=== PATIENT | female | born 2005 | race Hispanic/Latino ===

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

== ENCOUNTER 2023-01-13 17:15 | Emergency (ER) | payer OTHER ==
--- OUTSIDE RECORDS SUMMARY | 2023-01-13 17:18 | XMS REPORT | Continuity of Care Document ---
:2005 Author Organization [facility] t Address [address] [place] [address] Care Team Providers Name Role Phone ALPHONSO KOVACS Attending Clinician Unavailable Doctor Unassigned, [place] Attending Clinician Unavailable Erin Ramirez MD Attending Clinician Payers Payer Name Policy Type Policy Number Effective Date Expiration Date Formerly [facility] [id number] 2019 CHOICE MEDICAID 00:00:00 Problems This patient has no known problems. Allergies, Adverse Reactions, Alerts Allergy Allergy Status Severity Reaction(s) Onset Inactive Treating Comm ents Source Name Type Date Date Clinician NO KNOWN Drug Active [facility] Medications This patient has no known medications. Procedures This patient has no known procedures. Encounters Start End Encounter Admission Attending Care Care Encounter Source Date/Time Date/Time Type Type Clinicians Facility Department ID 2021-08-07 2021-08-07 Outpatient Eugene KOVACS [facility] [id number] [facility] 09:00:00 09:00:00 ALPHONSO [facility] 2019-08-06 2019-08-06 Orders Doctor CASTRO [id number] 00:00:00 00:00:00 Only UnassignedRADHA [id number] [place] [facility] [id number] 2019-08-02 2019-08-02 Telephone SIDNEY Ramirez [id number] 00:00:00 00:00:00 Erin Monroy [id number] [place] [id number] [facility] [phone] [facility] [address] [facility] 2019-08-01 2019-08-01 Telephone Ashley [facility] [id number] 00:00:00 00:00:00 Erinazul Monroy [id number] Miguel Angel [id number] [facility] [phone] [address] Results This patient has no known results.
[2023-01-13 18:11] LABS: Absolute Lymphocytes (CBC) 0.4 K/uL (0.7-4.9); Hematocrit 36.1 % (36.0-45.0); Lymphocytes % 4.9 % (15.3-44.8); MCV 81.3 fL (80-100); MPV 8.4 fL (7.6-11.3); RBC Red Blood Cell Count 4.44 M/uL (3.86-4.86)
[2023-01-13] MEDS ORDERED: KETOROLAC 30 MG/ML INJ ONE (18:11)
[2023-01-13] MEDS ORDERED: NA CHLORIDE 0.9% 1,000 ML ONE ×2 (18:11→19:52)
[2023-01-13] MEDS ORDERED: ACETAMINOPHEN 500 MG TAB ONE (18:11)
[2023-01-13 18:18] LABS: Protime INR 1.25
[2023-01-13 18:30] LABS: Albumin 3.2 g/dL (3.4-5.0); Bilirubin Total 0.6 mg/dL (0.2-1.0)
[2023-01-13 18:31] LABS: Potassium 2.8 mmol/L (3.5-5.1)
--- NOTE | 2023-01-13 18:36 | EKG ---
Test Date: 2023-01-13 Test Time: 18:18:42 Pick Up: HUMZA MEASUREMENT RESULTS: Intervals: Rate: 121 FL: 112 QRSD: 68 QT: 340 QTc: 482 [place]: P: 72 FL: 112 QRS: 77 T: 66 INTERPRETIVE STATEMENTS: Sinus tachycardia Right atrial enlargement Nonspecific T wave abnormality Abnormal ECG Compared to ECG 12/23/2022 16:02:48 T-wave abnormality now present Electronically Signed On 01-13-23 18:36:30 [employer] SOFTWARE ENGINEER[employer] by Ronnie Dodson
--- NOTE | 2023-01-13 18:53 | RAD REPORT ---
EXAM DESCRIPTION[facility] 6[facility]42 [facility] CLINICAL HISTORY: FEVER COMPARISON: Chest Single View dated 08/27/2022; Chest Single View dated 05/07/2022; Chest Single View dated 04/18/2022; Chest Single View dated 02/05/2021 TECHNIQUE: Portable AP view of the chest. FINDINGS: The lungs are clear. No pneumothorax or effusion. The cardiomediastinal contours are unrem arkable. IMPRESSION: No acute cardiopulmonary process.
[2023-01-13 19:04] LABS: SARS-COV-2 RT PCR NEGATIVE (NEGATIVE)
[2023-01-13] MEDS ORDERED: KCL 20 MEQ/100 mL IVPB 100 ML IV ONE (19:24)
[2023-01-13 19:35] LABS: Urine Blood 1+ (Negative); Urine Glucose 2+ (Negative); Urine Protein Trace (Negative); Urine Specific Gravity 1.015 (1.005-1.030); Urine pH 5.5 (5.0-7.0)
[2023-01-13] MEDS ORDERED: CEFTRIAXONE 1000 MG/VIAL ONE (19:52)
[2023-01-13] MEDS ORDERED: DIPHENHYDRAMINE 50 MG/ML VIAL ONE (19:52)
[2023-01-13] MEDS ORDERED: METOCLOPRAMIDE 10 MG/2mL INJ ONE (19:52)
[2023-01-13 20:03] LABS: Urine Bacteria <20 /HPF (<20); Urine Crystals Unidentified Few /HPF (None Seen); Urine Mucus Slight /HPF (None Seen); Urine RBC <5 /HPF (None Seen); Urine WBC Clump Rare /HPF (None Seen)
[2023-01-13 20:05] LABS: Barbiturates NEGATIVE (NEGATIVE); Benzodiazepines NEGATIVE (NEGATIVE); Cocaine NEGATIVE (NEGATIVE); METHAMPHETAM NEGATIVE (NEGATIVE); Methadone NEGATIVE (NEGATIVE); Opiates NEGATIVE (NEGATIVE); Phencyclidine NEGATIVE (NEGATIVE); THC Cannibis POSITIVE (NEGATIVE)
[2023-01-13 20:22] LABS: Urine Specific Gravity/Preg >1.030 (1.005-1.030)
--- NOTE | 2023-01-13 21:17 | RAD REPORT ---
EXAM DESCRIPTION: CT - Abdomen Pelvis W Contrast - 01/13/2023 8:54 pm CLINICAL HISTORY: back pain. Fever COMPARISON: Abdomen Pelvis W Contrast dated 09/29/2022; Abdomen Pelvis W Contrast dated ; Abdomen Pelvis W Contrast dated 05/07/2022; Abdomen Pelvis W Contrast dated 04/17/2022 TECHNIQUE: Thin cut axial CT imaging of the abdomen and pelvis was performed following intravenous a dministration of 90 mL Isovue 300. Multiplanar reformats were generated and reviewed. All CT scans are performed using dose optimization technique as appropriate and may include automated exposure control or mA/KV adjustment according to patient size. FINDINGS: No suspicious findings in the lung bases. The liver, spleen, and pancreas show no suspicious findings. Gallbladder and biliary tree are also wi thout suspicious finding. Patchy areas of hypoenhancement along the posterior right midpole renal cortex, with adjacent mild fa t stranding, concerning for acute pyelonephritis. Subtle similar changes along the left kidney near t he upper pole, may reflect bilateral involvement. Mild right renal pelvis and proximal ureter urothel ial hyperenhancement could reflect an ascending infection. Subtle areas of hypoenhancement with corti treva thinning at the left lower renal pole, stable in appearance, suggestive of cortical scarring. No dilated bowel loops or bowel wall thickening. No free air, free fluid or inflammatory stranding. N o hernia, mass or bulky lymphadenopathy. The urinary bladder is suboptimally distended, with mild wal l prominence there could relate to nondistention versus changes of acute cystitis. Nondependent gas w ithin the urinary bladder lumen. . No suspicious bony findings. IMPRESSION: Patchy areas of hypoenhancement along the posterior right midpole renal cortex, with adj acent mild fat stranding, concerning for acute pyelonephritis. Subtle similar changes along the left kidney near the upper pole, may reflect bilateral involvement. Upper urinary tract urothelial enhancement on the right, and questionable diffuse urinary bladder wal l prominence, raise concern for an ascending infection. Nondependent gas locules within the urinary bladder. Please correlate clinically with history of rece nt catheterization. The findings were communicated to Pam Darnell on 01/13/2023 at 21:08 hours.
[2023-01-13] MEDS ORDERED: POTASSIUM 25 MEQ EFFERV TAB ONE (21:19)
--- NOTE | 2023-01-13 22:15 | ER ---
Nurse's Notes [facility] Name: Tessa Eagle Age: 17 yrs Sex: Female : 2005 Arrival Date: 01/13/2023 Time: 17:16 Bed 16 Private MD: Diagnosis: Pyelonephritis acute Presentation: 01/13 17:35 Chief complaint: Patient states: Headache, fever, body aches since this morning. Denies ld1 N/V/D. Coronavirus screen: At this time, the client does not indicate any symptoms associated with coronavirus-19. Ebola Screen: No symptoms or risks identified at this time. Initial Sepsis Screen: Does the patient meet any 2 criteria? No. Patient's initial sepsis screen is negative. Does the patient have a suspected source of infection? No. Patient's initial sepsis screen is negative. Risk Assessment: Do you want to hurt yourself or someone else? Patient reports no desire to harm self or others. Onset of symptoms was January 13, 2023. 17:35 Method Of Arrival: Wheelchair ld1 17:35 Acuity: JUSTIN 3 ld1 Triage Assessment: 17:36 General: Appears in no apparent distress. uncomfortable, Behavior is calm, cooperative, ld1 appropriate for age. Pain: Complains of pain in face Pain does not radiate. Pain currently is 8 out of 10 on a pain scale. Quality of pain is described as throbbing. EENT: No signs and/or symptoms were reported regarding the EENT system. Neuro: Level of Consciousness is awake, alert, obeys commands, Oriented to person, place, time, situation. Cardiovascular: Capillary refill < 3 seconds Patient's skin is warm and dry. Rhythm is sinus tachycardia. Respiratory: Airway is patent Respiratory effort is even, unlabored. GI: Abdomen is flat, non-distended. : No signs and/or symptoms were reported regarding the genitourinary system. Derm: No signs and/or symptoms reported regarding the dermatologic system. Musculoskeletal: No signs and/or symptoms reported regarding the musculoskeletal system. VERSE WRITER: 17:36 LMP N/A - Irregular menses ld1 Historical: - Allergies: 17:36 No Known Allergies; ld1 - PMHx: 17:36 diabetes mellitus; ld1 - PSHx: 17:36 None; ld1 - Immunization history:: Adult Immunizations up to date, Client reports receiving the 2nd dose of the Covid vaccine. - Social history:: Smoking status: Patient denies any tobacco usage or history of. Patient/guardian denies using alcohol. Screenin:42 [facility] ED Fall Risk Assessment (Adult) Score/Fall Risk Level 0 - 2 = Low Risk ll1 Oriented to surroundings, Maintained a safe environment, Educated pt \T\ family on fall prevention, incl call for assistance when getting out of bed, Hourly rounding (assess needs \T\ fall precautionary measures) done. Abuse screen: Denies threats or abuse. Nutritional screening: No deficits noted. Tuberculosis screening: No symptoms or risk factors identified. Assessment: 18:24 Reassessment: No changes from previously documented assessment. Patient and/or family ll1 updated on plan of care and expected duration. Pain level reassessed. Patient is alert, oriented x 3, equal unlabored respirations, skin warm/dry/pink. 19:12 Reassessment: No changes from previously documented assessment. Patient and/or family ll1 updated on plan of care and expected duration. Pain level reassessed. Report given to JANESSA Gillis. 19:15 Reassessment: Patient and/or family updated on plan of care and expected duration. Pain aa9 level reassessed. Patient is alert, oriented x 3, equal unlabored respirations, skin warm/dry/pink. Pain: Complains of pain in headache Pain currently is 10 out of 10 on a pain scale. Quality of pain is described as throbbing. 19:15 Respiratory: Airway is patent Respiratory effort is even, unlabored. aa9 21:10 Reassessment: Patient appears in no apparent distress at this time. Patient is alert, aa9 oriented x 3, equal unlabored respirations, skin warm/dry/pink. Patient states feeling better. Patient states symptoms have improved. 22:09 Pain: Denies pain. Neuro: Level of Consciousness is awake, alert, obeys commands, aa9 Oriented to person, place, time, situation. Respiratory: Airway is patent Respiratory effort is even, unlabored, Denies shortness of breath. GI: Patient currently denies nausea. 22:21 Reassessment: Patient appears in no apparent distress at this time. aa9 22:29 Reassessment: Patient appears in no apparent distress at this time. Patient and/or aa9 family updated on plan of care and expected duration. Pain level reassessed. Patient is alert, oriented x 3, equal unlabored respirations, skin warm/dry/pink. Patient denies pain at this time. Patient states feeling better. Vital Signs: 17:35 BP 109 / 68; Pulse 122; Resp 18; Temp 103.2(O); Pulse Ox 96% on R/A; Weight 36.29 kg; ld1 Height 5 ft. 1 in. (154.94 cm); Pain 0/10; 18:27 BP 120 / 82; Pulse 117; Resp 22; Pulse Ox 98% on R/A; ll1 19:19 BP 102 / 62; Pulse 124; Resp 17 S; Temp 100.2(O); Pulse Ox 100% on R/A; Pain 10/10; aa9 20:17 Temp 100.2; aa9 20:22 BP 101 / 68; Pulse 111; Resp 19 S; Pulse Ox 100% on R/A; aa9 21:00 BP 100 / 55; Pulse 100; Resp 17 S; Temp 98.8(O); Pulse Ox 100% on R/A; Pain 0/10; aa9 22:11 BP 100 / 63; Pulse 104; Resp 18 S; Pulse Ox 100% on R/A; aa9 17:35 Body Mass Index 15.12 (36.29 kg, 154.94 cm) ld1 ED Course: 17:16 Patient arrived in ED. am2 17:17 Srinivasan Harrington PA is PHCP. cp 17:17 Suraj Cordova DO is Attending Physician. cp 17:36 Triage completed. ld1 17:36 Arm band placed on right wrist. ld1 17:39 Cj Altman, JANESSA is Primary Nurse. ll1 17:39 Patient placed in an exam room, on a stretcher. ll1 18:00 Inserted saline lock: 22 gauge in left antecubital area, using aseptic technique. Blood ll1 collected. 18:24 Patient has correct armband on for positive identification. Bed in low position. Call ll1 light in reach. Side rails up X2. Client placed on continuous cardiac and pulse oximetry monitoring. NIBP monitoring applied. night monitor on. 18:28 Blood Culture Adult (2) Sent. ll1 18:50 Chest Single View XRAY In Process Unspecified. EDMS 19:40 Glucose, Ancillary Testing Sent. aa9 19:40 Urine --Ancillary (enter results) Sent. aa9 20:21 Urine Culture Sent. aa9 20:56 CT Abd/Pelvis - IV Contrast Only In Process Unspecified. EDMS 21:10 Diet: Patient given water. Tolerated well. aa9 22:28 No provider procedures requiring assistance completed. IV discontinued, intact, aa9 bleeding controlled, No redness/swelling at site. Pressure dressing applied. Administered Medications: 18:24 Drug: NS 0.9% (30 ml/kg) 30 ml/kg Route: IV; Rate: bolus; Site: left antecubital; ll1 20:17 Follow up: Response: No adverse reaction; IV Status: Completed infusion aa9 18:24 Drug: Tylenol 500 mg Route: PO; ll1 20:17 Follow up: Temp 100.2; Response: No adverse reaction aa9 18:24 Drug: Ketorolac 10 mg 10 mg Route: IVP; Site: left antecubital; ll1 20:16 Follow up: Response: No adverse reaction aa9 19:44 CANCELLED (Physician Discretion): Ibuprofen Suspension 10 mg/kg PO once cp 19:50 Drug: Reglan (metoCLOPramide) 10 mg Route: IVP; Site: left antecubital; aa9 21:11 Follow up: Response: No adverse reaction; Pain is decreased aa9 19:54 Drug: Benadryl (diphenhydrAMINE) 12.5 mg Route: IVP; Site: left antecubital; aa9 21:11 Follow up: Response: No adverse reaction; Pain is decreased aa9 19:56 Drug: Rocephin (cefTRIAXone) 1 grams Route: IV; Rate: calculated rate; Site: left aa9 antecubital; 20:16 Follow up: Response: No adverse reaction; IV Status: Completed infusion; IV Intake: [id number] 19:58 Drug: Potassium Chloride 20 mEq Route: IV; Rate: calculated rate; Site: left aa9 antecubital; 22:30 Follow up: Response: No adverse reaction; IV Status: Completed infusion; IV Intake: aa9 100ml 19:58 Drug: NS 0.9% 1000 ml Route: IV; Rate: 100 ml/hr; Site: left antecubital; aa9 22:29 Follow up: Response: No adverse reaction; IV Status: Completed infusion; IV Intake: aa9 250ml 21:20 Drug: Potassium Effervescent Tablet 50 mEq Route: PO; aa9 21:32 Follow up: Response: No adverse reaction aa9 Medication: 17:43 VIS not applicable for this client. ll1 Intake: 20:16 IV: 10ml; Total: 10ml. aa9 22:29 IV: 250ml; Total: 260ml. aa9 22:30 IV: 100ml; Total: 360ml. aa9 Outcome: 22:14 Discharge ordered by MD. cp 22:28 Discharged to home ambulatory, with family. aa9 22:28 Condition: stable 22:28 Discharge instructions given to patient, Instructed on discharge instructions, follow up and referral plans. medication usage, Demonstrated understanding of instructions, follow-up care, medications, Prescriptions given X 3. 22:29 Patient left the ED. aa9 Signatures: Dispatcher [employer] EDMS Srinivasan Harrington PA PA cp Moreno, Amanda am2 Cj Altman RN RN ll1 Ramona Medina RN RN ld1 Elis Montilla RN RN aa9 Corrections: (The following items were deleted from the chart) 19:31 19:19 BP 102 / 62; Pulse 110bpm; Resp 17bpm; Spontaneous; Pulse Ox 100% RA; Temp 100.2F aa9 Oral; Pain 10/10; aa9
--- NOTE | 2023-01-13 22:15 | EDPHYS ---
Physician Documentation [facility] Name: Tessa Eagle Age: 17 yrs Sex: Female : 2005 Arrival Date: 01/13/2023 Time: 17:16 Bed 16 Private MD: ED Physician Suraj Cordova HPI: 01/13 17:40 This 17 yrs old Female presents to ER via Wheelchair with complaints of Fever, cp diabetic. 17:40 The patient reports fever, with an emergency department temperature of 103.2 degrees cp Fahrenheit. Onset: The symptoms/episode began/occurred this morning. 17:40 Associated signs and symptoms: Pertinent positives: decreased appetite, mid back pain, cp Pertinent negatives: cough. 17:40 Severity of symptoms: in the emergency department the symptoms are unchanged despite cp home interventions. 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 - Social history:: Smoking status: Patient denies any tobacco usage or history of. Patient/guardian denies using alcohol. ROS: 17:45 Eyes: Negative for injury, pain, redness, and discharge. cp 17:45 Constitutional: Positive for body aches, fever, poor PO intake. 17:45 ENT: Negative for drainage from ear(s), ear pain, sore throat, difficulty swallowing, difficulty handling secretions. 17:45 Cardiovascular: Negative for chest pain. 17:45 Respiratory: Negative for cough, shortness of breath, wheezing. 17:45 Abdomen/GI: Positive for abdominal pain, Negative for vomiting, diarrhea, constipation. 17:45 Back: Positive for flank pain. 17:45 Skin: Negative for cellulitis, rash. 17:45 Neuro: Positive for headache, Negative for altered mental status. 17:45 All other systems are negative. Exam: 17:50 Constitutional: The patient appears in no acute distress, alert, awake, cp non-diaphoretic, non-toxic, well developed, well nourished, obviously ill. 17:50 Head/Face: Normocephalic, atraumatic. cp 17:50 Eyes: Periorbital structures: appear normal, Conjunctiva: normal, no exudate, no injection, Sclera: no appreciated abnormality, Lids and lashes: appear normal, bilaterally. 17:50 ENT: External ear(s): are unremarkable, Nose: is normal, Mouth: Lips: dry, Oral mucosa: dry, Posterior pharynx: Airway: no evidence of obstruction, patent. 17:50 Neck: ROM/movement: is normal, is supple, without pain, no range of motions limitations, no meningismus. 17:50 Chest/axilla: Inspection: normal. 17:50 Cardiovascular: Rate: tachycardic, Rhythm: regular. 17:50 Respiratory: the patient does not display signs of respiratory distress, Respirations: normal, no use of accessory muscles, no retractions, labored breathing, is not present, Breath sounds: are clear throughout, no decreased breath sounds, no stridor, no wheezing. 17:50 Abdomen/GI: Inspection: abdomen appears normal, Bowel sounds: active, all quadrants, Palpation: soft, in all quadrants, mild abdominal tenderness, in the right lower quadrant and left lower quadrant. 17:50 Back: pain, that is mild, of the mid back area, ROM is normal. 17:50 Skin: cellulitis, is not appreciated, no rash present. 17:50 Neuro: Orientation: to person, place \T\ time. Mentation: is normal, Cerebellar function: Motor: moves all fours, strength is normal, Sensation: is normal. 18:25 ECG was reviewed by the Attending Physician. cp Vital Signs: 17:35 BP 109 / 68; Pulse 122; Resp 18; Temp 103.2(O); Pulse Ox 96% on R/A; Weight 36.29 kg; ld1 Height 5 ft. 1 in. (154.94 cm); Pain 0/10; 18:27 BP 120 / 82; Pulse 117; Resp 22; Pulse Ox 98% on R/A; ll1 19:19 BP 102 / 62; Pulse 124; Resp 17 S; Temp 100.2(O); Pulse Ox 100% on R/A; Pain 10/10; aa9 20:17 Temp 100.2; aa9 20:22 BP 101 / 68; Pulse 111; Resp 19 S; Pulse Ox 100% on R/A; aa9 21:00 BP 100 / 55; Pulse 100; Resp 17 S; Temp 98.8(O); Pulse Ox 100% on R/A; Pain 0/10; aa9 22:11 BP 100 / 63; Pulse 104; Resp 18 S; Pulse Ox 100% on R/A; aa9 17:35 Body Mass Index 15.12 (36.29 kg, 154.94 cm) ld1 MDM: 17:35 Patient medically screened. cp 22:10 Data reviewed: vital signs, nurses notes, lab test result(s), EKG, radiologic studies, cp CT scan, plain films. 22:10 Differential diagnosis: viral Infection, bacterial infection, bronchitis, pneumonia cp UTI, gastroenteritis, meningitis, sepsis. Consideration of Admission/Observation Escalation of care including admission/observation considered. I considered the following discharge prescriptions or medication management in the emergency department Medications were administered in the Emergency Department. See MAR. Care significantly affected by the following chronic conditions: Diabetes. Counseling: I had a detailed discussion with the patient and/or guardian regarding: the historical points, exam findings, and any diagnostic results supporting the discharge/admit diagnosis, lab results, radiology results, the need for outpatient follow up, a family practitioner, to return to the emergency department if symptoms worsen or persist or if there are any questions or concerns that arise at home. Response to treatment: the patient's symptoms have markedly improved after treatment, patient is well hydrated. and as a result, I will discharge patient. ED course: VSS. Pain markedly improved, patient tolerating po fluids. Will discharge to home for continued monitoring. 01/13 17:39 Order name: Urine Microscopic Only; Complete Time: 20:41 cp 01/13 20:41 Interpretation: Normal except: UWBC >50. cp 01/13 17:39 Order name: COVID-19/FLU A+B; Complete Time: 19:41 cp 01/13 17:47 Order name: UDS; Complete Time: 20:41 cp 01/13 17:47 Order name: Blood Culture Adult (2) cp 01/13 17:47 Order name: CBC with Diff cp 01/13 17:47 Order name: CMP cp 01/13 17:47 Order name: Lactate w/ 2H reflex if indic. cp 01/13 17:47 Order name: Protime (+inr) cp 01/13 17:47 Order name: Ptt, Activated 01/13 17:48 Order name: Glucose, Ancillary Testing; Complete Time: 18:26 [facility] 01/13 18:26 Interpretation: Abnormal: GLUC,ANCIL 287. 01/13 18:18 Order name: PTT, Activated Partial Thromb [facility] 01/13 18:18 Order name: Protime (+INR) [facility] 01/13 18:24 Order name: CBC with Automated Diff; Complete Time: 20:42 [facility] 01/13 20:42 Interpretation: Normal except: LIAM% 88.6; LYM% 4.9; LYMA 0.4. 01/13 17:47 Order name: Chest Single View XRAY; Complete Time: 19:04 01/13 19:04 Interpretation: Report review. 01/13 18:27 Order name: Lactate w/ 2H reflex if indic. [facility] 01/13 18:31 Order name: Comprehensive Metabolic Panel [facility] 01/13 18:38 Interpretation: Normal except: NA 133; K 2.8; GLUC 292; ALB 3.2; GLOB 3.8; A/G 0.8. 01/13 18:46 Order name: Glucose, Ancillary Testing [facility] 01/13 18:47 Order name: CT Abd/Pelvis - IV Contrast Only; Complete Time: 21:22 01/13 21:22 Interpretation: Report reviewed. 01/13 19:31 Order name: Urine --Ancillary (enter results); Complete Time: 20:41 ds4 01/13 19:35 Order name: Urine Dipstick-Ancillary; Complete Time: 19:41 [facility] 01/13 19:41 Interpretation: Normal except: UGLUC 2+; UKET 2+; UBLD 1+; UPROT Trace; UNIT Positive; cp UESTR Trace. 01/13 19:52 Order name: Glucose, Ancillary Testing; Complete Time: 20:41 [facility] 01/13 20:05 Order name: Urine Culture [facility] 01/13 17:39 Order name: Urine Test (obtain specimen); Complete Time: 19:58 01/13 17:39 Order name: Urine Dipstick-Ancillary (obtain specimen); Complete Time: 19:58 01/13 17:39 Order name: Accucheck Blood Glucose; Complete Time: 17:41 01/13 17:47 Order name: EKG; Complete Time: 17:48 cp 01/13 17:47 Order name: Accucheck; Complete Time: 17:48 cp 01/13 17:47 Order name: Cardiac monitoring; Complete Time: 18:24 cp 01/13 17:47 Order name: EKG - Nurse/Tech; Complete Time: 18:24 cp 01/13 17:47 Order name: IV Saline Lock - Large Bore; Complete Time: 18:24 cp 01/13 17:47 Order name: Labs collected and sent; Complete Time: 18:24 cp 01/13 17:47 Order name: O2 Per Protocol; Complete Time: 17:48 cp 01/13 17:47 Order name: O2 Sat Monitoring; Complete Time: 17:48 cp 01/13 17:47 Order name: Vital Signs; Complete Time: 17:48 cp 01/13 21:09 Order name: PO challenge; Complete Time: 21:36 cp EC:25 Rate is 121 beats/min. Rhythm is regular. [place] interval is normal. QRS interval is cp normal. QT interval is normal. Interpreted by me. Reviewed by me. Administered Medications: 18:24 Drug: NS 0.9% (30 ml/kg) 30 ml/kg Route: IV; Rate: bolus; Site: left antecubital; ll1 20:17 Follow up: Response: No adverse reaction; IV Status: Completed infusion aa9 18:24 Drug: Tylenol 500 mg Route: PO; ll1 20:17 Follow up: Temp 100.2; Response: No adverse reaction aa9 18:24 Drug: Ketorolac 10 mg 10 mg Route: IVP; Site: left antecubital; ll1 20:16 Follow up: Response: No adverse reaction aa9 19:44 CANCELLED (Physician Discretion): Ibuprofen Suspension 10 mg/kg PO once cp 19:50 Drug: Reglan (metoCLOPramide) 10 mg Route: IVP; Site: left antecubital; aa9 21:11 Follow up: Response: No adverse reaction; Pain is decreased aa9 19:54 Drug: Benadryl (diphenhydrAMINE) 12.5 mg Route: IVP; Site: left antecubital; aa9 21:11 Follow up: Response: No adverse reaction; Pain is decreased aa9 19:56 Drug: Rocephin (cefTRIAXone) 1 grams Route: IV; Rate: calculated rate; Site: left aa9 antecubital; 20:16 Follow up: Response: No adverse reaction; IV Status: Completed infusion; IV Intake: [id number] 19:58 Drug: Potassium Chloride 20 mEq Route: IV; Rate: calculated rate; Site: left aa9 antecubital; 22:30 Follow up: Response: No adverse reaction; IV Status: Completed infusion; IV Intake: aa9 100ml 19:58 Drug: NS 0.9% 1000 ml Route: IV; Rate: 100 ml/hr; Site: left antecubital; aa9 22:29 Follow up: Response: No adverse reaction; IV Status: Completed infusion; IV Intake: aa9 250ml 21:20 Drug: Potassium Effervescent Tablet 50 mEq Route: PO; aa9 21:32 Follow up: Response: No adverse reaction aa9 Disposition: 19:10 Co-signature as Attending Physician, Suraj RAGLAND was immediately available on-site ms3 in the Emergency Department for consultation in the care of the patient. Disposition Summary: 01/13/23 22:14 Discharge Ordered Location: Home cp Problem: new cp Symptoms: have improved cp Condition: Stable cp Diagnosis - Pyelonephritis acute cp Followup: cp - With: Private Physician - When: 2 - 3 days - Reason: Recheck today's complaints Discharge Instructions: - Pyelonephritis, Adult cp - Discharge Summary Sheet ll1 Forms: - Medication Reconciliation Form cp - SBAR form ll1 - Thank You Letter cp - Antibiotic Education cp - Prescription Opioid Use cp - School release form aa9 Prescriptions: - Ibuprofen 800 mg Oral Tablet - take 0.5 tablet by ORAL route every 8 hours As needed take with food; 30 cp tablet; Refills: 0, Product Selection Permitted - Zofran 4 mg Oral Tablet - take 1 tablet by ORAL route every 12 hours As needed; 20 tablet; Refills: 0, cp Product Selection Permitted - cefpodoxime 200 mg Oral Tablet - take 1 tablet by ORAL route every 12 hours for 10 days with food; 20 tablet; cp Refills: 0, Product Selection Permitted Signatures: Dispatcher [employer] EDMS Srinivasan Hrarington PA PA cp Lewis, Lynsay, RN RN ll1 Suraj Cordova DO DO ms3 Ramona Medina RN RN ld1 Elis Montilla RN RN aa9 Corrections: (The following items were deleted from the chart) 19:44 19:44 Ibuprofen Suspension 10 mg/kg PO once ordered. cp cp 20:48 17:40 URINE DRUG SCREEN+UC.LAB.BRZ ordered. EDMS EDMS 01/14 05:01/13 17:25 Constitutional: Positive for body aches, fever, poor PO intake, cp cp 01/14 05:01/13 17:25 Cardiovascular: Negative for chest pain, cp cp 01/14 05:01/13 17:25 Respiratory: Negative for cough, shortness of breath, wheezing, cp cp 01/14 05:01/13 17:25 Abdomen/GI: Positive for abdominal pain, Negative for vomiting, diarrhea, cp constipation, cp 01/14 05:01/13 17:25 Back: Positive for flank pain, cp cp 01/14 05:01/13 17:25 Eyes: Negative for injury, pain, redness, and discharge, cp cp 01/14 05:01/13 17:25 ENT: Negative for drainage from ear(s), ear pain, sore throat, difficulty cp swallowing, difficulty handling secretions, cp 01/14 05:01/13 17:25 Neuro: Positive for headache, Negative for altered mental status, cp cp 01/14 05:01/13 17:25 Skin: Negative for cellulitis, rash, cp cp 01/14 05:01/13 17:25 All other systems are negative, cp cp
[2023-01-13 23:39] VITALS: O2SAT 100
[2023-01-13 23:43] VITALS: TEMP 98.8
[2023-01-13 23:44] VITALS: BP 100/63
== END 2023-01-13 22:29 | disposition home or self-care (01) ==
LOC: ER 17:15
DX: N10 Acute pyelonephritis (principal); Z20.822 Contact with and (suspected) exposure to COVID-19; E11.9 Type 2 diabetes mellitus without complications
CPT/HCPCS: 93005; 87040 ×2; 87088; 85025; 87086; 36415; 81025; 85610; 82947 ×2; 83605; 85730; 80053; 0240U; 80307; 74177; 71045; Q9967; J2765; J1200; J3480; J7030 ×2; 81003; 81015; 96365; 96366; 96367; 96375; 99284

== ENCOUNTER 2023-02-03 06:41 | Inpatient (IN) | payer OTHER ==
--- OUTSIDE RECORDS SUMMARY | 2023-02-03 06:43 | XMS REPORT | Continuity of Care Document ---
:2005 Author Organization [facility] t Address [address] [place] [address] Care Team Providers Name Role Phone ALPHONSO KOVACS Attending Clinician Unavailable Doctor Unassigned, [place] Attending Clinician Unavailable Erin Ramirez MD Attending Clinician Payers Payer Name Policy Type Policy Number Effective Date Expiration Date [facility] [id number] 2019 CHOICE MEDICAID 00:00:00 Problems This patient has no known problems. Allergies, Adverse Reactions, Alerts Allergy Allergy Status Severity Reaction(s) Onset Inactive Treating Comm ents Source Name Type Date Date Clinician NO KNOWN Drug Active [facility] This patient has no known medications. Procedures This patient has no known procedures. Encounters Start End Encounter Admission Attending Care Care Encounter Source Date/Time Date/Time Type Type Clinicians Facility Department ID 2021-08-07 2021-08-07 Outpatient Eugene KOVACS [facility] [id number] [facility] 09:00:00 09:00:00 ALPHONSO [facility] 2019-08-06 2019-08-06 Orders Doctor CASTRO [id number] 00:00:00 00:00:00 Only UnassignedRADHA [id number] [place] [facility] [id number] 2019-08-02 2019-08-02 Telephone SIDNEY Ramirez [id number] 00:00:00 00:00:00 Erin Monroy [id number] [place] [id number] [facility] [id number] [facility] [address] [facility] 2019-08-01 2019-08-01 Telephone Ashley [facility] [id number] 00:00:00 00:00:00 Erinazul Monroy [id number] [place] Angel [id number] [facility] [phone] [address] Results This patient has no known results.
[2023-02-03] MEDS ORDERED: Ringers Lactate 1,000 ML IV ONE (06:57)
[2023-02-03 07:10] LABS: Absolute Lymphocytes (CBC) 2.5 K/uL (0.7-4.9); Hematocrit 42.3 % (36.0-45.0); Lymphocytes % 10.2 % (15.3-44.8); MCV 88.3 fL (80-100); MPV 9.5 fL (7.6-11.3); RBC Red Blood Cell Count 4.79 M/uL (3.86-4.86)
[2023-02-03 07:11] LABS: Arterial Blood Carboxyhemoglob 1.2 % (0-1.5); Blood Gas Oxyhemoglobin 80.2 % (94-97); Blood O2 Saturation 82.6 % (92-98.5)
[2023-02-03 07:28] LABS: Urine Blood Trace-intact (Negative); Urine Glucose 2+ (Negative); Urine Protein 1+ (Negative); Urine pH 5.5 (5.0-7.0)
[2023-02-03] MEDS ORDERED: NA CHLORIDE 0.9% 1,000 ML ONE (07:30)
[2023-02-03] MEDS ORDERED: ONDANSETRON 4 MG/2 ML VIAL ONE (07:30)
--- NOTE | 2023-02-03 07:33 | EDPHYS ---
Physician Documentation [facility] Name: Tessa Eagle Age: 17 yrs Sex: Female : 2005 Arrival Date: 02/03/2023 Time: 06:45 Bed 5 Private MD: ED Physician Srinivasan Chris HPI: 02/03 06:56 This 17 yrs old Female presents to ER via Unassigned with complaints of Low ms3 Back Pain, Abdominal Pain. 06:56 17-year-old female with past medical history of diabetes and kidney disease presents ms3 for generalized abdominal pain that began this morning. Patient states the pain is 10/10. Patient states she began vomiting last night.. Historical: - Allergies: 07:30 No Known Allergies; aa5 - PMHx: 07:00 diabetes mellitus; renal insufficiency; kl - Immunization history:: Adult Immunizations unknown. ROS: 06:56 Constitutional: Negative for fever, and chills. Neck: Negative for injury, pain, and ms3 swelling, Cardiovascular: Negative for chest pain, and palpitations. Respiratory: Negative for shortness of breath, cough, wheezing, and pleuritic chest pain. 06:56 Abdomen/GI: Positive for abdominal pain, nausea and vomiting. 06:56 Back: Positive for pain at rest, pain with movement. 06:56 All other systems are negative. Exam: 06:56 Constitutional: This is a well developed, well nourished patient who is awake, alert, ms3 and in no acute distress. Head/Face: Normocephalic, atraumatic. Neck: Trachea midline, no cervical lymphadenopathy. Supple, full range of motion without nuchal rigidity, or vertebral point tenderness. No Meningismus. Chest/axilla: Normal chest wall appearance and motion. Nontender with no deformity. 06:56 Skin: Warm, dry with normal turgor. Normal color with no rashes, no lesions, and no evidence of cellulitis. MS/ Extremity: Pulses equal, no cyanosis. Neurovascular intact. Full, normal range of motion. 06:56 Cardiovascular: Rate: tachycardic, Rhythm: regular, Pulses: no pulse deficits are appreciated, Heart sounds: normal, normal S1and S2. 07:38 ECG was reviewed by the Attending Physician. tadeo Vital Signs: 06:56 BP 147 / 87; Pulse 141; Resp 28; Temp 97.5(TE); Pulse Ox 100% on R/A; Pain 10/10; kl 07:25 BP 142 / 93; Pulse 120; Resp 31 S; Pulse Ox 100% on R/A; aa5 07:59 Weight 39.01 kg (M); aa5 08:30 BP 146 / 95; Pulse 113; Resp 27 S; Pulse Ox 100% on R/A; aa5 06:56 Pain Scale: Adult kl Procedures: 06:56 Peripheral line: by aseptic technique a peripheral line was placed in the left external ms3 jugular vein. MDM: 06:55 Patient medically screened. ms3 06:56 Differential diagnosis: UTI, DKA vs Pyelonephritis. ms3 07:02 Transition of care: After a detail discussion of the patient's case, care is ms3 transferred to Srinivasan Chris MD. 07:33 Data reviewed: vital signs, nurses notes, old medical records, lab test result(s), EKG, tadeo radiologic studies, plain films. Consideration of Admission/Observation Patient was admitted/placed on observation. Management of patient was discussed with the following: Hospitalist: dr nakia johnston. I considered the following discharge prescriptions or medication management in the emergency department Medications were administered in the Emergency Department. See MAR. Discussion of test interpretation with radiology: I had a discussion with radiology regarding a test interpretation. Test considered but Not performed: CT: ct head not done. Historians other than the Patient:. Care significantly affected by the following chronic conditions: Diabetes, Chronic Kidney Disease. 02/03 06:56 Order name: Acetone, Serum; Complete Time: 08:56 ms3 02/03 06:56 Order name: CBC with Diff; Complete Time: 08:56 ms3 02/03 06:56 Order name: Lipase; Complete Time: 08:56 ms3 02/03 06:56 Order name: Phosphorus; Complete Time: 08:56 ms3 02/03 06:56 Order name: ABG: VBG; Complete Time: 07:19 ms3 02/03 06:56 Order name: CMP; Complete Time: 08:56 ms3 02/03 06:59 Order name: Test, Serum; Complete Time: 08:56 jb4 02/03 07:07 Order name: Glucose, Ancillary Testing; Complete Time: 07:19 EDMS 02/03 07:14 Order name: Manual Differential; Complete Time: 08:56 EDMS 02/03 07:20 Order name: Blood Culture Adult (2) tadeo 02/03 07:28 Order name: Urine Dipstick-Ancillary; Complete Time: 07:29 EDMS 02/03 07:29 Order name: COVID-19/FLU A+B; Complete Time: 08:56 tadeo 02/03 07:55 Order name: Urine --Ancillary (enter results) eb 02/03 08:43 Order name: Glucose aa5 02/03 08:53 Order name: Acetone Level EDMS 02/03 08:53 Order name: Acetone Level EDMS 02/03 08:53 Order name: Acetone Level EDMS 02/03 08:53 Order name: Acetone Level EDMS 02/03 08:53 Order name: Acetone Level EDMS 02/03 08:53 Order name: Acetone Level EDMS 02/03 08:53 Order name: Acetone Level EDMS 02/03 08:53 Order name: Basic Metabolic Panel EDMS 02/03 08:53 Order name: Basic Metabolic Panel EDMS 02/03 08:53 Order name: Basic Metabolic Panel EDMS 02/03 08:53 Order name: Basic Metabolic Panel EDMS 02/03 08:53 Order name: Basic Metabolic Panel EDMS 02/03 08:53 Order name: Basic Metabolic Panel EDMS 02/03 08:53 Order name: Basic Metabolic Panel EDMS 02/03 08:53 Order name: CBC with Automated Diff EDMS 02/03 08:53 Order name: CBC with Automated Diff EDMS 02/03 08:53 Order name: CBC with Automated Diff EDMS 02/03 08:53 Order name: CBC with Automated Diff EDMS 02/03 08:53 Order name: Lipid Profile EDMS 02/03 08:53 Order name: Lipid Profile EDMS 02/03 08:53 Order name: Magnesium EDMS 02/03 08:53 Order name: Magnesium EDMS 02/03 08:53 Order name: Magnesium EDMS 02/03 08:53 Order name: Magnesium EDMS 02/03 08:53 Order name: Phosphorus EDMS 02/03 08:53 Order name: Phosphorus EDMS 02/03 08:53 Order name: Phosphorus EDMS 02/03 08:53 Order name: Phosphorus EDMS 02/03 09:25 Order name: Acetone Level EDMS 02/03 09:26 Order name: Basic Metabolic Panel EDMS 02/03 06:56 Order name: EKG; Complete Time: 06:57 ms3 02/03 08:53 Order name: NPO EDMS 02/03 06:56 Order name: Cardiac monitoring; Complete Time: 07:38 ms3 02/03 06:56 Order name: EKG - Nurse/Tech; Complete Time: 07:38 ms3 02/03 06:56 Order name: IV Saline Lock; Complete Time: 06:58 ms3 02/03 06:56 Order name: NPO; Complete Time: 06:58 ms3 02/03 06:56 Order name: O2 Per Protocol; Complete Time: 07:00 ms3 02/03 06:56 Order name: O2 Sat Monitoring; Complete Time: 07:00 ms3 02/03 07:22 Order name: Urine Dipstick-Ancillary (obtain specimen); Complete Time: 07:38 tadeo EC:38 Rate is 120 beats/min. Rhythm is regular. QRS [place] is Normal. [place] interval is normal. tadeo QRS interval is normal. QT interval is normal. No Q waves. T waves are Normal. No ST changes noted. Clinical impression: Sinus tachycardia. Interpreted by me. Reviewed by me. Administered Medications: 06:59 Drug: Lactated Ringers Solution IV 1000 ml Route: IV; Rate: bolus; Site: left jugular; kl 07:50 Follow up: IV Status: Completed infusion; IV Intake: 1000ml aa5 07:21 CANCELLED (Duplicate Order): Sodium Bicarbonate IVP 1 amp IVP once; (50 mL); equals 50 tadeo mEq 07:32 Drug: NS 0.9% IV 1000 ml Route: IV; Rate: 1 bolus; Site: left antecubital; kl 09:14 Follow up: IV Status: Completed infusion; IV Intake: 1000ml aa5 07:32 Drug: Ondansetron IVP 4 mg Route: IVP; Site: left antecubital; kl 07:50 Follow up: Response: No adverse reaction; Nausea is decreased aa5 07:50 Drug: NS 0.9% IV 1000 ml Route: IV; Rate: 1 bolus; Site: left jugular; aa5 08:43 Follow up: IV Status: Completed infusion; IV Intake: 1000ml aa5 07:50 Drug: Famotidine IVP 20 mg Route: IVP; Site: left jugular; aa5 07:55 Follow up: Response: No adverse reaction aa5 07:50 Drug: Insulin Regular Human IVP 5 units {Co-Signature: aa5 (Coni Morales RN).} iw Route: IVP; Site: left jugular; :55 Follow up: Response: No adverse reaction aa5 08:50 Drug: Insulin Drip - (Insulin Regular Human IVP 100 units, NS 0.9% IV 100 ml) iw {Co-Signature: aa5 (Coni Morales RN).} {Note: started at 4 units/hr per MD VO (weight based).} Route: IV; Rate: 5 units/hr; Site: left jugular; :55 Follow up: IV Status: Infusion continued upon admission aa 09:14 Drug: NS 0.9% IV 1000 ml Route: IV; Rate: 125 ml/hr; Site: left antecubital; aa 09:55 Follow up: IV Status: Infusion continued upon admission aa 09:25 Drug: Rocephin IV 1 grams Route: IV; Rate: per protocol; Site: left antecubital; aa5 09:35 Follow up: Response: No adverse reaction; IV Status: Completed infusion aa 09:34 Drug: fentaNYL (PF) IVP 25 mcg Route: IVP; Site: left antecubital; aa 09:50 Follow up: Response: No adverse reaction aa5 Disposition Summary: 02/03/23 07:31 Hospitalization Ordered Hospitalization Status: Inpatient Admission tadeo Provider: Davy Johnston cha Location: Intensive Care Unit tadeo Condition: Serious tadeo Problem: new tadeo Symptoms: have improved tadeo Bed/Room Type: Standard tadeo Room Assignment: 3-(02/03/23 09:11) eb Diagnosis - Type 1 diabetes mellitus with ketoacidosis without coma tadeo - Diabetes mellitus due to underlying condition with ketoacidosis tadeo - Elevated white blood cell count tadeo - Bandemia tadeo Forms: - Medication Reconciliation Form tadeo - SBAR form tadeo Critical care time excluding procedures: 07:33 Critical care time: Bedside Care: 25 minutes, Consultation: 10 minutes. Total time: 35 tadeo minutes Signatures: Dispatcher [employer] Kelly Ryder RN RN kl Anderson, Corey, MD MD cha Williams, Irene, RN RN Coni Morales, RN RN aa5 WernerJailene duong Marcus, DO DO ms3 Dieudonne Donaldson MD MD bs3 Coni Morales RN aa5 Corrections: (The following items were deleted from the chart) 07:21 07:20 Sodium Bicarbonate IVP 1 amp IVP once; (50 mL); equals 50 mEq ordered. [facility] 09:11 07:31 tadeo rg
--- NOTE | 2023-02-03 07:33 | ER ---
Nurse's Notes [facility] Name: Tessa Eagle Age: 17 yrs Sex: Female : 2005 Arrival Date: 02/03/2023 Time: 06:45 Bed 5 Private MD: Diagnosis: Type 1 diabetes mellitus with ketoacidosis without coma;Diabetes mellitus due to underlying condition with ketoacidosis;Elevated white blood cell count;Bandemia Presentation: 02/03 06:56 Chief complaint: Patient states: abdominal [pain vomiting since yesterday. Coronavirus kl screen:. Ebola Screen: Patient negative for fever greater than or equal to 101.5 degrees Fahrenheit, and additional compatible Ebola Virus Disease symptoms. Initial Sepsis Screen: Does the patient meet any 2 criteria? RR > 20 per min. HR > 90 bpm. Does the patient have a suspected source of infection? No. Patient's initial sepsis screen is negative. Risk Assessment: Do you want to hurt yourself or someone else? Patient reports no desire to harm self or others. 06:56 Method Of Arrival: Wheelchair kl 06:56 Acuity: JUSTIN 2 kl Triage Assessment: 06:58 General: Appears distressed, ill, Behavior is anxious, crying, Smells of ketones. Pain: kl Complains of pain in abdomen. GI: Parent/caregiver reports the patient having intolerance of food, intolerance of fluids, vomiting. Historical: - Allergies: 07:30 No Known Allergies; aa5 - PMHx: 07:00 diabetes mellitus; renal insufficiency; kl - Immunization history:: Adult Immunizations unknown. Screenin:00 [facility] ED Fall Risk Assessment (Adult) History of falling in the last 3 months, kl including since admission No falls in past 3 months (0 pts) Confusion or Disorientation Yes (5 pts) Intoxicated or Sedated No (0 pts) Impaired Gait Yes (1 pt) Mobility Assist Device Used No (0 pt) Altered Elimination No (0 pt) Score/Fall Risk Level 3 or more points = High Risk Oriented to surroundings, Maintained a safe environment, Assessed \T\ reinforced patient's understanding of fall precautions, Utilized family, sitter, or virtual journeyman molder as indicated. Abuse screen: Denies threats or abuse. Tuberculosis screening: No symptoms or risk factors identified. Assessment: 07:15 General: Appears distressed, uncomfortable, Behavior is restless. Pain: Complains of aa5 pain in left low back and right low back Pain currently is 10 out of 10 on a pain scale. Quality of pain is described as sharp, Pain began 1 day ago. Is continuous. Neuro: Level of Consciousness is awake, alert, obeys commands, Oriented to person, place, time, situation. Cardiovascular: Heart tones S1 S2 present Rhythm is regular. Respiratory: Airway is patent Respiratory effort is even, Respiratory pattern is regular, symmetrical, tachypnea Breath sounds are clear bilaterally. GI: Abdomen is flat, non-distended, Bowel sounds present X 4 quads. Abd is soft and non tender X 4 quads. Reports intolerance of fluids, intolerance of food, nausea, vomiting, since yesterday. : No signs and/or symptoms were reported regarding the genitourinary system. EENT: Oral mucosa is dry. Derm: Skin is pink, warm \T\ dry. Musculoskeletal: Range of motion: intact in all extremities. 07:25 Reassessment: Pt assisted with bedside commode. Placed back in bed. . aa5 07:32 Reassessment: inside lab called to assist with blood culutres. jb4 07:50 Reassessment: Pt now calm, resting in bed with eyes closed, extra warm blankets given aa5 for comfort. Respirations are tachypnea. . 08:44 Reassessment: Lab at bedside attempting to collect blood cultures, Rocephin aa5 administration on hold. . 08:44 Reassessment: Pt remains resting in bed with eyes closed. Pt calm. Respirations remain aa5 tachypneic. Sinus tachycardia on monitor. . 09:25 General: Appears uncomfortable, Behavior is moaning . aa5 09:25 Reassessment: Pt c/o lower back pain, requesting pain medication, MD was notified. . aa5 Neuro: Level of Consciousness is awake, alert, obeys commands, Oriented to person, place, time, situation. Respiratory: Airway is patent Respiratory effort is even, Respiratory pattern is regular, symmetrical, tachypnea. Derm: Skin is pink, warm \T\ dry. Vital Signs: 06:56 BP 147 / 87; Pulse 141; Resp 28; Temp 97.5(TE); Pulse Ox 100% on R/A; Pain 10/10; kl 07:25 BP 142 / 93; Pulse 120; Resp 31 S; Pulse Ox 100% on R/A; aa5 07:59 Weight 39.01 kg (M); aa5 08:30 BP 146 / 95; Pulse 113; Resp 27 S; Pulse Ox 100% on R/A; aa5 06:56 Pain Scale: Adult kl ED Course: 06:45 Patient arrived in ED. jj6 06:46 Suraj Cordova DO is Attending Physician. ms3 06:57 Inserted saline lock: 18 gauge in left EJ, using aseptic technique. Blood collected. as6 done by Dr. Cordova. 06:58 Triage completed. kl 07:00 Initial lab(s) drawn, by me, sent to lab. Inserted saline lock: 22 gauge in left jb4 antecubital area, using aseptic technique. Blood collected. 07:01 Patient has correct armband on for positive identification. kl 07:07 Attending Physician role handed off by Suraj Cordova DO ms3 07:07 Srinivasan Chris MD is Attending Physician. ms3 07:30 Davy Cleaning MD is Hospitalizing Provider. tadeo 07:33 EKG done, by ED staff, reviewed by Srinivasan Chris MD. aa5 07:34 COVID-19/FLU A+B Sent. iw 07:59 Coni Morales, RN is Primary Nurse. aa5 09:55 Patient admitted, IV remains in place. aa5 09:55 No provider procedures requiring assistance completed. aa5 Administered Medications: 06:59 Drug: Lactated Ringers Solution IV 1000 ml Route: IV; Rate: bolus; Site: left jugular; kl 07:50 Follow up: IV Status: Completed infusion; IV Intake: 1000ml aa5 07:21 CANCELLED (Duplicate Order): Sodium Bicarbonate IVP 1 amp IVP once; (50 mL); equals 50 tadeo mEq 07:32 Drug: NS 0.9% IV 1000 ml Route: IV; Rate: 1 bolus; Site: left antecubital; kl 09:14 Follow up: IV Status: Completed infusion; IV Intake: 1000ml aa5 07:32 Drug: Ondansetron IVP 4 mg Route: IVP; Site: left antecubital; kl 07:50 Follow up: Response: No adverse reaction; Nausea is decreased aa5 07:50 Drug: NS 0.9% IV 1000 ml Route: IV; Rate: 1 bolus; Site: left jugular; aa5 08:43 Follow up: IV Status: Completed infusion; IV Intake: 1000ml aa5 07:50 Drug: Famotidine IVP 20 mg Route: IVP; Site: left jugular; :55 Follow up: Response: No adverse reaction aa5 07:50 Drug: Insulin Regular Human IVP 5 units {Co-Signature: jorge l (Coni Morales RN).} iw Route: IVP; Site: left jugular; Follow up: Response: No adverse reaction aa5 08:50 Drug: Insulin Drip - (Insulin Regular Human IVP 100 units, NS 0.9% IV 100 ml) iw {Co-Signature: jorge l (Coni Morales RN).} {Note: started at 4 units/hr per MD VO (weight based).} Route: IV; Rate: 5 units/hr; Site: left jugular; Follow up: IV Status: Infusion continued upon admission aa5 09:14 Drug: NS 0.9% IV 1000 ml Route: IV; Rate: 125 ml/hr; Site: left antecubital; :55 Follow up: IV Status: Infusion continued upon admission aa5 09:25 Drug: Rocephin IV 1 grams Route: IV; Rate: per protocol; Site: left antecubital; aa5 09:35 Follow up: Response: No adverse reaction; IV Status: Completed infusion aa5 09:34 Drug: fentaNYL (PF) IVP 25 mcg Route: IVP; Site: left antecubital; aa5 09:50 Follow up: Response: No adverse reaction aa5 Medication: 09:12 VIS not applicable for this client. aa5 Intake: 07:50 IV: 1000ml; Total: 1000ml. aa5 08:43 IV: 1000ml; Total: 2000ml. aa5 09:14 IV: 1000ml; Total: 3000ml. aa5 Output: 07:25 Urine: 800ml (Voided); Total: 800ml. aa5 Outcome: 07:31 Decision to Hospitalize by Provider. [facility] :55 Admitted to ICU accompanied by nurse, accompanied by tech, family with patient, via aa5 stretcher, room ICU 3 , on monitor, with chart, Report called to JANESSA Jones : Condition: stable aa5 09:55 Instructed on the need for admit, Demonstrated understanding of instructions. 10:02 Patient left the ED. aa5 Signatures: Kelly Altman, RN Srinivasan Bee MD MD cha Williams, Irene, Coni Blevins RN, RN JANESSA aa5 Shawn Mcgill, RN RN jb4 Suraj Cordova, DO DO ms3 Naya Wild jj6 Dominic Gallo RN RN as6 Coni Morales RN aa5 Corrections: (The following items were deleted from the chart) 08:58 08:50 Insulin Drip - (Insulin Regular Human IVP 100 units, NS 0.9% IV 100 ml) IV at 5 iw units/hr in left jugular; started at 4 units/hr iw 10:13 10:02 Patient left the ED. aa5 aa5 09:30 Neuro: Level of Consciousness is awake, alert, obeys commands, Oriented to aa5 person, place, time, situation, aa5 :30 General: Appears uncomfortable, aa5 aa5 09:30 Respiratory: Airway is patent Respiratory effort is even, Respiratory pattern is aa5 regular, symmetrical, tachypnea aa5 :30 Derm: Skin is pink, warm \T\ dry. aa5 aa5 :30 Reassessment: Pt c/o lower back pain, requesting pain medication, MD was aa5 notified. . aa5 : 07:15 EENT: No signs and/or symptoms were reported regarding the EENT system. aa5 aa5 07:15 EENT: No signs and/or symptoms were reported regarding the EENT system. Oral aa5 mucosa is dry. aa5
[2023-02-03] MEDS ORDERED: CEFTRIAXONE 1000 MG/VIAL ONE (07:48)
[2023-02-03] MEDS ORDERED: INSULIN -REGULAR HUMAN 50 UNIT/0.5 ML ML ONE (07:49)
[2023-02-03] MEDS ORDERED: NA CHLORIDE 0.9% 2,000 ML ONE (07:49)
[2023-02-03] MEDS ORDERED: FAMOTIDINE 20 MG/2 ML VIAL IV ONE (07:49)
[2023-02-03 07:56] LABS: ALT/SGPT 17 U/L (13-56); AST/SGOT 7 U/L (15-37); Alkaline Phosphatase 184 U/L (45-117); BUN Blood Urea Nitrogen 31 mg/dL (7-18); Bilirubin Total 0.5 mg/dL (0.2-1.0); Glomerular Filtration Rate 53 ml/min (=/>90); Glucose Level 802 mg/dL (74-106); Lipase 7 U/L (13-75); Potassium 5.4 mEq/L (3.5-5.1); Sodium Level 133 mEq/L (136-145)
[2023-02-03 07:58] LABS: Bicarbonate < 8 mEq/L (21-32)
[2023-02-03] MEDS ORDERED: INSULIN -REGULAR HUMAN 100 UNIT in NA CHLORIDE 0.9% 100 ML IV SCH ×2 (08:00→09:00)
[2023-02-03 08:17] LABS: SARS-COV-2 RT PCR NEGATIVE (NEGATIVE)
[2023-02-03 08:46] LABS: Blood Morphology Comment NOT SEEN (NOT SEEN); Platelet Estimate INCR
[2023-02-03] MEDS ORDERED: ONDANSETRON 4 MG/2 ML VIAL IV PRN (08:48)
[2023-02-03] MEDS ORDERED: ENOXAPARIN 40 MG/0.4 ML SQ SCH (09:00)
[2023-02-03 09:25] LABS: BUN Blood Urea Nitrogen 28 mg/dL (7-18); Glomerular Filtration Rate 73 ml/min (=/>90); Glucose Level 557 mg/dL (74-106); Potassium 4.6 mEq/L (3.5-5.1); Sodium Level 137 mEq/L (136-145)
[2023-02-03 09:26] LABS: Bicarbonate < 8 mEq/L (21-32)
[2023-02-03] MEDS ORDERED: FENTANYL CITR 100 MCG/2 ML ONE (09:31)
[2023-02-03] MEDS: NA CHLORIDE 0.9% 1,000 ML IV SCH ×2 (10:06→14:00)
[2023-02-03 11:06] VITALS: O2SAT 97; BMI 15.5
[2023-02-03 13:13] LABS: BUN Blood Urea Nitrogen 21 mg/dL (7-18); Glomerular Filtration Rate 118 ml/min (=/>90); Glucose Level 171 mg/dL (74-106); Potassium 3.9 mEq/L (3.5-5.1); Sodium Level 140 mEq/L (136-145)
[2023-02-03 13:14] LABS: Bicarbonate < 8 mEq/L (21-32)
[2023-02-03] MEDS: D5 0.45 NS 1,000 ML IV SCH ×2 (14:25→23:48)
[2023-02-03 17:38] LABS: BUN Blood Urea Nitrogen 19 mg/dL (7-18); Glomerular Filtration Rate 106 ml/min (=/>90); Glucose Level 221 mg/dL (74-106); Potassium 3.7 mEq/L (3.5-5.1)
[2023-02-03 17:40] LABS: Bicarbonate 9 mEq/L (21-32); Sodium Level 139 mEq/L (136-145)
[2023-02-03 21:19] LABS: BUN Blood Urea Nitrogen 18 mg/dL (7-18); Bicarbonate 14 mEq/L (21-32); Glomerular Filtration Rate 98 ml/min (=/>90); Glucose Level 233 mg/dL (74-106); Potassium 3.3 mEq/L (3.5-5.1); Sodium Level 137 mEq/L (136-145)
[2023-02-03 21:28] LABS: Magnesium 1.6 mg/dL (1.6-2.4); Phosphorus 1.8 mg/dL (2.5-4.9)
[2023-02-03] MEDS ORDERED: MAGNESIUM SULFATE 1 gm IVPB 1 GM/100 ML BAG IV ONE (21:32)
[2023-02-03] MEDS ORDERED: KCL 20 MEQ/100 mL IVPB 20 MEQ/100 ML BAG IV SCH (22:00)
[2023-02-03] MEDS ORDERED: MORPHINE 2 MG/ML SYR IV PRN (23:37)
[2023-02-04] MEDS ORDERED: POTASSIUM PHOS IN 0.9 % NACL 15 MMOL/250 ML BAG IV ONE
[2023-02-04 01:29] LABS: BUN Blood Urea Nitrogen 16 mg/dL (7-18); Bicarbonate 15 mEq/L (21-32); Glomerular Filtration Rate 98 ml/min (=/>90); Glucose Level 206 mg/dL (74-106); Potassium 3.5 mEq/L (3.5-5.1); Sodium Level 135 mEq/L (136-145)
[2023-02-04 01:52] VITALS: BP 90/54; TEMP 98.4
[2023-02-04] MEDS ORDERED: INSULIN GLARGINE 100 UNIT/ML SQ ONE (01:52)
--- NOTE | 2023-02-04 02:31 | P.SSS ---
Patient History Date of Service: 02/04/23 Reason for admission: DKA History of Present Illness: Patient is a 17 year old female with past medical history of depression and type 1 diabetes with known noncompliance who presented to the emergency department with complaints of abdominal pain and vomiting x 1 day. Alleviated by nothing. Aggravated by eating. She was found to be in DKA, started on insulin drip, and admitted to the ICU. Allergies No Known Allergies Allergy (Unverified 08/28/22 04:10) Home Medications: Insulin Degludec [Tresiba Flextouch U-100] 30 units SQ DAILY 02/03/23 Insulin Lispro [Humalog] 6 units SQ TID 02/03/23 - Past Medical/Surgical History Has patient received pneumonia vaccine in the past: No Diabetic: Yes -: Type 1 diabetes -: Depression Past Surgical History: Patient denies surgical history Psychosocial/ Personal History: Patient lives at home with family. - Family History Father -: Diabetes - Social History Smoking Status: Current some day smoker (vapes) Alcohol use: No CD- Drugs: No Caffeine use: Yes Place of Residence: Home Review of Systems Gastrointestinal: Nausea, Vomiting, Abdominal Pain Physical Examination - Vital Signs Temperature: 98.4 F Blood Pressure: 90/54 Pulse: 92 Respirations: 20 Pulse Ox (%): 100 - Physical Exam General: Alert, In no apparent distress HEENT: Atraumatic, EOMI, Sclerae nonicteric Neck: Supple, 2+ carotid pulse no bruit Respiratory: Clear to auscultation bilaterally, Normal air movement Cardiovascular: Regular rate/rhythm, Normal S1 S2 Gastrointestinal: Normal bowel sounds, No tenderness Musculoskeletal: No tenderness Integumentary: No rashes Neurological: Normal speech, Normal affect - Studies Laboratory Data (last 24 hrs) 02/03/23 08:00: Sodium 137 D, Potassium 4.6 D, BUN 28 H, Creatinine 1.11 H, Glucose 557 H* 02/03/23 06:59: WBC 24.40 H, Hgb 12.7, Hct 42.3, Plt Count 536 H 02/03/23 06:59: Sodium 133 L, Potassium 5.4 H, BUN 31 H, Creatinine 1.46 H, Glucose 802 H*, Phosphorus 9.0 H*, Total Bilirubin 0.5, AST 7 L, ALT 17, Alkaline Phosphatase 184 H, Lipase 7 L - Diagnosis (Problem(s)) (1) DKA (diabetic ketoacidoses) Status: Acute Qualifiers: Diabetes mellitus type: type 1 Diabetes mellitus complication detail: without coma Qualified Code(s): E10.10 - Type 1 diabetes mellitus with ketoacidosis without coma Treatment Summary: Patient admitted to ICU on insulin drip. Blood sugar improved, anion gap closed, however moderate serum acetone persisted. Patient tolerating PO. She decided to leave AMA. Latest blood sugar 206. Paperwork signed. She understands return precautions. - Disposition Disposition: AMA-LEFT AGAINST MEDICAL ADVIC Condition: FAIR Diet: ADA Activity: Ad keke Physician Review: Patient Assessed, Agree with Above Assessment and Plan Critical Care: Yes Time Spent Managing Pts Care (In Minutes): 30
--- NOTE | 2023-02-05 17:27 | EKG ---
Test Date: 2023-02-03 Test Time: 07:33:02 Farm Operations Manager: CB MEASUREMENT RESULTS: Intervals: Rate: 120 MD: 116 QRSD: 70 QT: 326 QTc: 460 [place]: P: 81 MD: 116 QRS: 80 T: 45 INTERPRETIVE STATEMENTS: Sinus tachycardia Biatrial enlargement Abnormal ECG Compared to ECG 01/13/2023 18:18:42 T-wave abnormality no longer present Electronically Signed On 02-05-23 17:23:11 CDT by Ronnie Dodson
== END 2023-02-04 02:20 | disposition left against medical advice (07) | DRG 639 ==
LOC: ER 06:41 → ERHOLD 08:48 → 3RD-ICU 09:36
PROVIDERS: ADMIT Hospitalist; ATTEND Hospitalist
DX: E10.10 Type 1 diabetes mellitus with ketoacidosis without coma (principal); D72.829 Elevated white blood cell count, unspecified; D72.825 Bandemia; F17.290 Nicotine dependence, other tobacco product, uncomplicated; Z79.4 Long term (current) use of insulin; Z53.29 Procedure and treatment not carried out because of patient's decision for other reasons; Z91.199 Patient's noncompliance with other medical treatment and regimen due to unspecified reason; Z20.822 Contact with and (suspected) exposure to COVID-19
CPT/HCPCS: 0240U; 36415; 80048; 80053; 81003; 81025; 82010; 82805; 82947; 83690; 83735; 84100; 84703; 85025; 87040; 93005; 99285; J1650; J1815; J2270; J2405; J3010; J3475; J3480; J7030; J7120; J7799

== ENCOUNTER 2023-07-13 16:29 | Inpatient (IN) | payer OTHER ==
--- OUTSIDE RECORDS SUMMARY | 2023-07-13 16:31 | XMS REPORT | Continuity of Care Document ---
:2005 Author Organization [facility] t Address [address] [place] [address] Care Team Providers Name Role Phone ALPHONSO KOVACS Attending Clinician Unavailable Doctor Unassigned, [place] Attending Clinician Unavailable Erin Ramirez MD Attending Clinician Payers Payer Name Policy Type Policy Number Effective Date Expiration Date [facility] [id number] 2019 CHOICE MEDICAID 00:00:00 Problems This patient has no known problems. Allergies, Adverse Reactions, Alerts Allergy Allergy Status Severity Reaction(s) Onset Inactive Treating Comm ents Source Name Type Date Date Clinician NO KNOWN Drug [facility] Medications This patient has no known medications. Procedures This patient has no known procedures. Encounters Start End Encounter Admission Attending Care Care Encounter Source Date/Time Date/Time Type Type Clinicians Facility Department ID 2021-08-07 2021-08-07 Outpatient Eugene KOVACS [facility] [id number] [facility] 09:00:00 09:00:[address] [facility] 2019-08-06 2019-08-06 Orders Doctor CASTRO [id number] 00:00:00 00:00:00 Only UnassignedRADHA [id number] [place] [facility] [id number] 2019-08-02 2019-08-02 Telephone SIDNEY Ramirez [id number] 00:00:00 00:00:00 Erin Monroy [id number] [place] [id number] [facility] [id number] [facility] [address] [facility] 2019-08-01 2019-08-01 Telephone Ashley [facility] [id number] 00:00:00 00:00:00 Erinazul Monroy [id number] Miguel Angel [id number] [facility] [id number] [address] Results This patient has no known results.
[2023-07-13 17:11] LABS: Arterial Blood Carboxyhemoglob 1.7 % (0-1.5); Blood Gas Oxyhemoglobin 93.8 % (94-97); Blood O2 Saturation 97.1 % (92-98.5)
[2023-07-13] MEDS ORDERED: NA CHLORIDE 0.9% 2,000 ML ONE (17:14)
--- NOTE | 2023-07-13 17:39 | EDPHYS ---
Physician Documentation [facility] Name: Tessa Eagle Age: 17 yrs Sex: Female : 2005 Arrival Date: 07/13/2023 Time: 16:29 Bed 2 Private MD: ED Physician Srinivasan Chris HPI: 07/13 17:26 This 17 yrs old Female presents to ER via Ambulatory with complaints of DKA. tadeo 17:26 The patient or guardian reports hyperglycemia, that was potentially precipitated by no tadeo particular event. Onset: The symptoms/episode began/occurred 1 day(s) ago. Associated signs and symptoms: Pertinent positives: anorexia, nausea, vomiting. vomiting, rapid respirations, hx of dka. The patient presents with confusion, trouble concentrating. Possible causes: CVA or TIA, drug use, alcohol, low blood sugar, seizure, dka. Associated signs and symptoms: The patient has no apparent associated signs or symptoms. Patient's baseline: Neuro: alert and fully oriented. Historical: - Allergies: 16:42 No Known Allergies; jl7 - PMHx: 16:42 diabetes mellitus; renal insufficiency; jl7 - Immunization history:: Adult Immunizations unknown. - Social history:: Smoking status: unknown. - Family history:: not pertinent. ROS: 17:26 Constitutional: Negative for fever, chills, and weight loss, Eyes: Negative for injury, tadeo pain, redness, and discharge, ENT: Negative for injury, pain, and discharge, Neck: Negative for injury, pain, and swelling, Cardiovascular: Negative for chest pain, palpitations, and edema, Respiratory: Negative for shortness of breath, cough, wheezing, and pleuritic chest pain, Abdomen/GI: Negative for abdominal pain, nausea, vomiting, diarrhea, and constipation, Back: Negative for injury and pain, : Negative for injury, bleeding, discharge, and swelling, MS/Extremity: Negative for injury and deformity, Skin: Negative for injury, rash, and discoloration, Psych: Negative for depression, anxiety, suicide ideation, homicidal ideation, and hallucinations, Allergy/Immunology: Negative for hives, rash, and allergies, Endocrine: Negative for neck swelling, polydipsia, polyuria, polyphagia, and marked weight changes, Hematologic/Lymphatic: Negative for swollen nodes, abnormal bleeding, and unusual bruising. 17:26 Neuro: Positive for altered mental status, weakness. Exam: 17:26 Head/Face: Normocephalic, atraumatic. Eyes: Pupils equal round and reactive to light, tadeo extra-ocular motions intact. Lids and lashes normal. Conjunctiva and sclera are non-icteric and not injected. Cornea within normal limits. Periorbital areas with no swelling, redness, or edema. Neck: Trachea midline, no thyromegaly or masses palpated, and no cervical lymphadenopathy. Supple, full range of motion without nuchal rigidity, or vertebral point tenderness. No Meningismus. Chest/axilla: Normal chest wall appearance and motion. Nontender with no deformity. No lesions are appreciated. Abdomen/GI: Soft, non-tender, with normal bowel sounds. No distension or tympany. No guarding or rebound. No evidence of tenderness throughout. Back: No spinal tenderness. No costovertebral tenderness. Full range of motion. Female : Normal external genitalia. Skin: Warm, dry with normal turgor. Normal color with no rashes, no lesions, and no evidence of cellulitis. MS/ Extremity: Pulses equal, no cyanosis. Neurovascular intact. Full, normal range of motion. 17:26 ENT: Mouth: Lips: dry, Oral mucosa: dry, Gums: normal with healthy appearance, Tongue: is elevated, abscess, is not appreciated, Posterior pharynx: no acute changes. 17:26 Cardiovascular: Rate: tachycardic, actual rate is 123 bpm, Rhythm: regular, Pulses: Pulses are 4+ in bilateral radial, brachial, femoral, popliteal, posterior tibial and and dorsalis pedis arteries.. Heart sounds: normal, Edema: is not appreciated, JVD: 17:26 ECG was reviewed by the Attending Physician. Vital Signs: 16:40 BP 137 / 87; Pulse 123; Resp 28; Pulse Ox 100% ; Weight 24 kg; jl7 17:42 BP 134 / 89; Pulse 105; Resp 32; Pulse Ox 100% on R/A; hb 18:39 BP 125 / 82; Pulse 111; Resp 36; Pulse Ox 100% on R/A; hb MDM: 16:43 Patient medically screened. tadeo 17:32 Differential diagnosis: DKA. Differential Diagnosis altered mental status, sepsis, flu. tadeo Differential Diagnosis: electrolyte abnormality, alcohol intoxication, overdose, pneumonia, seizure, sepsis, TIA, UTI, volume depletion. Data reviewed: vital signs, nurses notes, EMS record, lab test result(s), EKG, radiologic studies, plain films. Consideration of Admission/Observation Patient was admitted/placed on observation. Escalation of care including admission/observation considered. Management of patient was discussed with the following: Hospitalist: preston iverson. I considered the following discharge prescriptions or medication management in the emergency department Medications were administered in the Emergency Department. See MAR. Independent interpretation of the following test(s) in the Emergency Department EKG: See my EKG interpretation above. Test considered but Not performed: CT: no ct head. Care significantly affected by the following chronic conditions: Diabetes, Chronic Kidney Disease. Counseling: I had a detailed discussion with the patient and/or guardian regarding the historical points, exam findings, and any diagnostic results supporting the discharge/admit diagnosis, lab results, radiology results, the need for further work-up and treatment in the hospital. 07/13 16:47 Order name: Basic Metabolic Panel [facility] 07/13 16:47 Order name: CBC with Diff; Complete Time: 19:45 [facility] 07/13 16:47 Order name: LFT's [facility] 07/13 16:47 Order name: Magnesium [facility] 07/13 16:47 Order name: NT PRO-BNP [facility] 07/13 16:47 Order name: PT-INR; Complete Time: 19:24 [facility] 07/13 16:47 Order name: Troponin HS [facility] 07/13 16:47 Order name: Lipase [facility] 07/13 16:47 Order name: Blood Culture Adult (2) [facility] 07/13 16:47 Order name: Lactate w/ 2H reflex if indic.; Complete Time: 18:09 [facility] 07/13 16:47 Order name: Urinalysis w/ reflexes; Complete Time: 18:09 [facility] 07/13 16:47 Order name: Test, Serum [facility] 07/13 16:47 Order name: ABG; Complete Time: 18:09 [facility] 07/13 16:58 Order name: Glucose, Ancillary Testing; Complete Time: 18:09 [facility] 07/13 17:14 Order name: Urine Drug Screen; Complete Time: 18:09 07/13 17:35 Order name: SARS RAPID; Complete Time: 18:17 07/13 17:35 Order name: Flu; Complete Time: 18: 07/13 18:04 Order name: Urine Culture EDMS 07/13 18:05 Order name: Basic Metabolic Panel [facility] 07/13 18:05 Order name: Basic Metabolic Panel EDMS 07/13 18:05 Order name: Basic Metabolic Panel EDMS 07/13 18:05 Order name: Basic Metabolic Panel [facility]MS 07/13 18:05 Order name: Basic Metabolic Panel EDMS 07/13 18:05 Order name: Basic Metabolic Panel EDMS 07/13 18:05 Order name: Basic Metabolic Panel [facility]MS 07/13 18:05 Order name: Calcium Level [facility]MS 07/13 18:05 Order name: Calcium Level EDMS 07/13 18:05 Order name: Calcium Level EDMS 07/13 18:05 Order name: Calcium Level EDMS 07/13 18:05 Order name: CBC with Automated Diff EDMS 07/13 18:05 Order name: CBC with Automated Diff EDMS 07/13 18:05 Order name: CBC with Automated Diff EDMS 07/13 18:05 Order name: CBC with Automated Diff EDMS 07/13 18:05 Order name: Lipid Profile EDMS 07/13 18:05 Order name: Lipid Profile EDMS 07/13 18:05 Order name: Magnesium EDMS 07/13 18:05 Order name: Magnesium EDMS 07/13 18:05 Order name: Magnesium EDMS 07/13 18:05 Order name: Magnesium EDMS 07/13 18:05 Order name: Magnesium EDMS 07/13 18:05 Order name: Magnesium EDMS 07/13 18:05 Order name: Magnesium EDMS 07/13 18:05 Order name: Osmolality, Serum EDMS 07/13 18:06 Order name: Osmolality, Serum EDMS 07/13 18:06 Order name: Osmolality, Serum EDMS 07/13 18:06 Order name: Osmolality, Serum EDMS 07/13 18:06 Order name: Phosphorus EDMS 07/13 18:06 Order name: Phosphorus EDMS 07/13 18:06 Order name: Phosphorus EDMS 07/13 18:06 Order name: Phosphorus EDMS 07/13 19:33 Order name: Glucose hb 07/13 19:41 Order name: CBC Smear Scan; Complete Time: 19:45 EDMS 07/13 19:44 Order name: Glucose, Ancillary Testing; Complete Time: 19:45 EDMS 07/13 20:00 Order name: Glucose Level EDMS 07/13 20:43 Order name: Glucose, Ancillary Testing [facility] 07/13 16:47 Order name: XRAY Chest (1 view); Complete Time: 18:17 [facility] 07/13 16:47 Order name: EKG; Complete Time: 16:48 [facility] 07/13 18:05 Order name: Diet - Ice Chips [facility] 07/13 16:47 Order name: Cardiac monitoring; Complete Time: 17:29 [facility] 07/13 16:47 Order name: EKG - Nurse/Tech; Complete Time: 17:29 [facility] 07/13 16:47 Order name: IV Saline Lock; Complete Time: 17:29 [facility] 07/13 16:47 Order name: Labs collected and sent; Complete Time: 17:29 [facility] 07/13 16:47 Order name: O2 Per Protocol; Complete Time: 17:29 [facility] 07/13 16:47 Order name: O2 Sat Monitoring; Complete Time: 17:29 [facility] 07/13 16:47 Order name: IV Saline Lock - Large Bore; Complete Time: 17:42 [facility] EC:26 Rate is 118 beats/min. Rhythm is regular. QRS [place] is Normal. [facility] interval is normal. [facility] QRS interval is normal. QT interval is normal. No Q waves. T waves are Normal. No ST changes noted. Clinical impression: Sinus tachycardia and No evidence of ischemia. Interpreted by me. Reviewed by me. Administered Medications: 17:25 Drug: NS 0.9% IV 1000 ml Route: IV; Rate: 1 bolus; Site: left jugular; ph 17:29 Drug: NS 0.9% IV 1000 ml Route: IV; Rate: 1 bolus; Site: left jugular; ph 17:40 Drug: Famotidine IVP 20 mg Route: IVP; Site: left jugular; hb 18:17 Not Given (Duplicate Order): Insulin Drip - (Insulin Regular Human IVP 100 units, NS tadeo 0.9% IV 100 ml) IV at 4 units/hr continuous; Standard concentration 1unit/ml; Dose for DKA is 0.1 units/kg/hr 18:31 Drug: NS 0.9% IV 1000 ml Route: IV; Rate: 125 ml/hr; Site: left jugular; hb 18:32 Drug: Insulin Drip - (Insulin Regular Human IVP 100 units, NS 0.9% IV 100 ml) hb {Co-Signature: ph (Malu Rios RN).} Route: IV; Rate: 3 units/hr; Site: right jugular; 18:43 Drug: Rocephin IV 1 grams Route: IV; Rate: per protocol; Site: left jugular; hb Disposition Summary: 07/13/23 17:38 Hospitalization Ordered Hospitalization Status: Inpatient Admission tadeo Provider: Davy Cleaning cha Condition: Serious tadeo Problem: new tadeo Symptoms: have improved tadeo Bed/Room Type: Standard tadeo Location: Intensive Care Unit(07/13/23 19:53) mw Room Assignment: 3-(07/13/23 19:53) mw Diagnosis - Diabetes mellitus due to underlying condition with ketoacidosis tadeo - Type 1 diabetes mellitus with ketoacidosis tadeo - Weakness tadeo - Anorexia tadeo - Elevated white blood cell count tadeo Forms: - Medication Reconciliation Form tadeo - SBAR form tadeo - Leadership Thank You Letter tadeo Signatures: Dispatcher [employer] EDMS Tawnya Sabillon RN RN Amelie Spear RN RN Srinivasan Pastrana MD MD cha Hall, Patricia, RN RN ph Maile Goel RN RN Lilli Allison RN RN jl7 Malu Rios RN ph Corrections: (The following items were deleted from the chart) 18:14 17:38 Telemetry/MedSurg (Inpatient) tadeo dw 18:14 17:38 tadeo dw 18:49 18:14 Intensive Care Unit dw mw 18:49 18:14 dw mw 19:53 18:49 [facility] ER HOLD mw mw 19:53 18:49 ERHOLD- mw mw
--- NOTE | 2023-07-13 17:39 | ER ---
Nurse's Notes [facility] Name: Tessa Eagle Age: 17 yrs Sex: Female : 2005 Arrival Date: 07/13/2023 Time: 16:29 Bed 2 Private MD: Diagnosis: Diabetes mellitus due to underlying condition with ketoacidosis;Type 1 diabetes mellitus with ketoacidosis;Weakness;Anorexia;Elevated white blood cell count Presentation: 07/13 16:40 Chief complaint: Parent and/or Guardian states: "She's in DKA", reports vomiting today. jl7 Coronavirus screen: At this time, the client does not indicate any symptoms associated with coronavirus-19. Ebola Screen: No symptoms or risks identified at this time. Initial Sepsis Screen: Does the patient meet any 2 criteria? No. Patient's initial sepsis screen is negative. Does the patient have a suspected source of infection? No. Patient's initial sepsis screen is negative. Risk Assessment: Do you want to hurt yourself or someone else? Patient reports no desire to harm self or others. Onset of symptoms is unknown. 16:40 Method Of Arrival: Ambulatory [facility] 16:40 Acuity: JUSTIN 2 jl7 Historical: - Allergies: 16:42 No Known Allergies; jl7 - PMHx: 16:42 diabetes mellitus; renal insufficiency; jl7 - Immunization history:: Adult Immunizations unknown. - Social history:: Smoking status: unknown. - Family history:: not pertinent. Screenin:40 [facility] ED Fall Risk Assessment (Adult) Score/Fall Risk Level 0 - 2 = Low Risk hb Oriented to surroundings, Maintained a safe environment. Abuse screen: Denies threats or abuse. Denies injuries from another. Nutritional screening: No deficits noted. Tuberculosis screening: No symptoms or risk factors identified. Assessment: 17:15 General: Appears distressed, Behavior is calm, cooperative. Pain: Pain currently is 5 hb out of 10 on a pain scale. Neuro: Level of Consciousness is awake, alert, obeys commands. Cardiovascular: Patient's skin is warm and dry. Respiratory: Respiratory effort is labored, Respiratory pattern is tachypnea. GI: No signs and/or symptoms were reported involving the gastrointestinal system. : No signs and/or symptoms were reported regarding the genitourinary system. EENT: No signs and/or symptoms were reported regarding the EENT system. Derm: Skin is dry, Skin is pale, Skin temperature is warm. Musculoskeletal: No signs and/or symptoms reported regarding the musculoskeletal system. 17:39 Reassessment: 22g Left EJ inserted by Dr. Chris, partial blood samples sent, unable hb to establish PIV access or draw remaining ordered blood tests, Dr. Chris aware. 18:39 Reassessment: No changes from previously documented assessment. Patient and/or family hb updated on plan of care and expected duration. Pain level reassessed. Vital Signs: 16:40 BP 137 / 87; Pulse 123; Resp 28; Pulse Ox 100% ; Weight 24 kg; jl7 17:42 BP 134 / 89; Pulse 105; Resp 32; Pulse Ox 100% on R/A; hb 18:39 BP 125 / 82; Pulse 111; Resp 36; Pulse Ox 100% on R/A; hb ED Course: 16:29 Patient arrived in ED. rg4 16:42 Triage completed. jl7 16:42 Arm band placed on right wrist. jl7 16:43 Srinivasan Chris MD is Attending Physician. tadeo 17:06 Maile Goel, RN is Primary Nurse. hb 17:14 Missed attempt(s): 22 gauge in right antecubital area. Bleeding controlled, band aid hb applied, catheter tip intact. 17:31 Missed attempt(s): 24 gauge in left wrist. Bleeding controlled, band aid applied, hb catheter tip intact. 17:36 Patient has correct armband on for positive identification. Provided Education on: . hb 17:36 Missed attempt(s): 22 gauge in right forearm. Bleeding controlled, band aid applied, hb catheter tip intact. 17:37 Davy Cleaning MD is Hospitalizing Provider. tadeo 17:44 XRAY Chest (1 view) In Process Unspecified. EDMS 17:45 Urine Drug Screen Sent. mm9 17:51 SARS RAPID Sent. mm9 17:51 Urine Drug Screen Sent. mm9 18:00 Inserted saline lock: 22 gauge in left EJ, using aseptic technique. ,using aseptic hb technique. by Dr. Chris. 20:37 No provider procedures requiring assistance completed. Patient admitted, IV remains in bp place. Administered Medications: 17:25 Drug: NS 0.9% IV 1000 ml Route: IV; Rate: 1 bolus; Site: left jugular; ph 17:29 Drug: NS 0.9% IV 1000 ml Route: IV; Rate: 1 bolus; Site: left jugular; ph 17:40 Drug: Famotidine IVP 20 mg Route: IVP; Site: left jugular; hb 18:17 Not Given (Duplicate Order): Insulin Drip - (Insulin Regular Human IVP 100 units, NS tadeo 0.9% IV 100 ml) IV at 4 units/hr continuous; Standard concentration 1unit/ml; Dose for DKA is 0.1 units/kg/hr 18:31 Drug: NS 0.9% IV 1000 ml Route: IV; Rate: 125 ml/hr; Site: left jugular; hb 18:32 Drug: Insulin Drip - (Insulin Regular Human IVP 100 units, NS 0.9% IV 100 ml) hb {Co-Signature: ph (Malu Rios RN).} Route: IV; Rate: 3 units/hr; Site: right jugular; 18:43 Drug: Rocephin IV 1 grams Route: IV; Rate: per protocol; Site: left jugular; hb Medication: 17:40 VIS not applicable for this client. hb Outcome: 17:38 Decision to Hospitalize by Provider. tadeo 20:46 Admitted to ICU accompanied by nurse, family with patient, via stretcher, room 3, with bp chart, Report called to KULDEEP RIDDLE 20:46 Condition: stable 20:46 Instructed on the need for admit. 21:50 Patient left the ED. bp Signatures: Dispatcher [employer] EDSrinivasan Stern MD MD cha Hall, Patricia, JANESSA RN ph Maile Goel RN RN Kiarra Brooke rg4 Lilli Allison RN RN jl7 Elias Becerra RN RN Francine Mishra mm9 Malu Rios RN ph Corrections: (The following items were deleted from the chart) 17:38 17:31 Inserted saline lock: 24 gauge in left wrist, using aseptic technique. hb hb 17:42 17:42 BP 134 / 89; Pulse 105bpm; Resp 40bpm; Pulse Ox 100% RA; hb hb
[2023-07-13 17:41] LABS: Absolute Lymphocytes (CBC) 1.6 K/uL (0.7-4.9); Hematocrit 38.2 % (36.0-45.0); Lymphocytes % 7.3 % (15.3-44.8); MCV 85.3 fL (80-100); MPV 7.9 fL (7.6-11.3); Platelets 608 thou/uL (152-406); RBC Red Blood Cell Count 4.48 M/uL (3.86-4.86)
[2023-07-13 17:54] LABS: Specific Gravity 1.021 (1.005-1.030); Urine Bacteria None Seen /HPF (<20); Urine Bilirubin NEGATIVE (Negative); Urine Blood Negative (Negative); Urine Clarity Clear (Clear); Urine Color Colorless (Yellow); Urine Glucose 4+ (Over) (Negative); Urine Mucus Slight /HPF (None Seen); Urine Protein TRACE (Negative); Urine RBC <5 /HPF (None Seen); Urine Urobilinogen Normal (Normal)
[2023-07-13 17:56] LABS: Barbiturates NEGATIVE (NEGATIVE); Benzodiazepines NEGATIVE (NEGATIVE); Cocaine NEGATIVE (NEGATIVE); METHAMPHETAM NEGATIVE (NEGATIVE); Methadone NEGATIVE (NEGATIVE); Opiates NEGATIVE (NEGATIVE); Phencyclidine NEGATIVE (NEGATIVE); THC Cannibis NEGATIVE (NEGATIVE)
[2023-07-13] MEDS ORDERED: INSULIN -REGULAR HUMAN 100 UNIT in NA CHLORIDE 0.9% 100 ML IV SCH (18:00)
[2023-07-13] MEDS: NA CHLORIDE 0.9% 1,000 ML IV SCH ×2 (18:00→23:00)
[2023-07-13] MEDS ORDERED: D5 0.45 NS 1,000 ML IV SCH (18:00)
[2023-07-13] MEDS ORDERED: ONDANSETRON 4 MG/2 ML VIAL IV PRN (18:00)
[2023-07-13 18:09] LABS: SARS-CoV-2 Antigen Rapid Res Negative (Negative)
--- NOTE | 2023-07-13 18:09 | RAD REPORT ---
EXAM DESCRIPTION: RADChest Single View07/13/2023 5:43 pm CLINICAL HISTORY: COUGH COMPARISON: Chest Single View dated 01/13/2023; Chest Single View dated 08/27/2022; Chest Single View dated 05/07/2022; Chest Single View dated 04/18/2022 TECHNIQUE: Portable AP view of the chest. FINDINGS: The lungs are clear. No pneumothorax or effusion. The cardiomediastinal contours are unre markable. IMPRESSION: No acute cardiopulmonary process.
--- NOTE | 2023-07-13 18:16 | P.HP ---
Patient History Date of Service: 07/13/23 Allergies No Known Allergies Allergy (Unverified 08/28/22 04:10) Home Medications: Insulin Degludec [Tresiba Flextouch U-100] 30 units SQ DAILY 02/03/23 Insulin Lispro [Humalog] 6 units SQ TID 02/03/23 - Past Medical/Surgical History Diabetic: Yes -: Type 1 diabetes -: Depression -: None Psychosocial/ Personal History: Patient lives at home with family. - Family History Father -: Diabetes - Social History Alcohol use: No CD- Drugs: No Caffeine use: Yes Physical Examination - Studies Laboratory Data (last 24 hrs) 07/13/23 17:02 WBC 21.30 H Hgb 11.6 L Hct 38.2 Plt Count 608 H Microbiology Data (last 24 hrs): 07/13/23 17:45 Nasopharnyx Influenza Type A Antigen Screen - Final 07/13/23 17:45 Nasopharnyx Influenza Type B Antigen Screen - Final Assessment and Plan - Advance Directives Does patient have a Living Will: No Does patient have a Durable POA for Healthcare: No
[2023-07-13] MEDS ORDERED: INSULIN -REGULAR HUMAN 50 UNIT/0.5 ML ML ONE (18:32)
[2023-07-13] MEDS ORDERED: NA CHLORIDE 0.9% 100 ML ONE (18:33)
[2023-07-13] MEDS ORDERED: NA CHLORIDE 0.9% 1,000 ML ONE (18:33)
[2023-07-13] MEDS ORDERED: CEFTRIAXONE 1000 MG/VIAL ONE (18:53)
[2023-07-13 18:54] LABS: Protime INR 1.07
[2023-07-13 19:39] LABS: Platelet Estimate INCR; White Blood Cell Scan OK (OK)
[2023-07-13 19:40] LABS: Anisocytosis SLIGHT; Blood Morphology Comment NOTED (NOT SEEN)
[2023-07-13 19:55] LABS: ALT/SGPT 16 U/L (13-56); AST/SGOT 5 U/L (15-37); Albumin 3.2 g/dL (3.4-5.0); Alkaline Phosphatase 125 U/L (45-117); BUN Blood Urea Nitrogen 26 mg/dL (7-18); Bilirubin Direct 0.1 mg/dL (0-0.2); Bilirubin Indirect, Calculated 0.3 mg/dL (0.2-0.8); Bilirubin Total 0.4 mg/dL (0.2-1.0); Glomerular Filtration Rate 74 ml/min (=/>90); Lipase 9 U/L (13-75); Magnesium 2.2 mg/dL (1.6-2.4); NT PRO-BNP 300 pg/mL (<125); Potassium 4.7 mEq/L (3.5-5.1); Protein, Total 7.6 g/dL (6.4-8.2); Sodium Level 137 mEq/L (136-145); Troponin High Sensitivity 5.4 pg/mL (<58.9)
[2023-07-13 19:59] LABS: Bicarbonate < 8 mEq/L (21-32); Glucose Level 628 mg/dL (74-106)
[2023-07-13 20:00] LABS: Glucose Level 471 mg/dL (74-106)
[2023-07-13 20:37] VITALS: BMI 10.3
--- NOTE | 2023-07-13 22:20 | P.HP ---
Certification for Inpatient Patient admitted to: Inpatient With expected LOS: >2 Midnights Patient will require the following post-hospital care: None Practitioner: I am a practitioner with admitting privileges, knowledge of patient current condition, hospital course, and medical plan of care. Services: Services provided to patient in accordance with Admission requirements found in Title 42 Section 412.3 of the Code of Federal Regulations Patient History Date of Service: 07/13/23 Reason for admission: Diabetic ketoacidosis History of Present Illness: Patient is a 17-year-old female came to the hospital with diabetic ketoacidosis. Patient has had multiple admissions for similar complaints. She has had a lot of depression is because she has gone through a lot of stressors throughout her life. She suffers from depression and sometimes she forgets to take her medications, or just chooses not to take them. Her mother had gone to take a nap and then when she woke up to check on her daughter she noticed that her daughter was not really able to move. She was really weak and frail and she called EMS and she was brought into and that hopefully if she is doing okay we should be able to start her on a diet. At this time will monitor her closely in the intensive care unit. Patient will need inpatient admission because of the severity of her symptoms and her acidosis. Allergies No Known Allergies Allergy (Unverified 08/28/22 04:10) Home Medications: Insulin Degludec [Tresiba Flextouch U-100] 30 units SQ DAILY 02/03/23 Insulin Lispro [Humalog] 6 units SQ TID 02/03/23 - Past Medical/Surgical History Has patient received pneumonia vaccine in the past: No Diabetic: Yes -: Type 1 diabetes -: Depression -: None Psychosocial/ Personal History: Patient lives at home with family. - Family History Father Medical History: Diabetes - Social History Smoking Status: Current some day smoker Place of Residence: Home Review of Systems 10-point ROS is otherwise unremarkable Physical Examination - Vital Signs Temperature: 98 F Blood Pressure: 116/74 Pulse: 113 Respirations: 22 Pulse Ox (%): 100 - Physical Exam General: Alert, In no apparent distress, Oriented x3, Cachectic HEENT: Atraumatic, PERRLA, Mucous membr. moist/pink, EOMI, Sclerae nonicteric Neck: Supple, 2+ carotid pulse no bruit, No LAD, Without JVD or thyroid abnormality Respiratory: Clear to auscultation bilaterally, Normal air movement Cardiovascular: Regular rate/rhythm, Normal S1 S2 Gastrointestinal: Normal bowel sounds, Soft and benign, Non-distended, No tenderness Musculoskeletal: No clubbing, No swelling, No tenderness Integumentary: No rashes Neurological: Normal gait, Normal speech, Normal strength at 5/5 x4 extr, Normal tone, Sensation intact, Cranial nerves 3-12 intact, Normal affect Lymphatics: No axilla or inguinal lymphadenopathy - Studies Laboratory Data (last 24 hrs) 07/13/23 17:02 WBC 21.30 H Hgb 11.6 L Hct 38.2 Plt Count 608 H Microbiology Data (last 24 hrs): 07/13/23 17:45 Nasopharnyx Influenza Type A Antigen Screen - Final 07/13/23 17:45 Nasopharnyx Influenza Type B Antigen Screen - Final Assessment & Plan - Problems (Diagnosis) (1) DKA (diabetic ketoacidoses) Current Visit: No Status: Acute Qualifiers: Diabetes mellitus type: type 1 Diabetes mellitus complication detail: with out coma Qualified Code(s): E10.10 - Type 1 diabetes mellitus with ketoacidosis without coma - Plan Plan: 1. IV hydration 2. Insulin drip 3. Basic metabolic profile every 4 hours along with acetone levels 4. Monitor electrolytes closely 5. Blood sugar checks every hour 6. monitor for infectious etiology 7. associate professor of counseling regarding compliance with insulin and education regarding how to monitor her blood sugars and had to use her insulin 8. continue with antidepressant 9. GI/DVT prophylaxis Discharge Plan: Home Plan to discharge in: Greater than 2 days - Advance Directives Does patient have a Living Will: No Does patient have a Durable POA for Healthcare: No - Code Status/Comfort Care Code Status Assessed: Yes Code Status: Full Code Critical Care: Yes Time Spent Managing PTS Care (In Minutes): 50
[2023-07-13 22:23] VITALS: O2SAT 100
[2023-07-13 23:55] LABS: BUN Blood Urea Nitrogen 26 mg/dL (7-18); Glomerular Filtration Rate 70 ml/min (=/>90); Potassium 4.7 mEq/L (3.5-5.1); Sodium Level 138 mEq/L (136-145)
[2023-07-13 23:56] LABS: Bicarbonate < 8 mEq/L (21-32)
[2023-07-14] MEDS: D5 0.45 NS 1,000 ML IV SCH ×2 (00:35→05:40)
[2023-07-14 01:13] LABS: Potassium 3.8 mEq/L (3.5-5.1)
[2023-07-14 04:25] LABS: BETA HYDROXYBUTYRATE 2.38 mmol/L (0.02-0.27); Phosphorus 1.6 mg/dL (2.5-4.9); Potassium 3.7 mEq/L (3.5-5.1)
[2023-07-14 04:27] VITALS: TEMP 99
[2023-07-14 04:51] LABS: Absolute Lymphocytes (CBC) 1.7 K/uL (0.7-4.9); Hematocrit 29.6 % (36.0-45.0); MCV 79.9 fL (80-100); MPV 7.2 fL (7.6-11.3); Platelets 511 thou/uL (152-406); RBC Red Blood Cell Count 3.71 M/uL (3.86-4.86)
[2023-07-14] MEDS ORDERED: D5 0.45 NS 1,000 ML IV SCH (06:00)
[2023-07-14 06:10] VITALS: BP 100/56
[2023-07-14] MEDS ORDERED: POTASSIUM PHOS IN 0.9 % NACL 15 MMOL/250 ML BAG IV ONE (06:51)
[2023-07-14] MEDS ORDERED: CEFTRIAXONE 1,000 MG in NA CHLORIDE 0.9% 50 ML IVPB SCH (09:00)
[2023-07-14] MEDS ORDERED: ENOXAPARIN 40 MG/0.4 ML SQ SCH (09:00)
--- NOTE | 2023-07-14 09:20 | P.DS ---
Admission Date: 07/13/23 Discharge Date: 07/14/23 Disposition: AMA-LEFT AGAINST MEDICAL ADVIC Discharge Condition: FAIR Reason for Admission: Diabetic ketoacidosis Hospital Course: DIAGNOSES: # Diabetic Ketoacidosis in Type I Diabetes Mellitus # SIRS Criteria (Tachycardia, Tachypnea, Leukocytosis) likely due to above - no evidence of infection # Lactic Acidosis due to Dehydration from DKA # Microcytic Anemia # Depression HOSPITAL COURSE: Ms. Tessa Eagle is a 17 year old female with a past medical history significant for type 1 diabetes mellitus who was admitted to the [facility] on 07/13/2023 for diabetic ketoacidosis. She was admitted to the Medicine service. She was treated with IV fluids and IV insulin drip per the DKA protocol, with improvement in her symptoms. When asked about her insulin compliance, she admits to being noncompliant. She states that she sometimes forgets to take her insulin. She denies any suicidal ideation, intention, or plan. This morning, she stated that she felt better and requested to be discharged home. It was advised that she remain hospitalized as she was still requiring the insulin drip and her bicarbonate levels were still low. She stated that she would like to be discharged home and that she could not be convinced otherwise. I explained the risks of premature discharge including, but not limited to, worsening diabetic ketoacidosis, coma, and . She stated that she accepts these risks and would like to be discharged despite these risks. She has decided to sign out of the hospital against medical advice. Based on her ability to understand her disease process, understand the consequences of not pursuing therapy, communicate that she would like to be discharged, and her ability to explain her rationale for being discharged, we believe that she has medical decision making capacity. On 07/14/2023, she was seen on rounds. She was discharged with instructions to schedule follow-up appointments with her PCP and with Endocrinology. RN has spoken with and notified her mother and grandmother. She was given the opportunity to ask questions and reported no further questions. Furthermore, all questions were answered to the best of my ability. Today, I personally spent 25 minutes on her case, of which greater than 50% of the time was spent in patient education, counseling, and coordination of care as described above. Vital Signs/Physical Exam: Temp Pulse Resp BP Pulse Ox 99 F 92 H 18 100/56 L 100 07/14/23 04:00 07/14/23 06:00 07/14/23 06:00 07/14/23 06:00 07/14/23 06:00 General: Alert, In no apparent distress, Oriented x3 HEENT: Atraumatic, Mucous membr. moist/pink, Sclerae nonicteric Neck: JVD not distended Respiratory: Clear to auscultation bilaterally Cardiovascular: No edema, Regular rate/rhythm, Normal S1 S2, No murmurs Gastrointestinal: Normal bowel sounds, Soft and benign, Non-distended, No tenderness, No rebound, No guarding Musculoskeletal: No clubbing Integumentary: No rashes Neurological: Normal speech, Normal affect Laboratory Data at Discharge: WBC 17.30 thou/uL (4.3-10.9) H 07/14/23 03:53 Hgb 9.9 g/dL (12.0-15.0) L D 07/14/23 03:53 Hct 29.6 % (36.0-45.0) L 07/14/23 03:53 Plt Count 511 thou/uL (152-406) H 07/14/23 03:53 PT 11.8 SECONDS (9.5-12.5) 07/13/23 18:26 INR 1.07 07/13/23 18:26 Sodium Cancelled 07/14/23 16:00 Potassium Cancelled 07/14/23 16:00 BUN Cancelled 07/14/23 16:00 Creatinine Cancelled 07/14/23 16:00 Glucose Cancelled 07/14/23 16:00 Phosphorus Cancelled 07/14/23 05:00 Magnesium Cancelled 07/14/23 20:00 Total Bilirubin 0.4 mg/dL (0.2-1.0) 07/13/23 18:26 AST 5 U/L (15-37) L 07/13/23 18:26 ALT 16 U/L (13-56) 07/13/23 18:26 Alkaline Phosphatase 125 U/L (45-117) H 07/13/23 18:26 Triglycerides Cancelled 07/14/23 05:00 Cholesterol Cancelled 07/14/23 05:00 HDL Cholesterol Cancelled 07/14/23 05:00 Cholesterol/HDL Ratio Cancelled 07/14/23 05:00 Lipase 9 U/L (13-75) L 07/13/23 18:26 Home Medications: Insulin Degludec [Tresiba Flextouch U-100] 30 units SQ DAILY 02/03/23 Insulin Lispro [Humalog] 6 units SQ TID 02/03/23 Physician Discharge Instructions: 1. Please call and schedule a follow-up appointment with your PCP as soon as possible - Your bloodwork showed anemia. Please discuss with your PCP for further evaluation 2. Please call and schedule a follow-up appointment with your [employer]ware Supp[employer] Sales Representative as soon as possible If you change your mind and would like to return to the hospital to complete your treatment, we would be happy to help. Please call [phone] or go to the Emergency Department. Diet: ADA Activity: Ad keke Followup: NONE,NONE [Primary Care Provider] - Time spent managing pt's care (in minutes): 25
--- NOTE | 2023-07-14 12:14 | EKG ---
Test Date: 2023-07-13 Test Time: 17:05:27 Director Of Procurement: EDY MEASUREMENT RESULTS: Intervals: Rate: 118 UT: 114 QRSD: 66 QT: 320 QTc: 448 [place]: P: 72 UT: 114 QRS: 72 T: 38 INTERPRETIVE STATEMENTS: Sinus tachycardia Biatrial enlargement Abnormal ECG Compared to ECG 02/03/2023 07:33:02 No significant changes Electronically Signed On 07-14-23 12:12:25 CDT by Ronnie Dodson
== END 2023-07-14 08:45 | disposition left against medical advice (07) | DRG 638 ==
LOC: ER 16:29 → ERHOLD 18:00 → 3RD-ICU 20:50
PROVIDERS: ADMIT Hospitalist; ATTEND Internal Medicine
DX: E10.10 Type 1 diabetes mellitus with ketoacidosis without coma (principal); R65.10 Systemic inflammatory response syndrome (SIRS) of non-infectious origin without acute organ dysfunction; Z68.1 Body mass index [BMI] 19.9 or less, adult; Z53.29 Procedure and treatment not carried out because of patient's decision for other reasons; E86.0 Dehydration; R63.0 Anorexia; D50.9 Iron deficiency anemia, unspecified; F32.A Depression, unspecified; Z91.148 Patient's other noncompliance with medication regimen for other reason; Z79.4 Long term (current) use of insulin; F17.200 Nicotine dependence, unspecified, uncomplicated; Z83.3 Family history of diabetes mellitus
CPT/HCPCS: 36415; 36600; 71045; 80048; 80061; 80076; 80307; 81001; 82010; 82805; 82947; 83605; 83690; 83735; 83880; 83930; 84100; 84484; 84703; 85025; 85610; 87040; 87086; 87088; 87804; 87811; 93005; 99285; J0696; J1815; J7030; J7799

== ENCOUNTER 2023-10-01 13:59 | Emergency (ER) | payer OTHER ==
--- OUTSIDE RECORDS SUMMARY | 2023-10-01 14:04 | XMS REPORT | Continuity of Care Document ---
:2005 Author Organization [facility] t Address [address] [facility] [place] [address] Care Team Providers Name Role Phone Tyrone Trinidad MD Attending Clinician Jeromy Malagon MD Attending Clinician JEROMY MALAGON Attending Clinician Unavailable ALPHONSO KOVACS Attending Clinician Unavailable Doctor Unassigned, Kennedy Attending Clinician Unavailable Erin Ramirez MD Attending Clinician TYRONE TRINIDAD Admitting Clinician Unavailable Payers Payer Name Policy Type Policy Number Effective Date Expiration Date Critical access hospital [id number] 2019 [facility] MEDICAID 00:00:00 Problems Condition Condition Condition Status Onset Resolution Last Treating Co mments Source Name Details Category Date Date Treatment Clinician Date DKA DKA Disease Recurre 2021-11 [facility] (diabetic (diabetic nce 2-12 [facility] ketoacidos ketoacidos 00:00: Me dical is) is) 00 Center Allergies, Adverse Reactions, Alerts Allergy Allergy Status Severity Reaction(s) Onset Inactive Treating Comm ents Source Name Type Date Date Clinician NO KNOWN Drug Active Univers ALLERGIE Class ity of S [facility] NO KNOWN Allergy Active [facility] Social History Social Habit Start Date Stop Date Quantity Comments Source History [facility] Transport [facility] Sexual orientation [facility] History [facility] 2022-10-28 2022-10-28 2 [facility] Transport Med 00:00:00 00:00:[address] [facility] Housing 2022-10-28 2022-10-[address] [facility] Unable to Pay 00:00:00 00:00:[address] History SDOH Housing 2022-10-28 2022-10-[address] [facility] Places Lived 00:00:00 00:00:00 Medical Cent er History [facility]OH Housing 2022-10-28 2022-10-[address] [facility] Homeless Last Year 00:00:00 00:00:00 Medica l Center Alcohol intake 2022-10-28 2022-10-28 [facility] alcohol Medical Center (finding) History of Social 2022-10-28 2022-10-[address] [facility] function 00:00:00 00:00:00 Medical Center Sex Assigned At [address] [facility] 00:[facility]00 Medical Center Medications Ordered Filled Start Stop Current Ordering Indication Dosage Frequency Signature Comments Components Source Medication Medication Date Date Medication? Clinician (SIG) Name Name insulin 2021-11- No 6U Inject 6 [facility] (HumaLOG) 13:38: 00:00 subcutaneo M edical 100 unit/mL 16 :00 usly 3 Center In (three) times daily before meals . insulin 2021-11- No 27U Inject [address] degludec 2-14 12-14 [facility] (Tresiba 13:38: 00:00 subcutaneo Me dical FlexTouch 16 :00 usly. Center U-100) 100 unit/mL (3 mL) InPn insulin 2021-11- No 6U Inject 6 [facility] lispro 2-14 [facility] (HumaLOG) 13:38: 00:00 subcutaneo M edical 100 unit/mL 16 :00 usly 3 Center InPn (three) times daily before meals . insulin 2021-11- No 27U Inject [address] degludec 2-14 12-14 [facility] (Tresiba 13:38: 00:00 subcutaneo Me dical FlexTouch 16 :00 usly. Center U-100) 100 unit/mL (3 mL) InPn insulin 2021-11- No 27U QD Inject [address] degludec-li 2-14 12-14 [facility] raglutide 13:34: 00:00 subcutaneo M edical 100 36 :00 usly Center unit-3.6 mg daily. /mL (3 mL) InPn insulin 2021-11- No 27U QD Inject [address] degludec-li 2-14 12-14 [facility] raglutide 13:34: 00:00 subcutaneo M edical 100 36 :00 usly Center unit-3.6 mg daily. /mL (3 mL) InPn insulin 2021-11 Yes 30U QD Inject 30 [facility]ec [facility] (Tresiba 00:00: subcutaneo Med ical FlexTouch 00 usly Center U-100) 100 daily. unit/mL (3 mL) InPn insulin 2021-11 Yes 10U Inject 10 [facility] lispro 2-14 [facility] (HumaLOG) 00:00: subcutaneo Me dical 100 unit/mL 00 usly 3 Center InPn (three) times daily before meals. pen needle, 2021-11 Yes 1{each} Q.25D [address] diabetic 33 2-14 [facility] gauge x 00:00: ous route Medic al " Ndle 00 4 (four) Cente r times daily. insulin 2021-11 Yes 30U QD Inject 30 [facility]ec [facility] (Tresiba 00:00: subcutaneo Med ical FlexTouch 00 usly Center U-100) 100 daily. unit/mL (3 mL) InPn insulin 2021-11 Yes 10U Inject 10 [facility] lispro 2-14 [facility] (HumaLOG) 00:00: subcutaneo Me dical 100 unit/mL 00 usly 3 Center In (three) times daily before meals. pen needle, 2021-11 Yes 1{each} Q.25D [address] diabetic 33 2-14 [facility] gauge x 00:00: ous route Medic al " Ndle 00 4 (four) Cente r times daily. Vital Signs Vital Name Observation Time Observation Value Comments Source HEIGHT 2022-10-28 15:00:00 152.4 cm WEIGHT 2022-10-28 15:00:00 38.9 kg HEIGHT 2022-10-28 15:00:00 152.4 cm WEIGHT 2022-10-28 15:00:00 38.9 kg HEIGHT 2022-10-28 15:00:00 152.4 cm WEIGHT 2022-10-28 15:00:00 38.9 kg Systolic blood 2022-10-30 11:00:00 105 mm[Hg] [facility] Diastolic blood 2022-10-30 11:00:00 57 mm[Hg] [facility] Heart rate 2022-10-30 11:00:00 82 /min [facility] Body temperature 2022-10-30 11:00:00 36.61 Missy [facility] Respiratory rate 2022-10-30 11:00:00 18 /min [facility] Oxygen saturation in 2022-10-30 11:00:00 98 /min [facility] Arterial blood by Medical Ce nter Pulse oximetry Body height 2022-10-28 15:00:00 152.4 cm [facility] Body weight 2022-10-28 15:00:00 38.9 kg [facility] BMI 2022-10-28 15:00:00 16.75 kg/m2 [facility] Body mass index (BMI) 2022-10-28 15:00:00 1.10 % [facility] [Percentile] Per age Medical Center and sex Procedures Procedure Date / Time Performed Performing Clinician Sourc e POCT-GLUCOSE METER 2022-10-30 11:21:[address] [facility] POCT-GLUCOSE METER 2022-10-30 10:33:00 [facility] POCT-GLUCOSE METER 2022-10-30 06:10:00 [facility] CBC W/PLT COUNT & AUTO 2022-10-30 04:05:00 Laureano [facility] BASIC METABOLIC PANEL 2022-10-30 04:05:00 [facility]ride[facility] MAGNESIUM 2022-10-30 04:05:00 Sridevi [facility] PHOSPHORUS 2022-10-30 04:05:00 Laureano [facility] CBC W/PLT COUNT & AUTO 2022-10-30 04:05:[address] [facility] POCT-GLUCOSE METER 2022-10-29 19:48:00 Manas [facility] POCT-GLUCOSE METER 2022-10-29 16:36:00 [facility] POCT-GLUCOSE METER 2022-10-29 12:58:00 [facility] POCT-GLUCOSE METER 2022-10-29 12:29:00 [facility] POCT-GLUCOSE METER 2022-10-29 11:23:00 [facility] POCT-GLUCOSE METER 2022-10-29 09:10:00 Juliet [facility] POCT-GLUCOSE METER 2022-10-29 08:09:00 Juliet [facility] CBC (HEMOGRAM ONLY) 2022-10-29 08:06[facility]00 [facility] BLOOD 2022-10-29 08:06:[facility] POCT-GLUCOSE METER 2022-10-29 06:37:00 Juliet [facility] POCT-GLUCOSE METER 2022-10-29 05:39:00 Juliet [facility] POCT-GLUCOSE METER 2022-10-29 04:39:00 Juliet [facility] PHOSPHORUS 2022-10-29 03:41:[address] [facility] LIPID PANEL 2022-10-29 03:41:00 Sridevi [facility] MAGNESIUM 2022-10-29 03:41:00 Trinidad, [facility] POCT-GLUCOSE METER 2022-10-29 03:29:00 Trinidad, [facility] URINALYSIS W/ 2022-10-29 03:26:00 Trinidad, [facility] MAGNESIUM 2022-10-29 03:25:00 Trinidad, [facility] PHOSPHORUS 2022-10-29 03:25:00 Trinidad, [facility] BASIC METABOLIC PANEL 2022-10-29 03:25:00 Trinidad, [facility] POCT-GLUCOSE METER 2022-10-29 01:54:00 Trinidad, [facility] POCT-GLUCOSE METER 2022-10-29 00:08:00 Trinidad, [facility] BASIC METABOLIC PANEL 2022-10-29 00:05:00 Trinidad, [facility] MAGNESIUM 2022-10-29 00:05:00 Trinidad, [facility] PHOSPHORUS 2022-10-29 00:05:00 Trinidad, [facility] POCT-GLUCOSE METER 2022-10-28 23:16:00 Trinidad, [facility] POCT-GLUCOSE METER 2022-10-28 22:33:00 Trinidad, [facility] POCT-GLUCOSE METER 2022-10-28 21:54:00 Trinidad, [facility] POCT-GLUCOSE METER 2022-10-28 20:41:00 Trinidad, [facility] POCT-GLUCOSE METER 2022-10-28 19:39:00 Trinidad, [facility] POCT-GLUCOSE METER 2022-10-28 18:32:00 Trinidad, [facility] POCT-GLUCOSE METER 2022-10-28 17:35:00 Trinidad, [facility] POCT-GLUCOSE METER 2022-10-28 16:53:00 Trinidad, [facility] XR CHEST 1 VIEW PORTABLE 2022-10-28 16:50:00 Trinidad, [facility] / BEDSIDE [facility] CBC W/PLT COUNT & AUTO 2022-10-28 16:13:00 Trinidad, [facility] (MANUAL DIFFERENTIAL) 2022-10-28 16:13:00 Trinidad, [facility] LACTIC ACID, VENOUS 2022-10-28 16:13:00 Trinidad, [facility] HEMOGLOBIN A1C 2022-10-28 16:13:00 Trinidad, [facility] TSH/FREE T4 IF INDICATED 2022-10-28 16:13:00 Trinidad, [facility] LIPASE 2022-10-28 16:13:00 Trinidad, [facility] CBC W/PLT COUNT & AUTO 2022-10-28 16:13:00 Trinidad, [facility] BASIC METABOLIC PANEL 2022-10-28 16:13:00 Trinidad, [facility] MAGNESIUM 2022-10-28 16:13:00 Trinidad, [facility] PHOSPHORUS 2022-10-28 16:13:00 Trinidad, [facility] KETONE, BLOOD 2022-10-28 16:13:00 Trinidad, [facility] BLOOD GAS, VENOUS 2022-10-28 16:13:00 Trinidad, [facility] POCT-GLUCOSE METER 2022-10-28 15:52:00 Trinidad, [facility] Plan of Care Planned Activity Planned Date Details Comments Source Future Scheduled 2023-07-18 Influenza Vaccine (#1) [facility] 00:00[facility]00 [code = Influenza Vaccine Me dical Center (#1)] Future Scheduled 2023-07-18 Influenza Vaccine (#1) [facility] 00:00:00 [code = Influenza Vaccine Me dical Center (#1)] Future Scheduled 2023-01-[address] [facility] Test 00:00:00 measurement (procedure) [facility] [code = 22421922] Future Scheduled 2023-01-[address] [facility] Test 00:00:00 measurement (procedure) [facility] [code = 82587903] Future Scheduled 2022 DTAP/TDAP/TD VACCINES ([address] [facility] Test 00:00:00 - Tdap) [code = Medical Cent er DTAP/TDAP/TD VACCINES (1 - Tdap)] Future Scheduled 2022 DTAP/TDAP/TD VACCINES ([address] [facility] Test 00:00:00 - Tdap) [code = Medical Cent er DTAP/TDAP/TD VACCINES (1 - Tdap)] Future Scheduled 2022-11-[address] [facility] Test 00:00:00 (12+) [code = DEPRESSION [facility] ica Center SCREENING (12+)] Future Scheduled 2022-11-[address] [facility] Test 00:00:00 (12+) [code = DEPRESSION [facility] ica Center SCREENING (12+)] Future Scheduled 2021 HEPATITIS C [facility] 00:00:00 [code = HEPATITIS C Medical Center SCREENING] Future Scheduled 2021 HEPATITIS C [facility]CRE[facility]ING [facility] 00:00:00 [code = HEPATITIS C Medical Center SCREENING] Future Scheduled 2018 Human immunodeficiency [facility] Test 00:00:00 virus screening Medical Cent er (procedure) [code = 615854369] Future Scheduled [address] Human immunodeficiency [facility] Test 00:00:00 virus screening Medical Cent er (procedure) [code = 500017790] Future Scheduled [address] [facility] Test 00:00:00 Counseling and Screening [facility] (12+) [code = Tobacco Cessation Counseling and Screening (12+)] Future Scheduled [address] [facility] Test 00:00:00 Counseling and Screening [facility] (12+) [code = Tobacco Cessation Counseling and Screening (12+)] Future Scheduled 2013 DIABETIC EYE EXAM [code = [facility] Test 00:00:00 DIABETIC EYE EXAM] Medical C enter Future Scheduled 2013 Diabetic foot examination [facility] Test 00:00:00 (regime/therapy) [code = Med ical Center [id number]] Future Scheduled 2013 Urine screening for [facility] Test 00:00:00 protein (procedure) [code Az dical Center = 199429402] Future Scheduled 2013 DIABETIC EYE EXAM [code = [facility] Test 00:00:00 DIABETIC EYE EXAM] Medical C enter Future Scheduled 2013 Diabetic foot examination [facility] Test 00:00:00 (regime/therapy) [code = Med ical Center [id number]] Future Scheduled 2013 Urine screening for [facility] Test 00:00:00 protein (procedure) [code Az dicma Center = 947291315] Future Scheduled 2009 Pneumococcal Vaccine: [facility] 00:00:00 0-64 Years (1 - PCV) Medical Center [code = Pneumococcal Vaccine: 0-64 Years (1 - PCV)] Future Scheduled 2009 Pneumococcal Vaccine: [facility] Test 00:00:00 0-64 Years (1 - PCV) Medical Center [code = Pneumococcal Vaccine: 0-64 Years (1 - PCV)] Future Scheduled 2004-06-28 COVID-19 VACCINE (#1) [facility] 00:00:00 [code = COVID-19 VACCINE Med ical Center (#1)] Future Scheduled 2004-06-28 COVID-19 VACCINE (#1) [facility] 00:00:00 [code = COVID-19 VACCINE Med ical Center (#1)] Encounters Start End Encounter Admission Attending Care Care Encounter Source Date/Time Date/Time Type Type Clinicians Facility Department ID 2022-10-28 2022-10-30 [facility] [id number] [facility] 15[facility] 15:15:00 Encounter [facility] 2022-10-28 2022-10-30 [facility] [id number] [facility] 15[facility] 15:15:00 Encounter [facility] 2022-10-28 2022-10-30 [facility] Med [id number] [facility] 15:42:00 15:15:00 JEROMY 2021-08-07 2021-08-07 [facility] [id number] Univers 09:00:00 09:00:[address] [facility] 2019-08-06 2019-08-06 Orders Doctor GLORIA [id number] 00:00:00 00:00:00 Only Unassigned, RADHA [id number] Kennedy [facility] [id number] 2019-08-02 2019-08-02 Telephone [facility] [id number] 00:00:00 00:00:00 Erin Monroy [id number] [place] [id number] Professio [id number] nal 134 [facility] 2019-08-01 2019-08-01 Telephone [facility] [id number] 00:00:00 00:00:00 Erin Monroy [id number] [place] [id number] Professio [id number] [address] Results Test Description Test Time Test Comments Results Result Comments Source POC-Glucose meter 2022-10-30 11:40:28 Test Item Value Reference Range Interpretation Comme nts POC-Glucose Meter (test code = 310 mg/dL 70-110 H : TESTED AT [facility] [address]) [place] [address]: [employer]/Techni jl ID = [id number] for Evon Garcia Lab Interpretation (test code = Abnormal 73917-0) [facility] [id number] 11:40:28 Test Item Value Reference Range Interpretation Comments POC-Glucose Meter (test 310 mg/dL 70-110 H : TE STED AT [facility] code = 1538) [address] [employer] [address]: [employer]/Techni lj ID = [id number] for RadhaJessiey Lab Interpretation (test Abnormal code = 27123-5) [facility]-GLUCOSE [id number] 11:40:28 Test Item Value Reference Range Interpretation Comments POC-GLUCOSE METER 310 mg/dL 70-110 H : TESTED A T [facility] [address] (BEAKER) (test code [address] [facility] = 1538) [facility] [address]: [employer]/Techni lj ID = [id number] for Evon Trent POCT-GLUCOSE [id number] 10:45:00 Test Item Value Reference Range Interpretation Comments POC-GLUCOSE METER 341 mg/dL 70-110 H : TESTED A T [facility] [address] (BEAKER) (test code [address] [facility] = [facility]38[facility] 77 478: [employer]/Techni lj ID = [id number] for Charu Wilks POCT-GLUCOSE [id number] 06:21:56 Test Item Value Reference Range Interpretation Comments POC-GLUCOSE METER 421 mg/dL 70-110 HH : Notified RN/MD: TESTED (BEAKER) (test code AT [facility] [address] = 1538) [facility] [address]: [employer]/Techni lj ID = [id number] for Constance Chi [id number] 04:45:05 Test Item Value Reference Range Interpretation Comments MAGNESIUM (BEAKER) 1.8 mg/dL 1.5-3.0 Specimen markedly (test code = 627) hemolyzed [employer] ID - [id number] ID - [id number] ID - [id number] ID - [id number] METABOLIC [id number] 04:43:42 Test Item Value Reference Range Interpretation Comments SODIUM (BEAKER) 134 meq/L 135-148 L (test code = 381) POTASSIUM 4.7 meq/L 3.6-5.5 Specimen marked ly (BEAKER) (test hemolyzed code = 379) CHLORIDE (BEAKER) 100 meq/L 98-106 (test code = 382) CO2 (BEAKER) 24 meq/L 20-29 (test code = 355) BLOOD UREA 13 mg/dL 10-26 NITROGEN (BEAKER) (test code = 354) CREATININE 0.75 mg/dL 0.50-1.20 Specimen marked ly (BEAKER) (test hemolyzed code = 358) GLUCOSE RANDOM 352 mg/dL 70-110 H (BEAKER) (test code = 652) CALCIUM (BEAKER) 8.8 mg/dL 8.5-10.5 (test code = 697) EGFR (BEAKER) 118 Interpretatio n of eGFR (test code = mL/min/1.73 values Stage De scription 1092) sq m Result G1 Hilda l or high >=90 G2 Mildly decreased 60-89 G3a Mildl y to moderately 45-5 9 G3b Moderately to s everely 30-44 G4 Severl y decreased 15-29 G5 Kidney failure <15Reported eGF R is based on the CKD-EPI 1 equation that d oes not use a race coefficientEsti mated GFR is not as accur ate as Creatinine Rita earlene in predicting glom erular filtration rate . Estimated GFR is not appl icable for dialysis patien ts [employer] ID - [id number] ID - [id number] ID - [id number] ID - [id number] ID - [id number] ID - [id number] ID - [id number] ID - [id number] ID - [id number] 04:42:22 Test Item Value Reference Range Interpretation Comments PHOSPHORUS (BEAKER) 3.0 mg/dL 2.5-4.5 Specimen markedly (test code = 604) hemolyzed [employer] ID - [id number] W/PLT COUNT & AUTO [id number] 04:26:36 Test Item Value Reference Range Interpretation Comments WHITE BLOOD CELL COUNT (BEAKER) 5.6 K/ L 4.0-10.0 (test code = 775) RED BLOOD CELL COUNT (BEAKER) 4.64 M/ L 4.00-5.00 (test code = 761) HEMOGLOBIN (BEAKER) (test code = 13.1 GM/DL 12.0-15.5 410) HEMATOCRIT (BEAKER) (test code = 38.9 % 36.0-46.0 411) MEAN CORPUSCULAR VOLUME (BEAKER) 84 fL 82-99 (test code = 753) MEAN CORPUSCULAR HEMOGLOBIN 28.2 pg 27.0-33.0 (BEAKER) (test code = 751) MEAN CORPUSCULAR HEMOGLOBIN CONC 33.7 GM/DL 32.0-36.0 (BEAKER) (test code = 752) RED CELL DISTRIBUTION WIDTH 13.4 % 12.0-15.0 (BEAKER) (test code = 412) PLATELET COUNT (BEAKER) (test 267 K/CU MM 150-430 code = 756) MEAN PLATELET VOLUME (BEAKER) 11.3 fL 6.0-11.5 (test code = 754) NUCLEATED RED BLOOD CELLS 0 /100 WBC 0-0 (BEAKER) (test code = 413) NEUTROPHILS RELATIVE PERCENT 71 % (BEAKER) (test code = 429) LYMPHOCYTES RELATIVE PERCENT 22 % (BEAKER) (test code = 430) MONOCYTES RELATIVE PERCENT 6 % (BEAKER) (test code = 431) EOSINOPHILS RELATIVE PERCENT 0 % (BEAKER) (test code = 432) BASOPHILS RELATIVE PERCENT 0 % (BEAKER) (test code = 437) NEUTROPHILS ABSOLUTE COUNT 3.99 K/ L 1.80-8.00 (BEAKER) (test code = 670) LYMPHOCYTES ABSOLUTE COUNT 1.21 K/ L 1.48-4.50 L (BEAKER) (test code = 414) MONOCYTES ABSOLUTE COUNT (BEAKER) 0.35 K/ L 0.00-1.30 (test code = 415) EOSINOPHILS ABSOLUTE COUNT 0.02 K/ L 0.00-0.50 (BEAKER) (test code = 416) BASOPHILS ABSOLUTE COUNT (BEAKER) 0.02 K/ L 0.00-0.20 (test code = 417) IMMATURE GRANULOCYTES-RELATIVE 0.70 % 0.00-0.00 H PERCENT (BEAKER) (test code = 2801) POCT-GLUCOSE [id number] 19:59:13 Test Item Value Reference Range Interpretation Comments POC-GLUCOSE METER 151 mg/dL 70-110 H : TESTED A T [facility] [address] (BEAKER) (test code [address], = 1538) [place] [address]: [employer]/Techni lj ID = [id number] for Nuris Singleton POCT-GLUCOSE [id number] 16:47:58 Test Item Value Reference Range Interpretation Comments POC-GLUCOSE METER 184 mg/dL 70-110 H : TESTED A T [facility] [address] (BEAKER) (test code [address], = 1538) [place] [address]: [employer]/Techni lj ID = [id number] for Dapr emont, Charu POCT-GLUCOSE [id number] 13:09:47 Test Item Value Reference Range Interpretation Comments POC-GLUCOSE METER 198 mg/dL 70-110 H : TESTED A T [facility] [address] (BEAKER) (test code [address], = 1538) [place] [address]: [employer]/Techni lj ID = [id number] for Dapr emont, Charu POCT-GLUCOSE [id number] 12:41:05 Test Item Value Reference Range Interpretation Comments POC-GLUCOSE METER 167 mg/dL 70-110 H : TESTED A T [facility] [address] (BEAKER) (test code [address], = 1538) [place] [address]: [employer]/Techni lj ID = [id number] for Farooq Gutierres POCT-GLUCOSE [id number] 11:35:10 Test Item Value Reference Range Interpretation Comments POC-GLUCOSE METER 163 mg/dL 70-110 H : TESTED A T [facility] [address] (BEAKER) (test code [address], = 1538) [place] [address]: [employer]/Techni lj ID = [id number] for Farooq Gutierres POCT-GLUCOSE [id number] 09:21:35 Test Item Value Reference Range Interpretation Comments POC-GLUCOSE METER 259 mg/dL 70-110 H : TESTED A T [facility] [address] (BEAKER) (test code [address], = 1538) [place] [address]: [employer]/Techni lj ID = [id number] for FALYou DIAZ, FOLAKEMI POCT-GLUCOSE [id number] 08:21:09 Test Item Value Reference Range Interpretation Comments POC-GLUCOSE METER 171 mg/dL 70-110 H : TESTED A T [facility] [address] (BEAKER) (test code [address], = 1538) [place] [address]: [employer]/Techni lj ID = [id number] for Farooq Gutierres KETONE, [id number] 08:12:29 Test Item Value Reference Range Interpretation Comments KETONES, BLOOD (BEAKER) (test code 1.5 mmol/L <0.4 H = 1103) CBC (HEMOGRAM ONLY)2022-10-29 08:11:50 Test Item Value Reference Range Interpretation Comments WHITE BLOOD CELL COUNT (BEAKER) 8.6 K/ L 4.0-10.0 (test code = 775) RED BLOOD CELL COUNT (BEAKER) 4.68 M/ L 4.00-5.00 (test code = 761) HEMOGLOBIN (BEAKER) (test code = 13.4 GM/DL 12.0-15.5 410) HEMATOCRIT (BEAKER) (test code = 38.8 % 36.0-46.0 411) MEAN CORPUSCULAR VOLUME (BEAKER) 83 fL 82-99 (test code = 753) MEAN CORPUSCULAR HEMOGLOBIN 28.6 pg 27.0-33.0 (BEAKER) (test code = 751) MEAN CORPUSCULAR HEMOGLOBIN CONC 34.5 GM/DL 32.0-36.0 (BEAKER) (test code = 752) RED CELL DISTRIBUTION WIDTH 13.3 % 12.0-15.0 (BEAKER) (test code = 412) PLATELET COUNT (BEAKER) (test 210 K/CU MM 150-430 code = 756) MEAN PLATELET VOLUME (BEAKER) 10.8 fL 6.0-11.5 (test code = 754) NUCLEATED RED BLOOD CELLS 0 /100 WBC 0-0 (BEAKER) (test code = 413) LIPID [id number] 07:38:24 Test Item Value Reference Range Interpretation Comments TRIGLYCERIDES (BEAKER) (test code = 147 mg/dL 540) CHOLESTEROL (BEAKER) (test code = 156 mg/dL 631) HDL CHOLESTEROL (BEAKER) (test code 48 mg/dL = 976) LDL CHOLESTEROL CALCULATED (BEAKER) 79 mg/dL (test code = 633) Triglyceride Reference Range: Low Risk <150 Borderline 150-199 High Risk 200- 499 Very High Risk >=500Cholesterol Reference Range: Low Risk <200 Borderline 200-239 High Risk >240HDL Cholesterol Reference Range: Low Risk >=60 High Risk <40LDL Cholesterol Reference Range: Optimal <100 Near Optimal 100-129 Borderline 130-159 High 160-189 Very High >=190 [employer] ID - TQRJ60Xiaredju ID - [id number] ID - [id number]-XIDOBVH [id number] 06:48:47 Test Item Value Reference Range Interpretation Comments POC-GLUCOSE METER 168 mg/dL 70-110 H : TESTED A T [facility] [address] (BEAKER) (test code [address], = 1538) [place] [address] 478: Armed [employer]/Techni lj ID = [id number] for Jenna Palma POCT-GLUCOSE [id number] 05:51:31 Test Item Value Reference Range Interpretation Comments POC-GLUCOSE METER 168 mg/dL 70-110 H : TESTED A T [facility] [address] (BEAKER) (test code [address], = 1538) [place] [address] 478: [employer]/Techni lj ID = [id number] for Jenna Palma POCT-GLUCOSE [id number] 04:51:09 Test Item Value Reference Range Interpretation Comments POC-GLUCOSE METER 205 mg/dL 70-110 H : TESTED A T [facility] [address] (BEAKER) ([facility] [address] [facility] [place] [address] 478: Armed Security Guard/Techni lj ID = [id number] for Jenna Palma [id number] 04:08:47 Test Item Value Reference Range Interpretation Comments MAGNESIUM (BEAKER) (test code = 2.0 mg/dL 1.5-3.0 627) [employer] ID - TCAMACHOOperator ID - TCAMACHOOperator ID - TCAMACHOOperator ID - [id number] 04:06:29 Test Item Value Reference Range Interpretation Comments PHOSPHORUS (BEAKER) (test code = 1.7 mg/dL 2.5-4.5 L 604) [employer] ID - [id number] 04:05:26 Test Item Value Reference Range Interpretation Comments MAGNESIUM (BEAKER) (test code = 2.0 mg/dL 1.5-3.0 627) [employer] ID - TCAMACHOOperator ID - TCAMACHOOperator ID - TCAMACHOOperator ID - TCAMACHOBASIC METABOLIC [id number] 04:05:13 Test Item Value Reference Range Interpretation Comments SODIUM (BEAKER) 133 meq/L 135-148 L (test code = 381) POTASSIUM 3.7 meq/L 3.6-5.5 (BEAKER) (test code = 379) CHLORIDE (BEAKER) 104 meq/L 98-106 (test code = 382) CO2 (BEAKER) 19 meq/L 20-29 L (test code = 355) BLOOD UREA 14 mg/dL 10-26 NITROGEN (BEAKER) (test code = 354) CREATININE 0.70 mg/dL 0.50-1.20 (BEAKER) (test code = 358) GLUCOSE RANDOM 170 mg/dL 70-110 H (BEAKER) (test code = 652) CALCIUM (BEAKER) 7.8 mg/dL 8.5-10.5 L (test code = 697) EGFR (BEAKER) 128 Interpretatio n of eGFR (test code = mL/min/1.73 values Stage De scription 1092) sq m Result G1 Hilda l or high >=90 G2 Mildly decreased 60-89 G3a Mildl y to moderately 45-5 9 G3b Moderately to s everely 30-44 G4 Severl y decreased 15-29 G5 Kidney failure <15Reported eGF R is based on the CKD-EPI 2020 equation that d oes not use a race coefficientEsti mated GFR is not as accur ate as Creatinine Rita earlene in predicting glom erular filtration rate . Estimated GFR is not appl icable for dialysis patien ts [employer] ID - TCAMACHOOperator ID - TCAMACHOOperator ID - TCAMACHOOperator ID - TCAMACHOOperator ID - TCAMACHOOperator ID - TCAMACHOOperator ID - TCAMACHOOperator ID - TCAMACHOOperator ID - TCAMACHOOperator ID - TCAMACHO Urinalysis w/[id number] 04:04:00 Test Item Value Reference Range Interpretation Comments Color, UA (test code Yellow = 5778-6) Clarity, UA (test Slightly Cloudy code = 5767-9) Specific [place], UA 1.001-1.035 (test code = 5811-5) pH, UA (test code = 6.0 5.0-8.0 5803-2) Protein, UA (test 30 mg/dL Negative A code = 61048-5) Glucose, UA (test 250 mg/dL Negative A code = 365) Ketones, UA (test >=80 mg/dL Negative A code = 2514-8) Bilirubin, UA (test Negative Negative code = 26317-5) Blood, UA (test code Large Negative A = 81559-1) Nitrite, UA (test Negative Negative code = 5802-4) Leukocytes, UA (test Negative Negative code = 5799-2) Urobilinogen, UA 0.2 (test code = 05247-4) Bacteria, UA (test Few code = 20006-2) Yeast (test code = Rare 70855-2) RBC, UA (test code = 10-20 See_Comment [Autom ated 799-7) message] The system which generated this result transmit lyla reference range : /HPF. The reference range was not used to interpret this result as normal/abnormal . WBC, UA (test code = <5 See_Comment [Autom ated 29867-1) message] The system which generated this result transmit lyla reference range : /HPF. The reference range was not used to interpret this result as normal/abnormal . SQUAMOUS EPITHELIAL 5-10 See_Comment [Automa lyla (test code = 37421-2) messag e] The system which generated this result transmit lyla reference range : /HPF. The reference range was not used to interpret this result as normal/abnormal . Specimen Source (test code = 2795) Lab Interpretation Abnormal (test code = 40731-0) [facility]/[id number] 04:04:00 Test Item Value Reference Range Interpretation Comments Color, UA (test code Yellow = 5778-6) Clarity, UA (test Slightly Cloudy code = 5767-9) Specific [place], UA 1.001-1.035 (test code = 5811-5) pH, UA (test code = 6.0 5.0-8.0 5803-2) Protein, UA (test 30 mg/dL Negative A code = 71774-0) Glucose, UA (test 250 mg/dL Negative A code = 365) Ketones, UA (test >=80 mg/dL Negative A code = 2514-8) Bilirubin, UA (test Negative Negative code = 96631-2) Blood, UA (test code Large Negative A = 38076-8) Nitrite, UA (test Negative Negative code = 5802-4) Leukocytes, UA (test Negative Negative code = 5799-2) Urobilinogen, UA 0.2 (test code = 06225-3) Bacteria, UA (test Few code = 96538-9) Yeast (test code = Rare 76589-2) RBC, UA (test code = 10-20 See_Comment [Autom ated 799-7) message] The system which generated this result transmit lyla reference range : /HPF. The reference range was not used to interpret this result as normal/abnormal . WBC, UA (test code = <5 See_Comment [Autom ated 28212-2) message] The system which generated this result transmit lyla reference range : /HPF. The reference range was not used to interpret this result as normal/abnormal . SQUAMOUS EPITHELIAL 5-10 See_Comment [Automa lyla (test code = 14942-8) messag e] The system which generated this result transmit lyla reference range : /HPF. The reference range was not used to interpret this result as normal/abnormal . Specimen Source (test code = 2795) Lab Interpretation Abnormal (test code = 51636-5) [facility]/ [id number] 04:04:00 Test Item Value Reference Range Interpretation Comments COLOR (BEAKER) (test code = Yellow 470) CLARITY (BEAKER) (test code = Slightly Cloudy 469) SPECIFIC GRAVITY UA (BEAKER) >= 1.001-1.035 (test code = 468) PH UA (BEAKER) (test code = 6.0 5.0-8.0 467) PROTEIN UA (BEAKER) (test 30 mg/dL Negative A code = 464) GLUCOSE UA (BEAKER) (test 250 mg/dL Negative A code = 365) KETONES UA (BEAKER) (test >=80 mg/dL Negative A code = 371) BILIRUBIN UA (BEAKER) (test Negative Negative code = 462) BLOOD UA (BEAKER) (test code Large Negative A = 461) NITRITE UA (BEAKER) (test Negative Negative code = 465) LEUKOCYTE ESTERASE UA Negative Negative (BEAKER) (test code = 466) UROBILINOGEN UA (BEAKER) 0.2 (test code = 463) BACTERIA (BEAKER) (test code Few = 517) YEAST (BEAKER) (test code = Rare 1585) RBC UA-MANUAL (BEAKER) (test 10-20 /HPF code = 1659) WBC UA-MANUAL (BEAKER) (test <5 /HPF code = 1661) SQUAMOUS EPITHELIAL MANUAL 5-10 /HPF (BEAKER) (test code = 1663) SOURCE(BEAKER) (test code = 2795) [id number] 04:02:25 Test Item Value Reference Range Interpretation Comments PHOSPHORUS (BEAKER) (test code = 1.7 mg/dL 2.5-4.5 L 604) [employer] ID - TCAMACHOPOCT-GLUCOSE [id number] 03:40:49 Test Item Value Reference Range Interpretation Comments POC-GLUCOSE METER 174 mg/dL 70-110 H : TESTED A T [facility] [address] (BEAKER) (test code [address], = 1538) [place] [address] 478: [employer]/Techni lj ID = [id number] for Jenna Palma POCT-GLUCOSE [id number] 02:06:08 Test Item Value Reference Range Interpretation Comments POC-GLUCOSE METER 179 mg/dL 70-110 H : TESTED A T [facility] [address] (BEAKER) (test code [address], = 1538) [place] [address] 478: Armed Security Guard/Techni lj ID = [id number] for Jenna Palma BASIC METABOLIC [id number] 01:00:11 Test Item Value Reference Range Interpretation Comments SODIUM (BEAKER) 134 meq/L 135-148 L (test code = 381) POTASSIUM 3.6 meq/L 3.6-5.5 (BEAKER) (test code = 379) CHLORIDE (BEAKER) 104 meq/L 98-106 (test code = 382) CO2 (BEAKER) 17 meq/L 20-29 L (test code = 355) BLOOD UREA 15 mg/dL 10-26 NITROGEN (BEAKER) (test code = 354) CREATININE 0.77 mg/dL 0.50-1.20 (BEAKER) (test code = 358) GLUCOSE RANDOM 154 mg/dL 70-110 H (BEAKER) (test code = 652) CALCIUM (BEAKER) 8.2 mg/dL 8.5-10.5 L (test code = 697) EGFR (BEAKER) 115 Interpretatio n of eGFR (test code = mL/min/1.73 values Stage De scription 1092) sq m Result G1 Hilda l or high >=90 G2 Mildly decreased 60-89 G3a Mildl y to moderately 45-5 9 G3b Moderately to s everely 30-44 G4 Severl y decreased 15-29 G5 Kidney failure <15Reported eGF R is based on the CKD-EPI 2020 equation that d oes not use a race coefficientEsti mated GFR is not as accur ate as Creatinine Rita earlene in predicting glom erular filtration rate . Estimated GFR is not appl icable for dialysis patien ts Armed [employer] Guard ID - TCAMACHOOperator ID - TCAMACHOOperator ID - TCAMACHOOperator ID - TCAMACHOOperator ID - TCAMACHOOperator ID - TCAMACHOOperator ID - TCAMACHOOperator ID - TCAMACHOOperator ID - TCAMACHOOperator ID - TCAMACHO [id number] 00:31:23 Test Item Value Reference Range Interpretation Comments MAGNESIUM (BEAKER) (test code = 2.9 mg/dL 1.5-3.0 627) Armed Security Guard ID - TCAMACHOOperator ID - TCAMACHOOperator ID - TCAMACHOOperator ID - [id number] 00:28:01 Test Item Value Reference Range Interpretation Comments PHOSPHORUS (BEAKER) (test code = 1.9 mg/dL 2.5-4.5 L 604) Armed Security Guard ID - TCAMACHOPOCT-GLUCOSE [id number] 00:19:59 Test Item Value Reference Range Interpretation Comments POC-GLUCOSE METER 157 mg/dL 70-110 H : TESTED A T [facility] [address] (BEAKER) (test code [address], = 1538) [place] [address] 478: Armed Security Guard/Techni lj ID = [id number] for Khoj a, Jenna POCT-GLUCOSE [id number] 23:27:42 Test Item Value Reference Range Interpretation Comments POC-GLUCOSE METER 112 mg/dL 70-110 H : TESTED A T [facility] [address] (BEAKER) (test code [address], = 1538) [place] [address] 478: Armed Security Guard/Techni lj ID = [id number] for Khoj a, Jenna POCT-GLUCOSE [id number] 22:45:47 Test Item Value Reference Range Interpretation Comments POC-GLUCOSE METER 100 mg/dL 70-110 : Notified RN/MD: TESTED (VIJAY) (test code AT [facility] [address] = 1538) [place] [id number]: Armed Security Guard/Techni lj ID = [id number] for Bobs , Arkeishia POCT-GLUCOSE [id number] 22:05:32 Test Item Value Reference Range Interpretation Comments POC-GLUCOSE METER 90 mg/dL 70-110 : Notified RN/MD: TESTED (VIJAY) (test code = AT [address] [address]) [place] [address]: Armed Security Guard/Techni lj ID = [id number] for Bobs , Arkeishia POCT-GLUCOSE [id number] 20:53:16 Test Item Value Reference Range Interpretation Comments POC-GLUCOSE METER 162 mg/dL 70-110 H : [facility] ([facility]) (test code [address] [facility], = 1538) [place] [address]: Armed Security Guard/Techni lj ID = [id number] for Bobs , Arkeishia POCT-GLUCOSE [id number] 19:51:04 Test Item Value Reference Range Interpretation Comments POC-GLUCOSE METER 204 mg/dL 70-110 H : Notified RN/MD: TESTED (VIJAY) ([facility] [address] = 1538) [place] [address]: Armed Security Guard/Techni lj ID = [id number] for Bobs , Arkeishia POCT-GLUCOSE [id number] 18:43:51 Test Item Value Reference Range Interpretation Comments POC-GLUCOSE METER 181 mg/dL 70-110 H : [facility] (BEAKER) (test code [address] [facility], = 1538) [place] [id number]: Armed Security Guard/Techni lj ID = [id number] for Ali, Jessica POCT-GLUCOSE [id number] 17:47:15 Test Item Value Reference Range Interpretation Comments POC-GLUCOSE METER 161 mg/dL 70-110 H : [facility] (BEAKER) (test code [address] [facility], = 1538) [place] [id number]: Armed Security Guard/Techni lj ID = [id number] for Melissa Junior RAD, CHEST, 1 VIEW, NON [id number] 17:38:00Reason for exam:->DKAShould this be performed at the bedside?->Yes [facility] 2005 Sex: FFINAL REPORT Portable chest 10/28/2022 COMPARISON: None The heart, lungs and mediastinum are within normal limits. A very slight scoliosis of the thoracolumbar spine is seen that may bepositional. No further osseous abnormalities are identified. Signed: Aamir Mccauley VerifiedDate/Time: 10/28/2022 17:38:04 Reading Location: [facility] Radiology Reading Room TSH/FREE T4 IF [id number] 17:11:29 Test Item Value Reference Range Interpretation Comments THYROID STIMULATING HORMONE 0.450 uIU/mL 0.350-5.500 ([facility]) (test code = 772) Armed [employer] Guard ID - [id number] ACID, [id number] 17:10:22 Test Item Value Reference Range Interpretation Comments LACTATE BLOOD 1.00 mmol/L See_Comment [Automated me ssage] VENOUS (2) ([facility]) The syst em which (test code = 2872) generated this result transmitted ref erence range: 0.50-<2. 00. The reference range was not used to interpr et this result as normal/abnormal . POCT-GLUCOSE [id number] 17:05:04 Test Item Value Reference Range Interpretation Comments POC-GLUCOSE METER 121 mg/dL 70-110 H : TESTED A T [facility] [address] (BEAKER) (test code [address], = 1538) [facility] 77 478: Armed Security Guard/Techni lj ID = [id number] for Jessica Wang HEMOGLOBIN [id number] 17:01:15 Test Item Value Reference Range Interpretation Comments HEMOGLOBIN A1C (BEAKER) (test code = 15.6 % 4.3-6.1 H 368) [employer] ID - [id number](MANUAL DIFFERENTIAL)2022-10-28 17:00:35 Test Item Value Reference Range Interpretation Comments NEUTROPHILS - REL (DIFF) (BEAKER) 83 % (test code = 1359) LYMPHOCYTES - REL (DIFF) (BEAKER) 12 % (test code = 1360) MONOCYTES - REL (DIFF) (BEAKER) 5 % (test code = 1361) NEUTROPHILS - ABS (DIFF) (BEAKER) 9.46 K/ L 1.80-8.00 H (test code = 1365) LYMPHOCYTES - ABS (DIFF) (BEAKER) 1.37 K/ L 1.48-4.50 L (test code = 1366) MONOCYTES - ABS (DIFF) (BEAKER) 0.57 K/ L 0.00-1.30 (test code = 1367) TOTAL COUNTED (BEAKER) (test code = 100 1351) WBC MORPHOLOGY (BEAKER) (test code Normal = 487) PLT MORPHOLOGY (BEAKER) (test code Normal = 486) RBC MORPHOLOGY (BEAKER) (test code Normal = 762) CBC W/PLT COUNT & AUTO [id number] 17:00:34 Test Item Value Reference Range Interpretation Comments WHITE BLOOD CELL COUNT (BEAKER) 11.4 K/ L 4.0-10.0 H (test code = 775) RED BLOOD CELL COUNT (BEAKER) 4.44 M/ L 4.00-5.00 (test code = 761) HEMOGLOBIN (BEAKER) (test code = 12.7 GM/DL 12.0-15.5 410) HEMATOCRIT (BEAKER) (test code = 37.9 % 36.0-46.0 411) MEAN CORPUSCULAR VOLUME (BEAKER) 85 fL 82-99 (test code = 753) MEAN CORPUSCULAR HEMOGLOBIN 28.6 pg 27.0-33.0 (BEAKER) (test code = 751) MEAN CORPUSCULAR HEMOGLOBIN CONC 33.5 GM/DL 32.0-36.0 (BEAKER) (test code = 752) RED CELL DISTRIBUTION WIDTH 13.1 % 12.0-15.0 (BEAKER) (test code = 412) PLATELET COUNT (BEAKER) (test 242 K/CU MM 150-430 code = 756) MEAN PLATELET VOLUME (BEAKER) 10.6 fL 6.0-11.5 (test code = 754) NUCLEATED RED BLOOD CELLS 0 /100 WBC 0-0 (BEAKER) (test code = 413) [id number] 16:56:00 Test Item Value Reference Range Interpretation Comments LIPASE (BEAKER) (test code = 749) 16 U/L 6-51 Armed [employer] Guard ID - [id number] ID - [id number] ID - [id number] ID - [id number] 16:55:01 Test Item Value Reference Range Interpretation Comments MAGNESIUM (BEAKER) (test code = 1.4 mg/dL 1.5-3.0 L 627) Armed Security Guard ID - [id number] METABOLIC [id number] 16:54:12 Test Item Value Reference Range Interpretation Comments SODIUM (BEAKER) 137 meq/L 135-148 (test code = 381) POTASSIUM 3.8 meq/L 3.6-5.5 (BEAKER) (test code = 379) CHLORIDE (BEAKER) 111 meq/L 98-106 H (test code = 382) CO2 (BEAKER) 12 meq/L 20-29 L (test code = 355) BLOOD UREA 15 mg/dL 10-26 NITROGEN (BEAKER) (test code = 354) CREATININE 0.78 mg/dL 0.50-1.20 (BEAKER) (test code = 358) GLUCOSE RANDOM 133 mg/dL 70-110 H (BEAKER) (test code = 652) CALCIUM (BEAKER) 8.1 mg/dL 8.5-10.5 L (test code = 697) EGFR (BEAKER) 113 Interpretatio n of eGFR (test code = mL/min/1.73 values Stage De scription 1092) sq m Result G1 Hilda l or high >=90 G2 Mildly decreased 60-89 G3a Mildl y to moderately 45-5 9 G3b Moderately to s everely 30-44 G4 Severl y decreased 15-29 G5 Kidney failure <15Reported eGF R is based on the CKD-EPI 2020 equation that d oes not use a race coefficientEsti mated GFR is not as accur ate as Creatinine Rita earlene in predicting glom erular filtration rate . Estimated GFR is not appl icable for dialysis patien ts [employer] ID - [id number] ID - [id number] ID - [id number] ID - [id number] ID - [id number] ID - [id number] ID - [id number] ID - [id number] ID - [id number] ID - [id number] 16:52:38 Test Item Value Reference Range Interpretation Comments PHOSPHORUS (BEAKER) (test code = 2.5 mg/dL 2.5-4.5 604) [employer] ID - [id number] GAS, [id number] 16:51:55 Test Item Value Reference Range Interpretation Comments PH VENOUS (BEAKER) (test code = 7.22 7.32-7.42 L 701) PCO2 VENOUS (BEAKER) (test code 32 mm Hg 41-51 L = 755) PO2 VENOUS (BEAKER) (test code = 46 mm Hg 25-40 H 702) O2 SATURATION VENOUS (BEAKER) 72.5 % 40.0-70.0 H (test code = 703) HCO3 VENOUS (BEAKER) (test code 13 mmol/L 21-29 L = 705) BASE EXCESS VENOUS (BEAKER) -13.5 mmol/L -2.0-3.0 L (test code = 704) PATIENT TEMPERATURE (BEAKER) 37.6 (test code = 1818) FIO2 (BEAKER) (test code = 1819) 21.0 KETONE, [id number] 16:38:49 Test Item Value Reference Range Interpretation Comments KETONES, BLOOD (BEAKER) (test code 4.2 mmol/L <0.4 H = 1103) POCT-GLUCOSE [id number] 16:04:23 Test Item Value Reference Range Interpretation Comments POC-GLUCOSE METER 134 mg/dL 70-110 H : TESTED A T [facility] [address]17 (BEAKER) (test code [address], = 1538) [facility] 77 [address]: Armed Security [employer]/Techni lj ID = [id number] for Loni hillmanMelissa
[2023-10-01 14:29] LABS: Arterial Blood Carboxyhemoglob 1.9 % (0-1.5); Blood Gas Oxyhemoglobin 92.9 % (94-97); Blood O2 Saturation 96.8 % (92-98.5)
[2023-10-01] MEDS ORDERED: INSULIN -REGULAR HUMAN 100 UNIT in NA CHLORIDE 0.9% 100 ML IV SCH (15:00)
[2023-10-01] MEDS ORDERED: NA CHLORIDE 0.9% 1,000 ML ONE ×2 (15:01→16:32)
[2023-10-01 15:12] LABS: Absolute Lymphocytes (CBC) 1.6 K/uL (0.7-4.9); Lymphocytes % 5.7 % (15.3-44.8); MPV 8.9 fL (7.6-11.3); Platelets 466 thou/uL (152-406); RBC Red Blood Cell Count 4.22 M/uL (3.86-4.86)
[2023-10-01 16:05] LABS: ALT/SGPT 25 U/L (13-56); AST/SGOT < 4 U/L (15-37); Albumin 3.9 g/dL (3.4-5.0); Alkaline Phosphatase 170 U/L (45-117); Bilirubin Direct 0.1 mg/dL (0-0.2); Bilirubin Indirect, Calculated 0.5 mg/dL (0.2-0.8); Bilirubin Total 0.6 mg/dL (0.2-1.0); Protein, Total 8.3 g/dL (6.4-8.2)
[2023-10-01 16:52] LABS: BUN Blood Urea Nitrogen 39 mg/dL (7-18); Glomerular Filtration Rate 58 ml/min (=/>90); Glucose Level 865 mg/dL (74-106); Potassium 5.1 mEq/L (3.5-5.1)
[2023-10-01 16:59] LABS: Bicarbonate < 8 mEq/L (21-32)
[2023-10-01 17:00] LABS: Sodium Level 139 mEq/L (136-145)
--- NOTE | 2023-10-01 17:17 | EDPHYS ---
Physician Documentation [facility] Name: Tessa Eagle Age: 17 yrs Sex: Female : 2005 Arrival Date: 10/01/2023 Time: 13:59 Bed 4 Private MD: ED Physician Nicholas Roy HPI: 10/01 14:53 This 17 yrs old Female presents to ER via Unassigned with complaints of kb dyspnea, n/v, hyperglycemia. 14:55 Patient is a 17-year-old female with a history of diabetes who presents with shortness kb of breath, hyperglycemia and nausea and vomiting that started last night. Patient states she does not take her insulin as prescribed. EMS was toned out for shortness of breath.. Historical: - Allergies: 14:40 No Known Allergies; aa5 - Home Meds: 14:40 Suboxone sublingual [Active]; divalproex oral [Active]; gabapentin oral [Active]; aa5 - PMHx: 14:40 diabetes mellitus; renal insufficiency; Drug abuse; aa5 - Immunization history:: Adult Immunizations unknown. - Social history:: Smoking status: Patient reports the use of cigarette tobacco products. ROS: 14:50 Constitutional: Negative for fever, chills, and weight loss, kb 14:50 Respiratory: Positive for shortness of breath, 14:50 Abdomen/GI: Positive for nausea and vomiting, 14:50 All other systems are negative, Exam: 14:50 Head/Face: Normocephalic, atraumatic. ENT: Moist Mucous membranes Cardiovascular: kb Regular rate Respiratory: Respirations even and unlabored. No increased work of breathing. Talking in full sentences Abdomen/GI: Soft, non-tender. No distention Skin: Warm, dry with normal turgor. Normal color. MS/ Extremity: Pulses equal, no cyanosis. Neurovascular intact. Full, normal range of motion. Neuro: Awake and alert, GCS 15, oriented to person, place, time, and situation. Moves all extremities. Normal gait. 14:50 Constitutional: The patient appears alert, awake, emaciated, 14:50 ECG was reviewed by the Attending Physician. Vital Signs: 14:35 BP 124 / 74; Pulse 132; Resp 25 S; Temp 98(A); Pulse Ox 100% on R/A; Weight 34.02 kg aa5 (M); 16:00 BP 130 / 73; Pulse 120; Resp 24 S; Pulse Ox 100% on R/A; aa5 19:10 BP 107 / 77; Pulse 92; Resp 18 S; Pulse Ox 95% on R/A; ha1 MDM: 14:01 Patient medically screened. kb 14:53 Differential diagnosis: hyperglycemia, DKA, dehydration, abnormal electrolytes. Data kb reviewed: vital signs, nurses notes. Consideration of Admission/Observation Patient was admitted/placed on observation. Escalation of care including admission/observation considered. Historians other than the Patient: EMS: [facility]. 17:53 Management of patient was discussed with the following: Dr Heredia, commercial loan manager at [facility], accepts pt for transfer. Counseling: I had a detailed discussion with the patient and/or guardian regarding the historical points, exam findings, and any diagnostic results supporting the discharge/admit diagnosis, lab results, radiology results, the need to transfer to another facility, for higher level of care. 10/01 14:02 Order name: CBC with Diff; Complete Time: 21:31 kb 10/01 14:02 Order name: Basic Metabolic Panel; Complete Time: 17:09 kb 10/01 14:02 Order name: ABG; Complete Time: 14:31 kb 10/01 14:36 Order name: Acetaminophen; Complete Time: 16:06 kb 10/01 14:36 Order name: ETOH Level; Complete Time: 15:10 kb 10/01 14:36 Order name: Hepatic Function; Complete Time: 16:06 kb 10/01 14:36 Order name: PT-INR; Complete Time: 14:59 kb 10/01 14:36 Order name: Ptt, Activated; Complete Time: 14:59 kb 10/01 14:36 Order name: Salicylate; Complete Time: 15:17 kb 10/01 16:10 Order name: Glucose; Complete Time: 16:56 aa5 10/01 17:03 Order name: Glucose; Complete Time: 17:47 rs5 10/01 18:00 Order name: Glucose; Complete Time: 18:58 rs5 10/01 19:25 Order name: Glucose, Ancillary Testing; Complete Time: 19:47 EDMS 10/01 14:02 Order name: EKG; Complete Time: 14:03 kb 10/01 14:02 Order name: IV Start; Complete Time: 14:51 kb 10/01 14:02 Order name: EKG - Nurse/Tech; Complete Time: 14:50 kb 10/01 14:36 Order name: Labs collected and sent; Complete Time: 14:51 kb EC:50 Rate is 129 beats/min. Rhythm is regular. QRS [place] is Normal. [place] interval is normal at kb 116 msec. QRS interval is normal at 68 msec. QT interval is normal at 436 msec. Administered Medications: 14:50 Drug: NS 0.9% IV 1000 ml IV at 1000 ml once Route: IV; Rate: 1000 ml; Site: right rs5 antecubital; 15:50 Follow up: IV Status: Completed infusion; IV Intake: 1000ml aa5 15:30 Drug: Insulin Drip - (Insulin Regular Human IVP 100 units, NS 0.9% IV 100 ml) IV at rs5 calculated rate continuous; Standard concentration 1unit/ml; Dose for DKA is 0.1 units/kg/hr {Co-Signature: aa5 (Coni Morales RN).} Route: IV; Rate: calculated rate; Site: right antecubital; 19:57 Follow up: Response: No adverse reaction; IV Status: Infusion continued upon transfer; as6 IV Intake: 9ml 16:25 Drug: NS 0.9% IV 1000 ml IV at 125 ml/hr continuous Route: IV; Rate: 125 ml/hr; Site: aa5 left wrist; 19:57 Follow up: Response: No adverse reaction; IV Status: Infusion continued upon transfer; as6 IV Intake: 400ml Disposition Summary: 10/01/23 17:54 Transfer Ordered Notes: Transfer Location: Other Acute Care Facility kb Reason: Higher level of care kb Condition: Critical(10/01/23 17:54) kb Problem: an acute exacerbation(10/01/23 17:54) kb Symptoms: are unchanged(10/01/23 17:54) kb Accepting Physician: Dr Heredia(10/01/23 19:58) as6 Diagnosis - Diabetes mellitus due to underlying condition with ketoacidosis(10/01/23 17:54) kb Forms: - Medication Reconciliation Form kb - SBAR form kb Addendum: 10/03/2023 20:11 I agree with the assessment and plan of care. e c2 Signatures: Dispatcher [employer] EDRosy Moralez, VICE PRESIDENT OF SOFTWARE ENGINEERING-C VICE PRESIDENT OF SOFTWARE ENGINEERING-Ckb Coni Morales, RN RN aa5 Dominic Gallo, RN RN as6 Jaquelin Bush PA-C PA-C sb4 Amaury Cosby MD MD rt Zach Grimes, RN RN rs5 Nicholas Roy MD MD ec2 Coni Morales RN aa5 Corrections: (The following items were deleted from the chart) 10/01 14:36 14:36 Suicide Screening ([place]) ordered. kb kb 17:20 17:12 Management of patient was discussed with the following: Hospitalist: Pt accepted kb for admission under DR Mcknight. kb 17:20 17:12 Counseling: I had a detailed discussion with the patient and/or guardian kb regarding the historical points, exam findings, and any diagnostic results supporting the discharge/admit diagnosis, lab results, the need for further work-up and treatment in the hospital, kb 17:20 17:17 Inpatient Admission kb kb 17:20 17:17 Roldan Mcknight kb kb 17:20 17:17 Intensive Care Unit kb kb 17:20 17:17 Critical kb kb 17:20 17:17 new kb kb 17:20 17:17 are unchanged kb kb 17:20 17:17 Standard kb kb 17:20 17:17 kb kb 17:20 17:17 Diabetes mellitus due to underlying condition with ketoacidosis kb kb 19:58 17:54 Dr Heredia kb as6
--- NOTE | 2023-10-01 17:17 | ER ---
Nurse's Notes [facility] Name: Tessa Eagle Age: 17 yrs Sex: Female : 2005 Arrival Date: 10/01/2023 Time: 13:59 Bed 4 Private MD: Diagnosis: Diabetes mellitus due to underlying condition with ketoacidosis Presentation: 10/01 14:35 Chief complaint: EMS states: family called 911 for difficulty breathing and vomiting aa5 today. EMS reports Kussmaul respirations at 30 breaths/min upon arrival and FSBG "high". EMS report pt took "street Percocet and THC today". 14:35 Coronavirus screen: vomiting. Ebola Screen: Patient denies travel to an Ebola-affected [facility] area in the 21 days before illness onset. Initial Sepsis Screen: Does the patient meet any 2 criteria? RR > 20 per min. HR > 90 bpm. Does the patient have a suspected source of infection? No. Patient's initial sepsis screen is negative. Risk Assessment: Do you want to hurt yourself or someone else? Patient reports no desire to harm self or others. Onset of symptoms was October 01, 2023. Care prior to arrival: Medication(s) given: Normal saline infusion, 1000 mL, zofran 4 mg, IV initiated. 14:35 Acuity: JUSTIN 2 aa5 14:35 Method Of Arrival: EMS: [facility] aa5 Historical: - Allergies: 14:40 No Known Allergies; aa5 - Home Meds: 14:40 Suboxone sublingual [Active]; divalproex oral [Active]; gabapentin oral [Active]; aa5 - PMHx: 14:40 diabetes mellitus; renal insufficiency; Drug abuse; aa5 - Immunization history:: Adult Immunizations unknown. - Social history:: Smoking status: Patient reports the use of cigarette tobacco products. Screenin:27 Abuse screen: Denies threats or abuse. Denies injuries from another. Nutritional ha1 screening: malnourish . Tuberculosis screening: No symptoms or risk factors identified. 19:40 [facility] ED Fall Risk Assessment (Adult) Score/Fall Risk Level 0 - 2 = Low Risk. as6 Assessment: 15:51 Reassessment: Spoke to Ivo about chemistry results, Ivo states it will be resulted in aa5 approximately 8 minutes. . 16:30 Reassessment: On the phone with Ivo with lab, checking about chemistry result, Ivo aa5 states BMP was not ordered or received earlier, verified that BMP was ordered at 1402 and was sent at 1440 by me. Ivo states he will run BMP at this time, HELPER DRIVER was notified. . 19:10 General: Appears comfortable, ill, malnourished, Behavior is calm, cooperative. Pain: ha1 Denies pain. Neuro: Level of Consciousness is awake, alert, obeys commands, Oriented to person, place, time, situation. Cardiovascular: Patient's skin is warm and dry. Respiratory: Airway is patent Respiratory effort is even, unlabored, Respiratory pattern is regular, symmetrical. GI: Abdomen is flat. GI: Reports elevated glucose. Derm: Skin is pale. Musculoskeletal: Circulation, motion, and sensation intact. Vital Signs: 14:35 BP 124 / 74; Pulse 132; Resp 25 S; Temp 98(A); Pulse Ox 100% on R/A; Weight 34.02 kg aa5 (M); 16:00 BP 130 / 73; Pulse 120; Resp 24 S; Pulse Ox 100% on R/A; aa5 19:10 BP 107 / 77; Pulse 92; Resp 18 S; Pulse Ox 95% on R/A; ha1 ED Course: 14:01 Patient arrived in ED. kb 14:01 Rosy Zavala FNP-C is [facility]. kb 14:01 Nicholas Roy MD is Attending Physician. kb 14:25 Arm band placed on Patient placed in an exam room, on a stretcher. ll1 14:40 Patient has correct armband on for positive identification. Placed in gown. Bed in low aa5 position. Call light in reach. Side rails up X2. Client placed on continuous cardiac and pulse oximetry monitoring. NIBP monitoring applied. 14:40 Maintain EMS IV. 20G to R AC . aa5 14:40 Initial lab(s) drawn, by me, sent to lab. aa5 14:50 Zach Grimes, JANESSA is Primary Nurse. rs5 14:58 Triage completed. aa5 16:16 Warm blanket given. aa5 16:16 Inserted saline lock: 22 gauge in left wrist, using aseptic technique. aa5 16:16 repeat serum glucose sent to lab. aa5 17:16 Roldan Mcknight is Hospitalizing Provider. kb 17:34 initiated transfer to [facility]. bd 19:40 No provider procedures requiring assistance completed. Patient transferred, IV remains as6 in place. Administered Medications: 14:50 Drug: NS 0.9% IV 1000 ml IV at 1000 ml once Route: IV; Rate: 1000 ml; Site: right rs5 antecubital; 15:50 Follow up: IV Status: Completed infusion; IV Intake: 1000ml aa5 15:30 Drug: Insulin Drip - (Insulin Regular Human IVP 100 units, NS 0.9% IV 100 ml) IV at rs5 calculated rate continuous; Standard concentration 1unit/ml; Dose for DKA is 0.1 units/kg/hr {Co-Signature: jorge l (Coni Morales RN).} Route: IV; Rate: calculated rate; Site: right antecubital; 19:57 Follow up: Response: No adverse reaction; IV Status: Infusion continued upon transfer; as6 IV Intake: 9ml 16:25 Drug: NS 0.9% IV 1000 ml IV at 125 ml/hr continuous Route: IV; Rate: 125 ml/hr; Site: aa5 left wrist; 19:57 Follow up: Response: No adverse reaction; IV Status: Infusion continued upon transfer; as6 IV Intake: 400ml Medication: 19:27 VIS not applicable for this client. ha1 Intake: 15:50 IV: 1000ml; Total: 1000ml. aa5 19:57 IV: 400ml; Total: 1400ml. as6 19:57 IV: 9ml; Total: 1409ml. as6 Outcome: 17:17 Decision to Hospitalize by Provider. kb 17:54 ER care complete, transfer ordered by MD. kb 19:40 Transferred by ground EMS to [facility], Transfer form completed. as6 X-rays sent w/ patient. 19:40 Condition: stable 19:40 Instructed on the need for transfer, 19:58 Patient left the ED. as6 Signatures: Rosy Zavala, CURT ANTHONY-Augusta Thompson Audri, JANESSA RN aa5 Cj Altman RN RN ll1 Dominic Gallo RN RN as6 Mary Euceda RN RN ha1 Zach Grimes RN RN rs5 Coni Morales RN aa5 Corrections: (The following items were deleted from the chart) 14:55 14:45 Maintain EMS IV. 20G to R AC . aa5 aa5 16:35 16:30 Reassessment: On the phone with Ivo with lab, checking about chemistry result. . aa5 aa5
--- NOTE | 2023-10-01 17:36 | EKG ---
Test Date: 2023-10-01 Test Time: 14:46:49 Architecture Faculty Member: ES MEASUREMENT RESULTS: Intervals: Rate: 124 SD: 112 QRSD: 66 QT: 276 QTc: 396 [place]: P: 87 SD: 112 QRS: 81 T: 54 INTERPRETIVE STATEMENTS: Sinus tachycardia Right atrial enlargement Borderline ECG Compared to ECG 07/13/2023 17:05:27 No significant changes Electronically Signed On 10-01-23 17:26:09 SUPERVISOR SCREEN PRINTING by Ronnie Dodson
[2023-10-01 20:05] VITALS: TEMP 98
[2023-10-01 20:18] VITALS: BP 107/77; O2SAT 95
[2023-10-01 21:18] LABS: Anisocytosis SLIGHT; Blood Morphology Comment NOTED (NOT SEEN); Burr Cells FEW; Platelet Estimate INCR; Poikilocytosis SLIGHT; Polychromasia SLIGHT
--- NOTE | 2023-10-02 10:43 | EKG ---
Test Date: 2023-10-01 Test Time: 14:47:23 Field Sales Specialist: JAQUAN MEASUREMENT RESULTS: Intervals: Rate: 129 CT: 116 QRSD: 68 QT: 298 QTc: 436 [place]: P: 86 CT: 116 QRS: 82 T: 32 INTERPRETIVE STATEMENTS: Sinus tachycardia Right atrial enlargement Borderline ECG Compared to ECG 10/01/2023 14:46:49 No significant changes Electronically Signed On 10-02-23 10:41:48 PRODUCT TESTER by Ronnie Dodson
== END 2023-10-01 19:58 ==
LOC: ER 13:59
DX: E11.10 Type 2 diabetes mellitus with ketoacidosis without coma (principal); N28.9 Disorder of kidney and ureter, unspecified; Z72.0 Tobacco use
CPT/HCPCS: 96365; 96361; 93005 ×2; 85025; 80048; 36415; 82947 ×4; 85610; 80076; 85730; 82805; 99285; 96366; 80143; 80179; 82077; 36600; J1815; J7030 ×2

== ENCOUNTER 2023-11-15 06:50 | Inpatient (IN) | payer OTHER, SELFPAY ==
[2023-11-15 07:29] LABS: Absolute Lymphocytes (CBC) 1.4 K/uL (0.7-4.9); Hematocrit 35.5 % (36.0-45.0); Lymphocytes % 14.9 % (15.3-44.8); MCV 90.7 fL (80-100); MPV 8.9 fL (7.6-11.3); Platelets 493 thou/uL (152-406); RBC Red Blood Cell Count 3.92 M/uL (3.86-4.86)
[2023-11-15] MEDS ORDERED: FAMOTIDINE 20 MG/2 ML VIAL IV ONE (07:42)
[2023-11-15] MEDS ORDERED: CEFTRIAXONE 1000 MG/VIAL ONE (07:42)
[2023-11-15] MEDS ORDERED: D10W 250 ML BAG IV PRN (07:42)
[2023-11-15] MEDS ORDERED: GLUCAGON 1 MG/VIAL IM PRN (07:42)
[2023-11-15] MEDS ORDERED: INSULIN -REGULAR HUMAN 100 UNIT in NA CHLORIDE 0.9% 100 ML IV SCH ×2 (07:45→09:45)
[2023-11-15 07:46] LABS: Protime INR 1.07
[2023-11-15 07:49] LABS: SARS-CoV-2 Antigen Rapid Res Negative (Negative)
[2023-11-15 07:54] LABS: ALT/SGPT 12 U/L (13-56); Albumin 3.5 g/dL (3.4-5.0); Alkaline Phosphatase 157 U/L (45-117); BUN Blood Urea Nitrogen 22 mg/dL (7-18); Bilirubin Total 0.5 mg/dL (0.2-1.0); Glomerular Filtration Rate 79 ml/min (=/>90); Lipase 7 U/L (13-75); Magnesium 2.1 mg/dL (1.6-2.4); NT PRO-BNP 155 pg/mL (<125); Potassium 5.2 mEq/L (3.5-5.1); Protein, Total 7.8 g/dL (6.4-8.2); Troponin High Sensitivity 3.9 pg/mL (<58.9)
[2023-11-15 07:55] LABS: AST/SGOT < 4 U/L (15-37); Bilirubin Direct < 0.1 mg/dL (0-0.2); Bilirubin Indirect, Calculated ND mg/dL (0.2-0.8)
[2023-11-15 07:56] LABS: Bicarbonate < 8 mEq/L (21-32); Glucose Level 754 mg/dL (74-106); Sodium Level 130 mEq/L (136-145)
[2023-11-15] MEDS ORDERED: SODIUM BICARB 50 MEQ/50ML VIAL ONE (08:21)
[2023-11-15 08:34] LABS: Blood Morphology Comment NOT SEEN (NOT SEEN); Platelet Estimate INCR
--- NOTE | 2023-11-15 09:06 | ER ---
Nurse's Notes [facility] Name: Tessa Eagle Age: 17 yrs Sex: Female : 2005 Arrival Date: 11/15/2023 Time: 06:50 Bed 2 Private MD: Diagnosis: Diabetes mellitus due to underlying condition with ketoacidosis Presentation: 11/15 06:53 Chief complaint: EMS states: We found her on the floor, cold to touch c/o nausea, vc1 vomiting, and weakness. 06:53 Coronavirus screen: nausea, vomiting. Ebola Screen: Patient negative for fever greater vc1 than or equal to 101.5 degrees Fahrenheit, and additional compatible Ebola Virus Disease symptoms Patient denies exposure to infectious person. Patient denies travel to an Ebola-affected area in the 21 days before illness onset. No symptoms or risks identified at this time. Initial Sepsis Screen: Does the patient meet any 2 criteria? RR > 20 per min. HR > 90 bpm. Yes Does the patient have a suspected source of infection? No. Patient's initial sepsis screen is negative. Risk Assessment: Do you want to hurt yourself or someone else? Patient reports no desire to harm self or others. Onset of symptoms was November 15, 2023. 06:53 Method Of Arrival: EMS: [facility] vc1 06:53 Acuity: JUSTIN 3 vc1 Triage Assessment: 07:22 General: Appears in no apparent distress. uncomfortable, slender, malnourished, vc1 Behavior is cooperative, flat, quiet. Pain: Denies pain. EENT: No deficits noted. No signs and/or symptoms were reported regarding the EENT system. Neuro: Level of Consciousness is awake, alert, obeys commands, Oriented to person, place, time. Cardiovascular: No deficits noted. Respiratory: Airway is patent Respiratory effort is even, unlabored, Respiratory pattern is Kussmaul. GI: Reports nausea, vomiting. : No deficits noted. No signs and/or symptoms were reported regarding the genitourinary system. Derm: Skin temperature is cool. Musculoskeletal: No deficits noted. No signs and/or symptoms reported regarding the musculoskeletal system. Historical: - Allergies: 07:21 No Known Allergies; vc1 - PMHx: 07:21 diabetes mellitus; drug abuse; renal insufficiency; vc1 - PSHx: 07:21 None; vc1 - Family history:: not pertinent. - Social history:: Smoking status: Patient denies any tobacco usage or history of. Screenin:53 Abuse screen: Denies threats or abuse. Nutritional screening: No deficits noted. vc1 Tuberculosis screening: No symptoms or risk factors identified. 08:30 [facility] ED Fall Risk Assessment (Adult) History of falling in the last 3 months, ld1 including since admission No falls in past 3 months (0 pts). Assessment: 07:15 General: Appears in no apparent distress. uncomfortable, Behavior is appropriate for ld1 age, quiet. Pain: Denies pain. Neuro: Kramer Agitation-Sedation Scale (RASS): -1 Drowsy Level of Consciousness is obeys commands, lethargic, Oriented to person. 07:15 Cardiovascular: Capillary refill < 3 seconds Patient's skin is warm and dry. Rhythm is ld1 sinus tachycardia. Respiratory: Airway is patent Respiratory effort is even, unlabored. GI: Abdomen is flat, non-distended. : No signs and/or symptoms were reported regarding the genitourinary system. EENT: No signs and/or symptoms were reported regarding the EENT system. Derm: No signs and/or symptoms reported regarding the dermatologic system. Musculoskeletal: No signs and/or symptoms reported regarding the musculoskeletal system. 08:30 Reassessment: Patient appears in no apparent distress at this time. Patient and/or ld1 family updated on plan of care and expected duration. Pain level reassessed. Pt AAOx4, denies pain. Requesting ice chips and blankets. Patient states symptoms have improved. 09:47 Reassessment: Patient appears in no apparent distress at this time. No changes from ld1 previously documented assessment. Patient and/or family updated on plan of care and expected duration. Pain level reassessed. Vital Signs: 06:53 BP 106 / 83; Pulse 113; Resp 24; Temp 98.1; Pulse Ox 99% ; Weight 37 kg (M); vc1 07:20 BP 129 / 77; Pulse 109; Resp 25; Pulse Ox 100% on R/A; ld1 08:00 BP 131 / 77; Pulse 116; Resp 23; Pulse Ox 100% on R/A; ld1 08:30 BP 142 / 82; Pulse 117; Resp 24; Pulse Ox 100% on R/A; ld1 09:46 BP 127 / 88; Pulse 104; Resp 24; Pulse Ox 100% on R/A; Pain 0/10; ld1 10:44 BP 126 / 79; Pulse 125; Resp 25; Pulse Ox 100% on R/A; ld1 09:46 Pain Scale: Adult ld1 ED Course: 06:53 Patient arrived in ED. tadeo 06:53 Srinivasan Chris MD is Attending Physician. tadeo 06:53 Patient has correct armband on for positive identification. Bed in low position. Call vc1 light in reach. Side rails up X2. 07:05 No provider procedures requiring assistance completed. Inserted saline lock: 18 gauge ld1 in right EJ, using aseptic technique. ,using aseptic technique. Inserted by Dr. Chris. 07:05 Patient maintains SpO2 saturation greater than 95% on room air. Thermoregulation: warm ld1 blanket given to patient. heating blanket applied. 07:10 Door closed. Noise minimized. Warm blanket given. Pillow given. Bear hugger placed on ld1 patient. 07:12 Blood Culture Adult (2) Sent. ld1 07:12 Lactate w/ 2H reflex if indic. Sent. ld1 07:15 case monitor on. Pulse ox on. NIBP on. ld1 07:21 Triage completed. vc1 07:25 purewick to patient at this time. ld1 07:27 SARS RAPID Sent. ld1 07:27 Flu Sent. ld1 07:27 Strep Sent. ld1 07:27 Lactate w/ 2H reflex if indic. Sent. ld1 07:27 Blood Culture Adult (2) Sent. ld1 07:27 Basic Metabolic Panel Sent. ld1 07:27 CBC with Diff Sent. ld1 07:27 LFT's Sent. ld1 07:27 Magnesium Sent. ld1 07:28 NT PRO-BNP Sent. ld1 07:28 PT-INR Sent. ld1 07:46 Ramona Cordova, JANESSA is Primary Nurse. ld1 07:47 SARS RAPID Sent. ld1 07:48 Attending Physician role handed off by Srinivasan Chris MD rn 07:48 Bryant Flores MD is Attending Physician. rn 08:24 XRAY Chest (1 view) In Process Unspecified. EDMS 09:06 Roldan Mcknight is Hospitalizing Provider. rn 09:47 Inserted saline lock: 22 gauge in left wrist, using aseptic technique. Blood collected. iw Administered Medications: 07:13 Drug: NS 0.9% IV 1000 ml IV at 1 bolus Per protocol; 1000 mL bolus Route: IV; Rate: 1 vc1 bolus; Site: right jugular; 07:13 Drug: NS 0.9% IV 1000 ml IV at 1 bolus Per protocol; 1000 mL bolus Route: IV; Rate: 1 vc1 bolus; Site: right antecubital; 07:46 Drug: Rocephin IV 1 grams IV at per protocol once; Given slow IV push per pharmacy ld1 instructions Route: IV; Rate: per protocol; Site: right jugular; 07:47 Drug: Famotidine IVP 20 mg IVP once; dilute with 10 mL 0.9% NaCl; give over 2 minutes ld1 Route: IVP; Site: right antecubital; 08:17 Drug: Insulin Drip - (Insulin Regular Human IVP 100 units, NS 0.9% IV 100 ml) IV at 4 ld1 units/hr continuous; Standard concentration 1unit/ml; Dose for DKA is 0.1 units/kg/hr {Co-Signature: iw (Nuris Zuniga RN).} Route: IV; Rate: 4 units/hr; Site: right jugular; 08:29 Drug: Sodium Bicarbonate IVP 1 amp IVP once; (50 mL); equals 50 mEq Route: IVP; Site: ld1 right jugular; 09:33 Drug: NS 0.9% IV 1000 ml IV at 125 ml/hr continuous Route: IV; Rate: 125 ml/hr; Site: ld1 right jugular; Medication: 07:22 VIS not applicable for this client. vc1 Intake: 09:48 PO: 50ml; IV: 2000ml; Total: 2050ml. ld1 Output: 09:48 Urine: 1500ml (Voided); Total: 1500ml. ld1 Outcome: 09:06 Decision to Hospitalize by Provider. rn 13:13 Patient left the ED. ld1 Signatures: Dispatcher [employer] Srinivasan Castro MD MD cha Williams, Irene, JANESSA RN iw Bryant Flores MD MD rn Sims, Lauren, RN RN ld1 Magnolia Cintron RN RN 1 Nuris Zuniga RN
--- NOTE | 2023-11-15 09:07 | EDPHYS ---
Physician Documentation [facility] Name: Tessa Eagle Age: 17 yrs Sex: Female : 2005 Arrival Date: 11/15/2023 Time: 06:50 Bed 2 Private MD: ED Physician Bryant Flores HPI: 11/15 07:10 This 17 yrs old Female presents to ER via Unassigned with complaints of dka, tadeo ams. 07:10 The patient or guardian reports altered mental status, hyperglycemia, polyuria, that tadeo was potentially precipitated by no particular event. Onset: The symptoms/episode began/occurred 2 day(s) ago. Associated signs and symptoms: Pertinent positives: anorexia, decreased urine output. dka , nausea and vomiting. The patient presents with confusion, decreased mental status, decreased responsiveness, trouble concentrating. Possible causes: seizure, sepsis. Associated signs and symptoms: Pertinent positives: abdominal pain, confusion, dizziness, nausea, vomiting, weakness. Current symptoms: In the emergency department the patient's symptoms have worsened, markedly, is more confused. Patient's baseline: Neuro: alert and fully oriented. Historical: - Allergies: 07:21 No Known Allergies; vc1 - PMHx: 07:21 diabetes mellitus; drug abuse; renal insufficiency; vc1 - PSHx: 07:21 None; vc1 - Family history:: not pertinent. - Social history:: Smoking status: Patient denies any tobacco usage or history of. ROS: 07:10 Neck: Negative for injury, pain, and swelling, tadeo 07:10 Cardiovascular: Positive for palpitations, 07:10 Respiratory: Positive for shortness of breath, at rest. 07:10 Abdomen/GI: Positive for nausea and vomiting, abdominal cramps, 07:10 Neuro: Positive for altered mental status, near syncope, weakness, 07:10 Endocrine: Positive for polydipsia, weight loss, Exam: 07:10 Constitutional: The patient appears lethargic, in obvious distress, moderately tadeo distressed, 07:10 ENT: Mouth: Oral mucosa: dry, Posterior pharynx: Airway: normal, no evidence of obstruction, Tonsils: are normal in appearance, Uvula: normal, 07:10 Cardiovascular: Rate: tachycardic, Rhythm: regular, Pulses: Pulses are 4+ in . Heart sounds: normal, normal S1and S2, no S3 or S4, no murmur, no rub, no gallop, Edema: is not appreciated, JVD: is not appreciated, 07:10 Neuro: Orientation: to person, place, Not oriented to time, situation, Cranial nerves: grossly normal, is grossly normal based on the patient's age, no acute changes, Cerebellar function: is grossly normal, is grossly normal based on the patient's age, no acute changes, Motor: moves all fours, Sensation: no obvious gross deficits, appropriate no acute changes, Gait: not tested. Babinski testing is normal, seizure activity, is not displayed by the patient, Vital Signs: 06:53 BP 106 / 83; Pulse 113; Resp 24; Temp 98.1; Pulse Ox 99% ; Weight 37 kg (M); vc1 07:20 BP 129 / 77; Pulse 109; Resp 25; Pulse Ox 100% on R/A; ld1 08:00 BP 131 / 77; Pulse 116; Resp 23; Pulse Ox 100% on R/A; ld1 08:30 BP 142 / 82; Pulse 117; Resp 24; Pulse Ox 100% on R/A; ld1 09:46 BP 127 / 88; Pulse 104; Resp 24; Pulse Ox 100% on R/A; Pain 0/10; ld1 10:44 BP 126 / 79; Pulse 125; Resp 25; Pulse Ox 100% on R/A; ld1 09:46 Pain Scale: Adult ld1 Procedures: 07:16 Peripheral line: by aseptic technique a peripheral line was placed in the right tadeo external jugular vein. MDM: 06:53 Patient medically screened. tadeo 07:06 Patient medically screened. tadeo 07:14 Differential diagnosis: DKA. Differential Diagnosis altered mental status, sepsis, flu. tadeo Differential Diagnosis: electrolyte abnormality, alcohol intoxication, hypoglycemia, overdose, pneumonia, seizure, sepsis, TIA, UTI, volume depletion. Data reviewed: vital signs, nurses notes, lab test result(s), EKG, radiologic studies, plain films. Consideration of Admission/Observation Patient was admitted/placed on observation. Escalation of care including admission/observation considered. I considered the following discharge prescriptions or medication management in the emergency department Medications were administered in the Emergency Department. See MAR. Independent interpretation of the following test(s) in the Emergency Department EKG: See my EKG interpretation above. Test considered but Not performed: CT: no ct head. Historians other than the Patient: EMS: ems well informed. Counseling: I had a detailed discussion with the patient and/or guardian regarding the historical points, exam findings, and any diagnostic results supporting the discharge/admit diagnosis, lab results, radiology results, the need for further work-up and treatment in the hospital. 11/15 07:08 Order name: Basic Metabolic Panel; Complete Time: 08:15 tadeo 11/15 07:08 Order name: CBC with Diff; Complete Time: 09:05 tadeo 11/15 07:08 Order name: LFT's; Complete Time: 08:15 tadeo 11/15 07:08 Order name: Magnesium; Complete Time: 08:15 tadeo 11/15 07:08 Order name: NT PRO-BNP; Complete Time: 08:15 [facility] 11/15 07:08 Order name: PT-INR; Complete Time: 07:50 [facility] 11/15 07:08 Order name: Troponin HS; Complete Time: 08:15 [facility] 11/15 07:08 Order name: Blood Culture Adult (2) [facility] 11/15 07:08 Order name: Lactate w/ 2H reflex if indic.; Complete Time: 08:15 [facility] 11/15 07:09 Order name: ABG; Complete Time: 09:52 tadeo 11/15 07:09 Order name: Urinalysis w/ reflexes [facility] 11/15 07:09 Order name: Strep; Complete Time: 07:50 [facility] 11/15 07:09 Order name: Flu; Complete Time: 08:15 [facility] 11/15 07:09 Order name: SARS RAPID; Complete Time: 07:50 [facility] 11/15 07:09 Order name: Lipase; Complete Time: 08:15 [facility] 11/15 07:32 Order name: Manual Differential; Complete Time: 09:05 EDMD 11/15 07:53 Order name: Throat Culture EDMD 11/15 09:18 Order name: Glucose ld1 11/15 09:30 Order name: Glucose, Ancillary Testing; Complete Time: 09:32 EDMS 11/15 09:34 Order name: UDS ld1 11/15 09:50 Order name: Basic Metabolic Panel EDMS 11/15 09:50 Order name: Basic Metabolic Panel EDMS 11/15 09:50 Order name: Basic Metabolic Panel EDMS 11/15 09:50 Order name: Basic Metabolic Panel EDMS 11/15 09:50 Order name: Basic Metabolic Panel EDMS 11/15 09:50 Order name: CBC with Automated Diff EDMS 11/15 09:50 Order name: CBC with Automated Diff EDMS 11/15 09:50 Order name: CBC with Automated Diff EDMS 11/15 09:50 Order name: CBC with Automated Diff EDMS 11/15 09:50 Order name: CBC with Automated Diff EDMS 11/15 09:50 Order name: CBC with Automated Diff EDMS 11/15 09:50 Order name: Lipid Profile EDMS 11/15 09:50 Order name: Lipid Profile EDMS 11/15 09:50 Order name: Magnesium EDMS 11/15 09:50 Order name: Magnesium EDMS 11/15 09:50 Order name: Magnesium EDMS 11/15 09:50 Order name: Magnesium EDMS 11/15 09:50 Order name: Magnesium EDMS 11/15 09:50 Order name: Magnesium EDMS 11/15 09:50 Order name: Phosphorus EDMS 11/15 09:50 Order name: Phosphorus EDMS 11/15 09:50 Order name: Phosphorus EDMS 11/15 09:50 Order name: Phosphorus EDMS 11/15 09:50 Order name: Phosphorus EDMS 11/15 09:50 Order name: Phosphorus EDMS 11/15 09:50 Order name: Magnesium EDMS 11/15 09:50 Order name: Phosphorus EDMS 11/15 10:27 Order name: Glucose, Ancillary Testing EDMS 11/15 10:28 Order name: Lactate Sepsis 2 HR Follow-up EDMS 11/15 11:25 Order name: Glucose, Ancillary Testing EDMS 11/15 12:21 Order name: Glucose, Ancillary Testing EDMS 11/15 13:01 Order name: Glucose, Ancillary Testing EDMS 11/15 07:08 Order name: XRAY Chest (1 view); Complete Time: 09:32 11/15 07:08 Order name: EKG; Complete Time: 07:09 11/15 07:08 Order name: Cardiac monitoring; Complete Time: 07:47 11/15 07:08 Order name: EKG - Nurse/Tech; Complete Time: 07:27 11/15 07:08 Order name: IV Saline Lock; Complete Time: 07:12 11/15 07:08 Order name: Labs collected and sent; Complete Time: 07:12 11/15 07:08 Order name: O2 Per Protocol; Complete Time: 07:12 [facility] 11/15 07:08 Order name: O2 Sat Monitoring; Complete Time: 07:12 [facility] Administered Medications: 07:13 Drug: NS 0.9% IV 1000 ml IV at 1 bolus Per protocol; 1000 mL bolus Route: IV; Rate: 1 vc1 bolus; Site: right jugular; 07:13 Drug: NS 0.9% IV 1000 ml IV at 1 bolus Per protocol; 1000 mL bolus Route: IV; Rate: 1 vc1 bolus; Site: right antecubital; 07:46 Drug: Rocephin IV 1 grams IV at per protocol once; Given slow IV push per pharmacy ld1 instructions Route: IV; Rate: per protocol; Site: right jugular; 07:47 Drug: Famotidine IVP 20 mg IVP once; dilute with 10 mL 0.9% NaCl; give over 2 minutes ld1 Route: IVP; Site: right antecubital; 08:17 Drug: Insulin Drip - (Insulin Regular Human IVP 100 units, NS 0.9% IV 100 ml) IV at 4 ld1 units/hr continuous; Standard concentration 1unit/ml; Dose for DKA is 0.1 units/kg/hr {Co-Signature: iw (Nuris Zuniga RN).} Route: IV; Rate: 4 units/hr; Site: right jugular; 08:29 Drug: Sodium Bicarbonate IVP 1 amp IVP once; (50 mL); equals 50 mEq Route: IVP; Site: ld1 right jugular; 09:33 Drug: NS 0.9% IV 1000 ml IV at 125 ml/hr continuous Route: IV; Rate: 125 ml/hr; Site: ld1 right jugular; Disposition: 07:16 Critical Care:. [facility] 09:06 Critical Care:. rn Disposition Summary: 11/15/23 09:06 Hospitalization Ordered Notes: Hospitalization Status: Inpatient Admission rn Provider: Roldan Mcknight rn Location: Intensive Care Unit rn Condition: Stable rn Problem: new rn Symptoms: have improved rn Bed/Room Type: Standard rn Room Assignment: rn Diagnosis - Diabetes mellitus due to underlying condition with ketoacidosis rn Forms: - Medication Reconciliation Form rn - SBAR form rn - Leadership Thank You Letter lead burner supervisor time excluding procedures: 07:16 Critical care time: Bedside Care: 30 minutes, Consultation: 10 minutes. Total time: 40 tadeo minutes Signatures: Dispatcher [employer] Srinivasan Castro MD MD cha Nieto, Roman, MD MD rn Sims, Lauren RN RN ld1 Magnolia Cintron RN RN vc1 Nuris Zuniga RN iw
--- NOTE | 2023-11-15 09:28 | RAD REPORT ---
EXAM DESCRIPTION: Lizz Single View11/15/2023 8:22 am CLINICAL HISTORY: Cough COMPARISON: June 2023 FINDINGS: The lungs appear clear of acute infiltrate. The heart is normal size IMPRESSION: No acute abnormalities displayed
[2023-11-15 09:31] LABS: Arterial Blood Carboxyhemoglob 1.7 % (0-1.5); Blood Gas Oxyhemoglobin 93.7 % (94-97); Blood O2 Saturation 97.6 % (92-98.5)
[2023-11-15 10:07] LABS: Specific Gravity 1.021 (1.005-1.030); Urine Bacteria None Seen /HPF (<20); Urine Bilirubin NEGATIVE (Negative); Urine Blood Negative (Negative); Urine Clarity Clear (Clear); Urine Color Colorless (Yellow); Urine Glucose 4+ (Over) (Negative); Urine Mucus Slight /HPF (None Seen); Urine Protein NEGATIVE (Negative); Urine RBC None Seen /HPF (None Seen); Urine Urobilinogen Normal (Normal)
[2023-11-15 10:15] LABS: Barbiturates NEGATIVE (NEGATIVE); Benzodiazepines NEGATIVE (NEGATIVE); Cocaine NEGATIVE (NEGATIVE); METHAMPHETAM NEGATIVE (NEGATIVE); Methadone NEGATIVE (NEGATIVE); Opiates NEGATIVE (NEGATIVE); Phencyclidine NEGATIVE (NEGATIVE); THC Cannibis NEGATIVE (NEGATIVE)
[2023-11-15 10:55] VITALS: BMI 15.4
[2023-11-15] MEDS ORDERED: HEPARIN 5000 UNIT/ML 1 ML VIAL SQ SCH (11:00)
[2023-11-15] MEDS ORDERED: HEPARIN 5000 UNIT/ML 1 ML VIAL ONE (11:22)
[2023-11-15] MEDS ORDERED: ONDANSETRON 4 MG/2 ML VIAL IV PRN (11:30)
[2023-11-15 11:37] VITALS: BP 141/92; TEMP 98.2
[2023-11-15 11:42] LABS: BUN Blood Urea Nitrogen 19 mg/dL (7-18); Glomerular Filtration Rate 106 ml/min (=/>90); Glucose Level 338 mg/dL (74-106); Magnesium 1.7 mg/dL (1.6-2.4); Potassium 4.6 mEq/L (3.5-5.1); Sodium Level 142 mEq/L (136-145)
[2023-11-15 11:43] LABS: Bicarbonate < 8 mEq/L (21-32)
--- NOTE | 2023-11-15 12:52 | P.HP ---
Certification for Inpatient Patient admitted to: Observation With expected LOS: <2 Midnights Patient will require the following post-hospital care: None Practitioner: I am a practitioner with admitting privileges, knowledge of patient current condition, hospital course, and medical plan of care. Services: Services provided to patient in accordance with Admission requirements found in Title 42 Section 412.3 of the Code of Federal Regulations Patient History Date of Service: 11/15/23 Reason for admission: DKA History of Present Illness: Tessa Eagle is a 17-year-old female with past medical history of diabetes mellitus type 1IDDM, drug abuse, renal insufficiency, who presents to the ED with complaints of altered mental status, hyperglycemia, polyuria which began approximately 2 days ago. Associated symptoms are not anorexia, decreased urine output, nausea and vomiting. While in the ED laboratory results are sodium 130, potassium 5.2,, bicarb less than 8, anion gap 35.2, BUN/creatinine 22/1.05, GFR 79, serum glucose 754, lactic acid 2.6. ABG reveals (pH 7.1, pCO2 7.0, pO2 152, HCO3 2.1), chest x-ray reports "the lungs appear clear of acute infiltrate, the heart is normal size." While in the ED normal saline fluids and insulin drip were started and sodium bicarb was administered. Initial vitals BP 106 / 83; Pulse 113; Resp 24; Temp 98.1; Pulse Ox 99%. On evaluation, she is not talking, lethargic, tachypneic likely due to acidosis, and with a warming blanket. Tessa Eagle will be admitted to hospitalist service for further treatment of diabetic ketoacidosis. Allergies No Known Allergies Allergy (Verified 07/13/23 22:35) Home Medications: Insulin Degludec [Tresiba Flextouch U-100] 30 units SQ DAILY 02/03/23 Insulin Lispro [Humalog] 6 units SQ TID 02/03/23 - Past Medical/Surgical History Has patient received pneumonia vaccine in the past: Yes Diabetic: Yes -: Type 1 diabetes -: Depression -: None Psychosocial/ Personal History: Patient lives at home with family. - Family History Father -: Diabetes - Social History Smoking Status: Never smoker Alcohol use: No CD- Drugs: No Caffeine use: Yes Review of Systems 10-point ROS is otherwise unremarkable Physical Examination - Vital Signs Temperature: 98.2 F Blood Pressure: 141/92 Pulse: 123 Respirations: 25 Pulse Ox (%): 100 - Physical Exam General: Cachectic, Moderate distress, Other (lethargic) HEENT: Atraumatic, Normocephalic, PERRLA Neck: Supple, 2+ carotid pulse no bruit, JVD not distended Respiratory: Clear to auscultation bilaterally, Normal air movement Cardiovascular: No edema, Normal pulses, Regular rate/rhythm, Normal S1 S2 Capillary refill: <2 Seconds Gastrointestinal: Normal bowel sounds, Soft and benign Musculoskeletal: No clubbing, No swelling, No contractures Integumentary: No rashes, No breakdown, No significant lesion Neurological: Normal gait, Normal speech, Normal strength at 5/5 x4 extr, Normal tone - Studies Laboratory Data (last 24 hrs) 11/15/23 11/15/23 11/15/23 09:43 06:50 06:50 WBC 9.10 Hgb 11.0 L Hct 35.5 L Plt Count 493 H PT 11.8 INR 1.07 Sodium Potassium BUN Creatinine Glucose 499 H* Magnesium Total Bilirubin AST ALT Alkaline Phosphatase Lipase 11/15/23 06:50 WBC Hgb Hct Plt Count PT INR Sodium 130 L Potassium 5.2 H BUN 22 H Creatinine 1.05 H Glucose 754 H* Magnesium 2.1 Total Bilirubin 0.5 AST < 4 L ALT 12 L Alkaline Phosphatase 157 H Lipase 7 L Microbiology Data (last 24 hrs): 11/15/23 07:00 Nasopharnyx Influenza Type A Antigen Screen - Final 11/15/23 07:00 Nasopharnyx Influenza Type B Antigen Screen - Final 11/15/23 07:00 Throat Group A Streptococcus Rapid Screen - Final Assessment and Plan - Plan Assessment and plan Diabetic ketoacidosis Pseudo hyponatremia Hyperkalemia sodium 130, potassium 5.2, bicarb less < 8, anion gap 35.2, BUN/creatinine 22/1.05, GFR 79, serum glucose 754, lactic acid 2.6 Lactic acid 2.4, gap 35.2, lipase 2 IV fluids and insulin started in the ED Sodium bicarb administered in the ED Insulin drip and IV fluids started BMP every 4 hours ABG ABG reveals (pH 7.1, pCO2 7.0, pO2 152, HCO3 2.1) VBG ordered Renal insufficiency BUN/creatinine 22/1.05, GFR 71 Potassium 5.2 IV fluids Anorexia with cachexia 37 kg, BMI 15 Nutritional education provided Consult nutrition Drug abuse Cessation education provided DVT PPx heparin Full code LOS 24 hours Discharge Plan: Home Plan to discharge in: 72 Hours - Advance Directives Does patient have a Living Will: No Does patient have a Durable POA for Healthcare: No Time Spent Managing Pts Care (In Minutes): 55
[2023-11-15] MEDS ORDERED: POTASS/SODIUM PHOSPHATE 1 PKT POWD.PACK PO SCH (13:00)
[2023-11-15] MEDS ORDERED: SODIUM PHOSPHATE 10 MM in NA CHLORIDE 0.9% 250 ML IV SCH (13:00)
[2023-11-15] MEDS ORDERED: NA CHLORIDE 0.9% 1,000 ML IV SCH (13:00)
[2023-11-15 13:50] VITALS: O2SAT 100
--- NOTE | 2023-11-15 15:11 | P.DS ---
Admission Date: 11/15/23 Discharge Date: 11/15/23 Disposition: AMA-LEFT AGAINST MEDICAL ADVIC Reason for Admission: DKA Brief History of Present Illness: Diagnosis Diabetic ketoacidosis Pseudo hyponatremia Hyperkalemia Renal insufficiency Anorexia with cachexia Drug abuse HPI 11/15/23 Tessa Eagle is a 17-year-old female with past medical history of diabetes mellitus type 1IDDM, drug abuse, renal insufficiency, who presents to the ED with complaints of altered mental status, hyperglycemia, polyuria which began approximately 2 days ago. Associated symptoms are not anorexia, decreased urine output, nausea and vomiting. While in the ED laboratory results are sodium 130, potassium 5.2,, bicarb less than 8, anion gap 35.2, BUN/creatinine 22/1.05, GFR 79, serum glucose 754, lactic acid 2.6. ABG reveals (pH 7.1, pCO2 7.0, pO2 152, HCO3 2.1), chest x-ray reports "the lungs appear clear of acute infiltrate, the heart is normal size." While in the ED normal saline fluids and insulin drip were started and sodium bicarb was administered. Initial vitals BP 106 / 83; Pulse 113; Resp 24; Temp 98.1; Pulse Ox 99%. On evaluation, she is not talking, lethargic, tachypneic likely due to acidosis, and with a warming blanket. Tessa Eagle will be admitted to hospitalist service for further treatment of diabetic ketoacidosis. AMA: Tessa Eagle refused continue care, serum glucose improved and mental status improved but bicarb on BMP < 8 for two lab draws. She has visited the ED numerous times, likely over 40. She leaves A at those visits as well. Education was provided that cardiac arrest is eminent if her acidosis is not resolved. INSTRUMENT SHOP SUPERVISOR Phil and Dr. Mcknight spoke with Tessa multiple times providing education. Tessa refused to have a conversation, changed her clothes, and stated her uncle will be arriving soon to pick her up. General: Cachectic, Moderate distress, Other (lethargic) HEENT: Atraumatic, Normocephalic, PERRLA Neck: Supple, 2+ carotid pulse no bruit, JVD not distended Respiratory: Clear to auscultation bilaterally, Normal air movement Cardiovascular: No edema, Normal pulses, Regular rate/rhythm, Normal S1 S2 Capillary refill: <2 Seconds Gastrointestinal: Normal bowel sounds, Soft and benign Musculoskeletal: No clubbing, No swelling, No contractures Integumentary: No rashes, No breakdown, No significant lesion Neurological: Normal gait, Normal speech, Normal strength at 5/5 x4 extr, Normal tone Hospital Course: Assessment and plan Diabetic ketoacidosis Pseudo hyponatremia Hyperkalemia sodium 130, potassium 5.2, bicarb less < 8, anion gap 35.2, BUN/creatinine 22/1.05, GFR 79, serum glucose 754, lactic acid 2.6 Lactic acid 2.4, gap 35.2, lipase 2 IV fluids and insulin started in the ED Sodium bicarb administered in the ED Insulin drip and IV fluids started BMP every 4 hours ABG ABG reveals (pH 7.1, pCO2 7.0, pO2 152, HCO3 2.1) VBG ordered Renal insufficiency BUN/creatinine 22/1.05, GFR 71 Potassium 5.2 IV fluids Anorexia with cachexia 37 kg, BMI 15 Nutritional education provided Consult nutrition Drug abuse Cessation education provided Vital Signs/Physical Exam: Temp Pulse Resp BP Pulse Ox 98.2 F 123 H 25 H 141/92 H 100 11/15/23 13:27 11/15/23 13:27 11/15/23 13:27 11/15/23 13:27 11/15/23 13:27 Laboratory Data at Discharge: WBC 9.10 thou/uL (4.3-10.9) 11/15/23 06:50 Hgb 11.0 g/dL (12.0-15.0) L 11/15/23 06:50 Hct 35.5 % (36.0-45.0) L 11/15/23 06:50 Plt Count 493 thou/uL (152-406) H 11/15/23 06:50 PT 11.8 SECONDS (9.5-12.5) 11/15/23 06:50 INR 1.07 11/15/23 06:50 Sodium Cancelled 11/15/23 22:00 Potassium Cancelled 11/15/23 22:00 BUN Cancelled 11/15/23 22:00 Creatinine Cancelled 11/15/23 22:00 Glucose Cancelled 11/15/23 22:00 Phosphorus 2.0 mg/dL (2.5-4.9) L 11/15/23 11:21 Magnesium 1.7 mg/dL (1.6-2.4) 11/15/23 11:21 Total Bilirubin 0.5 mg/dL (0.2-1.0) 11/15/23 06:50 AST < 4 U/L (15-37) L 11/15/23 06:50 ALT 12 U/L (13-56) L 11/15/23 06:50 Alkaline Phosphatase 157 U/L (45-117) H 11/15/23 06:50 Lipase 7 U/L (13-75) L 11/15/23 06:50 Home Medications: Insulin Degludec [Tresiba Flextouch U-100] 30 units SQ DAILY 02/03/23 Insulin Lispro [Humalog] 6 units SQ TID 02/03/23 Followup: Unknown,U [Primary Care Provider] - Time spent managing pt's care (in minutes): 55
--- NOTE | 2023-11-21 14:00 | EKG ---
Test Date: 2023-11-15 Test Time: 07:24:11 Hospital Technician: Gabrielle OLIVAS MEASUREMENT RESULTS: Intervals: Rate: 105 NC: 118 QRSD: 70 QT: 346 QTc: 457 [place]: P: 80 NC: 118 QRS: 79 T: -13 INTERPRETIVE STATEMENTS: Sinus tachycardia Biatrial enlargement Abnormal ECG Compared to ECG 10/01/2023 14:47:23 No significant changes Electronically Signed On 11-21-23 13:46:55 SATELLITE DISH TECHNICIAN by Ronnie Dodson
== END 2023-11-15 13:14 | disposition left against medical advice (07) | DRG 638 ==
LOC: ER 06:50 → ERHOLD 09:56
PROVIDERS: ADMIT Internal Medicine; ATTEND Internal Medicine
DX: E10.10 Type 1 diabetes mellitus with ketoacidosis without coma (principal); R64 Cachexia; Z68.1 Body mass index [BMI] 19.9 or less, adult; Z53.29 Procedure and treatment not carried out because of patient's decision for other reasons; E87.5 Hyperkalemia; R63.0 Anorexia; N28.9 Disorder of kidney and ureter, unspecified; R06.82 Tachypnea, not elsewhere classified; F19.10 Other psychoactive substance abuse, uncomplicated; Z71.51 Drug abuse counseling and surveillance of drug abuser; Z71.3 Dietary counseling and surveillance; Z79.4 Long term (current) use of insulin; Z11.52 Encounter for screening for COVID-19
CPT/HCPCS: 36415; 36600; 71045; 80048; 80076; 80307; 81001; 82805; 82947; 83605; 83690; 83735; 83880; 84100; 84484; 85025; 85610; 87040; 87070; 87081; 87205; 87804; 87811; 93005; 99285; J0696; J1644; J1815

== ENCOUNTER → 2023-11-15 | Emergency (ER) | payer OTHER, SELFPAY ==
--- NOTE | 2023-11-15 17:22 | EDPHYS ---
Physician Documentation [facility] Name: Tessa Eagle Age: 17 yrs Sex: Female : 2005 Arrival Date: 11/15/2023 Time: 16:53 Bed IW10 Private MD: ED Physician Bryant Flroes HPI: 11/15 17:49 This 17 yrs old Female presents to ER via EMS with complaints of overdose. kb 17:49 Patient is a 17-year-old female with a history of diabetes who presents after being kb found unresponsive by her sister. EMS arrived on scene and gave patient Narcan, patient now A\T\O x 4. Patient denies any suicidal ideations. States she takes fentanyl recreationally to get high and took too much. Patient was found to have a blood sugar of 410 by EMS. Patient was in ICU at this facility this morning for DKA and left AMA. Patient states she does not want any treatment would like to go home now.. ROS: 17:41 Constitutional: Negative for fever, chills, and weight loss, kb 17:41 All other systems are negative, Exam: 17:41 Constitutional: This is a well developed, well nourished patient who is awake, alert, kb and in no acute distress. Head/Face: Normocephalic, atraumatic. ENT: Moist Mucous membranes Abdomen/GI: Soft, non-tender. No distention Skin: Warm, dry with normal turgor. Normal color. MS/ Extremity: Pulses equal, no cyanosis. Neurovascular intact. Full, normal range of motion. Neuro: Awake and alert, GCS 15, oriented to person, place, time, and situation. Moves all extremities. Normal gait. Psych: Awake, alert, with orientation to person, place and time. Behavior, mood, and affect are within normal limits. 17:41 Cardiovascular: Rate: tachycardic, Rhythm: regular, 17:41 Respiratory: the patient does not display signs of respiratory distress, Respirations: tachypnea, Breath sounds: are clear throughout, 17:41 Psych: Behavior/mood is cooperative, Patient has no thoughts/intents to harm self or others. Vital Signs: 17:17 BP 128 / 75; Pulse 116; Resp 28; Pulse Ox 100% on 4 lpm NC; iw MDM: 16:59 Patient medically screened. kb 17:43 Differential diagnosis: Fentanyl overdose, hyperglycemia, DKA. Data reviewed: vital kb signs, nurses notes. Consideration of Admission/Observation Escalation of care including admission/observation considered. Admission considered for DKA based on presentation and that patient was in DKA this morning when she left AMA from the ICU but patient refuses any treatment and does not want to be admitted.. Management of patient was discussed with the following: Discussed case with Dr. Flores. Historians other than the Patient: EMS: [facility]. Refusal of service: The patient/guardian displays adequate decision making capability and despite a detailed discussion of alternatives, benefits, risks, and consequences refuses: Admission to the hospital for further work-up and treatment, all lab tests, Medications. ED course: Patient has decided to leave our facility AGAINST MEDICAL ADVICE. I have assessed the patient's ability to make an informed decision and it is my opinion at this time that the patient has the medical decision-making capacity to comprehend information regarding current medical condition and appreciates the impact of the disease or condition and the consequences of various options for treatment, including foregoing treatment. The patient possesses the ability to evaluate all treatment options, compare the risk and benefits of each option, communicate choice and is able to make rational choices. I have explained to the patient further testing, treatment, and evaluation I would like to perform during the current emergency department visit as well as any possible alternatives that could be accomplished in a timely manner. I have outlined the possible risk of foregoing any or all of these interventions and the patient understands and acknowledges that the decision to leave may result in undesirable consequences such as , permanent disability, and/or loss of current lifestyle. Even though leaving AMA a is not ideal, I have instructed the patient to follow any discharge instructions given. Additionally, I have clearly stated that the patient is welcome to return at any time to continue care at our facility.. 17:46 ED course: I informed the patient of risk of leaving AMA including . Patient was kb informed that there is a possibility that the Narcan that was given by EMS could wear off before the fentanyl is out of her system so she could go into an unresponsive state that could result in . Patient was informed of the possibility of due to DKA. Patient states she does not want any treatment and would like to go home. Patient understands all of the risks and still desires to leave without any treatment. Patient continues to deny any suicidal ideations.. 11/15 17:00 Order name: EKG; Complete Time: 17:00 11/15 17:00 Order name: Cardiac monitoring 11/15 17:00 Order name: EKG - Nurse/Tech 11/15 17:00 Order name: IV Saline Lock 11/15 17:00 Order name: Labs collected and sent 11/15 17:00 Order name: O2 Per Protocol 11/15 17:00 Order name: O2 Sat Monitoring kb Administered Medications: 17: Not Given (Patient Refused): ns 0.9% 1000 ml IV at 1000 ml once iw Disposition: 18:38 Co-signature as Attending Physician, Bryant Flores MD I reviewed the patient's care rn provided by the Advanced Practice Provider and agree with the diagnosis and treatment plan. Disposition Summary: 11/15/23 17:21 Left Against Medical Advice Notes: Location: Home kb Problem: new kb Symptoms: are unchanged kb Condition: Stable kb Diagnosis - Diabetes mellitus due to underlying condition with ketoacidosis kb - Accidental Fentynal overdose kb Followup: kb - With: Emergency Department - When: As needed - Reason: Worsening of condition Followup: kb - With: Private Physician - When: 2 - 3 days - Reason: Recheck today's complaints, Continuance of care, Re-evaluation by your physician Signatures: Dispatcher [employer] Rosy Jim, GLASS ROBOT OPERATOR-C GLASS ROBOT OPERATOR-Ckb Bryant Flores MD MD rn Williams, Irene RN iw Corrections: (The following items were deleted from the chart) 17:42 17:41 Constitutional: Negative for fever, chills, and weight loss, kb 17:42 17:41 All other systems are negative, kb kb
--- NOTE | 2023-11-15 17:22 | ER ---
Nurse's Notes [facility] Name: Tessa Eagle Age: 17 yrs Sex: Female : 2005 Arrival Date: 11/15/2023 Time: 16:53 Bed IW10 Private MD: Diagnosis: Diabetes mellitus due to underlying condition with ketoacidosis;Accidental Fentynal overdose Presentation: 11/15 17:10 Chief complaint: EMS states: pt was found on the floor by her sibling, was iw unresponsive, PD arrived on scene and administered 4 mg Narcan IM, EMS reports pt was 84% on RA on arrival , pt arrives to ER A\T\OX3, pt left AMA from ER diagnosed with DKA earlier today. 17:10 Method Of Arrival: EMS: [facility] iw 17:10 Coronavirus screen: At this time, the client does not indicate any symptoms associated iw with coronavirus-19. Ebola Screen: Patient negative for fever greater than or equal to 101.5 degrees Fahrenheit, and additional compatible Ebola Virus Disease symptoms Patient denies exposure to infectious person. Patient denies travel to an Ebola-affected area in the 21 days before illness onset. No symptoms or risks identified at this time. Initial Sepsis Screen: Does the patient meet any 2 criteria? No. Patient's initial sepsis screen is negative. Does the patient have a suspected source of infection? No. Patient's initial sepsis screen is negative. Risk Assessment: Do you want to hurt yourself or someone else?. Onset of symptoms was November 15, 2023. 17:10 Acuity: JUSTIN 2 iw Assessment: 17:15 Reassessment: ERP at bedside with patient. Patient screaming in room that she wants to ld1 leave. ERP educating patient at bedside. Pt signing AMA form at this time. Vital Signs: 17:17 BP 128 / 75; Pulse 116; Resp 28; Pulse Ox 100% on 4 lpm NC; iw ED Course: 16:54 Patient arrived in ED. eb 16:59 Rosy Zavala FNP-C is PHCP. kb 16:59 Bryant Flores MD is Attending Physician. kb 17:10 Arm band placed on. iw 17:27 Nuris Zuniga, RN is Primary Nurse. iw 17:29 Triage completed. iw Administered Medications: 17:30 Not Given (Patient Refused): ns 0.9% 1000 ml IV at 1000 ml once iw Outcome: 17:30 AMA AMA form signed iw : Condition: unchanged 17:31 Patient left the ED. iw Signatures: Rosy Zavala, TRIMMER MEAT-C RAJ-Nuris Umana, RN RN iw Jailene Werner Lauren, RN RN ld1
[2023-11-15 17:56] VITALS: BP 128/75; O2SAT 100
== END ==
LOC: ER 16:53
DX: E11.10 Type 2 diabetes mellitus with ketoacidosis without coma (principal); T40.411A Poisoning by fentanyl or fentanyl analogs, accidental (unintentional), initial encounter
CPT/HCPCS: 93005; 99282

== ENCOUNTER 2023-11-16 01:58 | Inpatient (IN) | payer SELFPAY ==
[2023-11-16] MEDS ORDERED: LORazepam 2 MG/ML VIAL ONE (02:12)
[2023-11-16] MEDS ORDERED: NA CHLORIDE 0.9% 3,000 ML ONE (02:14)
[2023-11-16] MEDS ORDERED: HALOPERIDOL LACT 5 MG/ML INJ ONE (02:40)
[2023-11-16] MEDS ORDERED: DIPHENHYDRAMINE 50 MG/ML VIAL ONE (03:02)
[2023-11-16 03:18] LABS: Absolute Lymphocytes (CBC) 4.6 K/uL (0.7-4.9); Hematocrit 30.6 % (36.0-45.0); Lymphocytes % 14.5 % (15.3-44.8); MCV 93.4 fL (80-100); Platelets 646 thou/uL (152-406); RBC Red Blood Cell Count 3.28 M/uL (3.86-4.86)
[2023-11-16] MEDS ORDERED: KCL 20 MEQ/100 mL IVPB 100 ML IV ONE (03:33)
[2023-11-16] MEDS ORDERED: Magnesium Sulfate 2gm IVPB 2 G/50 ML BAG IV ONE (03:33)
[2023-11-16] MEDS ORDERED: KETAMINE HCL IN 0.9 % NACL 50 MG/5 ML SYRINGE IV ONE (03:48)
[2023-11-16 03:54] LABS: Arterial Blood Carboxyhemoglob 0.5 % (0-1.5); Blood Gas Oxyhemoglobin 92.1 % (94-97); Blood O2 Saturation 94.7 % (92-98.5)
[2023-11-16 04:51] LABS: ALT/SGPT 43 U/L (13-56); AST/SGOT 203 U/L (15-37); Albumin 2.7 g/dL (3.4-5.0); Alkaline Phosphatase 149 U/L (45-117); BUN Blood Urea Nitrogen 21 mg/dL (7-18); Bilirubin Total 0.4 mg/dL (0.2-1.0); Glomerular Filtration Rate 81 ml/min (=/>90); Potassium 4.4 mEq/L (3.5-5.1); Sodium Level 139 mEq/L (136-145)
[2023-11-16 04:52] LABS: Bicarbonate < 8 mEq/L (21-32)
--- NOTE | 2023-11-16 04:57 | ER ---
Nurse's Notes [facility] Name: Tessa Eagle Age: 17 yrs Sex: Female : 2005 Arrival Date: 11/16/2023 Time: 01:58 Bed 17 Private MD: Diagnosis: Diabetes mellitus due to underlying condition with ketoacidosis without coma;Metabolic acidemia, unspecified;Hyperglycemia, unspecified;Anemia, unspecified Presentation: 11/16 01:51 Chief complaint: EMS states: Pt with increase blood sugar with Kussmaul respirations. nw1 Pt noted not responding to any questions or phrases. Pt noted moaning. 22g IV placed via EMS in right AC. 81% on RA NRB placed on arrival. Coronavirus screen: negative symptoms unknown vaccination. Ebola Screen: Patient negative for fever greater than or equal to 101.5 degrees Fahrenheit, and additional compatible Ebola Virus Disease symptoms Patient denies exposure to infectious person. Patient denies travel to an Ebola-affected area in the 21 days before illness onset. No symptoms or risks identified at this time. 01:51 Method Of Arrival: EMS: [facility] nw1 01:51 Initial Sepsis Screen: Does the patient meet any 2 criteria? RR > 20 per min. Altered nw1 Mental Status. Does the patient have a suspected source of infection? No. Patient's initial sepsis screen is negative. Risk Assessment: Do you want to hurt yourself or someone else? Patient reports no desire to harm self or others. Onset of symptoms is unknown. 01:51 Acuity: JUSTIN 2 nw1 Triage Assessment: 01:51 General: Appears distressed, uncomfortable, slender, unkempt, malnourished, Behavior is nw1 anxious, combative, inappropriate for age, restless, uncooperative. Pain: Unable to use pain scale. Historical: - Allergies: 01:51 No Known Allergies; nw1 - Home Meds: 01:51 divalproex oral [Active]; gabapentin oral [Active]; Suboxone sublingual [Active]; nw1 - PMHx: 01:51 diabetes mellitus; drug abuse; renal insufficiency; nw1 - Immunization history:: Adult Immunizations unknown, unknown. - Social history:: Smoking status: unknown Patient uses street drugs, IV drugs. Screenin:[facility] ED Fall Risk Assessment (Adult) History of falling in the last 3 months, nw1 including since admission Yes- fall prone (multiple falls) (3 pts) Confusion or Disorientation Yes (5 pts) Intoxicated or Sedated Yes (3 pts) Impaired Gait Yes (1 pt) Mobility Assist Device Used No (0 pt) Altered Elimination No (0 pt) Score/Fall Risk Level 3 or more points = High Risk Oriented to surroundings, Maintained a safe environment, Assessed \T\ reinforced patient's understanding of fall precautions, Provided non-skid footwear, Hourly rounding (assess needs \T\ fall precautionary measures) done, Used ambulatory aids as needed (educated on \T\ assisted with). Abuse screen: Denies threats or abuse. Denies injuries from another. Nutritional screening: No deficits noted. Tuberculosis screening: No symptoms or risk factors identified. Assessment: 03:59 Reassessment: Pt noted in bed moaning without any relief. Medications given and nw1 tolerated. Vital Signs: 01:51 BP 145 / 91; Pulse 96; Resp 24; Temp 97.6(O); Pulse Ox 81% on R/A; Weight 29.48 kg; nw1 Height 4 ft. 11 in. ; 02:00 BP 149 / 85; Pulse 95; Pulse Ox 98% on Non-rebreather mask; nw1 02:06 BP 149 / 85; Pulse 97; ec2 02:15 BP 145 / 90; Pulse 95; Pulse Ox 100% on Non-rebreather mask; nw1 02:30 BP 149 / 80; Pulse 97; Pulse Ox 100% on Non-rebreather mask; nw1 02:45 BP 124 / 75; Pulse 93; Resp 22; Pulse Ox 97% on Non-rebreather mask; nw1 03:00 BP 122 / 56; Pulse 93; Resp 21; Pulse Ox 100% on Non-rebreather mask; nw1 03:00 Weight 36.29 kg; nw1 03:15 BP 118 / 60; Pulse 92; Resp 22; Pulse Ox 100% on Non-rebreather mask; nw1 03:30 BP 114 / 56; Pulse 91; Resp 22; Pulse Ox 100% on Non-rebreather mask; nw1 03:45 BP 126 / 70; Pulse 93; Resp 24; Pulse Ox 100% on NC; nw1 04:00 BP 106 / 56; Pulse 87; Resp 21; Pulse Ox 100% on R/A; nw1 05:14 BP 109 / 55; Pulse 80; Resp 24; Pulse Ox 100% on R/A; nw1 05:15 BP 112 / 56; Pulse 82; Resp 24; Pulse Ox 100% on R/A; nw1 05:25 BP 112 / 56; Pulse 82; ec2 05:30 BP 120 / 66; Pulse 80; Resp 24; Pulse Ox 100% on R/A; nw1 01:51 Body Mass Index 13.13 (36.29 kg, 149.86 cm) - Percentile 0.0 % nw1 01:51 corrected with NRB to 100% MD aware nw1 Matt Coma Score: 02:20 Eye Response: to voice(3). Motor Response: withdraws from pain(4). Verbal Response: nw1 incomprehensible(2). Total: 9. ED Course: 01:51 Arm band placed on left wrist. nw1 01:51 Placed in gown. Bed in low position. Call light in reach. Side rails up X2. Provided nw1 Education on: POC. 01:51 No provider procedures requiring assistance completed. Inserted saline lock: 20 gauge nw1 in right forearm, using aseptic technique. Blood collected. 01:59 Patient arrived in ED. [id number] 02:00 Inserted saline lock: 20 gauge in left forearm, using aseptic technique. nw1 02:04 Nicholas Roy MD is Attending Physician. ec2 02:20 Client placed on continuous cardiac and pulse oximetry monitoring. NIBP monitoring nw1 applied. gambling monitor on. Pulse ox on. NIBP on. 02:28 CXR XRAY In Process Unspecified. EDMS 02:38 Carolina Zuniga, RN is Primary Nurse. nw1 02:59 Triage completed. nw1 03:00 Inserted saline lock: 20 gauge in left hand, using aseptic technique. nw1 03:27 Maintain EMS IV. Good blood return noted. Site clean \T\ dry. Gauge \T\ site: 22g. nw 1 03:30 CMP Sent. nw1 04:56 Roldan Mcknight is Hospitalizing Provider. ec2 05:23 Test Serum, [place] Sent. pm6 05:23 Urinalysis w/ reflexes Sent. pm6 05:23 Blood Culture Adult (2) Sent. pm6 05:23 Lactate w/ 2H reflex if indic. Sent. pm6 05:24 Tristan cath inserted, using sterile technique, 16 Fr., by me, balloon inflated, urine pm6 specimen collected. 05:57 Patient admitted, IV remains in place. nw1 Administered Medications: 02:23 Drug: NS 0.9% IV 3000 ml IV at 1 bolus Per protocol; 1000 mL bolus Route: IV; Rate: 1 nw1 bolus; Site: right forearm; 02:24 Drug: Ativan IVP 1 mg IVP once Route: IVP; Site: right forearm; nw1 02:42 Drug: Haloperidol IVP 5 mg IVP once Route: IVP; Site: right forearm; nw1 03:11 Drug: diphenhydrAMINE IVP 50 mg IVP once Route: IVP; Site: left forearm; nw1 03:58 Drug: Magnesium Sulfate IVPB 2 grams IVPB once over 30 mins Route: IVPB; Infused Over: nw1 30 mins; Site: right wrist; 03:59 Drug: Potassium Chloride IV 20 mEq IV at calculated rate once; administer over 1-2 nw1 hours Route: IV; Rate: calculated rate; Site: right antecubital; 04:11 Drug: ketamine 20 mg IV at bolus once Route: IV; Rate: bolus; Site: right wrist; nw1 05:15 Drug: Insulin Drip - (Insulin Regular Human IVP 100 units, NS 0.9% IV 100 ml) IV at nw1 calculated rate continuous; Standard concentration 1unit/ml; Dose for DKA is 0.1 units/kg/hr {Co-Signature: la4 (Kelsie Zamarripa RN).} Route: IV; Rate: calculated rate; Site: left forearm; 05:17 Drug: Rocephin IV 1 grams IV at bolus once; Given slow IV push per pharmacy nw1 instructions Route: IV; Rate: bolus; Site: right antecubital; 05:17 Drug: NS 0.9% IV 1000 ml IV at 1 bolus Per protocol; 1000 mL bolus Route: IV; Rate: 1 nw1 bolus; Site: right antecubital; Medication: 03:15 VIS not applicable for this client. nw1 Output: 06:06 Urine: 1000ml (Tristan); Total: 1000ml. la4 Outcome: 04:56 Decision to Hospitalize by Provider. ec2 05:57 Admitted to ICU accompanied by nurse, room 5, with chart, Report called to JANESSA Sanabria nw1 05:57 Condition: stable 05:57 Instructed on the need for admit, 07:04 Patient left the ED. [id number] Signatures: Dispatcher [employer] EDNaya Reevesj6 Pau Kam RN RN [id number] Nicholas Roy MD MD ec2 Kelsie Zamarripa RN RN la4 Carolina Zuniga RN RN nw1 Ursula Urbina6 Kelsie Zamarripa RN4 Corrections: (The following items were deleted from the chart) 03:27 03:26 Inserted saline lock: 20 gauge in left hand, using aseptic technique. 04:10 03:15 BP 122 / 56; Pulse 93bpm; Resp 25bpm; Pulse Ox 100% Non-rebreather mask; 04:10 03:45 GCS: 9, nw
--- NOTE | 2023-11-16 04:57 | EDPHYS ---
Physician Documentation [facility] Name: Tessa Eagle Age: 17 yrs Sex: Female : 2005 Arrival Date: 11/16/2023 Time: 01:58 Bed 17 Private MD: ED Physician Nicholas Roy HPI: 11/16 02:06 This 17 yrs old Female presents to ER via Unassigned with complaints of ec2 medication non-compliance. 02:06 Patient is a poorly controlled diabetic. Patient has not been taking her diabetic ec2 medications, does not provide significant story. EMS reports blood sugar at 500, tachycardia. They had started the patient on crystalloid.. Historical: - Allergies: 01:51 No Known Allergies; nw - Home Meds: 01:51 divalproex oral [Active]; gabapentin oral [Active]; Suboxone sublingual [Active]; nw - PMHx: 01:51 diabetes mellitus; drug abuse; renal insufficiency; nw - Immunization history:: Adult Immunizations unknown, unknown. - Social history:: Smoking status: unknown Patient uses street drugs, IV drugs. ROS: 02:06 Constitutional: as per hpi ec2 Exam: 02:06 Constitutional: GEN: NAD Head: atraumatic Eyes: EOMI Ears: External ears are ec2 normal. CV: Regular rate LUNGS: Tachypnea, kussmaul respirations ABD: non-distended SKIN: no evidence of rashes MSK: no evidence of trauma NEURO: moves all extremities equally Vital Signs: 01:51 BP 145 / 91; Pulse 96; Resp 24; Temp 97.6(O); Pulse Ox 81% on R/A; Weight 29.48 kg; nw1 Height 4 ft. 11 in. ; 02:00 BP 149 / 85; Pulse 95; Pulse Ox 98% on Non-rebreather mask; nw1 02:06 BP 149 / 85; Pulse 97; ec2 02:15 BP 145 / 90; Pulse 95; Pulse Ox 100% on Non-rebreather mask; nw1 02:30 BP 149 / 80; Pulse 97; Pulse Ox 100% on Non-rebreather mask; nw1 02:45 BP 124 / 75; Pulse 93; Resp 22; Pulse Ox 97% on Non-rebreather mask; nw1 03:00 BP 122 / 56; Pulse 93; Resp 21; Pulse Ox 100% on Non-rebreather mask; nw1 03:00 Weight 36.29 kg; nw1 03:15 BP 118 / 60; Pulse 92; Resp 22; Pulse Ox 100% on Non-rebreather mask; nw1 03:30 BP 114 / 56; Pulse 91; Resp 22; Pulse Ox 100% on Non-rebreather mask; nw1 03:45 BP 126 / 70; Pulse 93; Resp 24; Pulse Ox 100% on NC; nw1 04:00 BP 106 / 56; Pulse 87; Resp 21; Pulse Ox 100% on R/A; nw1 05:14 BP 109 / 55; Pulse 80; Resp 24; Pulse Ox 100% on R/A; nw1 05:15 BP 112 / 56; Pulse 82; Resp 24; Pulse Ox 100% on R/A; nw1 05:25 BP 112 / 56; Pulse 82; ec2 05:30 BP 120 / 66; Pulse 80; Resp 24; Pulse Ox 100% on R/A; nw1 01:51 Body Mass Index 13.13 (36.29 kg, 149.86 cm) - Percentile 0.0 % nw1 01:51 corrected with NRB to 100% MD aware nw1 Emerson Coma Score: 02:20 Eye Response: to voice(3). Motor Response: withdraws from pain(4). Verbal Response: nw1 incomprehensible(2). Total: 9. MDM: 02:04 Patient medically screened. ec2 02:09 ED course: Patient arrives today due to concern for medication noncompliance and ec2 concern for possible DKA. Examination remarkable for tachypneic individual who has kussmaul respirations. Will obtain lab work, urine studies, give the patient crystalloid, give her Ativan for general agitation. Ultimately suspect DKA given the patient's poor medication compliance, will evaluate for electrolyte disturbances as well as anemia, UTI, pneumonia.. 03:20 Data reviewed: vital signs. ED course: Venous blood gas shows significant acidosis with ec2 a pH of 6.67 and pCO2 of 11.7, suspect a compensated metabolic acidosis. 03:48 ED course: I am going to add on ketamine for anxiolysis, concern it is currently for ec2 QTc prolonging agents and will defer any more of these agents, additionally concerned about potentially respiratory suppression given the patient's Kussmaul respirations and marked acidosis.. 03:54 ED course: EKG independently reviewed and interpreted by me, shows normal sinus rhythm, ec2 rate of 92, motion artifact noted, no acute ST segment elevations, QTc prolongation at 507. Will defer giving her any additional QTc prolonging agents. Will also give her potassium and magnesium. . 04:53 ED course: There are some issues with labs and lab resulting specifically causing a ec2 significant delay in care. Ultimately called onto the lab and they reported was due to low CO2 which is consistent with the patient's clinical presentation.. 04:55 ED course: Metabolic profile shows potassium at 4.4, low CO2 which is expected as well ec2 as a marked anion gap at 30. Will start the patient on insulin drip. . 05:25 ED course: On reassessment patient with improving heart rate. Patient still remains ec2 slightly altered as well as restless in the bed, I will defer any more aggressive agitation management medications at this time as I do not want to sedate the patient.. 11/16 02:05 Order name: CBC with Diff; Complete Time: 03:41 ec2 11/16 02:05 Order name: CMP; Complete Time: 05:24 ec2 11/16 02:05 Order name: ABG: VBG, not ABG; Complete Time: 03:59 ec2 11/16 02:05 Order name: UAM; Complete Time: 05:43 ec2 11/16 02:05 Order name: Test, Urine; Complete Time: 05:43 ec2 11/16 03:47 Order name: Blood Culture Adult (2) ec2 11/16 03:47 Order name: Lactate w/ 2H reflex if indic.; Complete Time: 06:01 ec2 11/16 05:06 Order name: Glucose ec2 11/16 05:18 Order name: Test Serum, Qualitat EDMS 11/16 05:18 Order name: Urinalysis w/ reflexes EDMS 11/16 05:18 Order name: CBC with Automated Diff EDMS 11/16 05:18 Order name: Comprehensive Metabolic Panel EDMS 11/16 05:18 Order name: Magnesium EDMS 11/16 05:18 Order name: Phosphorus EDMS 11/16 05:18 Order name: Basic Metabolic Panel EDMS 11/16 05:18 Order name: Basic Metabolic Panel EDMS 11/16 05:18 Order name: Basic Metabolic Panel EDMS 11/16 05:18 Order name: Basic Metabolic Panel EDMS 11/16 05:18 Order name: Osmolality, Serum EDMS 11/16 05:18 Order name: Osmolality, Serum EDMS 11/16 05:18 Order name: Osmolality, Serum EDMS 11/16 05:18 Order name: Osmolality, Serum EDMS 11/16 06:27 Order name: Glucose, Ancillary Testing; Complete Time: 06:35 EDMS 11/16 02:05 Order name: CXR XRAY ec2 11/16 02:05 Order name: EKG; Complete Time: 02:06 ec2 11/16 02:05 Order name: EKG - Nurse/Tech; Complete Time: 03:27 ec2 11/16 02:05 Order name: IV Saline Lock; Complete Time: 02:07 ec2 11/16 02:05 Order name: Labs collected and sent; Complete Time: 02:07 ec2 11/16 03:47 Order name: Cardiac monitoring; Complete Time: 04:12 ec2 11/16 03:47 Order name: O2 Per Protocol; Complete Time: 04:12 ec2 11/16 03:47 Order name: O2 Sat Monitoring; Complete Time: 04:12 ec2 11/16 03:47 Order name: Vital Signs; Complete Time: 04:12 ec2 Administered Medications: 02:23 Drug: NS 0.9% IV 3000 ml IV at 1 bolus Per protocol; 1000 mL bolus Route: IV; Rate: 1 nw1 bolus; Site: right forearm; 02:24 Drug: Ativan IVP 1 mg IVP once Route: IVP; Site: right forearm; nw1 02:42 Drug: Haloperidol IVP 5 mg IVP once Route: IVP; Site: right forearm; nw1 03:11 Drug: diphenhydrAMINE IVP 50 mg IVP once Route: IVP; Site: left forearm; nw1 03:58 Drug: Magnesium Sulfate IVPB 2 grams IVPB once over 30 mins Route: IVPB; Infused Over: nw1 30 mins; Site: right wrist; 03:59 Drug: Potassium Chloride IV 20 mEq IV at calculated rate once; administer over 1-2 nw1 hours Route: IV; Rate: calculated rate; Site: right antecubital; 04:11 Drug: ketamine 20 mg IV at bolus once Route: IV; Rate: bolus; Site: right wrist; nw1 05:15 Drug: Insulin Drip - (Insulin Regular Human IVP 100 units, NS 0.9% IV 100 ml) IV at nw1 calculated rate continuous; Standard concentration 1unit/ml; Dose for DKA is 0.1 units/kg/hr {Co-Signature: zully (Kelsie Zamarripa RN).} Route: IV; Rate: calculated rate; Site: left forearm; 05:17 Drug: Rocephin IV 1 grams IV at bolus once; Given slow IV push per pharmacy nw1 instructions Route: IV; Rate: bolus; Site: right antecubital; 05:17 Drug: NS 0.9% IV 1000 ml IV at 1 bolus Per protocol; 1000 mL bolus Route: IV; Rate: 1 nw1 bolus; Site: right antecubital; Disposition Summary: 11/16/23 04:56 Hospitalization Ordered Notes: Hospitalization Status: Inpatient Admission ec2 Provider: Roldan Mcknight ec2 Condition: Stable ec2 Problem: an acute exacerbation ec2 Symptoms: have worsened ec2 Bed/Room Type: Standard ec2 Location: Intensive Care Unit(11/16/23 05:24) ec2 Room Assignment: -(11/16/23 05:34) [id number] Diagnosis - Diabetes mellitus due to underlying condition with ketoacidosis without coma ec2 - Metabolic acidemia, unspecified ec2 - Hyperglycemia, unspecified ec2 - Anemia, unspecified ec2 Forms: - Medication Reconciliation Form ec2 - SBAR form ec2 - Leadership Thank You Letter ec2 Critical care time excluding procedures: 05:26 Critical care time: Bedside Care: 75 minutes, Consultation: 5 minutes. Total time: 80 ec2 minutes Signatures: Dispatcher [employer] Nicholas Castro MD MD ec2 Reddick, Jess jr12 Carolina Zuniga RN RN nw1 Kelsie Zamarripa RN la4 Corrections: (The following items were deleted from the chart) 05:22 05:06 Accucheck Blood Glucose ordered. ec2 nw1 05:24 04:56 Telemetry/MedSurg (Inpatient) ec2 ec2 05:24 04:56 ec2 ec2 05:26 04:55 Critical care time: Bedside Care: 35 minutes, Consultation: 5 minutes. Total ec2 time: 40 minutes ec2 05:34 05:24 ec2 [id number]
[2023-11-16] MEDS ORDERED: CEFTRIAXONE 1000 MG/VIAL ONE (05:03)
[2023-11-16] MEDS ORDERED: NA CHLORIDE 0.9% 100 ML ONE ×3 (05:03→23:05)
[2023-11-16] MEDS ORDERED: INSULIN REGULAR (HUMAN) 100 UNIT/ML ONE (05:03)
[2023-11-16] MEDS ORDERED: NA CHLORIDE 0.9% 1,000 ML ONE (05:04)
[2023-11-16] MEDS ORDERED: ACETAMINOPHEN 650MG/RECT SUPP PR PRN (05:08)
[2023-11-16 05:13] LABS: Glucose Level 650 mg/dL (74-106)
[2023-11-16] MEDS ORDERED: INSULIN -REGULAR HUMAN 100 UNIT in NA CHLORIDE 0.9% 100 ML IV SCH (05:15)
--- NOTE | 2023-11-16 05:30 | P.HP ---
Certification for Inpatient With expected LOS: >2 Midnights Patient will require the following post-hospital care: None Practitioner: I am a practitioner with admitting privileges, knowledge of patient current condition, hospital course, and medical plan of care. Services: Services provided to patient in accordance with Admission requirements found in Title 42 Section 412.3 of the Code of Federal Regulations <MahendraMaude - Last Filed: 11/16/23 06:38> Patient History Date of Service: 11/16/23 Primary Care Provider: none Reason for admission: DKA, ingestion History of Present Illness: Ms. Eagle is a 17 yo type one diabetic that is noncompliant, has left this facility twice already in the past 24 hours, who returned per EMS s/p taking "pills and meth". She is not currently fully conscious but is maintaining her airway, moaning, is not vomiting. She has apparently received 4L NS in ED. Her blood sugar was reported from lab (after the patient was already admitted) at greater than 600mg/dL for the first reading. I will get a repeat Chem 7 now at the time of admission to assess her current electrolyte status. - Past Medical/Surgical History Diabetic: Yes -: Type 1 diabetes -: Depression -: None Psychosocial/ Personal History: Patient lives at home with family. - Family History Father -: Diabetes - Social History Alcohol use: No CD- Drugs: Yes Caffeine use: Yes Place of Residence: Home <Maude Mccray - Last Filed: 11/16/23 06:38> Date of Service: 11/16/23 <Surendra Salazar - Last Filed: 11/16/23 09:13> Allergies No Known Allergies Allergy (Verified 07/13/23 22:35) Home Medications: Insulin Degludec [Tresiba Flextouch U-100] 30 units SQ DAILY 02/03/23 Insulin Lispro [Humalog] 6 units SQ TID 02/03/23 Review of Systems 10-point ROS is otherwise unremarkable General: As per HPI Neurological: As per HPI <Maude Mccray - Last Filed: 11/16/23 06:38> Physical Examination - Physical Exam General: Cachectic, Moderate distress, Unresponsive HEENT: Atraumatic, Normocephalic Neck: 2+ carotid pulse no bruit Respiratory: Clear to auscultation bilaterally, Expiratory wheezes, Other (rare) Cardiovascular: No edema, Regular rate/rhythm (tachycardic) Capillary refill: >2 Seconds Gastrointestinal: Hypoactive Musculoskeletal: No clubbing Integumentary: Other (scattered ecchymosis) Neurological: Abnormal tone, Abnormal cranial nerve function Lymphatics: No axilla or inguinal lymphadenopathy Urinary: Tristan catheter External genitalia: Deferred Rectal: Deferred - Studies Laboratory Data (last 24 hrs) 11/16/23 11/16/23 03:08 03:08 WBC 31.50 H Hgb 9.2 L D Hct 30.6 L Plt Count 646 H D Sodium 139 Potassium 4.4 BUN 21 H Creatinine 1.02 Glucose 650 H* Total Bilirubin 0.4 AST 203 H ALT 43 Alkaline Phosphatase 149 H <Maude Mccray - Last Filed: 11/16/23 06:38> - Studies Laboratory Data (last 24 hrs) 11/16/23 11/16/23 03:08 03:08 WBC 31.50 H Hgb 9.2 L D Hct 30.6 L Plt Count 646 H D Sodium 139 Potassium 4.4 BUN 21 H Creatinine 1.02 Glucose 650 H* Total Bilirubin 0.4 AST 203 H ALT 43 Alkaline Phosphatase 149 H <Surendra Salazar - Last Filed: 11/16/23 09:13> Assessment and Plan - Plan Diabetic Ketoacidosis with pH <7 4L NS given in ED Repeat Chem 7 at time of admission and then q4h -> K 4.4 -> 4.5, bicarb less than 8 Insulin drip per protocol started at 0500 Hourly FSBS, when FSBS less than 250mg/dL, notify MD for change in IVF NaHCO3 x 2 amps IV now aspiration precautions Benji hugger prn Noncompliance High risk of has been discussed with patient and family on many previous occassions - Advance Directives Does patient have a Living Will: No Does patient have a Durable POA for Healthcare: No <Maude Mccray - Last Filed: 11/16/23 06:38> Physician Review: Patient Assessed, Agree with Above Assessment and Plan Physician Review Additional Text: Ms. Tessa Eagle is a 17 year old female with uncontrolled type I diabetes mellitus and substance use disorder (fentanyl) who was admitted for diabetic ketoacidosis. She presents in critical condition with hypothermia, leukocytosis, and acidosis. She is obtunded in the ICU this morning. She has apparently received 2 doses of naloxone thus far. She meets SIRS criteria, without any obvious source of infection. She was started on empiric vancomycin + piperacillin-tazobactam. For her DKA, she has received 2 amps of bicarbonate and is one IV fluids/IV insulin drip per DKA protocol. I had an extensive discussion with her mother, Ms. Roca, who mentions that she was recently admitted to a psychiatric mantilla ([facility]). She is concerned that this may have been a suicide attempt. She has requested a psych hold until we can have Psychiatry evaluate her. Will continue to monitor her closely in the ICU. Her prognosis remains guarded at this time. Surendra Salazar M.D. <Surendra Salazar - Last Filed: 11/16/23 09:13>
[2023-11-16 05:39] LABS: Specific Gravity 1.012 (1.005-1.030)
[2023-11-16 05:40] LABS: Specific Gravity 1.012 (1.005-1.030); Urine Bacteria <20 /HPF (<20); Urine Bilirubin NEGATIVE (Negative); Urine Blood Trace (Negative); Urine Clarity Turbid (Clear); Urine Color Colorless (Yellow); Urine Glucose 4+ (Over) (Negative); Urine Mucus Slight /HPF (None Seen); Urine Protein TRACE (Negative); Urine RBC <5 /HPF (None Seen); Urine Urobilinogen Normal (Normal)
[2023-11-16 05:58] LABS: Absolute Lymphocytes (CBC) 7.4 K/uL (0.7-4.9); Hematocrit 32.2 % (36.0-45.0); Lymphocytes % 19.7 % (15.3-44.8); MCV 95.7 fL (80-100); MPV 7.8 fL (7.6-11.3); Platelets 608 thou/uL (152-406); RBC Red Blood Cell Count 3.37 M/uL (3.86-4.86)
[2023-11-16] MEDS: D5 0.45 NS 1,000 ML IV SCH ×4 (06:00→22:05)
[2023-11-16 06:33] VITALS: BMI 15.1
[2023-11-16 06:39] LABS: ALT/SGPT 65 U/L (13-56); Albumin 2.5 g/dL (3.4-5.0); Alkaline Phosphatase 175 U/L (45-117); BUN Blood Urea Nitrogen 22 mg/dL (7-18); Bicarbonate < 8 mEq/L (21-32); Bilirubin Total 0.3 mg/dL (0.2-1.0); Glomerular Filtration Rate 87 ml/min (=/>90); Magnesium 2.5 mg/dL (1.6-2.4); Phosphorus 3.9 mg/dL (2.5-4.9); Potassium 4.5 mEq/L (3.5-5.1); Protein, Total 6.1 g/dL (6.4-8.2); Sodium Level 140 mEq/L (136-145)
[2023-11-16 06:41] LABS: Glucose Level 599 mg/dL (74-106)
[2023-11-16 06:48] LABS: AST/SGOT 351 U/L (15-37)
[2023-11-16] MEDS ORDERED: SODIUM BICARB 50 MEQ/50ML VIAL ONE (07:16)
[2023-11-16 07:31] VITALS: O2SAT 100
[2023-11-16 08:21] LABS: Platelet Estimate INCR; White Blood Cell Scan DIFF (OK)
[2023-11-16 08:22] LABS: Blood Morphology Comment NOT SEEN (NOT SEEN)
[2023-11-16] MEDS: ENOXAPARIN 40 MG/0.4 ML SQ SCH (08:38)
[2023-11-16 09:00] LABS: Magnesium 2.7 mg/dL (1.6-2.4); Phosphorus 4.1 mg/dL (2.5-4.9)
[2023-11-16] MEDS ORDERED: VANCOMYCIN 1 GM in NA CHLORIDE 0.9% 250 ML IVPB SCH (09:00)
[2023-11-16 09:44] LABS: Blood O2 Saturation 98.1 % (92-98.5)
[2023-11-16] MEDS: PIPER TAZO 3.375 GM in NA CHLORIDE 0.9% 100 ML IV SCH ×2 (09:57→18:20)
[2023-11-16] MEDS: VANCOMYCIN 0.75 GM in NA CHLORIDE 0.9% 150 ML IVPB SCH (09:57)
[2023-11-16 10:10] LABS: BUN Blood Urea Nitrogen 21 mg/dL (7-18); Glomerular Filtration Rate 94 ml/min (=/>90); Sodium Level 145 mEq/L (136-145)
[2023-11-16 10:11] LABS: Bicarbonate < 8 mEq/L (21-32); Potassium 3.9 mEq/L (3.5-5.1)
[2023-11-16 10:12] LABS: Glucose Level 459 mg/dL (74-106)
[2023-11-16] MEDS ORDERED: VANCOMYCIN 1 GM/VIAL ONE (11:22)
[2023-11-16] MEDS ORDERED: NA CHLORIDE 0.9% 250 ML ONE (11:23)
[2023-11-16 11:37] LABS: Magnesium 2.1 mg/dL (1.6-2.4)
[2023-11-16 11:44] LABS: Phosphorus 1.2 mg/dL (2.5-4.9)
[2023-11-16] MEDS ORDERED: POTASSIUM PHOS IN 0.9 % NACL 15 MMOL/250 ML BAG IV ONE ×2 (11:54→23:30)
[2023-11-16 14:02] LABS: BUN Blood Urea Nitrogen 19 mg/dL (7-18); Glomerular Filtration Rate 96 ml/min (=/>90); Glucose Level 172 mg/dL (74-106); Potassium 2.9 mEq/L (3.5-5.1); Sodium Level 149 mEq/L (136-145)
[2023-11-16 14:03] LABS: Bicarbonate < 8 mEq/L (21-32)
[2023-11-16 16:17] LABS: Blood O2 Saturation 67.2 % (92-98.5)
[2023-11-16 18:04] LABS: Magnesium 1.6 mg/dL (1.6-2.4)
[2023-11-16 18:20] LABS: BUN Blood Urea Nitrogen 18 mg/dL (7-18); Glomerular Filtration Rate 85 ml/min (=/>90); Glucose Level 209 mg/dL (74-106); Potassium 3.3 mEq/L (3.5-5.1); Sodium Level 147 mEq/L (136-145)
[2023-11-16 18:21] LABS: Bicarbonate < 8 mEq/L (21-32)
[2023-11-16 23:05] LABS: Magnesium 1.6 mg/dL (1.6-2.4); Potassium 2.8 mEq/L (3.5-5.1)
[2023-11-16] MEDS ORDERED: PIPERACIL/TAZO 3.375 GM VIAL IV ONE (23:05)
[2023-11-16 23:06] LABS: Phosphorus 1.2 mg/dL (2.5-4.9)
[2023-11-16] MEDS ORDERED: MAGNESIUM SULFATE 1 gm IVPB 1 GM/100 ML BAG IV ONE (23:30)
[2023-11-17] MEDS: PIPER TAZO 3.375 GM in NA CHLORIDE 0.9% 100 ML IV SCH ×3 (00:07→16:58)
[2023-11-17 01:42] LABS: Potassium 2.2 mEq/L (3.5-5.1)
[2023-11-17] MEDS: KCL 20 MEQ/100 mL IVPB 20 MEQ/100 ML BAG IV SCH ×2 (02:20→04:25)
[2023-11-17 05:44] LABS: Albumin 2.5 g/dL (3.4-5.0); Bilirubin Total 0.2 mg/dL (0.2-1.0); Magnesium 1.8 mg/dL (1.6-2.4); Phosphorus 1.9 mg/dL (2.5-4.9); Protein, Total 5.7 g/dL (6.4-8.2)
[2023-11-17 05:49] LABS: Absolute Lymphocytes (CBC) 1.1 K/uL (0.7-4.9); Hematocrit 26.3 % (36.0-45.0); Lymphocytes % 7.4 % (15.3-44.8); MCV 80.9 fL (80-100); MPV 7.6 fL (7.6-11.3); Platelets 375 thou/uL (152-406); RBC Red Blood Cell Count 3.25 M/uL (3.86-4.86)
[2023-11-17 05:53] LABS: Potassium 2.5 mEq/L (3.5-5.1)
[2023-11-17] MEDS: D5 0.45 NS 1,000 ML IV SCH (06:54)
[2023-11-17] MEDS ORDERED: MAGNESIUM SULFATE 1 gm IVPB 1 GM/100 ML BAG IV ONE (07:18)
[2023-11-17] MEDS ORDERED: CALCIUM GLUCONATE 1 GM IVPB 1 GM/50 ML BAG IV ONE (07:30)
[2023-11-17] MEDS: POTASSIUM CL 40 MEQ in NA CHLORIDE 0.9% 500 ML IV SCH ×2 (08:45→11:15)
[2023-11-17] MEDS: ENOXAPARIN 40 MG/0.4 ML SQ SCH (08:46)
--- NOTE | 2023-11-17 10:57 | P.PN ---
Subjective Date of Service: 11/17/23 Primary Care Provider: none Chief Complaint: DKA, ingestion Pt is resting comfortably in bed. She is requesting to leave AMA. Her blood sugar has improved but potassium is low. Pt is refusing iv KCL. Her mom is concerned about suicide attempt. Pt has poor insight. Waiting for psych eval. No other issues overnight. Review of Systems Unremarkable General: Unremarkable Eyes: Unremarkable ENT: Unremarkable Respiratory: Unremarkable Cardiovascular: Unremarkable Gastrointestinal: Unremarkable Genitourinary: Unremarkable Musculoskeletal: Unremarkable Integumentary: Unremarkable Neurological: Unremarkable Lymphatics: Unremarkable Physical Examination - Vital Signs Temperature: 98.0 F Blood Pressure: 107/70 Pulse: 78 Respirations: 27 Pulse Ox (%): 100 - Physical Exam General: Alert, In no apparent distress, Oriented x3 HEENT: Atraumatic, Normocephalic, PERRLA Neck: Supple, 2+ carotid pulse no bruit Respiratory: Clear to auscultation bilaterally, Normal air movement Cardiovascular: No edema, Normal pulses, Regular rate/rhythm, Normal S1 S2 Capillary refill: <2 Seconds Gastrointestinal: Normal bowel sounds, Soft and benign, Non-distended Musculoskeletal: No clubbing, No swelling Integumentary: No rashes, No breakdown Neurological: Normal gait, Normal speech, Normal strength at 5/5 x4 extr Lymphatics: No axilla or inguinal lymphadenopathy - Studies Laboratory Data (last 24 hrs) 11/16/23 05:06 Glucose Cancelled Assessment And Plan - Plan DKA: resolved. AG 11.5. Blood sugar has improved. Pt is off insulin drip. Will continue accuchek, SSI, lantus 12u daily and ADA diet. Hypokalemia: Will replete with iv KCL. Will check mag level. Hypocalcemia: Calcium is 6.5. Albumin is 2.6. Will continue iv calcium gluconate. Will check vitamin D and ionized calcium. Possible Suicidal attempt: Pt's mom is worried about pt's mental health. She likely overdosed on meth to hurt herself. Will place pt on 1013 order and consult psych for evaluation. Polysubstance abuse: Pt was encouraged to stop illicit drug use. Non-complaince: Pt was encouraged to be compliant with home meds. DVT ppx: SCD Code: full Dispo: pending psych eval tomorrow Discharge Plan: Home Plan to discharge in: 48 Hours - Code Status/Comfort Care Code Status Assessed: Yes Code Status: Full Code Physician Review: Patient Assessed, Agree with Above Assessment and Plan
[2023-11-17] MEDS ORDERED: INSULIN GLARGINE 100 UNIT/ML SQ SCH (11:00)
--- NOTE | 2023-11-17 11:16 | RAD REPORT ---
EXAM DESCRIPTION: Chest Single View CLINICAL HISTORY: COUGH COMPARISON: None. FINDINGS: Single frontal radiograph view of the chest. Cardiomediastinal silhouette: Normal size and contour. Lungs: No consolidation, pneumothorax, or pleural effusion. Bones: No acute osseous abnormality. Leads overlie the chest. Upper abdomen: No abnormality identified. IMPRESSION: 1. No acute pulmonary process identified. Electronically signed by: Edgar Campbell DO 11/16/2023 04:26 AM ACCOUNTING CLERKS SUPERVISOR M Due to temporary technical issues with the PACS/Fluency reporting system, reports are being signed by the in house radiologists without review as a courtesy to insure prompt reporting. The interpreting radiologist is fully responsible for the content of the report.
[2023-11-17] MEDS ORDERED: INSULIN GLARGINE 100 UNIT/ML SQ ONE (11:25)
[2023-11-17] MEDS: VANCOMYCIN 0.75 GM in NA CHLORIDE 0.9% 150 ML IVPB SCH (11:26)
[2023-11-17] MEDS ORDERED: POTASSIUM CL SA 10 MEQ TAB PO ONE (11:28)
[2023-11-17] MEDS: POTASSIUM CL SA 10 MEQ TAB PO SCH ×2 (11:34→16:58)
[2023-11-17] MEDS ORDERED: D10W 250 ML BAG IV PRN (12:25)
[2023-11-17] MEDS ORDERED: GLUCAGON 1 MG/VIAL IM PRN (12:25)
[2023-11-17] MEDS ORDERED: INSULIN LISPRO 100 UNIT/ML ONE ×2 (12:34→16:44)
[2023-11-17] MEDS: INSULIN LISPRO 100 UNIT/ML SQ SCH ×2 (12:36→16:59)
[2023-11-17] MEDS ORDERED: NA CHLORIDE 0.9% 100 ML ONE (16:42)
[2023-11-17] MEDS ORDERED: VITAMIN D 5,000 UNIT CAP PO SCH (20:00)
[2023-11-17] MEDS ORDERED: VITAMIN D 1000 UNIT TAB ONE (20:37)
[2023-11-17 20:48] VITALS: TEMP 97.7
[2023-11-17 22:09] LABS: Barbiturates NEGATIVE (NEGATIVE); Benzodiazepines NEGATIVE (NEGATIVE); Cocaine NEGATIVE (NEGATIVE); METHAMPHETAM NEGATIVE (NEGATIVE); Methadone NEGATIVE (NEGATIVE); Opiates NEGATIVE (NEGATIVE); Phencyclidine NEGATIVE (NEGATIVE); THC Cannibis POSITIVE (NEGATIVE)
[2023-11-17 23:35] VITALS: BP 124/81
[2023-11-18] MEDS ORDERED: INSULIN LISPRO 100 UNIT/ML SQ SCH (08:00)
[2023-11-18] MEDS ORDERED: INSULIN GLARGINE 100 UNIT/ML SQ SCH ×2 (09:00)
== END 2023-11-17 23:15 | disposition left against medical advice (07) | DRG 639 ==
LOC: ER 01:58 → ERHOLD 05:08 → 3RD-ICU 05:57
PROVIDERS: ADMIT Internal Medicine; ATTEND Hospitalist
DX: E10.10 Type 1 diabetes mellitus with ketoacidosis without coma (principal); E87.6 Hypokalemia; E83.51 Hypocalcemia; F32.A Depression, unspecified; F11.10 Opioid abuse, uncomplicated; Z79.4 Long term (current) use of insulin; Z91.199 Patient's noncompliance with other medical treatment and regimen due to unspecified reason; Z53.29 Procedure and treatment not carried out because of patient's decision for other reasons
CPT/HCPCS: 36415; 36600; 51702; 71045; 80048; 80053; 80307; 81001; 81025; 82306; 82330; 82805; 82947; 83605; 83735; 83930; 84100; 84703; 85025; 87040; 99285; J0612; J0696; J1200; J1630; J1650; J1815; J2543; J3475; J3480; J7030; J7040; J7050; J7799

== ENCOUNTER → 2023-12-20 | Emergency (ER) | payer OTHER, SELFPAY ==
[~2023-12-20] MED LIST: NA CHLORIDE 0.9% 1,000 ML ONE
[2023-12-20 03:38] LABS: Absolute Lymphocytes (CBC) 3.5 K/uL (0.7-4.9); Hematocrit 31.3 % (36.0-45.0); Lymphocytes % 49.4 % (15.3-44.8); MCV 84.7 fL (80-100); Platelets 379 thou/uL (152-406)
[2023-12-20 03:48] LABS: Protime INR 0.93
[2023-12-20 03:49] LABS: Arterial Blood Carboxyhemoglob 3.8 % (0-1.5); Blood Gas Oxyhemoglobin 90.9 % (94-97)
[2023-12-20 03:59] LABS: Albumin 3.6 g/dL (3.4-5.0); Bilirubin Total 0.3 mg/dL (0.2-1.0); Potassium 3.3 mEq/L (3.5-5.1); Protein, Total 7.7 g/dL (6.4-8.2)
--- NOTE | 2023-12-20 07:47 | ER ---
Nurse's Notes [facility] Name: Tessa Eagle Age: 17 yrs Sex: Female : 2005 Arrival Date: 12/20/2023 Time: 02:52 Bed 6 Private MD: Diagnosis: Diabetes mellitus due to underlying condition with hyperglycemia;Hypoglycemia, unspecified Presentation: 12/20 03:08 Chief complaint: EMS states: toned out for "breathing funny" per sister; pt found to km8 have a blood sugar of 425; pt took 10 units of humalog and blood sugar decreased; pt A\\T\\Ox4; pt has been out of Lantus for 1 day. Coronavirus screen: Client denies travel out of the [place] in the last 14 days. Ebola Screen: No symptoms or risks identified at this time. Initial Sepsis Screen: Does the patient meet any 2 criteria? No. Patient's initial sepsis screen is negative. Does the patient have a suspected source of infection? No. Patient's initial sepsis screen is negative. Risk Assessment: Do you want to hurt yourself or someone else? Patient reports no desire to harm self or others. Onset of symptoms was December 20, 2023. 03:08 Method Of Arrival: EMS: [facility] km8 03:08 Acuity: JUSTIN 2 km8 Triage Assessment: 03:11 General: Appears in no apparent distress. comfortable, Behavior is calm, cooperative, km8 appropriate for age. Pain: Denies pain. EENT: No signs and/or symptoms were reported regarding the EENT system. Neuro: Level of Consciousness is awake, alert, obeys commands, Oriented to person, place, time, situation. Cardiovascular: Denies chest pain, shortness of breath, Capillary refill < 3 seconds Patient's skin is warm and dry. Respiratory: Airway is patent Respiratory effort is even, unlabored, Respiratory pattern is regular, symmetrical. GI: No signs and/or symptoms were reported involving the gastrointestinal system. : No signs and/or symptoms were reported regarding the genitourinary system. Derm: No signs and/or symptoms reported regarding the dermatologic system. Skin is intact, is healthy with good turgor, Skin is dry, Skin is pink, warm \\T\\ dry. normal, Skin temperature is warm. Musculoskeletal: No signs and/or symptoms reported regarding the musculoskeletal system. Circulation, motion, and sensation intact. Range of motion: intact in all extremities. SENIOR BUSINESS BROKER: 03:11 LMP N/A - low BMI, Not Historical: - Allergies: 03:11 No Known Allergies; - Home Meds: 03:11 Lantus U-100 Insulin 100 unit/mL Sub-Q solution [Active]; Humalog Sub-Q [Active]; 8 - PMHx: 03:11 diabetes mellitus; drug abuse; renal insufficiency; 8 - PSHx: 03:11 None; km8 - Immunization history:: Client reports having NOT received the Covid vaccine. Flu vaccine is not up to date. - Social history:: Smoking status: Patient reports the use of cigarette tobacco products, Reported history of juuling and/or vaping. Patient uses street drugs, marijuana, Patient/guardian denies using alcohol. Screenin:12 [facility] ED Fall Risk Assessment (Adult) History of falling in the last 3 months, [facility] including since admission No falls in past 3 months (0 pts) Confusion or Disorientation No (0 pts) Intoxicated or Sedated No (0 pts) Impaired Gait No (0 pts) Mobility Assist Device Used No (0 pt) Altered Elimination No (0 pt) Score/Fall Risk Level 0 - 2 = Low Risk Oriented to surroundings, Maintained a safe environment, Educated pt \\T\\ family on fall prevention, incl call for assistance when getting out of bed, Assessed \\T\\ reinforced patient's understanding of fall precautions. Abuse screen: Denies threats or abuse. Denies injuries from another. Nutritional screening: No deficits noted. Tuberculosis screening: No symptoms or risk factors identified. Assessment: 03:12 Reassessment: see triage assessment/notes. [facility] 04:09 Reassessment: Patient appears in no apparent distress at this time. No changes from [facility] previously documented assessment. Patient and/or family updated on plan of care and expected duration. Pain level reassessed. Patient is alert, oriented x 3, equal unlabored respirations, skin warm/dry/pink. 05:04 Reassessment: blood glucose level read 40; pt given OJ, peanut butter, crackers, and km8 chocolate pudding;. 06:01 Reassessment: Patient appears in no apparent distress at this time. Patient and/or km8 family updated on plan of care and expected duration. Pain level reassessed. Patient is alert, oriented x 3, equal unlabored respirations, skin warm/dry/pink. 06:21 Reassessment: PT REFUSED BLOOD CULTURES AND SUCCEEDING DIAGNOSTICS, PT ASKED TO BE rv DISCHARGED, ER MD AWARE. 07:00 Reassessment: Pt sleeping. . aa5 08:05 Reassessment: Patient is alert, oriented x 3, equal unlabored respirations, skin aa5 warm/dry/pink. Vital Signs: 03:08 BP 94 / 61; Pulse 106; Resp 16; Temp 97(IR); Pulse Ox 100% on R/A; Weight 29.48 kg (R); km8 Height 4 ft. 11 in. ; Pain 0/10; 04:00 BP 86 / 57; Pulse 90; Resp 16; Pulse Ox 100% on R/A; km8 05:00 BP 116 / 75; Pulse 96; Resp 16; Pulse Ox 100% on R/A; km8 06:00 BP 98 / 73; Pulse 89; Resp 14; Pulse Ox 100% on R/A; km8 07:00 BP 95 / 59; Pulse 89; Resp 16 S; Temp 97.5(TE); Pulse Ox 100% on R/A; aa5 07:47 BP 99 / 66; Pulse 97; Resp 18 S; Pulse Ox 100% on R/A; aa5 03:08 Body Mass Index 13.13 (29.48 kg, 149.86 cm) - Percentile 0.0 % km8 03:08 Pain Scale: Adult km8 [place] Coma Score: 03:12 Eye Response: spontaneous(4). Motor Response: obeys commands(6). Verbal Response: km8 oriented(5). Total: 15. ED Course: 02:55 Patient arrived in ED. km8 03:01 Dayo Champion is Attending Physician. ci 03:08 Ching Thomas, JANESSA is Primary Nurse. km8 03:10 Triage completed. km8 03:11 Arm band placed on right wrist. km8 03:12 Patient has correct armband on for positive identification. Bed in low position. Call km8 light in reach. Side rails up X 1. Pulse ox on. NIBP on. Door closed. Warm blanket given. 03:12 No provider procedures requiring assistance completed. Inserted saline lock: 22 gauge km8 in left antecubital area, using aseptic technique. Patient maintains SpO2 saturation greater than 95% on room air. 05:56 Chest Single View XRAY In Process Unspecified. EDMS 08:05 IV discontinued, intact, bleeding controlled, No redness/swelling at site. Pressure aa5 dressing applied. Administered Medications: 03:40 Drug: NS 0.9% IV 1000 ml IV at 1000 ml once Route: IV; Rate: 1000 ml; Site: left km8 antecubital; 04:30 Follow up: IV Status: Completed infusion; IV Intake: 1000ml km8 06:45 CANCELLED (Physician Discretion): fentanyl (pf)25 mcg IVP once ci 06:49 Drug: Potassium Chloride PO 40 mEq PO once Route: PO; rv 06:50 Not Given (Patient Refused): ns 0.9% 1000 ml IV at 1000 ml once rv Medication: 03:12 VIS not applicable for this client. km8 Intake: 04:30 IV: 1000ml; Total: 1000ml. km8 Outcome: 07:46 Discharge ordered by . ci 08:05 Discharged to home ambulatory, with family, jorge l 08:05 Condition: stable 08:05 Discharge instructions given to patient, Instructed on discharge instructions, follow up and referral plans. Demonstrated understanding of instructions, follow-up care, 08:08 Patient left the ED. aa5 Signatures: Dispatcher [employer] EDMS Coni Morales, RN RN aa5 Weston Shrestha RN RN IheonunekwuDayo Katie RN RN km8
--- NOTE | 2023-12-20 07:47 | EDPHYS ---
Physician Documentation [facility] Name: Tessa Eagle Age: 17 yrs Sex: Female : 2005 Arrival Date: 12/20/2023 Time: 02:52 Bed 6 Private MD: ED Physician Dayo Champion HPI: 12/20 05:11 This 17 yrs old Female presents to ER via EMS with complaints of Hyperglycemia.ci 05:11 Patient is a 17-year-old female with PMH diabetes, substance abuse, renal insufficiency ci who presents to the ED with shortness of breath, hyperglycemia. Patient ran out of her Lantus for the past 3 days. Patient's glucose was in the 400s, took lispro prior to arrival, patient requesting to be discharged upon arrival.. INTERNATIONAL ORGANIZER: 03:11 LMP N/A - low BMI, Not 8 Historical: - Allergies: 03:11 No Known Allergies; km8 - Home Meds: 03:11 Lantus U-100 Insulin 100 unit/mL Sub-Q solution [Active]; Humalog Sub-Q [Active]; km8 - PMHx: 03:11 diabetes mellitus; drug abuse; renal insufficiency; km8 - PSHx: 03:11 None; km8 - Immunization history:: Client reports having NOT received the Covid vaccine. Flu vaccine is not up to date. - Social history:: Smoking status: Patient reports the use of cigarette tobacco products, Reported history of juuling and/or vaping. Patient uses street drugs, marijuana, Patient/guardian denies using alcohol. Vital Signs: 03:08 BP 94 / 61; Pulse 106; Resp 16; Temp 97(IR); Pulse Ox 100% on R/A; Weight 29.48 kg (R); km8 Height 4 ft. 11 in. ; Pain 0/10; 04:00 BP 86 / 57; Pulse 90; Resp 16; Pulse Ox 100% on R/A; km8 05:00 BP 116 / 75; Pulse 96; Resp 16; Pulse Ox 100% on R/A; km8 06:00 BP 98 / 73; Pulse 89; Resp 14; Pulse Ox 100% on R/A; km8 07:00 BP 95 / 59; Pulse 89; Resp 16 S; Temp 97.5(TE); Pulse Ox 100% on R/A; aa5 07:47 BP 99 / 66; Pulse 97; Resp 18 S; Pulse Ox 100% on R/A; aa5 03:08 Body Mass Index 13.13 (29.48 kg, 149.86 cm) - Percentile 0.0 % [facility] 03:08 Pain Scale: Adult km8 [place] Coma Score: 03:12 Eye Response: spontaneous(4). Motor Response: obeys commands(6). Verbal Response: km8 oriented(5). Total: 15. MDM: 03:01 Patient medically screened. ci 07:45 ED course: CXR unremarkable. Patient hyperglycemic, hydrated with IV fluids. While ci patient was sleeping became hypotensive. Infectious workup was ordered but patient declined, requesting to be discharged. Upon reassessment patient noted to be hypoglycemic, was given food by mouth, repeat glucose improved to 141. Patient stable for discharge with close outpatient follow-up. Counseled on importance of taking her medications as prescribed.. 12/20 03:18 Order name: CBC with Diff; Complete Time: 05:13 ci 02/03 03:18 Order name: CMP; Complete Time: 05:13 ci 02/ 05:13 Interpretation: K 3.3; CRE 1.05. ci 02/03 03:18 Order name: Protime (+inr); Complete Time: 05:13 ci 02/ 03:18 Order name: Ptt, Activated; Complete Time: 05:13 ci 02/ 03:18 Order name: ABG; Complete Time: 05:13 ci 02/ 03:21 Order name: Glucose, Ancillary Testing; Complete Time: 05:13 EDMS 12/20 05:12 Order name: Glucose, Ancillary Testing; Complete Time: 05:13 EDMS / 05:47 Order name: Glucose, Ancillary Testing; Complete Time: 05:55 EDMS 12/20 06:47 Order name: Glucose, Ancillary Testing; Complete Time: 07:44 EDMS / 05:14 Order name: Chest Single View XRAY ci 02/ 03:18 Order name: EKG; Complete Time: 03:19 ci 02/03 03:18 Order name: Accucheck; Complete Time: 03:19 ci 02/ 03:18 Order name: Cardiac monitoring; Complete Time: 03:39 ci 02/ 03:18 Order name: EKG - Nurse/Tech; Complete Time: 03:39 ci 12/20 03:18 Order name: IV Saline Lock - Large Bore; Complete Time: 03:20 ci 12/20 03:18 Order name: Labs collected and sent; Complete Time: 03:40 ci 12/20 03:18 Order name: O2 Per Protocol; Complete Time: 03:19 ci 12/20 03:18 Order name: O2 Sat Monitoring; Complete Time: 03:19 ci 12/20 03:18 Order name: Vital Signs; Complete Time: 03:19 ci Administered Medications: 03:40 Drug: NS 0.9% IV 1000 ml IV at 1000 ml once Route: IV; Rate: 1000 ml; Site: left 8 antecubital; 04:30 Follow up: IV Status: Completed infusion; IV Intake: 1000ml [facility] 06:45 CANCELLED (Physician Discretion): fentanyl (pf)25 mcg IVP once ci 06:49 Drug: Potassium Chloride PO 40 mEq PO once Route: PO; rv 06:50 Not Given (Patient Refused): ns 0.9% 1000 ml IV at 1000 ml once rv Disposition Summary: 12/20/23 07:46 Discharge Ordered Notes: Location: Home ci Problem: new ci Symptoms: are unchanged ci Condition: Stable ci Diagnosis - Diabetes mellitus due to underlying condition with hyperglycemia ci - Hypoglycemia, unspecified ci Followup: ci - With: Private Physician - When: 1 - 2 days - Reason: Recheck today's complaints, Re-evaluation by your physician Discharge Instructions: - Discharge Summary Sheet ci - Diabetes Mellitus and Sick Day Management ci - Hyperglycemia ci - Blood Glucose Monitoring, Adult ci - Hypoglycemia, [id number] ci - Preventing Diabetes Mellitus Complications ci Forms: - Medication Reconciliation Form ci - Thank You Letter ci - Antibiotic Education ci - Prescription Opioid Use ci - Patient Portal Instructions ci - Leadership Thank You Letter ci Signatures: Dispatcher [employer] EDMS Stephan Fletcher, CORPORATE LIBRARIAN-C CORPORATE LIBRARIAN-Cla1 Weston Shrestha, RN RN Dayo Champion Katie RN RN km8 Corrections: (The following items were deleted from the chart) 06:45 06:41 fentaNYL (PF) IVP 25 mcg IVP once ordered. ci ci 07:59 03:19 Urinalysis+U.LAB.BRZ ordered. EDMS EDMS 07:59 05:15 LACTATE+C.LAB.BRZ ordered. EDMS EDMS
[2023-12-20 08:32] VITALS: BP 98/73; TEMP 97; O2SAT 100
--- NOTE | 2023-12-20 20:17 | RAD REPORT ---
EXAM DESCRIPTION: Chest Single View CLINICAL HISTORY: SOB COMPARISON: None TECHNIQUE: Single AP view of the chest. FINDINGS: Lung volumes adequate. Cardiac silhouette is normal in size. No pneumothorax. No large pleural effusion. No focal consolidation. No acute bony finding. IMPRESSION: No evidence of acute cardiopulmonary disease. Electronically signed by: Ivette Suárez MD 12/20/2023 06:35 AM ORGAN BUILDER Due to temporary technical issues with the PACS/Fluency reporting system, reports are being signed by the in house radiologists without review as a courtesy to insure prompt reporting. The interpreting radiologist is fully responsible for the content of the report.
--- NOTE | 2023-12-22 15:06 | EKG ---
Test Date: 2023-12-20 Test Time: 03:36:12 Escalator Operator: ANSHUL MEASUREMENT RESULTS: Intervals: Rate: 101 MS: 130 QRSD: 68 QT: 352 QTc: 456 [place]: P: 74 MS: 130 QRS: 61 T: 1 INTERPRETIVE STATEMENTS: Sinus tachycardia Right atrial enlargement T wave abnormality, consider anterior ischemia Abnormal ECG Compared to ECG 11/16/2023 03:20:07 Atrial abnormality now present T-wave abnormality now present Possible ischemia now present Sinus rhythm no longer present Fusion complex(es) no longer present Ventricular premature complex(es) no longer present Prolonged QT interval no longer present Electronically Signed On 12-22-23 15:00:39 COTTON STOMPER by Ronnie Dodson
== END ==
LOC: ER 02:52
DX: E11.65 Type 2 diabetes mellitus with hyperglycemia (principal); Z79.4 Long term (current) use of insulin
CPT/HCPCS: 36415; 36600; 71045; 80053; 82805; 82947; 85025; 85610; 85730; 93005; J7030

== ENCOUNTER → 2023-12-24 | Emergency (ER) | payer SELFPAY ==
[~2023-12-24] MED LIST changes: +INSULIN REGULAR (HUMAN) 100 UNIT/ML ONE; +LORazepam 2 MG/ML VIAL ONE; +METOCLOPRAMIDE 10 MG/2mL INJ ONE; +MORPHINE 2 MG/ML SYR ONE; -NA CHLORIDE 0.9% 1,000 ML ONE; +NA CHLORIDE 0.9% 100 ML ONE; +NA CHLORIDE 0.9% 2,000 ML ONE; +NA CHLORIDE 0.9% 250 ML ONE; +ONDANSETRON 4 MG/2 ML VIAL ONE; +PIPERACIL/TAZO 3.375 GM VIAL IV ONE; +VANCOMYCIN 1 GM/VIAL ONE
[2023-12-24 05:47] LABS: Protime INR 1.01
[2023-12-24 06:56] LABS: Absolute Lymphocytes (CBC) 3.3 K/uL (0.7-4.9); Hematocrit 31.9 % (36.0-45.0); Lymphocytes % 14.4 % (15.3-44.8); MCV 92.1 fL (80-100); Platelets 524 thou/uL (152-406); RBC Red Blood Cell Count 3.46 M/uL (3.86-4.86)
--- NOTE | 2023-12-24 07:13 | RAD REPORT ---
EXAM DESCRIPTION: RAD - Chest Single View - 12/24/2023 6:52 am CLINICAL HISTORY: after L central line COMPARISON: Chest Single View dated 12/24/2023; Chest Single View dated 12/20/2023; Chest Single View da lyla 11/16/2023; Chest Single View dated 11/15/2023 FINDINGS: Lines: Left IJ approach central venous line with tip overlying the lower right atrium. Con medical records analyst retracting by 3 cm which should yield a superior cavoatrial location. Lungs: No evidence of edema or pneumonia. Pleural: No significant pleural effusions or pneumothorax. Cardiac: The heart size is within normal limits. Mediastinum: Within normal limits. Bones: No acute fractures. Other: None IMPRESSION: No acute cardiopulmonary disease. Left IJ approach central line is been placed. No pneum othorax. The tip of the central line terminates overlying the lower right atrium. Consider retracting by 3 cm.
[2023-12-24 07:40] LABS: Urine Bacteria None Seen /HPF (<20); Urine Mucus Slight /HPF (None Seen); Urine RBC <5 /HPF (None Seen)
[2023-12-24 07:41] LABS: Specific Gravity 1.022 (1.005-1.030); Urine Bilirubin NEGATIVE (Negative); Urine Blood Negative (Negative); Urine Clarity Clear (Clear); Urine Color Colorless (Yellow); Urine Glucose 4+ (Over) (Negative); Urine Protein TRACE (Negative); Urine Urobilinogen Normal (Normal)
[2023-12-24 07:42] LABS: Specific Gravity 1.023 (1.005-1.030)
[2023-12-24 08:11] LABS: ALT/SGPT 26 U/L (13-56); AST/SGOT 7 U/L (15-37); Albumin 3.3 g/dL (3.4-5.0); Alkaline Phosphatase 152 U/L (45-117); BUN Blood Urea Nitrogen 26 mg/dL (7-18); Bilirubin Total 0.5 mg/dL (0.2-1.0); Glomerular Filtration Rate 57 ml/min (=/>90); Magnesium 2.5 mg/dL (1.6-2.4); Potassium 4.7 mEq/L (3.5-5.1); Sodium Level 133 mEq/L (136-145); Troponin High Sensitivity 5.5 pg/mL (<58.9)
[2023-12-24 08:12] LABS: Bilirubin Direct < 0.1 mg/dL (0-0.2); Bilirubin Indirect, Calculated ND mg/dL (0.2-0.8)
[2023-12-24 08:28] LABS: NT PRO-BNP 140 pg/mL (<125); Protein, Total 6.8 g/dL (6.4-8.2)
[2023-12-24 08:30] LABS: Bicarbonate < 8 mEq/L (21-32); Glucose Level 976 mg/dL (74-106)
[2023-12-24 08:36] LABS: Arterial Blood Carboxyhemoglob 1.5 % (0-1.5); Blood Gas Oxyhemoglobin 67.7 % (94-97); Blood O2 Saturation 69.9 % (92-98.5)
[2023-12-24 08:37] LABS: White Blood Cell Scan OK (OK)
[2023-12-24 08:38] LABS: Blood Morphology Comment NOT SEEN (NOT SEEN); Platelet Estimate INCR
--- NOTE | 2023-12-24 08:39 | ER ---
Nurse's Notes [facility] Name: Tessa Eagle Age: 17 yrs Sex: Female : 2005 Arrival Date: 12/24/2023 Time: 05:19 Bed 3 Private MD: Diagnosis: Diabetic Ketoacidosis;Leukocytosis;Lactic acidosis;Anemia, unspecified Presentation: 12/24 05:21 Chief complaint: EMS states: 17 year old female reports having type one diabetes and ha1 not using insulin on the past three days. glucose high unable to read by Glucometer. 05:21 Method Of Arrival: EMS: [facility] ha1 05:21 Coronavirus screen: Vaccine status: Patient reports being unvaccinated. Ebola Screen: ha1 No symptoms or risks identified at this time. Initial Sepsis Screen: Does the patient meet any 2 criteria? HR > 90 bpm. Does the patient have a suspected source of infection? No. Patient's initial sepsis screen is negative. Risk Assessment: Do you want to hurt yourself or someone else? Patient reports no desire to harm self or others. Onset of symptoms was December 24, 2023. 05:21 Acuity: JUSTIN 3 ha1 Triage Assessment: 05:21 General: Appears uncomfortable, Behavior is cooperative. Pain: Complains of pain in ha1 generalized body ache. Neuro: Level of Consciousness is awake, alert, obeys commands, Oriented to person, place, time, situation, Appropriate for age. Cardiovascular: Capillary refill < 3 seconds. Respiratory: Airway is patent Respiratory effort is even, unlabored, Respiratory pattern is regular, [place]. GI: Abdomen is flat, anorexic. Derm: Skin is pale. Historical: - Allergies: 05:21 No Known Allergies; ha1 - Home Meds: 05:21 divalproex oral [Active]; Humalog Sub-Q [Active]; Lantus U-100 Insulin 100 unit/mL ha1 Sub-Q solution [Active]; Suboxone sublingual [Active]; - PMHx: 05:21 diabetes mellitus; drug abuse; renal insufficiency; anorexia; ha1 - Immunization history:: Adult Immunizations not immunized. - Social history:: Smoking status: Patient reports the use of cigarette tobacco products, smokes one-half pack cigarettes per day. - Family history:: not pertinent. Screenin:49 Abuse screen: Denies threats or abuse. Denies injuries from another. Nutritional ha1 screening: No deficits noted. Tuberculosis screening: No symptoms or risk factors identified. 07:00 [facility] ED Fall Risk Assessment (Adult) History of falling in the last 3 months, kc6 including since admission No falls in past 3 months (0 pts) Confusion or Disorientation Yes (5 pts) Intoxicated or Sedated No (0 pts) Impaired Gait No (0 pts) Mobility Assist Device Used No (0 pt) Altered Elimination No (0 pt) Score/Fall Risk Level 3 or more points = High Risk. Assessment: 05:21 Reassessment: see triage assessment. ha1 06:20 Reassessment: Patient and/or family updated on plan of care and expected duration. Pain ha1 level reassessed. 06:20 Respiratory: Airway is patent Respiratory effort is even, unlabored, Respiratory ha1 pattern is regular, symmetrical. 07:00 General: Appears in no apparent distress. uncomfortable, slender, well groomed, kc6 Behavior is drowsy, Smells of ketones. Pain: Unable to use pain scale. Patient is disoriented. Neuro: Level of Consciousness is obeys commands, confused, lethargic, Oriented to person, place, situation. Cardiovascular: Heart tones S1 S2 present Capillary refill < 3 seconds Rhythm is sinus rhythm. Respiratory: Airway is patent Trachea midline Respiratory effort is even, unlabored, Respiratory pattern is regular, symmetrical, Breath sounds are clear bilaterally. GI: No signs and/or symptoms were reported involving the gastrointestinal system. : No signs and/or symptoms were reported regarding the genitourinary system. EENT: No signs and/or symptoms were reported regarding the EENT system. Derm: No signs and/or symptoms reported regarding the dermatologic system. Skin is intact, Skin is pale. Musculoskeletal: No signs and/or symptoms reported regarding the musculoskeletal system. Circulation, motion, and sensation intact. Capillary refill < 3 seconds, Range of motion: intact in all extremities. 07:09 Reassessment: Chanelle Hutton ([facility]) [phone]. pf1 08:00 Reassessment: Patient appears in no apparent distress at this time. No changes from kc6 previously documented assessment. Patient and/or family updated on plan of care and expected duration. Pain level reassessed. 09:30 Reassessment: Patient appears in no apparent distress at this time. No changes from kc6 previously documented assessment. Patient and/or family updated on plan of care and expected duration. Pain level reassessed. attempted to call report to [facility]. transfer center states they will have them treva me back. 10:06 Reassessment: spoke with pts mother Chanelle Hutton. mom verbalized understanding kc6 that pt is being transferred to [facility] ICU. Vital Signs: 05:21 BP 118 / 86; Pulse 111; Resp 24 S; Temp 97.9; Pulse Ox 100% on 4 lpm NC; Weight 27.22 ha1 kg; 06:00 BP 118 / 66; Pulse 111; Resp 20 S; Pulse Ox 100% on 4 lpm NC; ha1 07:47 BP 109 / 76; Pulse 87; Resp 16 S; Pulse Ox 100% on R/A; kc6 08:42 BP 96 / 65; Pulse 85; Resp 16 S; Pulse Ox 100% on R/A; kc6 10:08 BP 102 / 62; Pulse 89; Resp 16 S; Pulse Ox 100% on R/A; kc6 10:37 BP 107 / 69; Pulse 92; Resp 16; Pulse Ox 100% ; ko1 Matt Coma Score: 06:41 Eye Response: spontaneous(4). Motor Response: obeys commands(6). Verbal Response: sp4 oriented(5). Total: 15. ED Course: 05:21 Patient arrived in ED. rv1 05:21 Missed attempt(s): 20 gauge in left antecubital area. ha1 05:21 Arm band placed on right wrist. ha1 05:21 Patient has correct armband on for positive identification. Placed in gown. Bed in low ha1 position. Call light in reach. Side rails up X2. 05:23 Shoaib Burnett MD is Attending Physician. sp4 05:25 Missed attempt(s): 22 gauge in right forearm. Bleeding controlled, band aid applied, ha1 catheter tip intact. 05:27 Basic Metabolic Panel Sent. ha1 05:27 CBC with Diff Sent. ha1 05:27 LFT's Sent. ha1 05:27 Magnesium Sent. ha1 05:27 NT PRO-BNP Sent. ha1 05:27 PT-INR Sent. ha1 05:27 Troponin HS Sent. ha1 05:30 Inserted saline lock: 20 gauge in right EJ, using aseptic technique. Blood collected. ha1 Inserted by Dr. Burnett. 05:37 XRAY Chest (1 view) In Process Unspecified. EDMS 05:49 Triage completed. ha1 06:40 Assisted provider with central line placement. Set up central line tray. Triple lumen ha1 line placed in left internal jugular. Line placed by Shoaib Burnett MD Placement verified by CXR, blood return, Dressed with Tape, Tegaderm, Blood was collected. Patient tolerated well. 06:54 Chest Single View XRAY In Process Unspecified. EDMS 07:34 Attending Physician role handed off by Shoaib Burnett MD ms3 07:34 Suraj Cordova DO is Attending Physician. ms3 07:46 Tristan cath inserted, using sterile technique, 16 Fr., by co, balloon inflated, to kc6 gravity drainage, clamped. urine specimen collected. returned clear yellow urine. Patient tolerated well. Patient maintains SpO2 saturation greater than 95% on room air. 08:06 Destiney Clement, RN is Primary Nurse. jj7 08:08 Notified ED physician of a critical lab result(s). glucose 785. ll1 08:47 initiated transfer to [facility]. bd 09:10 pt accepted in transfer to [facility] by dr Tamayo,pt going to ICU rm 202. bd admin approval given by Bull Dobbins. 10:37 Patient transferred, IV remains in place. ko1 10:37 Provided Education on: transfer. ko1 Administered Medications: 05:36 Drug: Sodium Bicarbonate IVP 1 amp IVP once; (50 mL); equals 50 mEq Route: IVP; Site: jj7 right jugular; 06:00 Follow up: Response: No adverse reaction ha1 05:37 Drug: morphine IVP or IV 2 mg IVP once over 4 mins Route: IVP; Infused Over: 4 mins; jj7 Site: right jugular; 05:37 Drug: Ondansetron IVP 4 mg IVP once; over 2 minutes Route: IVP; Site: right jugular; jj7 05:38 Drug: NS 0.9% IV 1000 ml IV at 1 bolus Per protocol; 1000 mL bolus Route: IV; Rate: 1 jj7 bolus; Site: left jugular; 05:38 Drug: Insulin Regular Human IVP 10 units IVP once {Co-Signature: blaze (Mary Euceda RN).} Route: IVP; Site: right jugular; 06:00 Drug: Ativan IVP 1 mg IVP once Route: IVP; Site: right jugular; jj7 06:15 Drug: Insulin Drip - (Insulin Regular Human IVP 100 units, NS 0.9% IV 100 ml) IV at j7 calculated rate continuous; Standard concentration 1unit/ml; Dose for DKA is 0.1 units/kg/hr {Co-Signature: blaze (Mary Euceda RN).} Route: IV; Rate: calculated rate; Site: right jugular; 08:39 Follow up: Response: No adverse reaction; Rate change 5.5 units/hr kc6 10:08 Follow up: Rate change 2.5 units/hr kc6 07:00 Drug: NS 0.9% IV 1000 ml IV at 125 ml/hr continuous Route: IV; Rate: 125 ml/hr; Site: [facility] left subclavian; 07:00 Drug: metoCLOPramide IVP 10 mg IVP once; over 1 to 2 minutes Route: IVP; Site: Other; jj7 07:01 Drug: morphine IVP or IV 2 mg IVP once over 4 mins Route: IVP; Infused Over: 4 mins; jj7 Site: Other; 07:45 Drug: vancoMYCIN IVPB 1 grams IVPB once over 2 hrs Route: IVPB; Infused Over: 2 hrs; kc6 Site: right jugular; 10:07 Follow up: Response: No adverse reaction; IV Status: Completed infusion; IV Intake: kc6 250ml 07:45 Drug: Piperacillin-Tazobactam IVPB 3.375 grams IVPB once over 60 mins; (mix in NS 100 kc6 mL) Route: IVPB; Infused Over: 60 mins; Site: left subclavian; 08:39 Follow up: Response: No adverse reaction; IV Status: Completed infusion; IV Intake: kc6 100ml Medication: 06:00 VIS not applicable for this client. ha1 Intake: 08:39 IV: 100ml; Total: 100ml. kc6 10:07 IV: 250ml; Total: 350ml. kc6 Outcome: 08:38 ER care complete, transfer ordered by ms3 10:37 Condition: stable ko1 10:37 Instructed on the need for transfer, 10:40 Transferred by ground [facility] to [facility], Transfer form ko1 completed. X-rays sent w/ patient. 10:59 Patient left the ED. ko1 Signatures: Dispatcher [employer] EDMS Augusta Armenta Lynsay, RN RN ll1 Suraj Cordova, DO ms3 Mary Euceda, RN RN ha1 Pau Kam RN RN kc6 Krystal Gonzalez RN RN ko1 Destiney Clement RN RN jjHemalatha Shearer RN RN pf1 Nely Leggett rv1 Shoaib Burnett MD MD sp4 Mary Euceda RN ha1 Corrections: (The following items were deleted from the chart) 05:55 05:21 BP 118 / 86; Pulse 111bpm; Resp 24bpm; Spontaneous; Pulse Ox 100% 4 lpm Nasal ha1 Cannula; 27.22 kg; ha1 07:29 05:20 Inserted saline lock: 20 gauge in right EJ, using aseptic technique. Blood ha1 collected. ha1 07:31 05:20 Inserted saline lock: 20 gauge in right EJ, using aseptic technique. Blood ha1 collected. Inserted by Dr. Burnett ha1
--- NOTE | 2023-12-24 08:39 | EDPHYS ---
Physician Documentation [facility] Name: Tessa Eagle Age: 17 yrs Sex: Female : 2005 Arrival Date: 12/24/2023 Time: 05:19 Bed 3 Private MD: ED Physician Suraj Cordova HPI: 12/24 05:25 This 17 yrs old Female presents to ER via Unassigned with complaints of sp4 respiratory distress . 06:41 17-year-old female brought by EMS from home for worsening respiratory distress, and sp4 history of DKA, reportedly out of insulin for the past 2 days. Patient complains of generalized pain, respiratory distress and nausea. On arrival patient is tachycardic but not hypotensive.. Historical: - Allergies: 05:21 No Known Allergies; ha1 - Home Meds: 05:21 divalproex oral [Active]; Humalog Sub-Q [Active]; Lantus U-100 Insulin 100 unit/mL ha1 Sub-Q solution [Active]; Suboxone sublingual [Active]; - PMHx: 05:21 diabetes mellitus; drug abuse; renal insufficiency; anorexia; ha1 - Immunization history:: Adult Immunizations not immunized. - Social history:: Smoking status: Patient reports the use of cigarette tobacco products, smokes one-half pack cigarettes per day. - Family history:: not pertinent. ROS: 06:41 Constitutional: Negative for fever, chills, and weight loss, positive generalized sp4 weakness, positive nausea, positive generalized pain, positive respiratory difficulty, positive short of breath 06:41 All other systems are negative, Exam: 05:51 ECG was reviewed by the Attending Physician. EKG time 0 543 sinus tachycardia at the sp4 rate of 119 06:41 Constitutional: This is a well developed, well nourished patient who is awake, alert, sp4 moderate distress, tachypnea, tachycardia, very thin cachectic individual, moderate to severe physical deconditioning. Poor skin turgor sign of significant dehydration Head/Face: Normocephalic, atraumatic. Eyes: Pupils equal round and reactive to light, extra-ocular motions intact. Lids and lashes normal. Conjunctiva and sclera are not injected. Cornea within normal limits. Periorbital areas with no swelling, redness, or edema. ENT: Nares patent. No nasal discharge, no septal abnormalities noted. Tympanic membranes are normal and external auditory canals are clear. Oropharynx with no redness, swelling, or masses, exudates, or evidence of obstruction, uvula midline. Dry mucous membranes Neck: Trachea midline, no thyromegaly or masses palpated, and no cervical lymphadenopathy. Supple, full range of motion without nuchal rigidity, or vertebral point tenderness. Chest/axilla: Normal chest wall appearance and motion. Nontender with no deformity. No lesions are appreciated. Cardiovascular: Positive tachycardia, no gallops, murmurs, or rubs. Normal PMI, no JVD. No pulse deficits. Respiratory: Lungs have equal breath sounds bilaterally, clear to auscultation and percussion. No rales, rhonchi or wheezes noted. No increased work of breathing, no retractions or nasal flaring. Abdomen/GI: Soft, non-tender, with normal bowel sounds. No distension or tympany. No guarding or rebound. No evidence of tenderness throughout. Back: No spinal tenderness. No costovertebral tenderness. Skin: Warm, dry with normal turgor. Normal color with no rashes, no lesions, and no evidence of cellulitis. MS/ Extremity: Pulses equal, no cyanosis. Neurovascular intact. Full, normal range of motion. Neuro: Awake and alert, GCS 15, oriented to person, place, time, and situation. Cranial nerves II-XII grossly intact. Motor strength 5/5 in all extremities. Sensory grossly intact. Vital Signs: 05:21 BP 118 / 86; Pulse 111; Resp 24 S; Temp 97.9; Pulse Ox 100% on 4 lpm NC; Weight 27.22 ha1 kg; 06:00 BP 118 / 66; Pulse 111; Resp 20 S; Pulse Ox 100% on 4 lpm NC; ha1 07:47 BP 109 / 76; Pulse 87; Resp 16 S; Pulse Ox 100% on R/A; kc6 08:42 BP 96 / 65; Pulse 85; Resp 16 S; Pulse Ox 100% on R/A; kc6 10:08 BP 102 / 62; Pulse 89; Resp 16 S; Pulse Ox 100% on R/A; kc6 10:37 BP 107 / 69; Pulse 92; Resp 16; Pulse Ox 100% ; ko1 Matt Coma Score: 06:41 Eye Response: spontaneous(4). Motor Response: obeys commands(6). Verbal Response: sp4 oriented(5). Total: 15. Procedures: 06:41 Central Line: the site was prepped with in sterile fashion, Chlorhexidine, a triple sp4 lumen catheter was inserted, in the left internal jugular vein, in 1 attempts. placement was verified, by CXR, by blood return, Ultrasound-guided CVL, the site was dressed with Tegaderm, using sterile technique, the patient tolerated the procedure, well, Patient has very poor peripheral vascular access, left internal jugular triple-lumen CVC placed with ultrasound guidance without complications. MDM: 05:47 Patient medically screened. sp4 05:57 ED course: EXAM: XR Chest, 1 View CLINICAL HISTORY: The patient is 17 years old and is sp4 Female; DKA TECHNIQUE: Single view of the chest. COMPARISON: December 20, 2023. FINDINGS: Lungs: Clear lungs. Pleural space: Unremarkable. No pneumothorax. Heart: Unremarkable. No cardiomegaly. Mediastinum: Unremarkable. Bones/joints: No acute fracture visualized. Upper abdomen: No free air in the visualized upper abdomen. IMPRESSION: Clear lungs. . 06:40 Differential Diagnosis altered mental status, sepsis, flu, DKA . Data reviewed: vital sp4 signs, nurses notes, EMS record, old medical records, lab test result(s), EKG, radiologic studies, plain films. 06:45 Consideration of Admission/Observation Patient was admitted/placed on observation. sp4 Escalation of care including admission/observation considered. Transition of care: After a detail discussion of the patient's case, care is transferred to Suraj Cordova DO. 07:34 Transition of care: Care assumed from Shoaib Burnett MD. ia3 08:21 ED course: CVL retracted 4 cm. Line sutured in place and sterile dressing applied in ia3 sterile field. 09:01 ED course: Discussed case with Dr Guzmán and he accepts patient to ICU at [address] 12/24 05:24 Order name: Basic Metabolic Panel; Complete Time: 08:59 sp4 12/24 05:24 Order name: CBC with Diff; Complete Time: 08:59 sp4 12/24 05:24 Order name: LFT's; Complete Time: 08:59 sp4 12/24 05:24 Order name: Magnesium; Complete Time: 08:59 sp4 12/24 05:24 Order name: NT PRO-BNP; Complete Time: 08:59 sp4 12/24 05:24 Order name: PT-INR; Complete Time: 05:51 sp4 12/24 05:24 Order name: Troponin HS; Complete Time: 08:59 sp4 12/24 05:25 Order name: Urinalysis W/Microscopic; Complete Time: 08:59 sp4 12/24 05:25 Order name: Test, Urine; Complete Time: 08:59 sp4 12/24 05:25 Order name: Lactate w/ 2H reflex if indic.; Complete Time: 06:40 sp4 12/24 05:25 Order name: Blood Culture Adult (2) sp4 12/24 05:39 Order name: Glucose, Ancillary Testing; Complete Time: 05:51 EDMS 12/24 07:15 Order name: Glucose; Complete Time: 08:59 kc6 07 07:22 Order name: Glucose, Ancillary Testing; Complete Time: 07:25 EDMS 07 07:40 Order name: ABG: Venous blood gas ms3 07 08:38 Order name: CBC Smear Scan; Complete Time: 08:59 EDMS 07 09:05 Order name: Lactate Sepsis 2 HR Follow-up; Complete Time: 10:02 EDMS 12/24 10:05 Order name: Glucose, Ancillary Testing EDMS 07 05:24 Order name: XRAY Chest (1 view) sp4 12/24 06:41 Order name: Chest Single View XRAY; Complete Time: 07:25 sp4 12/24 05:24 Order name: EKG; Complete Time: 05:25 sp4 12/24 05:24 Order name: Cardiac monitoring; Complete Time: 05:27 sp4 12/24 05:24 Order name: EKG - Nurse/Tech; Complete Time: 07:03 sp4 12/24 05:24 Order name: IV Saline Lock; Complete Time: 05:27 sp4 12/24 05:24 Order name: Labs collected and sent; Complete Time: 05:27 sp4 12/24 05:24 Order name: O2 Per Protocol; Complete Time: 05:27 sp4 12/24 05:24 Order name: O2 Sat Monitoring; Complete Time: 05:27 sp4 12/24 05:25 Order name: Azalea; Complete Time: 07:45 sp4 12/24 05:25 Order name: Central Line Kit; Complete Time: 05:27 sp4 12/24 05:51 Order name: Misc. Order: RECOLLECT GREEN AND LAVENDER TOP; Complete Time: 07:03 rv1 EC:51 Rate is 119 beats/min. Rhythm is regular, Sinus tachycardia. QRS [place] is Normal. SD sp4 interval is normal. QRS interval is normal. QT interval is normal. No Q waves. T waves are Normal. No ST changes noted. Clinical impression: No evidence of ischemia. Interpreted by me. Reviewed by me. Administered Medications: 05:36 Drug: Sodium Bicarbonate IVP 1 amp IVP once; (50 mL); equals 50 mEq Route: IVP; Site: j right jugular; 06:00 Follow up: Response: No adverse reaction ha 05:37 Drug: morphine IVP or IV 2 mg IVP once over 4 mins Route: IVP; Infused Over: 4 mins; jj7 Site: right jugular; 05:37 Drug: Ondansetron IVP 4 mg IVP once; over 2 minutes Route: IVP; Site: right jugular; jj7 05:38 Drug: NS 0.9% IV 1000 ml IV at 1 bolus Per protocol; 1000 mL bolus Route: IV; Rate: 1 jj7 bolus; Site: left jugular; 05:38 Drug: Insulin Regular Human IVP 10 units IVP once {Co-Signature: Mary Quinones RN).} Route: IVP; Site: right jugular; 06:00 Drug: Ativan IVP 1 mg IVP once Route: IVP; Site: right jugular; jj7 06:15 Drug: Insulin Drip - (Insulin Regular Human IVP 100 units, NS 0.9% IV 100 ml) IV at jj7 calculated rate continuous; Standard concentration 1unit/ml; Dose for DKA is 0.1 units/kg/hr {Co-Signature: blaze (Mary Euceda RN).} Route: IV; Rate: calculated rate; Site: right jugular; 08:39 Follow up: Response: No adverse reaction; Rate change 5.5 units/hr kc6 10:08 Follow up: Rate change 2.5 units/hr kc6 07:00 Drug: NS 0.9% IV 1000 ml IV at 125 ml/hr continuous Route: IV; Rate: 125 ml/hr; Site: [facility] left subclavian; 07:00 Drug: metoCLOPramide IVP 10 mg IVP once; over 1 to 2 minutes Route: IVP; Site: Other; jj7 07:01 Drug: morphine IVP or IV 2 mg IVP once over 4 mins Route: IVP; Infused Over: 4 mins; jj7 Site: Other; 07:45 Drug: vancoMYCIN IVPB 1 grams IVPB once over 2 hrs Route: IVPB; Infused Over: 2 hrs; kc6 Site: right jugular; 10:07 Follow up: Response: No adverse reaction; IV Status: Completed infusion; IV Intake: kc6 250ml 07:45 Drug: Piperacillin-Tazobactam IVPB 3.375 grams IVPB once over 60 mins; (mix in NS 100 kc6 mL) Route: IVPB; Infused Over: 60 mins; Site: left subclavian; 08:39 Follow up: Response: No adverse reaction; IV Status: Completed infusion; IV Intake: kc6 100ml Disposition Summary: 12/24/23 08:38 Transfer Ordered Notes: Transfer Location: Other Acute Care Facility ms3 Reason: Higher level of care ms3 Condition: Stable ms3 Problem: new ms3 Symptoms: are unchanged ms3 Accepting Physician: Dr Guzmán(12/24/23 10:59) ko1 Diagnosis - Diabetic Ketoacidosis ms3 - Leukocytosis ms3 - Lactic acidosis ms3 - Anemia, unspecified ms3 Forms: - Medication Reconciliation Form ms3 - SBAR form ms3 Critical care time excluding procedures: 08:38 Critical care time: Bedside Care: 51 minutes, Consultation: 12 minutes. Total time: 63 ms3 minutes Signatures: Dispatcher [employer] EDMS Suraj Cordova DO DO ms3 Mary Euceda RN RN ha1 Pua Kam RN RN kc6 Krystal Gonzalez RN RN ko1 Destiney Clement RN RN jjNely Darnell Sergey, MD MD sp4 Mary Euceda RN ha1 Corrections: (The following items were deleted from the chart) 08:38 06:45 Critical care time: Bedside Care: 46 minutes, Consultation: 12 minutes. Total ms3 time: 58 minutes sp4 09:02 08:38 ms3 ms3 10:59 09:02 Dr Guzmán ms3 ko1
--- NOTE | 2023-12-24 09:57 | RAD REPORT ---
EXAM DESCRIPTION: RAD - Chest Single View - 12/24/2023 5:35 am CLINICAL HISTORY: The patient is 17 years old and is Female; DKA TECHNIQUE: Single view of the chest. View of the chest. COMPARISON: December 20, 2023. FINDINGS: Lungs: Clear lungs. Pleural space: Unremarkable. No pneumothorax. Heart: Unremarkable. No cardiomegaly. Mediastinum: Unremarkable. Bones/joints: No acute fracture visualized. Upper abdomen: No free air in the visualized upper abdomen. IMPRESSION: Clear lungs. Electronically signed by: Sayda Lo MD 12/24/2023 05:45 AM HOOD FITTER Due to temporary technical issues with the PACS/Fluency reporting system, reports are being signed by the in house radiologist without review as a courtesy to ensure prompt reporting. The interpreting r adiologist is fully responsible for the content of the report.
--- NOTE | 2023-12-24 16:39 | EKG ---
Test Date: 2023-12-24 Test Time: 05:43:48 Distributor Sales Manager: CHITO MEASUREMENT RESULTS: Intervals: Rate: 119 NJ: 118 QRSD: 70 QT: 316 QTc: 444 [place]: P: 78 NJ: 118 QRS: 72 T: 19 INTERPRETIVE STATEMENTS: Sinus tachycardia Right atrial enlargement Borderline ECG Compared to ECG 12/20/2023 03:36:12 T-wave abnormality no longer present Possible ischemia no longer present Electronically Signed On 12-24-23 16:38:28 RAYON TESTER by Etienne Jacobs
== END ==
LOC: ER 05:19
DX: E11.10 Type 2 diabetes mellitus with ketoacidosis without coma (principal); D72.829 Elevated white blood cell count, unspecified; D64.9 Anemia, unspecified
CPT/HCPCS: 36415; 71045; 80048; 80076; 81001; 81025; 82805; 82947; 83605; 83735; 83880; 84484; 85025; 85610; 87040; 93005; J1815; J2270; J2405; J2543; J2765; J7030; J7050

== ENCOUNTER 2024-03-19 12:53 | Inpatient (IN) | payer OTHER, SELFPAY ==
[2024-03-19 13:45] LABS: PT Prothrombin Time 13.3 SECONDS (9.5-12.5); PTT, Activated Partial Thromb 26.5 SECONDS (24.3-36.9); Protime INR 1.22
[2024-03-19 13:56] LABS: ALT/SGPT 11 U/L (13-56); Albumin 3.2 g/dL (3.4-5.0); Albumin/Globulin Ratio 0.5 (1.1-1.8); Alkaline Phosphatase 197 U/L (45-117); Anion Gap 34.9 mEq/L (5.0-15.0); BUN Blood Urea Nitrogen 49 mg/dL (7-18); Bilirubin Total 0.6 mg/dL (0.2-1.0); Globulin 6.8 g/dL (2.3-3.5); Glomerular Filtration Rate 44 ml/min (=/>90); Potassium 5.9 mEq/L (3.5-5.1); Sodium Level 128 mEq/L (136-145)
[2024-03-19 13:57] LABS: AST/SGOT < 4 U/L (15-37)
[2024-03-19 13:58] LABS: Bicarbonate < 8 mEq/L (21-32); Glucose Level 685 mg/dL (74-106)
[2024-03-19 13:59] LABS: Specific Gravity 1.018 (1.005-1.030); Urine Bacteria None Seen /HPF (<20); Urine Bilirubin NEGATIVE (Negative); Urine Blood Negative (Negative); Urine Clarity Clear (Clear); Urine Color Colorless (Yellow); Urine Culture Reflex Order NOT NEEDED; Urine Glucose 4+ (Over) (Negative); Urine Ketones 4+ (Over) (Negative); Urine Microscopic Reflex YN ORDER UMIC; Urine Mucus Slight /HPF (None Seen); Urine Nitrite NEGATIVE (Negative); Urine Protein TRACE (Negative); Urine RBC <5 /HPF (None Seen); Urine Urobilinogen Normal (Normal); Urine WBC <5 /HPF (<5); Urine pH 5.5 (5.0-7.0)
[2024-03-19] MEDS ORDERED: INSULIN REGULAR (HUMAN) 100 UNIT/ML ONE (14:03)
--- NOTE | 2024-03-19 14:03 | EDPHYS ---
Physician Documentation [facility] Name: Tessa Eagle Age: 18 yrs Sex: Female : 2005 Arrival Date: 03/19/2024 Time: 12:53 Bed 5 Private MD: ED Physician Pam Darnell HPI: 03/19 13:31 This 18 yrs old Female presents to ER via EMS with complaints of High Blood sp3 Sugar. 13:31 18-year-old female with history of diabetes, drug abuse, renal insufficiency now sp3 presents to the ED for recurrent DKA type symptoms of hyperglycemia, generalized weakness and thirst. She denies any other symptoms including headache, fever, URI symptoms, chest pain, shortness of breath, vomiting, diarrhea or any other signs or symptoms on ROS at this time.. CLINIC PHYSICIAN: 13:49 LMP N/A - , Not mb9 Historical: - Allergies: 13:03 No Known Allergies; ap3 - Home Meds: 13:49 divalproex oral [Active]; gabapentin oral [Active]; Humalog Sub-Q [Active]; Lantus mb9 U-100 Insulin 100 unit/mL Sub-Q solution [Active]; Suboxone sublingual [Active]; - PMHx: 13:03 ANOREXIA; diabetes mellitus; drug abuse; renal insufficiency; ap3 - PSHx: 13:49 None; mb9 - Immunization history:: Adult Immunizations up to date. - Infectious Disease History:: Denies. - Social history:: Smoking status: Patient denies any tobacco usage or history of. ROS: 13:32 Eyes: Negative for injury, pain, redness, and discharge, ENT: Negative for injury, sp3 pain, and discharge, Cardiovascular: Negative for chest pain, palpitations, and edema, Respiratory: Negative for shortness of breath, cough, wheezing, and pleuritic chest pain, Abdomen/GI: Negative for abdominal pain, nausea, vomiting, diarrhea, and constipation, MS/Extremity: Negative for injury and deformity, Skin: Negative for injury, rash, and discoloration, Neuro: Negative for headache, weakness, numbness, tingling, and seizure, Psych: Negative for depression, anxiety, suicide ideation, homicidal ideation, and hallucinations, Allergy/Immunology: Negative for hives, rash, and allergies, Hematologic/Lymphatic: Negative for swollen nodes, abnormal bleeding, and unusual bruising, 13:32 All other systems are negative, Exam: 13:32 Constitutional: This is a well developed, well nourished patient who is awake, alert, sp3 and in no acute distress. Head/Face: Normocephalic, atraumatic. Eyes: Pupils equal round and reactive to light, extra-ocular motions intact. Lids and lashes normal. Conjunctiva and sclera are non-icteric and not injected. Cornea within normal limits. Periorbital areas with no swelling, redness, or edema. Neck: Trachea midline, no thyromegaly or masses palpated, and no cervical lymphadenopathy. Supple, full range of motion without nuchal rigidity, or vertebral point tenderness. No Meningismus. Chest/axilla: Normal chest wall appearance and motion. Nontender with no deformity. No lesions are appreciated. Cardiovascular: Regular rate and rhythm with a normal S1 and S2. No gallops, murmurs, or rubs. Normal PMI, no JVD. No pulse deficits. Back: No spinal tenderness. No costovertebral tenderness. Full range of motion. Skin: Warm, dry with normal turgor. Normal color with no rashes, no lesions, and no evidence of cellulitis. MS/ Extremity: Pulses equal, no cyanosis. Neurovascular intact. Full, normal range of motion. Neuro: Awake and alert, GCS 15, oriented to person, place, time, and situation. Cranial nerves II-XII grossly intact. Motor strength 5/5 in all extremities. Sensory grossly intact. Cerebellar exam normal. Normal gait. 13:32 Respiratory: Kussmaul respirations noted with order of DKA, 13:33 ENT: Dry mucous membranes. sp3 13:40 ECG was reviewed by the Attending Physician. EKG demonstrates normal sinus rhythm at 94 sp3 bpm with normal normals, normal QRS, normal axis, normal axis ST segments without evidence of acute ischemia. Vital Signs: 13:01 BP 139 / 89; Pulse 102; Resp 27; Pulse Ox 100% on R/A; Weight 27.22 kg; Height 4 ft. 11 ap3 in. ; 13:48 BP 138 / 87; Pulse 105; Resp 24; Pulse Ox 100% on R/A; mb9 14:47 BP 141 / 91; Pulse 104; Resp 28; Pulse Ox 100% on R/A; mb9 16:00 BP 116 / 64; Pulse 74; Resp 18; Pulse Ox 100% on R/A; mb9 13:01 Body Mass Index 12.12 (27.22 kg, 149.86 cm) ap3 MDM: 13:05 Patient medically screened. sp3 13:34 Data reviewed: vital signs, nurses notes, lab test result(s), radiologic studies. ED sp3 course: 18-year-old female with probable DKA versus dehydration. I am not highly suspicious for sepsis, shock or any other critical pathology. Electrolytes will also be followed. The patient stays, we will most likely admit her for DKA and/or dehydration. Patient has a history of multiple AMA discharges in the past and I have stressed to the patient the need for staying.. 14:01 ED course: Glucose of greater than 685 and CO2 less than 8. Remainder of electrolytes sp3 pending but we will follow-up. Insulin drip started. Patient will be admitted to ICU under hospitalist.. 03/19 13:04 Order name: Blood Culture Adult (2) sp3 03/19 13:04 Order name: CBC with Diff sp3 03/19 13:04 Order name: CMP sp3 03/19 13:04 Order name: Lactate w/ 2H reflex if indic. sp3 03/19 13:04 Order name: Protime (+inr) sp3 03/19 13:04 Order name: Ptt, Activated sp3 03/19 13:04 Order name: Urinalysis w/ reflexes sp3 03/19 13:24 Order name: Lactate w/ 2H reflex if indic. EDMS 03/19 13:26 Order name: Comprehensive Metabolic Panel EDMS 03/19 13:26 Order name: CBC with Automated Diff EDMS 03/19 13:26 Order name: Protime (+INR) EDMS 03/19 13:26 Order name: PTT, Activated Partial Thromb EDMS 03/19 13:45 Order name: Protime (+INR); Complete Time: 13:56 EDMS 03/19 13:45 Order name: PTT, Activated Partial Thromb; Complete Time: 13:56 EDMS 03/19 13:49 Order name: Urinalysis w/ reflexes EDMS 03/19 13:53 Order name: Blood Culture EDMS 03/19 13:55 Order name: Lactate w/ 2H reflex if indic.; Complete Time: 13:56 EDMS 03/19 13:58 Order name: Comprehensive Metabolic Panel; Complete Time: 13:58 EDMS 03/19 13:59 Order name: Urinalysis w/ reflexes; Complete Time: 14:15 EDMS / 14:14 Order name: Glucose, Ancillary Testing; Complete Time: 14:15 EDMS 03/19 14:15 Order name: Glucose, Ancillary Testing EDMS 03/19 15:07 Order name: ABG: VBG mb9 03/19 15:38 Order name: CBC with Automated Diff EDMS 03/19 15:39 Order name: Manual Differential EDMS 03/19 15:54 Order name: Glucose, Ancillary Testing EDMS 03/19 16:49 Order name: Lactate Sepsis 2 HR Follow-up EDMS 03/19 16:50 Order name: Manual Differential EDMS 03/19 16:53 Order name: Glucose, Ancillary Testing EDMS 03/19 13:04 Order name: Chest Single View XRAY sp3 03/19 13:41 Order name: Chest Single View EDMS 03/19 14:30 Order name: RAD; Complete Time: 14:32 EDMS 03/19 13:04 Order name: EKG; Complete Time: 13:05 sp3 03/19 13:04 Order name: Accucheck; Complete Time: 13:19 sp3 03/19 13:04 Order name: Cardiac monitoring; Complete Time: 13:05 sp3 03/19 13:04 Order name: EKG - Nurse/Tech; Complete Time: 13:19 sp3 03/19 13:04 Order name: IV Saline Lock - Large Bore; Complete Time: 13:19 sp3 03/19 13:04 Order name: Labs collected and sent; Complete Time: 13:19 sp3 03/19 13:04 Order name: O2 Per Protocol; Complete Time: 13:05 sp3 03/19 13:04 Order name: O2 Sat Monitoring; Complete Time: 13:05 sp3 03/19 13:04 Order name: Vital Signs; Complete Time: 13:05 sp3 Administered Medications: 13:20 Drug: NS 0.9% IV (30 ml/kg) 30 ml/kg IV at bolus once; Sepsis Protocol Route: IV; Rate: mb9 bolus; Site: right antecubital; 14:49 Follow up: Response: No adverse reaction; IV Status: Completed infusion mb9 14:04 Drug: Insulin Regular Human IVP 10 units IVP once {Co-Signature: mirza (Celena Yanez9 RN).} Route: IVP; Site: right antecubital; 14:49 Follow up: Response: No adverse reaction mb9 14:20 Drug: NS 0.9% IV 1000 ml IV at 1000 ml once Route: IV; Rate: 1000 ml; Site: right mb9 antecubital; 16:15 Follow up: Response: No adverse reaction; IV Status: Completed infusion mb9 14:30 Drug: Sodium Bicarbonate IVP 2 amp IVP once; (50 mL); equals 50 mEq Route: IVP; Site: 9 right antecubital; 14:49 Follow up: Response: No adverse reaction mb9 14:32 Drug: Rocephin - Rocephin (cefTRIAXone) IVPB 1 grams IVPB once over 30 mins; (mix in 50 mb9 mL NS) Route: IVPB; Infused Over: 30 mins; Site: left antecubital; 14:50 Follow up: Response: No adverse reaction; IV Status: Completed infusion mb9 14:35 Drug: Zithromax IVPB 500 mg IVPB once over 1 hrs; mix in 250 mL NS Route: IVPB; Infused mb9 Over: 1 hrs; Site: left antecubital; 16:15 Follow up: Response: No adverse reaction; IV Status: Completed infusion mb9 14:40 Drug: Insulin Drip - (Insulin Regular Human IVP 100 units, NS 0.9% IV 100 ml) IV at mb9 calculated rate continuous; Standard concentration 1unit/ml; Dose for DKA is 0.1 units/kg/hr {Co-Signature: mirza (Celena Yanez RN).} Route: IV; Rate: calculated rate; Site: right antecubital; 14:49 Follow up: Response: No adverse reaction; IV Status: Infusion continued upon admission mb9 Disposition Summary: 03/19/24 14:02 Hospitalization Ordered Notes: Hospitalization Status: Inpatient Admission sp3 Provider: Roldan Mcknight Location: Intensive Care Unit sp3 Condition: Critical sp3 Problem: an acute exacerbation sp3 Symptoms: have worsened sp3 Bed/Room Type: Standard sp3 Room Assignment: 1-(03/19/24 17:20) dw Diagnosis - Diabetic ketoacidosis, dehydration sp3 Forms: - Medication Reconciliation Form sp3 - SBAR form sp3 - Leadership Thank You Letter sp3 Signatures: Dispatcher [employer] EDAmelie Berman RN RN dw Stephan Fletcher, CODING MANAGER-C CODING MANAGER-Cla1 Celena Yanez RN RN ap3 Pam Darnell MD MD sp3 Constance Love RN RN mb9 Celena Yanez RN ap3 Corrections: (The following items were deleted from the chart) 14:07 14:07 Arterial Blood Gas+[id number] ordered. [facility] EDUT 17:20 14:02 sp3 dw
--- NOTE | 2024-03-19 14:03 | ER ---
Nurse's Notes [facility] Name: Tessa Eagle Age: 18 yrs Sex: Female : 2005 Arrival Date: 03/19/2024 Time: 12:53 Bed 5 Private MD: Diagnosis: Diabetic ketoacidosis, dehydration Presentation: 03/19 13:01 Chief complaint: EMS states: they were called for a patient who has hx of high blood ap3 sugar. patient has been drowsy, nauseated and "rapidly breathing" this morning. Coronavirus screen: At this time, the client does not indicate any symptoms associated with coronavirus-19. Ebola Screen: No symptoms or risks identified at this time. Risk Assessment: Do you want to hurt yourself or someone else? Patient reports no desire to harm self or others. Onset of symptoms is unknown. 13:01 Method Of Arrival: EMS: [facility] ap3 13:01 Acuity: JUSTIN 2 ap3 13:04 Care prior to arrival: Medication(s) given: Normal saline infusion, 1000 mL, IV ap3 initiated. 20 GA, in the right antecubital area. 13:19 Initial Sepsis Screen: Does the patient meet any 2 criteria? No. Patient's initial mb9 sepsis screen is negative. Does the patient have a suspected source of infection? No. Patient's initial sepsis screen is negative. Triage Assessment: 13:03 General: Appears distressed, slender, Behavior is calm, cooperative. Neuro: Level of ap3 Consciousness is awake, alert, obeys commands, Oriented to person, place, time, situation. Cardiovascular: Patient's skin is warm and dry. Respiratory: Airway is patent Respiratory effort is even, unlabored, Respiratory pattern is regular, symmetrical, tachypnea. GI: Reports nausea. REPORT PROGRAMMER: 13:49 LMP N/A - , Not mb9 Historical: - Allergies: 13:03 No Known Allergies; ap3 - Home Meds: 13:49 divalproex oral [Active]; gabapentin oral [Active]; Humalog Sub-Q [Active]; Lantus mb9 U-100 Insulin 100 unit/mL Sub-Q solution [Active]; Suboxone sublingual [Active]; - PMHx: 13:03 ANOREXIA; diabetes mellitus; drug abuse; renal insufficiency; ap3 - PSHx: 13:49 None; mb9 - Immunization history:: Adult Immunizations up to date. - Infectious Disease History:: Denies. - Social history:: Smoking status: Patient denies any tobacco usage or history of. Screenin:03 Abuse screen: Denies threats or abuse. Nutritional screening: No deficits noted. ap3 Tuberculosis screening: No symptoms or risk factors identified. 13:19 [facility] ED Fall Risk Assessment (Adult) History of falling in the last 3 months, mb9 including since admission No falls in past 3 months (0 pts) Confusion or Disorientation No (0 pts) Intoxicated or Sedated No (0 pts) Impaired Gait No (0 pts) Mobility Assist Device Used No (0 pt) Altered Elimination No (0 pt) Score/Fall Risk Level 0 - 2 = Low Risk Oriented to surroundings, Maintained a safe environment, Educated pt \\T\\ family on fall prevention, incl call for assistance when getting out of bed. Assessment: 13:17 General: Appears uncomfortable, Behavior is calm, cooperative. General: Appears mb9 malnourished. Pain: Denies pain. Neuro: Kramer Agitation-Sedation Scale (RASS): 0 - Alert and Calm Level of Consciousness is awake, alert, obeys commands, Oriented to person, place, time, situation, Appropriate for age. Cardiovascular: Heart tones S1 S2 present Patient's skin is warm and dry. Respiratory: Airway is patent Respiratory effort is labored, Respiratory pattern is hyperventilation Breath sounds are clear bilaterally. GI: Abdomen is flat, non-distended, Bowel sounds present X 4 quads. Abd is soft and non tender X 4 quads. Reports nausea, vomiting. : No signs and/or symptoms were reported regarding the genitourinary system. EENT: No signs and/or symptoms were reported regarding the EENT system. Derm: Skin is pink, warm \\T\\ dry. Musculoskeletal: Range of motion: intact in all extremities. 14:00 Reassessment: Faxed pharmacy insulin drip. mb9 14:10 Reassessment: No changes from previously documented assessment. Patient and/or family mb9 updated on plan of care and expected duration. Pain level reassessed. Patient is alert, oriented x 3, equal unlabored respirations, skin warm/dry/pink. 15:05 Reassessment: Patient appears in no apparent distress at this time. No changes from mb9 previously documented assessment. Patient and/or family updated on plan of care and expected duration. Pain level reassessed. Patient is alert, oriented x 3, equal unlabored respirations, skin warm/dry/pink. 15:05 Reassessment: Spoke to pts mother, Chanelle [phone], about plan of care. mb9 16:00 Reassessment: No changes from previously documented assessment. Patient and/or family mb9 updated on plan of care and expected duration. Pain level reassessed. Patient is alert, oriented x 3, equal unlabored respirations, skin warm/dry/pink. 16:34 Reassessment: see [facility] for further charting. mb9 Vital Signs: 13:01 BP 139 / 89; Pulse 102; Resp 27; Pulse Ox 100% on R/A; Weight 27.22 kg; Height 4 ft. 11 ap3 in. ; 13:48 BP 138 / 87; Pulse 105; Resp 24; Pulse Ox 100% on R/A; mb9 14:47 BP 141 / 91; Pulse 104; Resp 28; Pulse Ox 100% on R/A; mb9 16:00 BP 116 / 64; Pulse 74; Resp 18; Pulse Ox 100% on R/A; mb9 13:01 Body Mass Index 12.12 (27.22 kg, 149.86 cm) ap3 ED Course: 13:01 Patient arrived in ED. ap3 13:01 Pam Darnell MD is Attending Physician. sp3 13:03 Triage completed. ap3 13:04 Arm band placed on right wrist. ap3 13:04 Patient has correct armband on for positive identification. Placed in gown. Bed in low ap3 position. Call light in reach. Side rails up X2. school speech therapist on. Pulse ox on. NIBP on. Door closed. Noise minimized. Warm blanket given. Pillow given. 13:12 Celena Yanez, JANESSA is Primary Nurse. ap3 13:17 Primary Nurse role handed off by Celena Yanez, JANESSA mb9 13:17 Constance Love, JANESSA is Primary Nurse. mb9 13:18 No provider procedures requiring assistance completed. Inserted saline lock: 20 gauge woody in right antecubital area, using aseptic technique. Blood collected. 13:19 Provided Education on: press call light if needing anything. mb9 13:19 CBC with Diff Sent. mb9 13:19 CMP Sent. mb9 13:19 Protime (+inr) Sent. mb9 13:19 Ptt, Activated Sent. mb9 13:19 Urinalysis w/ reflexes Sent. mb9 13:35 Assisted with bedpan. Cleaned of incontinence. mb9 13:39 Inserted saline lock: 22 gauge in left antecubital area, using aseptic technique. ap3 13:39 First set of blood cultures drawn by me. ap3 14:00 One-on-one care X 15 minutes. mb9 14:01 Roldan Mcknight is Hospitalizing Provider. sp3 14:23 Chest Single View In Process Unspecified. EDMS 14:30 One-on-one care X 15 minutes. mb9 14:45 One-on-one care X 15 minutes. mb9 14:46 Patient admitted, IV remains in place. mb9 14:47 Thermoregulation: warm blanket given to patient. mb9 15:29 Warm blanket given. PO fluids given. jg11 16:29 Warm blanket given. PO fluids given. Assisted with bedpan. Cleaned of incontinence. jg11 17:00 Repeat lab(s) drawn. by me, sent to lab. [email or web address] Administered Medications: 13:20 Drug: NS 0.9% IV (30 ml/kg) 30 ml/kg IV at bolus once; Sepsis Protocol Route: IV; Rate: mb9 bolus; Site: right antecubital; 14:49 Follow up: Response: No adverse reaction; IV Status: Completed infusion mb9 14:04 Drug: Insulin Regular Human IVP 10 units IVP once {Co-Signature: [email or web address] (Celena Yanez RN).} Route: IVP; Site: right antecubital; 14:49 Follow up: Response: No adverse reaction mb9 14:20 Drug: NS 0.9% IV 1000 ml IV at 1000 ml once Route: IV; Rate: 1000 ml; Site: right [facility] antecubital; 16:15 Follow up: Response: No adverse reaction; IV Status: Completed infusion mb9 14:30 Drug: Sodium Bicarbonate IVP 2 amp IVP once; (50 mL); equals 50 mEq Route: IVP; Site: [facility] right antecubital; 14:49 Follow up: Response: No adverse reaction mb9 14:32 Drug: Rocephin - Rocephin (cefTRIAXone) IVPB 1 grams IVPB once over 30 mins; (mix in 50 mb9 mL NS) Route: IVPB; Infused Over: 30 mins; Site: left antecubital; 14:50 Follow up: Response: No adverse reaction; IV Status: Completed infusion mb9 14:35 Drug: Zithromax IVPB 500 mg IVPB once over 1 hrs; mix in 250 mL NS Route: IVPB; Infused mb9 Over: 1 hrs; Site: left antecubital; 16:15 Follow up: Response: No adverse reaction; IV Status: Completed infusion mb9 14:40 Drug: Insulin Drip - (Insulin Regular Human IVP 100 units, NS 0.9% IV 100 ml) IV at mb9 calculated rate continuous; Standard concentration 1unit/ml; Dose for DKA is 0.1 units/kg/hr {Co-Signature: ap3 (Celena Yanez RN).} Route: IV; Rate: calculated rate; Site: right antecubital; 14:49 Follow up: Response: No adverse reaction; IV Status: Infusion continued upon admission mb9 Medication: 13:19 VIS not applicable for this client. mb9 Outcome: 14:02 Decision to Hospitalize by Provider. sp3 17:47 Admitted to ICU accompanied by nurse, via stretcher, room 6, with chart, Report called mb9 to JANESSA Garvey 17:47 Condition: stable 17:47 Instructed on the need for admit, 18:09 Patient left the ED. mb9 Signatures: Dispatcher [employer] EDMS Celena Yanez, JANESSA RN ap3 Pam Darnell MD MD sp3 Constance Love RN RN mb9 Mykel Tobar [email or web address] Celena Yanez RN ap3 Corrections: (The following items were deleted from the chart) 13:50 13:48 Pulse 105bpm; Resp 24bpm; Pulse Ox 100% RA; mb9 mb9
[2024-03-19] MEDS ORDERED: NA CHLORIDE 0.9% 1,000 ML ONE (14:17)
[2024-03-19] MEDS ORDERED: CEFTRIAXONE 1000 MG/VIAL ONE (14:30)
[2024-03-19] MEDS ORDERED: AZITHROMYCIN 500 MG INJ IVPB ONE (14:30)
[2024-03-19] MEDS ORDERED: NA CHLORIDE 0.9% 250 ML ONE (14:30)
--- NOTE | 2024-03-19 14:30 | RAD REPORT ---
EXAM DESCRIPTION: RAD - Chest Single View - 03/19/2024 2:22 pm CLINICAL HISTORY: HIGH BLOOD SUGAR COMPARISON: Chest Single View dated 12/24/2023; Chest Single View dated 12/24/2023; Chest Single View da lyla 12/20/2023; Chest Single View dated 11/16/2023 FINDINGS: Lines: None. Lungs: Consolidative airspace disease in the right upper lobe. Pleural: No significant pleural effusions or pneumothorax. Cardiac: The heart size is within normal limits. Mediastinum: Within normal limits. Bones: No acute fractures. Other: None IMPRESSION: Consolidative airspace disease in the right upper lobe which is new from prior and yonathan rning for pneumonia. Recommend short-term follow-up chest radiograph to ensure improvement and/or res olution of the airspace process.
[2024-03-19 15:34] LABS: Absolute Lymphocytes (CBC) 0.9 K/uL (0.7-4.9); Absolute Monocytes 0.2 K/uL (0.1-1.3); Absolute Neutrophil 30.2 K/uL (1.8-8.0); Basophils % 0.1 % (0-1.3); Lymphocytes % 2.8 % (15.3-44.8); MCV 76.1 fL (80-100); MPV 9.1 fL (7.6-11.3); Monocytes % 0.6 % (3.3-12.3); Neutrophils % 96.5 % (41.7-73.7); Platelets 648 thou/uL (152-406); RBC Red Blood Cell Count 4.51 M/uL (3.86-4.86); Red Cell Distribution Width 18.7 % (12.1-15.2)
[2024-03-19 15:37] LABS: Hematocrit 38.3 % (36.0-45.0); Hemoglobin 10.9 g/dL (12.0-15.0); MCHC 28.5 g/dL (32.0-36.0)
[2024-03-19] MEDS ORDERED: WATER FOR INJ,STERILE 1,000 ML with NA BICARB 8.4% 100 MEQ IV SCH (16:07)
[2024-03-19] MEDS ORDERED: ONDANSETRON 4 MG/2 ML VIAL IV PRN (16:07)
[2024-03-19] MEDS ORDERED: D5 0.45 NS 1,000 ML IV SCH (16:07)
[2024-03-19 16:49] LABS: Band Neutrophils 1 % (0-1); Differential Total Cells Count 100; Lymphocytes 4 % (15-42); Metamyelocytes 3 % (0-0); Monocytes 0 % (0-10); Platelet Estimate INCR; Rouleau NOTED; Segmented Neutrophils 92 % (40-80)
[2024-03-19 16:50] LABS: Blood Morphology Comment NOTED (NOT SEEN)
[2024-03-19] MEDS: SOD BICARB 150 MEQ in STERILE WATER 1000 ML IVBAG IV SCH (18:10)
[2024-03-19] MEDS: INSULIN -REGULAR HUMAN 100 UNIT in NA CHLORIDE 0.9% 100 ML IV SCH (18:11)
[2024-03-19 19:01] LABS: Arterial Blood Carboxyhemoglob 1.1 % (0-1.5); Blood Gas Oxyhemoglobin 76.5 % (94-97); Blood Gas THB 9.6 g/dl (12-18); Blood O2 Saturation 79.1 % (92-98.5)
--- NOTE | 2024-03-19 19:21 | P.HP ---
Certification for Inpatient Patient admitted to: Inpatient With expected LOS: >2 Midnights Patient will require the following post-hospital care: None Practitioner: I am a practitioner with admitting privileges, knowledge of patient current condition, hospital course, and medical plan of care. Services: Services provided to patient in accordance with Admission requirements found in Title 42 Section 412.3 of the Code of Federal Regulations <Stephan Fletcher - Last Filed: 03/19/24 15:43> Patient History Date of Service: 03/19/24 Reason for admission: DKA, severe sepsis History of Present Illness: 18-year-old female with history of type 1 diabetes presents emergency department with chief complaint of shortness of breath, suspected DKA. Patient is lethargic, poor historian at this time. Reports blood sugars were running as high as 500 yesterday, started feeling very bad this morning. She has had multiple admissions for DKA in the past, also history of leaving AMA. She was evaluated in the emergency department her labs demonstrated DKA with pseudohyponatremia, hyperkalemia, REBA, leukocytosis, elevated lactate and a pH of 7.0 on her VBG. In the ER she was given IV fluid bolus, IV bicarb amp x 2, antibiotic with Rocephin/Zithromax after chest x-ray demonstrated suspected right upper lobe pneumonia. Patient will need to be admitted to the hospital for DKA, severe sepsis - Past Medical/Surgical History Diabetic: Yes -: Type 1 diabetes -: Depression -: None Psychosocial/ Personal History: Patient lives at home with sister - Family History Father -: Diabetes - Social History Alcohol use: No CD- Drugs: Yes Caffeine use: Yes Place of Residence: Home <Stephan Fletcher - Last Filed: 03/19/24 15:43> Date of Service: 03/19/24 <lul landin - Last Filed: 03/19/24 18:42> Allergies No Known Allergies Allergy (Verified 07/13/23 22:35) Home Medications: Insulin Degludec [Tresiba Flextouch U-100] 30 units SQ DAILY 02/03/23 Insulin Lispro [Humalog] 6 units SQ TID 02/03/23 Review of Systems 10-point ROS is otherwise unremarkable Respiratory: Cough, Shortness of Breath Gastrointestinal: Nausea, Vomiting <Stephan Fletcher - Last Filed: 03/19/24 15:43> Physical Examination - Physical Exam General: Alert, In no apparent distress, Oriented x3 HEENT: Atraumatic, PERRLA, EOMI Neck: Supple, 2+ carotid pulse no bruit, No LAD Respiratory: Clear to auscultation bilaterally, Other (Tachypne) Cardiovascular: Regular rate/rhythm, Normal S1 S2 Gastrointestinal: Normal bowel sounds, No tenderness Musculoskeletal: No tenderness Integumentary: No rashes Neurological: Normal gait, Normal speech, Normal strength at 5/5 x4 extr, Normal tone Lymphatics: No axilla or inguinal lymphadenopathy - Studies Laboratory Data (last 24 hrs) 03/19/24 03/19/24 03/19/24 13:07 13:07 13:07 WBC 31.30 H Hgb 10.9 L Hct 38.3 Plt Count 648 H PT 13.3 H INR 1.22 APTT 26.5 Sodium 128 L Potassium 5.9 H BUN 49 H Creatinine 1.68 H Glucose 685 H* Total Bilirubin 0.6 AST < 4 L ALT 11 L Alkaline Phosphatase 197 H <Stephan Fletcher - Last Filed: 03/19/24 15:43> - Studies Laboratory Data (last 24 hrs) 03/19/24 03/19/24 03/19/24 13:07 13:07 13:07 WBC 31.30 H Hgb 10.9 L Hct 38.3 Plt Count 648 H PT 13.3 H INR 1.22 APTT 26.5 Sodium 128 L Potassium 5.9 H BUN 49 H Creatinine 1.68 H Glucose 685 H* Total Bilirubin 0.6 AST < 4 L ALT 11 L Alkaline Phosphatase 197 H <lul landin - Last Filed: 03/19/24 18:42> Assessment and Plan - Plan Assessment: Type 1 diabetes with DKA Severe sepsis secondary to right upper lobe pneumonia Plan: Type 1 diabetes with DKA VBG with PH 7.0 Given 2 A of IV bicarb in ED, started on bicarb drip Started on insulin drip, continue IV fluids Monitor chemistry every 4 hours Monitor glucose hourly Reports she takes Tresiba 30 units daily and 6 units of Humalog 3 times daily at home Denies being out of her insulin Severe sepsis secondary to right upper lobe pneumonia Blood cultures obtained in ED Continue antibiotics Rocephin/antibiotics Lactate greater than 2, repeat ordered per protocol DVT PPX: Heparin subcu Code status:Full Discharge Plan: Home Plan to discharge in: 72 Hours - Advance Directives Does patient have a Living Will: No Does patient have a Durable POA for Healthcare: No - Code Status/Comfort Care Code Status Assessed: Yes (Full code) Critical Care: No Time Spent Managing Pts Care (In Minutes): 70 <Stephan Fletcher - Last Filed: 03/19/24 15:43> - Plan Patient seen and examined. Plan of care discussed with Stephan Fletcher. Patient is awake and interactive, oriented x 4. She reported tiredness, denies shortness of breath. She denies noncompliance with insulin. Diagnosis: DKA with severe metabolic acidosis DKA trigger probably secondary to pneumonia as evidenced on the chest x-ray. Sepsis Plan Aggressive IV hydration. DKA protocol initiated with insulin Bicarb replacement for severe metabolic acidosis. Urine toxicology screen to include alcohol. Obtain serum osmolality to assess for osmolar gap given very high anion gap. IV antibiotics. Keep n.p.o. Follow cultures. <lul landin - Last Filed: 03/19/24 18:42>
[2024-03-19] MEDS: HYDROCODONE/APAP 7.5/325 MG TAB PO PRN (20:47)
[2024-03-19] MEDS: MELATONIN 5 MG TABLET PO PRN (20:47)
[2024-03-19] MEDS: HEPARIN 5000 UNIT/ML 1 ML VIAL SQ SCH (20:52)
[2024-03-19 22:01] LABS: Anion Gap 20.7 mEq/L (5.0-15.0); Potassium 3.7 mEq/L (3.5-5.1)
[2024-03-20] MEDS ORDERED: AZITHROMYCIN IV 500 MG in NA CHLORIDE 0.9% 250 ML IVPB SCH (09:00)
[2024-03-20] MEDS ORDERED: CEFTRIAXONE 1,000 MG in NA CHLORIDE 0.9% 50 ML IVPB SCH (09:00)
[2024-03-20 14:48] VITALS: BMI 12.1
[2024-03-20 14:49] VITALS: BP 126/82; TEMP 97.4; O2SAT 99
--- NOTE | 2024-03-22 14:47 | EKG ---
Test Date: 2024-03-19 Test Time: 13:10:06 [place] Automatic: [facility] MEASUREMENT RESULTS: Intervals: Rate: 94 AK: 116 QRSD: 72 QT: 334 QTc: 417 [place]: P: 72 AK: 116 QRS: 65 T: -13 INTERPRETIVE STATEMENTS: Normal sinus rhythm Biatrial enlargement Abnormal QRS-T angle, consider primary T wave abnormality Abnormal ECG Compared to ECG 12/24/2023 05:43:48 T-wave abnormality now present Sinus tachycardia no longer present Electronically Signed On 03-22-24 14:40:09 CDT by Ronnie Dodson
== END 2024-03-19 22:10 | disposition left against medical advice (07) | DRG 871 ==
LOC: ER 12:53 → 3RD-ICU 14:22 → ERHOLD 15:53 → UNDOADMIN 15:53 → ERHOLD 17:38 → 3RD-ICU 17:38
PROVIDERS: ADMIT Internal Medicine; ATTEND Internal Medicine
DX: A41.9 Sepsis, unspecified organism (principal); E10.10 Type 1 diabetes mellitus with ketoacidosis without coma; J18.9 Pneumonia, unspecified organism; N17.9 Acute kidney failure, unspecified; R65.20 Severe sepsis without septic shock; E87.5 Hyperkalemia; E86.0 Dehydration; Z79.4 Long term (current) use of insulin; Z79.899 Other long term (current) drug therapy
CPT/HCPCS: 36415; 71045; 80048; 80053; 81001; 82077; 82805; 82947; 83605; 83930; 85025; 85610; 85730; 87040; 93005; 99285; J0696; J1644; J1815; J7030; J7050

== ENCOUNTER 2024-03-19 22:58 | Emergency (ER) | payer SELFPAY ==
--- NOTE | 2024-03-19 23:25 | ER ---
Nurse's Notes [facility] Name: Tessa Eagle Age: 18 yrs Sex: Female : 2005 Arrival Date: 03/19/2024 Time: 22:58 Bed 19 Private MD: Diagnosis: Diabetes mellitus due to underlying condition with ketoacidosis without coma Presentation: 03/19 23:00 Chief complaint: EMS states: pt found by PD in hospital gown walking down the road. PD lg3 called EMS for eval. PT BGL 232 with dried vomit on mouth. PT denies any nausea/pain/symptoms at this time. Coronavirus screen: Client denies travel out of the [place] in the last 14 days. At this time, the client does not indicate any symptoms associated with coronavirus-19. Ebola Screen: No symptoms or risks identified at this time. Initial Sepsis Screen: Does the patient meet any 2 criteria? No. Patient's initial sepsis screen is negative. Does the patient have a suspected source of infection? No. Patient's initial sepsis screen is negative. Risk Assessment: Do you want to hurt yourself or someone else? Patient reports no desire to harm self or others. Onset of symptoms is unknown. 23:00 Method Of Arrival: EMS: [facility] lg3 23:00 Acuity: JUSTIN 3 lg3 Triage Assessment: 23:00 General: Appears in no apparent distress. slender, malnourished, Behavior is fussy, lg3 restless, uncooperative. Pain: Denies pain. 23:00 EENT: No deficits noted. No signs and/or symptoms were reported regarding the EENT lg3 system. Neuro: No deficits noted. Kramer Agitation-Sedation Scale (RASS): +1 Restless Level of Consciousness is awake, alert, Oriented to person, place, time, situation. Cardiovascular: No deficits noted. Denies chest pain, shortness of breath, Capillary refill < 3 seconds Clubbing of nail beds is absent JVD is absent Patient's skin is warm and dry. Respiratory: No deficits noted. Airway is patent Respiratory effort is even, unlabored, Respiratory pattern is regular, symmetrical. GI: No deficits noted. No signs and/or symptoms were reported involving the gastrointestinal system. Abdomen is flat, non-distended, Patient currently denies abdominal pain, nausea, pain. : No deficits noted. No signs and/or symptoms were reported regarding the genitourinary system. Derm: No deficits noted. No signs and/or symptoms reported regarding the dermatologic system. Skin is intact, is healthy with good turgor, Skin is dry, Skin is normal, Skin temperature is warm. Musculoskeletal: No deficits noted. No signs and/or symptoms reported regarding the musculoskeletal system. Circulation, motion, and sensation intact. Range of motion: intact in all extremities. 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 - Infectious Disease History:: Denies. - Family history:: not pertinent. - Social history:: Smoking status: Patient denies any tobacco usage or history of. Patient/guardian denies using alcohol, street drugs. Screenin:00 [facility] ED Fall Risk Assessment (Adult) History of falling in the last 3 months, lg3 including since admission No falls in past 3 months (0 pts) Confusion or Disorientation No (0 pts) Intoxicated or Sedated No (0 pts) Impaired Gait No (0 pts) Mobility Assist Device Used No (0 pt) Altered Elimination No (0 pt) Score/Fall Risk Level 0 - 2 = Low Risk Oriented to surroundings, Maintained a safe environment, Educated pt \T\ family on fall prevention, incl call for assistance when getting out of bed, Assessed \T\ reinforced patient's understanding of fall precautions. Abuse screen: Denies threats or abuse. Denies injuries from another. Nutritional screening: No deficits noted. Tuberculosis screening: No symptoms or risk factors identified. Assessment: 23:00 General: see triage assessment. lg3 23:20 General: pt denies pain at this time but requesting morphine. provider notified. lg3 Vital Signs: 23:00 BP 115 / 79; Pulse 69; Resp 17 S; Temp 98.1(O); Pulse Ox 100% on R/A; Weight 29.94 kg lg3 (M); Height 4 ft. 11 in. (R); Pain 0/10; 05/04 00:57 BP 115 / 69; Pulse 70; Resp 17 S; Pulse Ox 100% on R/A; lg3 03/19 23:00 Body Mass Index 13.33 (29.94 kg, 149.86 cm) lg3 03/19 23:00 Pain Scale: Adult lg3 ED Course: 03/19 22:59 Patient arrived in ED. lg3 22:59 Xiomy Pritchard, RN is Primary Nurse. lg3 23:00 Arm band placed on left wrist. lg3 23:00 Patient has correct armband on for positive identification. Placed in gown. Bed in low lg3 position. Call light in reach. Side rails up X 1. Client placed on continuous cardiac and pulse oximetry monitoring. NIBP monitoring applied. Door closed. Noise minimized. Warm blanket given. 23:04 Srinivasan Chris MD is Attending Physician. [facility] 23:23 Triage completed. lg3 23:23 Jens Louis MD is Hospitalizing Provider. [facility] 03/20 00:02 Inserted saline lock: 20 gauge in right upper arm, using aseptic technique. Blood lg3 collected. 01:58 No provider procedures requiring assistance completed. Patient admitted, IV remains in lg3 place. Administered Medications: 00:09 Drug: NS 0.9% IV 1000 ml IV at 1 bolus Per protocol; 1000 mL bolus Route: IV; Rate: 1 lg3 bolus; Site: right upper arm; :57 Follow up: IV Status: Completed infusion; IV Intake: 1000ml lg3 00:09 Drug: Ondansetron IVP 4 mg IVP once; over 2 minutes Route: IVP; Site: right upper arm; lg3 01:57 Follow up: Response: No adverse reaction lg3 01:57 Not Given (Patient Refused): Insulin Drip - (insulin regular human ivp 100 units, ns lg3 0.9% 100 ml) IV at calculated rate continuous; Standard concentration 1unit/ml; Dose for DKA is 0.1 units/kg/hr Medication: :58 VIS not applicable for this client. lg3 Intake: :57 IV: 1000ml; Total: 1000ml. lg3 Outcome: 03/19 23:24 Decision to Hospitalize by Provider. [facility] 03/20 01:58 Admitted to ER Hold. Please see [facility] for further documentation. lg3 Condition: stable Instructed on the need for admit, 01:58 Patient left the ED. lg3 Signatures: Srinivasan Chris MD MD cha Able, Lacie, RN RN lg3
--- NOTE | 2024-03-19 23:25 | EDPHYS ---
Physician Documentation [facility] Name: Tessa Eagle Age: 18 yrs Sex: Female : 2005 Arrival Date: 03/19/2024 Time: 22:58 Bed 19 Private MD: ED Physician Srinivasan Chris HPI: 03/19 23:08 This 18 yrs old Female presents to ER via Unassigned with complaints of DKS , tadeo JUST SIGNED OUT AMA. 23:08 The patient presents to the emergency department with nausea, vomiting, that is tadeo intermittent. Onset: The symptoms/episode began/occurred 1 week(s) ago. Possible causes: DKA. The symptoms are aggravated by movement, food , The symptoms are alleviated by nothing. remaining still. PT IS A BRITTLE DIABETIC, JUST SIGNED OUT AMA, NOW BACK. Associated signs and symptoms: Pertinent positives: nausea, vomiting. Severity of symptoms: At their worst the symptoms were moderate just prior to arrival, in the emergency department the symptoms are unchanged. The patient has experienced similar episodes in the past, multiple times. 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 - Infectious Disease History:: Denies. - Family history:: not pertinent. - Social history:: Smoking status: Patient denies any tobacco usage or history of. Patient/guardian denies using alcohol, street drugs. ROS: 23:08 Constitutional: Negative for fever, chills, and weight loss, Eyes: Negative for injury, tadeo pain, redness, and discharge, ENT: Negative for injury, pain, and discharge, Neck: Negative for injury, pain, and swelling, Cardiovascular: Negative for chest pain, palpitations, and edema, Respiratory: Negative for shortness of breath, cough, wheezing, and pleuritic chest pain, Back: Negative for injury and pain, : Negative for injury, bleeding, discharge, and swelling, MS/Extremity: Negative for injury and deformity, Skin: Negative for injury, rash, and discoloration, Psych: Negative for depression, anxiety, suicide ideation, homicidal ideation, and hallucinations, Allergy/Immunology: Negative for hives, rash, and allergies, Endocrine: Negative for neck swelling, polydipsia, polyuria, polyphagia, and marked weight changes, Hematologic/Lymphatic: Negative for swollen nodes, abnormal bleeding, and unusual bruising, 23:08 Abdomen/GI: Positive for abdominal pain, nausea and vomiting, 23:08 Neuro: Positive for weakness, Exam: 23:08 Constitutional: This is a well developed, well nourished patient who is awake, alert, tadeo and in no acute distress. Head/Face: Normocephalic, atraumatic. Eyes: Pupils equal round and reactive to light, extra-ocular motions intact. Lids and lashes normal. Conjunctiva and sclera are non-icteric and not injected. Cornea within normal limits. Periorbital areas with no swelling, redness, or edema. ENT: Nares patent. No nasal discharge, no septal abnormalities noted. Tympanic membranes are normal and external auditory canals are clear. Oropharynx with no redness, swelling, or masses, exudates, or evidence of obstruction, uvula midline. Mucous membranes moist. Neck: Trachea midline, no thyromegaly or masses palpated, and no cervical lymphadenopathy. Supple, full range of motion without nuchal rigidity, or vertebral point tenderness. No Meningismus. Chest/axilla: Normal chest wall appearance and motion. Nontender with no deformity. No lesions are appreciated. Respiratory: Lungs have equal breath sounds bilaterally, clear to auscultation and percussion. No rales, rhonchi or wheezes noted. No increased work of breathing, no retractions or nasal flaring. Back: No spinal tenderness. No costovertebral tenderness. Full range of motion. Pelvic Exam: Normal external genitalia. Speculum exam with closed cervical os, no discharge or bleeding noted. Bimanual exam with normal adnexa, no adnexal or cervical motion tenderness. Normal uterus. Female : Normal external genitalia. MS/ Extremity: Pulses equal, no cyanosis. Neurovascular intact. Full, normal range of motion. Neuro: Awake and alert, GCS 15, oriented to person, place, time, and situation. Cranial nerves II-XII grossly intact. Motor strength 5/5 in all extremities. Sensory grossly intact. Cerebellar exam normal. Normal gait. 23:08 Cardiovascular: Rate: tachycardic, actual rate is 110 bpm, Rhythm: regular, Heart sounds: normal, Edema: is not appreciated, JVD: is not appreciated, Vital Signs: 23:00 BP 115 / 79; Pulse 69; Resp 17 S; Temp 98.1(O); Pulse Ox 100% on R/A; Weight 29.94 kg lg3 (M); Height 4 ft. 11 in. (R); Pain 0/10; 03/20 00:57 BP 115 / 69; Pulse 70; Resp 17 S; Pulse Ox 100% on R/A; lg3 03/19 23:00 Body Mass Index 13.33 (29.94 kg, 149.86 cm) lg3 03/19 23:00 Pain Scale: Adult lg3 MDM: 03/19 23:05 Patient medically screened. [facility] 23:20 Differential diagnosis: Nonspecific abd pain, pancreatitis, viral gastroenteritis, tadeo gastroenteritis, DKA. Differential Diagnosis altered mental status, sepsis, flu. Data reviewed: vital signs, nurses notes, lab test result(s). Consideration of Admission/Observation Escalation of care including admission/observation considered. I considered the following discharge prescriptions or medication management in the emergency department Medications were administered in the Emergency Department. See MAR. Test considered but Not performed: CT: NO CT ABD/PELVIS. Historians other than the Patient: PT WELL INFORMED. 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 Care significantly affected by the following chronic conditions: Diabetes. 03/19 23:05 Order name: CBC with Diff; Complete Time: 01:13 [facility] 03/19 23:05 Order name: Comprehensive Metabolic Panel; Complete Time: 01:13 [facility] Administered Medications: 03/20 00:09 Drug: NS 0.9% IV 1000 ml IV at 1 bolus Per protocol; 1000 mL bolus Route: IV; Rate: 1 lg3 bolus; Site: right upper arm; 01:57 Follow up: IV Status: Completed infusion; IV Intake: 1000ml 3 00:09 Drug: Ondansetron IVP 4 mg IVP once; over 2 minutes Route: IVP; Site: right upper arm; 3 01:57 Follow up: Response: No adverse reaction lg3 01:57 Not Given (Patient Refused): Insulin Drip - (insulin regular human ivp 100 units, ns lg3 0.9% 100 ml) IV at calculated rate continuous; Standard concentration 1unit/ml; Dose for DKA is 0.1 units/kg/hr Disposition Summary: 03/19/24 23:24 Hospitalization Ordered Notes: Hospitalization Status: Inpatient Admission tadeo Provider: Jens Louis cha Condition: Fair tadeo Problem: an ongoing problem tadeo Symptoms: are unchanged tadeo Bed/Room Type: Private tadeo Location: [facility] ER HOLD(03/20/24 01:02) rv1 Room Assignment: ERHOLD-(03/20/24 01:02) rv1 Diagnosis - Diabetes mellitus due to underlying condition with ketoacidosis without coma tadeo Forms: - Medication Reconciliation Form tadeo - SBAR form tadeo - Leadership Thank You Letter tadeo Signatures: Dispatcher [employer] EDSrinivasan Stern MD MD cha Able, Lacie, RN RN lg3 Nely Leggett rv1 Corrections: (The following items were deleted from the chart) 01:02 03/19 23:24 Intensive Care Unit tadeo rv1 03/20 01:02 05 23:24 tadeo rv1
[2024-03-19] MEDS ORDERED: ONDANSETRON 4 MG/2 ML VIAL ONE (23:59)
[2024-03-20] MEDS ORDERED: NA CHLORIDE 0.9% 1,000 ML ONE
[2024-03-20 00:18] LABS: Absolute Lymphocytes (CBC) 1.3 K/uL (0.7-4.9); Absolute Monocytes 0.5 K/uL (0.1-1.3); Absolute Neutrophil 23.6 K/uL (1.8-8.0); Basophils % 0.2 % (0-1.3); Hematocrit 28.8 % (36.0-45.0); Hemoglobin 8.9 g/dL (12.0-15.0); Lymphocytes % 5.2 % (15.3-44.8); MCH 22.4 pg (27.0-35.0); MCV 72.2 fL (80-100); MPV 7.8 fL (7.6-11.3); Neutrophils % 92.6 % (41.7-73.7); Platelets 615 thou/uL (152-406)
[2024-03-20 00:52] LABS: AST/SGOT 9 U/L (15-37); Albumin 3.2 g/dL (3.4-5.0); Albumin/Globulin Ratio 0.5 (1.1-1.8); Alkaline Phosphatase 181 U/L (45-117); Anion Gap 27.6 mEq/L (5.0-15.0); BUN Blood Urea Nitrogen 42 mg/dL (7-18); Bilirubin Total 0.5 mg/dL (0.2-1.0); Globulin 6.3 g/dL (2.3-3.5); Glomerular Filtration Rate 62 ml/min (=/>90); Glucose Level 342 mg/dL (74-106); Potassium 3.6 mEq/L (3.5-5.1); Protein, Total 9.5 g/dL (6.4-8.2); Sodium Level 131 mEq/L (136-145)
[2024-03-20 00:53] LABS: ALT/SGPT < 10 U/L (13-56)
[2024-03-20 00:54] LABS: Bicarbonate 9 mEq/L (21-32)
[2024-03-20 15:03] VITALS: BP 115/69; TEMP 98.1; O2SAT 100
== END 2024-03-20 02:05 | disposition left against medical advice (07) ==
LOC: ER 22:58
DX: E11.10 Type 2 diabetes mellitus with ketoacidosis without coma (principal)
CPT/HCPCS: 36415; 80053; 85025; 96361; 96374; 99285; J2405; J7030

== ENCOUNTER 2024-05-08 13:18 | Inpatient (IN) | payer SELFPAY ==
[2024-05-08] MEDS ORDERED: ONDANSETRON 4 MG/2 ML VIAL ONE (13:32)
[2024-05-08] MEDS ORDERED: NA CHLORIDE 0.9% 1,000 ML ONE ×2 (13:33→14:03)
[2024-05-08] MEDS ORDERED: INSULIN REGULAR (HUMAN) 100 UNIT/ML ONE (14:03)
[2024-05-08 14:39] LABS: Absolute Basophils 0.1 K/uL (0-0.5); Absolute Lymphocytes (CBC) 1.4 K/uL (0.7-4.9); Absolute Monocytes 0.2 K/uL (0.1-1.3); Absolute Neutrophil 27.3 K/uL (1.8-8.0); Basophils % 0.5 % (0-1.3); Hematocrit 36.9 % (36.0-45.0); Hemoglobin 10.7 g/dL (12.0-15.0); Lymphocytes % 4.9 % (15.3-44.8); MCH 24.2 pg (27.0-35.0); MCHC 28.9 g/dL (32.0-36.0); MCV 83.6 fL (80-100); Monocytes % 0.7 % (3.3-12.3); Neutrophils % 93.9 % (41.7-73.7); Platelets 362 thou/uL (152-406); RBC Red Blood Cell Count 4.41 M/uL (3.86-4.86)
[2024-05-08 15:02] LABS: Band Neutrophils 6 % (0-1); Differential Total Cells Count 100; Lymphocytes 9 % (15-42); Monocytes 0 % (0-10); Segmented Neutrophils 85 % (40-80)
[2024-05-08 15:03] LABS: Platelet Estimate ADEQ
[2024-05-08 15:04] LABS: Anisocytosis 1+; Blood Morphology Comment NOTED (NOT SEEN)
[2024-05-08 15:05] LABS: ALT/SGPT 16 U/L (13-56); Albumin 3.1 g/dL (3.4-5.0); Albumin/Globulin Ratio 0.8 (1.1-1.8); Alkaline Phosphatase 142 U/L (45-117); Anion Gap 29.4 mEq/L (5.0-15.0); BUN Blood Urea Nitrogen 29 mg/dL (7-18); Bilirubin Total 0.4 mg/dL (0.2-1.0); Globulin 3.9 g/dL (2.3-3.5); Glomerular Filtration Rate 60 ml/min (=/>90); Lipase 9 U/L (13-75); Magnesium 2.3 mg/dL (1.6-2.4); Phosphorus 5.9 mg/dL (2.5-4.9); Potassium 4.4 mEq/L (3.5-5.1); Sodium Level 134 mEq/L (136-145)
[2024-05-08 16:36] LABS: Blood O2 Saturation 91.7 % (92-98.5)
[2024-05-08 16:37] LABS: Arterial Blood Carboxyhemoglob 1.3 % (0-1.5); Blood Gas Oxyhemoglobin 88.7 % (94-97); Blood Gas THB 11.2 g/dl (12-18)
[2024-05-08 16:39] LABS: AST/SGOT < 10 U/L (15-37); BETA HYDROXYBUTYRATE > 4.50 mmol/L (0.02-0.27); Bilirubin Direct < 0.2 mg/dL (0-0.2); Bilirubin Indirect, Calculated 0.2 mg/dL (0.2-0.8); Glucose Level 876 mg/dL (74-106)
[2024-05-08 16:41] LABS: Bicarbonate < 8 mEq/L (21-32)
--- NOTE | 2024-05-08 16:41 | EDPHYS ---
Physician Documentation [facility] Name: Tessa Eagle Age: 18 yrs Sex: Female : 2005 Arrival Date: 05/08/2024 Time: 13:18 Bed 4 Private MD: ED Physician Amaury Cosby HPI: 05/08 14:23 This 18 yrs old Female presents to ER via Wheelchair with complaints of sb4 Vomiting. 14:24 Patient presents with complaints of vomiting. She is well-known to this facility, has sb4 longstanding history of uncontrolled type 1 diabetes due to noncompliance. She states that she has not taken her insulin for a few days now. She started feeling poorly this morning and went to [facility]. They did not allow her to have water or ice chips and so she left AMA. She started to feel worse so she came here. LOT ATTENDANT: 17:00 unknown cm10 Historical: - Allergies: 13:47 No Known Allergies; al5 - Home Meds: 13:47 Lantus U-100 Insulin 100 unit/mL Sub-Q soln [Active]; Humalog Sub-Q [Active]; al5 divalproex oral [Active]; gabapentin oral [Active]; Suboxone sublingual [Active]; trazodone 100 mg oral tablet 1 tab every day at bedtime [Active]; - PMHx: 13:47 ANOREXIA; diabetes mellitus; drug abuse; renal insufficiency; al5 - Immunization history:: Adult Immunizations unknown. - Infectious Disease History:: Denies. - Social history:: Smoking status: unknown. ROS: 14:24 Constitutional: Negative for fever, chills, and weight loss, sb4 14:24 Abdomen/GI: Positive for nausea and vomiting, 14:24 All other systems are negative, Exam: 14:24 Head/Face: Normocephalic, atraumatic. Eyes: Extra-ocular motions intact. Periorbital sb4 areas with no swelling, redness, or edema. ENT: Mucous membranes moist. Abdomen/GI: Soft, non-tender, no distension. 14:24 Constitutional: The patient appears alert, awake, frail, uncomfortable, 14:24 Cardiovascular: Rate: tachycardic, Rhythm: regular, 14:24 Respiratory: Respiratory rate: 30 14:26 Skin: Warm, dry with normal turgor. Normal color with no rashes, no lesions, and no sb4 evidence of cellulitis. Psych: Awake, alert, with orientation to person, place and time. Behavior, mood, and affect are within normal limits. Vital Signs: 13:30 BP 136 / 92; Pulse 97; Resp 22; Pulse Ox 100% on R/A; al5 13:44 BP 137 / 96; Pulse 104; Resp 30; Pulse Ox 100% on R/A; Weight 27.22 kg; Height 4 ft. 11 al5 in. ; Pain 10/10; 14:00 BP 127 / 75; Pulse 97; Resp 20; Pulse Ox 100% on R/A; cm10 14:40 BP 129 / 90; Pulse 105; Resp 20; Pulse Ox 100% on R/A; al5 14:56 Temp 97; al5 15:00 BP 134 / 93; Pulse 94; Resp 18; Pulse Ox 100% on R/A; cm10 15:30 BP 133 / 104; Pulse 92; Resp 18; Pulse Ox 100% on R/A; cm10 17:00 BP 112 / 85; Pulse 84; Resp 13; Pulse Ox 100% ; cm10 13:44 Body Mass Index 12.12 (27.22 kg, 149.86 cm) al5 13:44 Pain Scale: Adult al5 MDM: 13:27 Patient medically screened. sb4 16:39 Data reviewed: vital signs, nurses notes, lab test result(s), and as a result, I will sb4 discharge patient. Counseling: I had a detailed discussion with the patient and/or guardian regarding the historical points, exam findings, and any diagnostic results supporting the discharge/admit diagnosis, lab results, the need for further work-up and treatment in the hospital. 05/08 13:27 Order name: BETA HYDROXYBUTYRATE; Complete Time: 16:42 sb4 05/08 13:27 Order name: Basic Metabolic Panel; Complete Time: 16:42 sb4 05/08 13:27 Order name: CBC with Diff; Complete Time: 15:05 sb4 05/08 13:27 Order name: Hepatic Function; Complete Time: 16:42 sb4 05/08 13:27 Order name: Lipase; Complete Time: 16:42 sb4 05/08 13:27 Order name: Magnesium; Complete Time: 16:42 sb4 05/08 13:27 Order name: Phosphorus; Complete Time: 16:42 sb4 05/08 13:51 Order name: Glucose, Ancillary Testing; Complete Time: 13:53 EDMS 05/08 15:04 Order name: Manual Differential; Complete Time: 15:05 EDMS 05/08 15:26 Order name: ABG; Complete Time: 16:40 sb4 05/08 15:30 Order name: Glucose, Ancillary Testing; Complete Time: 15:30 EDMS 05/08 15:43 Order name: UAM sb4 05/08 15:43 Order name: Test, Urine sb4 05/08 17:09 Order name: Glucose; Complete Time: 17:47 cm10 05/08 13:27 Order name: Cardiac monitoring; Complete Time: 13:44 sb4 05/08 13:27 Order name: IV Saline Lock; Complete Time: 13:44 sb4 05/08 13:27 Order name: O2 Per Protocol; Complete Time: 13:44 sb4 05/08 13:27 Order name: O2 Sat Monitoring; Complete Time: 13:45 sb4 05/08 13:51 Order name: Labs - recollect needed; Complete Time: 14:27 sp 05/08 15:30 Order name: Misc. Order: recollect BHB; Complete Time: 16:59 sb4 Administered Medications: 13:44 Drug: Ondansetron IVP 4 mg IVP once; over 2 minutes Route: IVP; Site: right wrist; cm10 14:42 Follow up: Response: No adverse reaction al5 13:45 Drug: NS 0.9% IV 1000 ml IV at 1000 ml once Route: IV; Rate: 1000 ml; Site: right wrist;cm10 14:41 Follow up: Response: No adverse reaction; IV Status: Completed infusion; IV Intake: al5 1000ml 14:08 Drug: Insulin Regular Human IVP 10 units IVP once {Co-Signature: cm10 (tarik Araujo RN).} Route: IVP; Site: right wrist; 15:00 Follow up: Response: No adverse reaction cm10 14:09 Drug: NS 0.9% IV 1000 ml IV at 1 bolus Per protocol; 1000 mL bolus Route: IV; Rate: 1 al5 bolus; Site: right wrist; 15:00 Follow up: Response: No adverse reaction; IV Status: Completed infusion; IV Intake: cm10 1000ml 15:11 Follow up: Response: No adverse reaction; IV Intake: 1000ml al5 17:17 Drug: Insulin Drip - (Insulin Regular Human IVP 100 units, NS 0.9% IV 100 ml) IV at cm10 calculated rate continuous; Standard concentration 1unit/ml; Dose for DKA is 0.1 units/kg/hr {Co-Signature: woody (Constance Love RN).} Route: IV; Rate: calculated rate; Site: left hand; 17:25 Follow up: Response: No adverse reaction; IV Status: Infusion continued upon admission cm10 17:22 Drug: Ketorolac IVP 15 mg IVP once Route: IVP; Site: right wrist; cm10 17:27 Follow up: Response: No adverse reaction cm10 Disposition: 18:04 Co-signature as Attending Physician, Amaury Cosby MD I reviewed the patient's care rt provided by the Advanced Practice Provider and agree with the diagnosis and treatment plan. Disposition Summary: 05/08/24 16:40 Hospitalization Ordered Notes: Hospitalization Status: Inpatient Admission sb4 Provider: Parmjit Flores sb4 Location: Intensive Care Unit sb4 Condition: Fair sb4 Problem: new sb4 Symptoms: are unchanged sb4 Bed/Room Type: Standard sb4 Room Assignment: 8-(05/08/24 17:13) bc6 Diagnosis - Type 1 diabetes mellitus with ketoacidosis without coma sb4 Forms: - Medication Reconciliation Form sb4 - SBAR form sb4 - Leadership Thank You Letter sb4 Critical care time excluding procedures: 05/09 09:34 Critical care time: Bedside Care: 10 minutes, Consultation: 25 minutes. Total time: 35 sb4 minutes Signatures: Dispatcher [employer] EDMS Belkys Chester Sophia, PA-C PA-C sb4 Amaury Cosby MD MD rt Hazel Childress bc6 Sindhu Araujo RN RN cm10 Celena Chaves RN RN [email or web address] Sindhu Araujo RN, cm10 Constance Love RN mb9 Corrections: (The following items were deleted from the chart) 05/08 14:26 14:24 Constitutional: The patient appears alert, awake, frail, uncomfortable, sb4 sb4 15:43 15:43 Urinalysis W/Microscopic+U.LAB.BRZ ordered. EDMS EDMS 15:43 15:43 Test, Urine+UC.LAB.BRZ ordered. EDMS EDMS 16:45 16:45 Chest Single View+RAD.RAD.BRZ ordered. EDMS EDMS 17:13 16:40 sb4 bc6
--- NOTE | 2024-05-08 16:41 | ER ---
Nurse's Notes [facility] Name: Tessa Eagle Age: 18 yrs Sex: Female : 2005 Arrival Date: 05/08/2024 Time: 13:18 Bed 4 Private MD: Diagnosis: Type 1 diabetes mellitus with ketoacidosis without coma Presentation: 05/08 13:44 Chief complaint: Patient states: pt c/o nausea and shortness of breath starting this al5 morning, hx of DM. Coronavirus screen: Client denies travel out of the [place] in the last 14 days. At this time, the client does not indicate any symptoms associated with coronavirus-19. Ebola Screen: No symptoms or risks identified at this time. Initial Sepsis Screen: Does the patient meet any 2 criteria? RR > 20 per min. No. Patient's initial sepsis screen is negative. Does the patient have a suspected source of infection? No. Patient's initial sepsis screen is negative. Risk Assessment: Do you want to hurt yourself or someone else? Patient reports no desire to harm self or others. Note pt states this morning she took Lantus 40 units. Onset of symptoms was May 08, 2024. 13:44 Method Of Arrival: Wheelchair al5 13:44 Acuity: JUSTIN 2 al5 Triage Assessment: 13:54 General: Appears ill, Behavior is calm, cooperative. Pain: Complains of pain in abdomen al5 Pain currently is 10 out of 10 on a pain scale. Quality of pain is described as sharp, Pain began this morning Is continuous. Neuro: Level of Consciousness is awake, alert, obeys commands, Oriented to person, place, time, situation, Gait is unsteady, Speech is normal, Facial symmetry appears normal. Cardiovascular: cold and clammy. Rhythm is sinus tachycardia. Respiratory: Airway is patent Trachea midline Respiratory effort is even, unlabored, Respiratory pattern is regular, hyperventilation. GI: Abdomen is flat, non-distended, Reports lower abdominal pain, upper abdominal pain, nausea, Pain is 10 out of 10 on a pain scale. vomiting. Derm: Skin is intact, Skin temperature is cool and clammy. SORTING SUPERVISOR: 17:00 unknown cm10 Historical: - Allergies: 13:47 No Known Allergies; al5 - Home Meds: 13:47 Lantus U-100 Insulin 100 unit/mL Sub-Q soln [Active]; Humalog Sub-Q [Active]; al5 divalproex oral [Active]; gabapentin oral [Active]; Suboxone sublingual [Active]; trazodone 100 mg oral tablet 1 tab every day at bedtime [Active]; - PMHx: 13:47 ANOREXIA; diabetes mellitus; drug abuse; renal insufficiency; al5 - Immunization history:: Adult Immunizations unknown. - Infectious Disease History:: Denies. - Social history:: Smoking status: unknown. Screenin:10 [facility] ED Fall Risk Assessment (Adult) History of falling in the last 3 months, al5 including since admission No falls in past 3 months (0 pts) Confusion or Disorientation No (0 pts) Intoxicated or Sedated No (0 pts) Impaired Gait Yes (1 pt) Mobility Assist Device Used No (0 pt) Altered Elimination No (0 pt) Score/Fall Risk Level 0 - 2 = Low Risk Oriented to surroundings, Maintained a safe environment, Hourly rounding (assess needs \T\ fall precautionary measures) done. Abuse screen: Denies threats or abuse. Denies injuries from another. Nutritional screening: patient has hx of anorexia. Tuberculosis screening: No symptoms or risk factors identified. Assessment: 14:07 Reassessment: see triage assessment. al5 15:54 Reassessment: Patient and/or family updated on plan of care and expected duration. Pain cm10 level reassessed. patient pain 10/10 sharp diffuse in abdomen. patient no longer hyperventilating. blood sugar reading HI, provider was notified. 16:00 Reassessment: Patient appears in no apparent distress at this time. No changes from cm10 previously documented assessment. Patient and/or family updated on plan of care and expected duration. Pain level reassessed. Patient is alert, oriented x 3, equal unlabored respirations, skin warm/dry/pink. 17:00 Reassessment: Patient appears in no apparent distress at this time. No changes from cm10 previously documented assessment. Patient and/or family updated on plan of care and expected duration. Pain level reassessed. Patient is alert, oriented x 3, equal unlabored respirations, skin warm/dry/pink. 17:19 Reassessment: Delay in starting insulin drip due to pending results of CMP. cm10 Vital Signs: 13:30 BP 136 / 92; Pulse 97; Resp 22; Pulse Ox 100% on R/A; al5 13:44 BP 137 / 96; Pulse 104; Resp 30; Pulse Ox 100% on R/A; Weight 27.22 kg; Height 4 ft. 11 al5 in. ; Pain 10/10; 14:00 BP 127 / 75; Pulse 97; Resp 20; Pulse Ox 100% on R/A; cm10 14:40 BP 129 / 90; Pulse 105; Resp 20; Pulse Ox 100% on R/A; al5 14:56 Temp 97; al5 15:00 BP 134 / 93; Pulse 94; Resp 18; Pulse Ox 100% on R/A; cm10 15:30 BP 133 / 104; Pulse 92; Resp 18; Pulse Ox 100% on R/A; cm10 17:00 BP 112 / 85; Pulse 84; Resp 13; Pulse Ox 100% ; cm10 13:44 Body Mass Index 12.12 (27.22 kg, 149.86 cm) al5 13:44 Pain Scale: Adult al5 ED Course: 13:25 Patient arrived in ED. mg5 13:27 Jaquelin Bush PA-C is PHCP. sb4 13:27 Amaury Cosby MD is Attending Physician. sb4 13:44 Celena Chaves, JANESSA is Primary Nurse. al5 13:45 BETA HYDROXYBUTYRATE Sent. cm10 13:45 Basic Metabolic Panel Sent. cm10 13:45 CBC with Diff Sent. cm10 13:45 Hepatic Function Sent. cm10 13:45 Magnesium Sent. cm10 13:45 BETA HYDROXYBUTYRATE Sent. cm10 13:45 Basic Metabolic Panel Sent. cm10 13:45 CBC with Diff Sent. cm10 13:45 Hepatic Function Sent. cm10 13:45 Lipase Sent. cm10 13:45 Magnesium Sent. cm10 13:45 Phosphorus Sent. cm10 13:45 Initial lab(s) drawn, by me, sent to lab. Inserted saline lock: 22 gauge in right cm10 wrist, using aseptic technique. Blood collected. 13:47 Triage completed. al5 14:07 Arm band placed on left wrist. Patient placed in an exam room, on a stretcher, on al5 secured entrance monitor, on pulse oximetry. 14:09 talcer at bedside getting lab work. al5 14:09 No provider procedures requiring assistance completed. Inserted saline lock: 24 gauge al5 in left hand, using aseptic technique. 14:37 Assisted with bedpan. al5 15:00 blood sugar recheck- BGL HI, notified provider. cm10 15:00 Patient has correct armband on for positive identification. Bed in low position. Call cm10 light in reach. Side rails up X2. Provided Education on: ER process and procedures.. Client placed on continuous cardiac and pulse oximetry monitoring. NIBP monitoring applied. monitoring manager on. Warm blanket given. 15:23 Notified Nurse Practitioner and/or Physician Deburrer Strip of a critical lab result(s), al5 Glucose 876. 16:35 Phosphorus Sent. al5 16:35 Magnesium Sent. al5 16:35 Lipase Sent. al5 16:35 Hepatic Function Sent. al5 16:40 Parmjit Flores MD is Hospitalizing Provider. sb4 17:50 Patient admitted, IV remains in place. cm10 17:51 Report given to Fernandez, RN in ICU. cm10 17:53 RN/FRAME SAMPLE AND PATTERN SUPERVISOR escort patient out of department to ICU with secured entrance monitor, another RN. cm10 Administered Medications: 13:44 Drug: Ondansetron IVP 4 mg IVP once; over 2 minutes Route: IVP; Site: right wrist; cm10 14:42 Follow up: Response: No adverse reaction al5 13:45 Drug: NS 0.9% IV 1000 ml IV at 1000 ml once Route: IV; Rate: 1000 ml; Site: right wrist;cm10 14:41 Follow up: Response: No adverse reaction; IV Status: Completed infusion; IV Intake: al5 1000ml 14:08 Drug: Insulin Regular Human IVP 10 units IVP once {Co-Signature: cm10 (tarik Araujo RN).} Route: IVP; Site: right wrist; 15:00 Follow up: Response: No adverse reaction cm10 14:09 Drug: NS 0.9% IV 1000 ml IV at 1 bolus Per protocol; 1000 mL bolus Route: IV; Rate: 1 al5 bolus; Site: right wrist; 15:00 Follow up: Response: No adverse reaction; IV Status: Completed infusion; IV Intake: cm10 1000ml 15:11 Follow up: Response: No adverse reaction; IV Intake: 1000ml al5 17:17 Drug: Insulin Drip - (Insulin Regular Human IVP 100 units, NS 0.9% IV 100 ml) IV at cm10 calculated rate continuous; Standard concentration 1unit/ml; Dose for DKA is 0.1 units/kg/hr {Co-Signature: woody (Constance Love RN).} Route: IV; Rate: calculated rate; Site: left hand; 17:25 Follow up: Response: No adverse reaction; IV Status: Infusion continued upon admission cm10 17:22 Drug: Ketorolac IVP 15 mg IVP once Route: IVP; Site: right wrist; cm10 17:27 Follow up: Response: No adverse reaction cm10 Medication: 17:23 VIS not applicable for this client. cm10 Intake: 14:41 IV: 1000ml; Total: 1000ml. al5 15:00 IV: 1000ml; Total: 2000ml. cm10 15:11 IV: 1000ml; Total: 3000ml. al5 Outcome: 16:40 Decision to Hospitalize by Provider. sb4 17:51 Admitted to ICU accompanied by nurse, via stretcher, room 8, on monitor, Report called cm10 to JANESSA Elizabeth 17:51 Condition: good 17:51 Instructed on the need for admit, 17:59 Patient left the ED. hb Signatures: Maile Goel RN RN Jaquelin Anand PA-C PAHelga sb4 Sindhu Araujo, RN Yoanna Gordon Amanda, RN RN al5 Martinez, Clarissa RN cm10 Breneman, Mary Beth RN mb9
[2024-05-08] MEDS ORDERED: ONDANSETRON 4 MG/2 ML VIAL IV PRN (17:09)
[2024-05-08] MEDS ORDERED: MELATONIN 5 MG TABLET PO PRN (17:12)
[2024-05-08] MEDS ORDERED: KETOROLAC 30 MG/ML INJ ONE (17:14)
[2024-05-08] MEDS ORDERED: NACHLORIDE 0.45% 1,000 ML IV ONE (17:15)
--- NOTE | 2024-05-08 17:20 | P.HP ---
Certification for Inpatient Patient admitted to: Inpatient With expected LOS: >2 Midnights Patient will require the following post-hospital care: None Practitioner: I am a practitioner with admitting privileges, knowledge of patient current condition, hospital course, and medical plan of care. Services: Services provided to patient in accordance with Admission requirements found in Title 42 Section 412.3 of the Code of Federal Regulations Patient History Date of Service: 05/08/24 Reason for admission: DKA History of Present Illness: 18-year-old female with history of type 1 diabetes presents emergency department chief complaint of nausea, vomiting, shortness of breath. she reportedly left AMA from another hospital in the area earlier today for DKA. She was evaluated here in the emergency department her labs are significant for bicarb less than 8, creatinine 1.3 glucose 876 white blood cell count 29 hemoglobin 10.7. Patient reports she had not taken her insulin because she "forgot" the last 2 to 3 days. Denies any fever, chills, abdominal pain or tenderness, cough, urinary symptoms. She has been afebrile. In the emergency department she was given 2 L of normal saline, 10 units of IV insulin and started on insulin drip. Patient will need to be admitted to the ICU for further management of her DKA. pH on ABG 7.1, pCO2 24.2, pO2 73.4, HCO3 7.2 Allergies No Known Allergies Allergy (Verified 07/13/23 22:35) Home Medications: Insulin Degludec [Tresiba Flextouch U-100] 30 units SQ DAILY 02/03/23 Insulin Lispro [Humalog] 6 units SQ TID 02/03/23 - Past Medical/Surgical History Diabetic: Yes -: Type 1 diabetes -: Depression -: None Psychosocial/ Personal History: Patient lives at home with family. - Family History Father -: Diabetes - Social History Alcohol use: No CD- Drugs: Yes Caffeine use: Yes Place of Residence: Home Review of Systems 10-point ROS is otherwise unremarkable Respiratory: Shortness of Breath Gastrointestinal: Nausea Physical Examination - Physical Exam General: Alert, In no apparent distress, Oriented x3 HEENT: Atraumatic, PERRLA, Other (Mucous membranes dry), EOMI Neck: Supple, 2+ carotid pulse no bruit, Without JVD or thyroid abnormality Respiratory: Clear to auscultation bilaterally, Normal air movement Cardiovascular: Regular rate/rhythm, Normal S1 S2 Capillary refill: <2 Seconds Gastrointestinal: Normal bowel sounds, No tenderness Musculoskeletal: No tenderness Integumentary: No rashes Neurological: Normal gait, Normal speech, Normal strength at 5/5 x4 extr, Normal tone - Studies Laboratory Data (last 24 hrs) 05/08/24 05/08/24 14:22 14:22 WBC 29.00 H Hgb 10.7 L Hct 36.9 Plt Count 362 Sodium 134 L Potassium 4.4 BUN 29 H Creatinine 1.30 H Glucose 876 H* Phosphorus 5.9 H Magnesium 2.3 Total Bilirubin 0.4 AST < 10 L ALT 16 Alkaline Phosphatase 142 H Lipase 9 L Assessment and Plan - Plan Assessment: Type 1 diabetes with diabetic ketoacidosis without coma Plan: Type 1 diabetes with diabetic ketoacidosis without coma Continue insulin drip, aggressive IV fluids Chemistry every 4 hours, Accu-Cheks every hour until anion gap closed and glucose less than 200 Admit to ICU Significant weakness and ptosis although ROS negative for infectious signs/symptoms Obtain chest x-ray, UA to rule out infection Procalcitonin in the morning as well as A1c Patient frequently leaves the hospital AMA, counseled on importance of staying in the hospital for management of her critical condition DVT PPX: Lovenox Code status: Full Discharge Plan: Home Plan to discharge in: 48 Hours - Advance Directives Does patient have a Living Will: No Does patient have a Durable POA for Healthcare: No - Code Status/Comfort Care Code Status Assessed: Yes (Full code) Critical Care: No Time Spent Managing Pts Care (In Minutes): 70
[2024-05-08] MEDS: INSULIN REGULAR, HUMAN 100 UNIT in NA CHLORIDE 0.9% 100 ML IV SCH (17:24)
[2024-05-08] MEDS: NACHLORIDE 0.45% 1,000 ML IV SCH (17:24)
[2024-05-08] MEDS: D5 0.45 NS 1,000 ML IV SCH (18:00)
[2024-05-08 18:37] VITALS: BMI 16.7
[2024-05-08 21:55] LABS: Anion Gap 21.4 mEq/L (5.0-15.0); Potassium 4.4 mEq/L (3.5-5.1)
[2024-05-09 01:59] LABS: Anion Gap 16.2 mEq/L (5.0-15.0); Potassium 4.2 mEq/L (3.5-5.1)
[2024-05-09 06:10] LABS: Absolute Lymphocytes (CBC) 1.9 K/uL (0.7-4.9); Absolute Monocytes 0.3 K/uL (0.1-1.3); Absolute Neutrophil 15.7 K/uL (1.8-8.0); Basophils % 0.2 % (0-1.3); Eosinophils % 0.1 % (0-4.4); Hemoglobin 10.2 g/dL (12.0-15.0); Lymphocytes % 10.4 % (15.3-44.8); MCH 24.7 pg (27.0-35.0); MCHC 32.8 g/dL (32.0-36.0); MCV 75.2 fL (80-100); MPV 7.9 fL (7.6-11.3); Monocytes % 1.9 % (3.3-12.3); Neutrophils % 87.4 % (41.7-73.7); Platelets 462 thou/uL (152-406); RBC Red Blood Cell Count 4.12 M/uL (3.86-4.86); Red Cell Distribution Width 20.5 % (12.1-15.2)
[2024-05-09 06:17] LABS: Anion Gap 11.7 mEq/L (5.0-15.0); Magnesium 2.1 mg/dL (1.6-2.4); Potassium 3.7 mEq/L (3.5-5.1)
[2024-05-09 06:20] LABS: Phosphorus 1.5 mg/dL (2.5-4.9)
[2024-05-09] MEDS: ENOXAPARIN 40 MG/0.4 ML SQ SCH (08:31)
[2024-05-09] MEDS: POTASSIUM PHOS IN 0.9 % NACL 15 MMOL/250 ML BAG IV ONE (08:31)
[2024-05-09] MEDS: INSULIN GLARGINE 100 UNIT/ML SQ SCH (08:31)
[2024-05-09] MEDS: INSULIN REGULAR (HUMAN) 100 UNIT/ML SQ SCH (08:48)
[2024-05-09 09:18] VITALS: O2SAT 99
[2024-05-09 09:19] VITALS: TEMP 97.4
[2024-05-09 09:53] LABS: Anion Gap 9.8 mEq/L (5.0-15.0); Potassium 3.8 mEq/L (3.5-5.1)
[2024-05-09] MEDS ORDERED: INSULIN REGULAR (HUMAN) 100 UNIT/ML SQ SCH (10:20)
--- NOTE | 2024-05-09 10:20 | P.PN ---
Date of Service: 05/09/24 Subjective Awake and tolerating vanilla pudding family at bedside Counseled on need for continuous glucose monitor ROS 10 point ROS as noted above, otherwise negative Physical Exam General: Awake and eating HEENT: Atraumatic, PERRLA, Other (Mucous membranes dry), EOMI Neck: Supple, 2+ carotid pulse no bruit, Without JVD or thyroid abnormality Respiratory: Clear to auscultation bilaterally, Normal air movement Cardiovascular: RRR, Normal S1 S2 Capillary refill: <2 Seconds Gastrointestinal: Normal bowel sounds, No tenderness Musculoskeletal: No tenderness Integumentary: No rashes Neurological: Not making eye contact, not speaking Vitals Reviewed Problem list Type 1 diabetes with diabetic ketoacidosis without coma History of Depression Assessment and Plan Type 1 diabetes with diabetic ketoacidosis without coma Stopped insulin gtt, restart lantus home dose while eating Chemistry every 4 hours, Accu-Cheks every 4 hour Admit to ICU Significant weakness and ptosis although ROS negative for infectious signs/symptoms Obtain chest x-ray, UA to rule out infection pending Procalcitonin in the morning as well as A1c Patient frequently leaves the hospital AMA, counseled on importance of staying in the hospital for management of her critical condition History of depression continue home medications supportive care DVT PPX: Lovenox Code status: Full Discharge Plan: Home
[2024-05-09] MEDS: D5 NS IV SCH (11:00)
[2024-05-09 11:34] VITALS: BP 135/88
--- NOTE | 2024-05-10 06:06 | P.DS ---
Admission Date: 05/08/24 Discharge Date: 05/13/24 Disposition: AMA-LEFT AGAINST MEDICAL ADVIC Discharge Condition: FAIR Reason for Admission: DKA Brief History of Present Illness: Diagnosis Type 1 diabetes with diabetic ketoacidosis without coma History of Depression HPI 05/08/2024 Tessa Eagle if a 18-year-old female with history of type 1 diabetes presents emergency department chief complaint of nausea, vomiting, shortness of breath. she reportedly left AMA from another hospital in the area earlier today for DKA. She was evaluated here in the emergency department her labs are significant for bicarb less than 8, creatinine 1.3 glucose 876 white blood cell count 29 hemoglobin 10.7. Patient reports she had not taken her insulin because she "forgot" the last 2 to 3 days. Denies any fever, chills, abdominal pain or tenderness, cough, urinary symptoms. She has been afebrile. In the emergency department she was given 2 L of normal saline, 10 units of IV insulin and started on insulin drip. Patient will need to be admitted to the ICU for further management of her DKA. pH on ABG 7.1, pCO2 24.2, pO2 73.4, HCO3 7.2 Hospital Course: Tessa Eagle is a pleasant 18 year old female with a past medical history significant for depression and who was admitted to the [facility] on 05/08/24 for vomiting, nausea, shortness of breath. Marcelina was found to be in DKA upon arrival to the ED. She was admitted to ICU and placed on an insulin drip. DKA was resolved by the morning of 05/09/24 and she started tolerating p.o. diet. Restarted home Lantus dose. At that time she decided to leave AGAINST MEDICAL ADVICE. Explained she required further evaluation and monitoring to make a full physical recovery. Her risk of stroke from her glucose dropping or a risk of coma from her glucose rebounding remained high. She refused to stay, decided to leave with her boyfriend against medical advice on 05/09/24. Vital Signs/Physical Exam: Temp Pulse Resp BP Pulse Ox 97.4 F 91 H 22 H 135/88 100 05/09/24 08:00 05/09/24 11:00 05/09/24 11:00 05/09/24 11:00 05/09/24 11:00 Laboratory Data at Discharge: WBC 17.90 thou/uL (4.3-10.9) H 05/09/24 05:14 Hgb 10.2 g/dL (12.0-15.0) L 05/09/24 05:14 Hct 31.0 % (36.0-45.0) L 05/09/24 05:14 Plt Count 462 thou/uL (152-406) H D 05/09/24 05:14 Sodium Cancelled 05/09/24 21:00 Potassium Cancelled 05/09/24 21:00 BUN Cancelled 05/09/24 21:00 Creatinine Cancelled 05/09/24 21:00 Glucose Cancelled 05/09/24 21:00 Phosphorus 1.5 mg/dL (2.5-4.9) L* 05/09/24 05:14 Magnesium 2.1 mg/dL (1.6-2.4) 05/09/24 05:14 Total Bilirubin 0.4 mg/dL (0.2-1.0) 05/08/24 14:22 AST < 10 U/L (15-37) L 05/08/24 14:22 ALT 16 U/L (13-56) 05/08/24 14:22 Alkaline Phosphatase 142 U/L (45-117) H 05/08/24 14:22 Triglycerides 177 mg/dL (<150) H 05/09/24 05:14 Cholesterol 194 mg/dL (<200) 05/09/24 05:14 HDL Cholesterol 52 mg/dL (40-60) 05/09/24 05:14 Cholesterol/HDL Ratio 3.73 05/09/24 05:14 Lipase 9 U/L (13-75) L 05/08/24 14:22 Home Medications: Insulin Degludec [Tresiba Flextouch U-100] 30 units SQ DAILY 02/03/23 Insulin Lispro [Humalog] 6 units SQ TID 02/03/23 Followup: NONE,NONE [Primary Care Provider] -
== END 2024-05-09 11:40 | disposition left against medical advice (07) | DRG 638 ==
LOC: ER 13:18 → ERHOLD 17:09 → 3RD-ICU 17:55
PROVIDERS: ADMIT Hospitalist; ATTEND Hospitalist
DX: E10.10 Type 1 diabetes mellitus with ketoacidosis without coma (principal); Z68.1 Body mass index [BMI] 19.9 or less, adult; Z53.29 Procedure and treatment not carried out because of patient's decision for other reasons; F32.A Depression, unspecified; R53.1 Weakness; H02.409 Unspecified ptosis of unspecified eyelid; R63.0 Anorexia; Z91.148 Patient's other noncompliance with medication regimen for other reason; Z79.4 Long term (current) use of insulin; Z83.3 Family history of diabetes mellitus
CPT/HCPCS: 36415; 36600; 71045; 80048; 80061; 80076; 82010; 82805; 82947; 83036; 83690; 83735; 84100; 84145; 85025; 99285; J1650; J2405; J7030; J7060; J7799

== ENCOUNTER 2024-09-15 04:57 | Inpatient (IN) | payer SELFPAY ==
[2024-09-15] MEDS ORDERED: CEFTRIAXONE 1000 MG/VIAL ONE (05:21)
[2024-09-15] MEDS ORDERED: NA CHLORIDE 0.9% 1,000 ML ONE ×2 (05:22→05:23)
[2024-09-15 05:35] LABS: Arterial Blood Carboxyhemoglob 1.1 % (0-1.5); Blood Gas Oxyhemoglobin 47.1 % (94-97); Blood O2 Saturation 48.8 % (92-98.5)
[2024-09-15 05:37] LABS: Absolute Lymphocytes (CBC) 0.9 K/uL (0.7-4.9); Absolute Monocytes 0.2 K/uL (0.1-1.3); Absolute Neutrophil 17.8 K/uL (1.8-8.0); Basophils % 0.2 % (0-1.3); Hematocrit 39.5 % (36.0-45.0); Lymphocytes % 4.7 % (15.3-44.8); MCH 25.6 pg (27.0-35.0); MCHC 30.5 g/dL (32.0-36.0); MCV 83.8 fL (80-100); Monocytes % 1.2 % (3.3-12.3); Neutrophils % 93.9 % (41.7-73.7); PTT, Activated Partial Thromb 37.8 SECONDS (24.3-36.9); Platelets 420 thou/uL (152-406); Protime INR 1.07; RBC Red Blood Cell Count 4.71 M/uL (3.86-4.86); Red Cell Distribution Width 17.2 % (12.1-15.2)
--- NOTE | 2024-09-15 05:51 | ER ---
Nurse's Notes [facility] Name: Tessa Eagle Age: 18 yrs Sex: Female : 2005 Arrival Date: 09/15/2024 Time: 04:57 Bed 3 Private MD: Diagnosis: Type 1 diabetes mellitus with ketoacidosis without coma Presentation: 09/15 05:01 Chief complaint: EMS states: PT BROUGHT IN FROM HOME VIA EMS FOR ELEVATED BGS. EMS dd2 STATES THAT PT READING "HIGH" ON ACCU-CHEK AND SISTER GAVE AN UNKNOWN AMOUNT OF PT'S INSULIN JUST PRIOR TO THEIR ARRIVAL. Coronavirus screen: At this time, the client does not indicate any symptoms associated with coronavirus-19. Ebola Screen: No symptoms or risks identified at this time. Initial Sepsis Screen: Does the patient meet any 2 criteria? RR > 20 per min. HR > 90 bpm. Yes Does the patient have a suspected source of infection? No. Patient's initial sepsis screen is negative. Risk Assessment: Do you want to hurt yourself or someone else? Patient reports no desire to harm self or others. Onset of symptoms was September 15, 2024. Care prior to arrival: Medication(s) given: INSULIN UNKNOWN AMOUNT BY SISTER 05:01 Method Of Arrival: EMS: [facility] dd2 05:01 Acuity: JUSTIN 2 dd2 Triage Assessment: 05:08 General: Appears ill, Behavior is appropriate for age, quiet. Pain: Denies pain. EENT: dd2 No deficits noted. No signs and/or symptoms were reported regarding the EENT system. Neuro: Level of Consciousness is obeys commands, DROWSY APPEARING. Oriented to person, place, situation. Cardiovascular: Patient's skin is warm and dry. Respiratory: Airway is patent Respiratory effort is even, unlabored, Respiratory pattern is regular, symmetrical, tachypnea Breath sounds are clear bilaterally. GI: Abdomen is non-distended, Bowel sounds present X 4 quads. Abd is soft and non tender X 4 quads. : No signs and/or symptoms were reported regarding the genitourinary system. Derm: Skin is pale. Musculoskeletal: Circulation, motion, and sensation intact. Range of motion: intact in all extremities. 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 - Infectious Disease History:: Denies. - Social history:: Smoking status: unknown. Screenin:30 [facility] ED Fall Risk Assessment (Adult) History of falling in the last 3 months, dd2 including since admission No falls in past 3 months (0 pts) Confusion or Disorientation No (0 pts) Intoxicated or Sedated No (0 pts) Impaired Gait Yes (1 pt) Mobility Assist Device Used No (0 pt) Altered Elimination No (0 pt) Score/Fall Risk Level 0 - 2 = Low Risk Oriented to surroundings, Maintained a safe environment, Educated pt \\T\\ family on fall prevention, incl call for assistance when getting out of bed, Assessed \\T\\ reinforced patient's understanding of fall precautions, Hourly rounding (assess needs \\T\\ fall precautionary measures) done. Abuse screen: Denies threats or abuse. Nutritional screening: Pt frail, N/V, underweight. Tuberculosis screening: No symptoms or risk factors identified. Assessment: 05:30 Reassessment: SEE TRIAGE ASSESSMENT FOR FULL ASSESSMENT. dd2 05:36 General: Appears in no apparent distress. uncomfortable, Behavior is calm, cooperative, bm8 appropriate for age, Smells of ketones, Reports chills for 0-12 hours, fatigue for 0-12 hours. 05:37 Pain: Denies pain. Neuro: No deficits noted. Level of Consciousness is awake, alert, bm8 obeys commands, Oriented to person, place, situation, Appropriate for age. Cardiovascular: Denies chest pain, Heart tones S1 S2 present Capillary refill < 3 seconds in bilateral fingers toes Patient's skin is warm and dry. Pulses are all present. Rhythm is sinus tachycardia. Respiratory: Airway is patent Respiratory effort is even, labored, Respiratory pattern is [place]ul Breath sounds are clear bilaterally. the patient has moderate shortness of breath. GI: No deficits noted. No signs and/or symptoms were reported involving the gastrointestinal system. : No deficits noted. No signs and/or symptoms were reported regarding the genitourinary system. EENT: No deficits noted. No signs and/or symptoms were reported regarding the EENT system. Derm: No deficits noted. No signs and/or symptoms reported regarding the dermatologic system. Musculoskeletal: No deficits noted. No signs and/or symptoms reported regarding the musculoskeletal system. 05:46 Reassessment: pt refused xrays, provider informed. bm8 09:08 Reassessment: pt provided lemon glycerin swabs and assisted up to bedside commode. kc6 Vital Signs: 05:01 BP 134 / 85; Pulse 121; Resp 22; Temp 97.9(A); Pulse Ox 100% on R/A; Weight 34.93 kg dd2 (M); Pain 0/10; 05:30 BP 143 / 92; Pulse 105; Resp 22; Pulse Ox 100% on R/A; dd2 05:53 BP 124 / 74; Pulse 100; ec2 05:01 Pain Scale: Adult dd2 Boston Coma Score: 05:30 Eye Response: spontaneous(4). Motor Response: obeys commands(6). Verbal Response: dd2 oriented(5). Total: 15. ED Course: 05:00 Patient arrived in ED. dd2 05:00 Nicholas Roy MD is Attending Physician. ec2 05:05 First set of blood cultures drawn by ED staff. dd2 05:05 Inserted saline lock: 20 gauge in right antecubital area, using aseptic technique. bm8 ,using aseptic technique. ultrasound guided Blood collected. Flushed with 10 mL NS. 05:08 Triage completed. dd2 05:08 Arm band placed on right wrist. Patient placed in an exam room, on a stretcher, on dd2 pulse oximetry. 05:20 Second set of blood cultures drawn by ED staff. vk 05:26 Initial lab(s) drawn, by ED staff, sent to lab. vk 05:28 EKG done, by ED staff. vk 05:30 Patient has correct armband on for positive identification. Bed in low position. Call dd2 light in reach. Side rails up X2. Client placed on continuous cardiac and pulse oximetry monitoring. NIBP monitoring applied. school bus monitor on. Door closed. Noise minimized. Warm blanket given. Pillow given. Verbal reassurance given. 05:30 Blood Culture Adult (2) Sent. vk 05:30 No provider procedures requiring assistance completed. Patient maintains SpO2 dd2 saturation greater than 95% on room air. 05:36 Lupillo Waterman, RN is Primary Nurse. bm8 06:57 Roldan Mcknight is Hospitalizing Provider. ec2 09:08 Diet: Patient is NPO. Assisted to bedside commode. kc6 09:18 Provided Education on: admit. ko1 09:18 Patient admitted, IV remains in place. ko1 Administered Medications: 05:29 Drug: NS 0.9% IV 2000 ml IV at 1000 ml once; to be given as a bolus over 60 minutes dd2 Route: IV; Rate: 1000 ml; Site: left antecubital; 05:29 Drug: Rocephin IV 1 grams IV at calculated rate once; Given slow IV push per pharmacy dd2 instructions Route: IV; Rate: calculated rate; Site: left antecubital; 06:24 Follow up: Response: No adverse reaction; IV Status: Completed infusion; IV Intake: [id number] 06:22 Drug: Insulin Regular Human IVP 5 units IVP once {Co-Signature: dd2 (JULIUS MCFARLAND RN).} bm8 Route: IVP; Site: left antecubital; 06:36 Follow up: Response: No adverse reaction bm8 06:36 Drug: Sodium Bicarbonate IVP 50 mEq IVP once Route: IVP; Site: left antecubital; bm8 06:37 Follow up: Response: No adverse reaction bm8 07:45 Drug: Insulin Drip - (Insulin Regular Human IVP 100 units, NS 0.9% IV 100 ml) IV at ko1 calculated rate continuous; Standard concentration 1unit/ml; Dose for DKA is 0.1 units/kg/hr {Co-Signature: kcMatt (Pau Kam RN).} Route: IV; Rate: calculated rate; Site: left antecubital; Medication: 05:30 VIS not applicable for this client. dd2 Intake: 06:24 IV: 10ml; Total: 10ml. bm8 Outcome: 06:58 Decision to Hospitalize by Provider. ec2 09:18 Admitted to ICU accompanied by nurse, via stretcher, room 2, on monitor, with chart, ko1 Report called to JANESSA Elizabeth 09:18 Condition: stable 09:18 Instructed on the need for admit, 09:19 Patient left the ED. ko1 Signatures: Pau Kam RN RN kc6 Krystal Gonzalez RN RN ko1 Nicholas Roy MD MD ec2 Anita Paniagua Brad RN RN bm8 JULIUS MCFARLAND RN RN dd2 JULIUS MCFARLAND RN dd2 Pau Kam RN kc6 Corrections: (The following items were deleted from the chart) 05:14 05:08 Verified dd2 dd2
--- NOTE | 2024-09-15 05:51 | EDPHYS ---
Physician Documentation [facility] Name: Tessa Eagle Age: 18 yrs Sex: Female : 2005 Arrival Date: 09/15/2024 Time: 04:57 Bed 3 Private MD: ED Physician Nicholas Roy HPI: 09/15 05:02 This 18 yrs old Female presents to ER via Unassigned with complaints of High ec2 Blood Sugar. 05:02 Patient arrives today for evaluation of elevated blood sugar. EMS was called due to ec2 family concern for elevated blood sugars as well as altered mental status. Patient with history of diabetes, medication noncompliance. Patient is altered unable provide significant history.. 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 - Infectious Disease History:: Denies. - Social history:: Smoking status: unknown. ROS: 05:02 Constitutional: as per hpi ec2 Exam: 05:02 Constitutional: GEN: NAD Head: atraumatic Eyes: EOMI Ears: External ears are ec2 normal. CV: Tachycardia LUNGS: Slight tachypnea ABD: non-distended, soft, not guarding not rigid SKIN: no evidence of rashes MSK: no evidence of trauma Vital Signs: 05:01 BP 134 / 85; Pulse 121; Resp 22; Temp 97.9(A); Pulse Ox 100% on R/A; Weight 34.93 kg dd2 (M); Pain 0/10; 05:30 BP 143 / 92; Pulse 105; Resp 22; Pulse Ox 100% on R/A; dd2 05:53 BP 124 / 74; Pulse 100; ec2 05:01 Pain Scale: Adult dd2 Matt Coma Score: 05:30 Eye Response: spontaneous(4). Motor Response: obeys commands(6). Verbal Response: dd2 oriented(5). Total: 15. MDM: 05:00 Medical Screening Exam initiated ec2 05:03 Data reviewed: vital signs. ED course: Patient arrives today for elevated blood sugar ec2 in setting of medication noncompliance. Examination remarkable for tachycardic and slightly altered individuals otherwise slightly tachypneic. Will obtain a septic workup, give the patient crystalloid and further assess. Differential diagnosis includes DKA, electrolyte disturbances, dehydration, urinary tract infection.. 05:04 ED course: EKG independently reviewed and interpreted by me, shows sinus tachycardia, ec2 rate of 110, no acute ST segment elevations, intervals are nonactionable.. 05:30 ED course: Blood gas with significant acidosis at 7.1.. ec2 05:39 ED course: CBC shows leukocytosis of 19. . ec2 05:51 ED course: Patient states that she no longer wants to seek care, patient informed that ec2 she is very sick and this is a bad decision and that she will eventually decompensate and get worse if she does not seek care. She expressed understanding regarding the risks and benefits and expressed expressed an understanding that she could potentially . Patient will leave AGAINST MEDICAL ADVICE. Patient is awake and alert and conversational and appears to be decisional. I informed her that this is not the best decision for her health and she expressed understanding. 06:14 ED course: In the interim patient is waiting for a ride states that she is agreeable to ec2 interventions at this time.. 06:57 ED course: At time of leaving The patient states that she no longer wanted to leave, ec2 will admit for ICU care for DKA. Will treat the patient with insulin drip. 09/15 05:01 Order name: Blood Culture Adult (2) ec2 09/15 05:01 Order name: CBC with Diff ec2 09/15 05:01 Order name: CMP; Complete Time: 06:12 ec2 09/15 05:01 Order name: Lactate w/ 2H reflex if indic.; Complete Time: 05:53 ec2 09/15 05:01 Order name: Protime (+inr); Complete Time: 05:38 ec2 09/15 05:01 Order name: Ptt, Activated; Complete Time: 05:38 ec2 09/15 05:01 Order name: Urinalysis w/ reflexes; Complete Time: 06:22 ec2 09/15 05:01 Order name: ABG; Complete Time: 05:38 ec2 09/15 05:01 Order name: Influenza Screen (a \T\ B); Complete Time: 06:12 ec2 09/15 05:01 Order name: SARS RAPID; Complete Time: 06:12 ec2 09/15 05:17 Order name: Glucose, Ancillary Testing; Complete Time: 05:24 EDMS 09/15 05:34 Order name: BETA HYDROXYBUTYRATE; Complete Time: 06:12 EDMS 09/15 05:40 Order name: Manual Differential EDMS 09/15 07:49 Order name: Phosphorus EDMS 09/15 07:49 Order name: Basic Metabolic Panel EDMS 09/15 07:49 Order name: Basic Metabolic Panel EDMS 09/15 07:49 Order name: Basic Metabolic Panel EDMS 09/15 07:49 Order name: Basic Metabolic Panel EDMS 09/15 07:49 Order name: Basic Metabolic Panel EDMS 09/15 07:49 Order name: Magnesium EDMS 09/15 07:49 Order name: Magnesium EDMS 09/15 07:49 Order name: Magnesium EDMS 09/15 07:49 Order name: Magnesium EDMS 09/15 07:49 Order name: Magnesium EDMS 09/15 07:49 Order name: Phosphorus EDMS 09/15 07:49 Order name: Phosphorus EDMS 09/15 07:52 Order name: Test, Urine EDMS 09/15 07:54 Order name: Glucose, Ancillary Testing EDMS 09/15 09:14 Order name: Glucose, Ancillary Testing EDMS 09/15 05:01 Order name: EKG; Complete Time: 05:02 ec2 09/15 05:01 Order name: Accucheck; Complete Time: 05:29 ec2 09/15 05:01 Order name: Cardiac monitoring; Complete Time: 05: ec2 09/15 05:01 Order name: EKG - Nurse/Tech; Complete Time: 05:28 ec2 09/15 05:01 Order name: IV Saline Lock - Large Bore; Complete Time: 05:30 ec2 09/15 05:01 Order name: Labs collected and sent; Complete Time: : ec2 09/15 05:01 Order name: O2 Per Protocol; Complete Time: 05: ec2 09/15 05:01 Order name: O2 Sat Monitoring; Complete Time: 05:29 ec2 09/15 05:01 Order name: Vital Signs; Complete Time: 05:30 ec2 09/15 05:01 Order name: Misc. Order: VBG not ABG; Complete Time: 05:29 ec2 Administered Medications: 05:29 Drug: NS 0.9% IV 2000 ml IV at 1000 ml once; to be given as a bolus over 60 minutes dd2 Route: IV; Rate: 1000 ml; Site: left antecubital; 05:29 Drug: Rocephin IV 1 grams IV at calculated rate once; Given slow IV push per pharmacy dd2 instructions Route: IV; Rate: calculated rate; Site: left antecubital; 06:24 Follow up: Response: No adverse reaction; IV Status: Completed infusion; IV Intake: [id number] 06:22 Drug: Insulin Regular Human IVP 5 units IVP once {Co-Signature: dd2 (JULIUS MCFARLAND RN).} bm8 Route: IVP; Site: left antecubital; 06:36 Follow up: Response: No adverse reaction bm8 06:36 Drug: Sodium Bicarbonate IVP 50 mEq IVP once Route: IVP; Site: left antecubital; bm8 06:37 Follow up: Response: No adverse reaction bm8 07:45 Drug: Insulin Drip - (Insulin Regular Human IVP 100 units, NS 0.9% IV 100 ml) IV at ko1 calculated rate continuous; Standard concentration 1unit/ml; Dose for DKA is 0.1 units/kg/hr {Co-Signature: kc6 (Pau Kam RN).} Route: IV; Rate: calculated rate; Site: left antecubital; Disposition Summary: 09/15/24 06:58 Hospitalization Ordered Provider: Roldan Mcknight ec2 Location: Intensive Care Unit(09/15/24 06:58) ec2 Condition: Serious(09/15/24 06:58) ec2 Problem: an ongoing problem(09/15/24 06:58) ec2 Symptoms: have improved(09/15/24 06:58) ec2 Bed/Room Type: Standard ec2 Room Assignment: 2-(09/15/24 08:31) ss Diagnosis - Type 1 diabetes mellitus with ketoacidosis without coma(09/15/24 06:58) ec2 Forms: - Medication Reconciliation Form ec2 - SBAR form ec2 - Leadership Thank You Letter ec2 Critical care time excluding procedures: 05:39 Critical care time: Bedside Care: 30 minutes. Total time: 30 minutes ec2 Signatures: Dispatcher [employer] EDMS Amanda Romero, RN RN ss Krystal Gonzalez, RN RN ko1 Nicholas Roy MD MD ec2 Lupillo Waterman RN RN bm8 JULIUS MCFARLAND RN RN dd2 JULIUS MCFARLAND RN dd2 Pau Kam RN kc6 Corrections: (The following items were deleted from the chart) 05:02 05:01 BLOOD CULTURE*+BA.LAB.BRZ ordered. EDMS EDMS 05:02 05:01 CBC+H.LAB.BRZ ordered. EDMS EDMS 05:02 05:01 COMPREHENSIVE METABOLIC PANEL+C.LAB.BRZ ordered. EDMS EDMS 05:02 05:01 LACTATE+C.LAB.BRZ ordered. EDMS EDMS 05:02 05:01 PROTIME (+INR)+COAG.LAB.BRZ ordered. EDMS EDMS 05:02 05:01 PTT, ACTIVATED+COAG.LAB.BRZ ordered. EDMS EDMS 05:02 05:01 Urinalysis+U.LAB.BRZ ordered. EDMS EDMS 05:02 05:01 Influenza Screen (A \T\ B)+BA.LAB.BRZ ordered. EDMS EDMS 05:02 05:01 SARS-COV-2 Antigen Rapid+I.LAB.BRZ ordered. EDMS EDMS 05:32 05:30 BETA HYDROXYBUTYRATE+C.LAB.BRZ ordered. EDMS EDMS 05:53 05:01 Chest Single View+RAD.RAD.BRZ ordered. EDMS EDMS 05:53 05:51 ED course: Patient states that she no longer wants to seek care, patient informed ec2 that she is very sick and this is a bad decision and that she will eventually decompensate and get worse if she does not seek care. She expressed understanding regarding the risks and benefits and expressed expressed an understanding that she could potentially . Patient will leave AGAINST MEDICAL ADVICE.. ec2 06:57 05:50 Home ec2 ec2 06:57 05:50 an ongoing problem ec2 ec2 06:57 05:50 are unchanged ec2 ec2 06:57 05:50 Critical ec2 ec2 06:57 05:50 Type 1 diabetes mellitus with ketoacidosis without coma ec2 ec2 08:31 06:58 ec2 ss
[2024-09-15 06:01] LABS: ALT/SGPT 19 U/L (13-56); AST/SGOT < 10 U/L (15-37); Albumin 3.8 g/dL (3.4-5.0); Albumin/Globulin Ratio 0.6 (1.1-1.8); Alkaline Phosphatase 231 U/L (45-117); Anion Gap 29.1 mEq/L (5.0-15.0); BUN Blood Urea Nitrogen 42 mg/dL (7-18); Bilirubin Total 0.4 mg/dL (0.2-1.0); Globulin 5.9 g/dL (2.3-3.5); Glomerular Filtration Rate 37 ml/min (=/>90); Potassium 5.1 mEq/L (3.5-5.1); Protein, Total 9.7 g/dL (6.4-8.2); Sodium Level 134 mEq/L (136-145)
[2024-09-15 06:02] LABS: BETA HYDROXYBUTYRATE > 4.50 mmol/L (0.02-0.27)
[2024-09-15 06:04] LABS: Bicarbonate < 8 mEq/L (21-32); Glucose Level 642 mg/dL (74-106)
[2024-09-15 06:05] LABS: SARS-CoV-2 Antigen CONTROL BLUE LINE VIS/BG OK; SARS-CoV-2 Antigen Rapid Res Negative (Negative)
[2024-09-15] MEDS ORDERED: INSULIN REGULAR (HUMAN) 100 UNIT/ML ONE (06:16)
[2024-09-15] MEDS: SODIUM BICARB 50 MEQ/50ML VIAL ONE (06:17)
[2024-09-15 06:20] LABS: Specific Gravity 1.022 (1.005-1.030); Sqamous Epithelial <5 /HPF (None Seen); Urine Bacteria None Seen /HPF (<20); Urine Bilirubin NEGATIVE (Negative); Urine Blood Negative (Negative); Urine Clarity Clear (Clear); Urine Color Colorless (Yellow); Urine Culture Reflex Order NOT NEEDED; Urine Glucose 4+ (Over) (Negative); Urine Ketones 4+ (Over) (Negative); Urine Microscopic Reflex YN ORDER UMIC; Urine Mucus Slight /HPF (None Seen); Urine Nitrite NEGATIVE (Negative); Urine Protein 1+ (Negative); Urine RBC <5 /HPF (None Seen); Urine Urobilinogen Normal (Normal); Urine WBC <5 /HPF (<5); Urine pH 5.5 (5.0-7.0)
[2024-09-15] MEDS: INSULIN REGULAR, HUMAN 100 UNIT in NA CHLORIDE 0.9% 100 ML IV ONE (07:15)
[2024-09-15 07:46] LABS: Band Neutrophils 1 % (0-1); Blood Morphology Comment NOT SEEN (NOT SEEN); Differential Total Cells Count 100; Lymphocytes 6 % (15-42); Monocytes 0 % (0-10); Platelet Estimate ADEQ; Segmented Neutrophils 93 % (40-80)
[2024-09-15 07:56] LABS: Specific Gravity 1.022 (1.005-1.030)
[2024-09-15] MEDS: NACHLORIDE 0.45% 1,000 ML with NA BICARB 8.4% 50 MEQ IV SCH (08:00)
[2024-09-15] MEDS: INSULIN REGULAR, HUMAN 100 UNIT in NA CHLORIDE 0.9% 100 ML IV SCH (09:30)
[2024-09-15 09:49] VITALS: O2SAT 100; BMI 15.5
[2024-09-15 10:05] VITALS: BP 136/83; TEMP 97.2
--- NOTE | 2024-09-15 12:41 | P.SSS ---
Patient History Date of Service: 09/15/24 Reason for admission: DKA History of Present Illness: Tessa Eagle is a 18-year-old female with past medical history of anorexia, diabetes mellitusIDDM, drug abuse, renal insufficiency who presents to the ED with chief complaint of elevated blood glucose and altered mental status. Tessa is medication noncompliant and frequently visits the ED with elevated blood sugar. While in the ED blood glucose >500 and 642 on BMP, bicarb<8 with anion gap of 29.1, pH 7.1, pCO2 18.2, PaO2 34.8, HCO3 5.5. She was given sodium bicarb push and started insulin drip while in the ED. She was admitted to the ICU with bicarb drip and insulin drip ordered. Once Tessa was moved to the ICU she refused medical treatment and was carried out of the facility by her male significant other. DKA Metabolic acidosis Leukocytosis REBA Allergies No Known Allergies Allergy (Verified 07/13/23 22:35) Home Medications: Insulin Degludec [Tresiba Flextouch U-100] 30 units SQ DAILY 02/03/23 Insulin Lispro [Humalog] 6 units SQ TID 02/03/23 - Past Medical/Surgical History Has patient received pneumonia vaccine in the past: No Diabetic: Yes -: Type 1 diabetes -: Depression -: Anorexia -: None Psychosocial/ Personal History: Patient lives at home with family. - Family History Father -: Diabetes - Social History Smoking Status: Current every day smoker Alcohol use: No CD- Drugs: Yes Caffeine use: Yes Place of Residence: Home Physical Examination - Vital Signs Temperature: 97.2 F Blood Pressure: 136/83 Pulse: 101 Respirations: 21 Pulse Ox (%): 100 - Studies Laboratory Data (last 24 hrs) 09/15/24 09/15/24 09/15/24 05:05 05:05 05:05 WBC 19.00 H Hgb 12.0 Hct 39.5 Plt Count 420 H PT 12.0 INR 1.07 APTT 37.8 H Sodium 134 L Potassium 5.1 BUN 42 H Creatinine 1.95 H Glucose 642 H* Total Bilirubin 0.4 AST < 10 L ALT 19 Alkaline Phosphatase 231 H Microbiology Data (last 24 hrs): 09/15/24 05:17 Nasopharnyx Influenza Type A Antigen Screen - Final 09/15/24 05:17 Nasopharnyx Influenza Type B Antigen Screen - Final
--- NOTE | 2024-09-15 14:46 | EKG ---
Test Date: 2024-09-15 Test Time: 05:01:56 Healthcare Representative: ANURADHA MEASUREMENT RESULTS: Intervals: Rate: 110 MA: 128 QRSD: 74 QT: 308 QTc: 416 [place]: P: 79 MA: 128 QRS: 76 T: 33 INTERPRETIVE STATEMENTS: Sinus tachycardia Biatrial enlargement Abnormal ECG Compared to ECG 03/19/2024 13:10:06 Sinus rhythm no longer present T-wave abnormality no longer present Electronically Signed On 09-15-24 14:45:29 CDT by Ronnie Dodson
== END 2024-09-15 10:15 | disposition left against medical advice (07) | DRG 638 ==
LOC: ER 04:57 → ERHOLD 08:22 → 3RD-ICU 09:04
PROVIDERS: ADMIT Internal Medicine; ATTEND Internal Medicine
PROC: 4A033R1 Measurement of Arterial Saturation, Peripheral, Percutaneous Approach (ICD-10-PCS; principal; 2024-09-15)
DX: E10.10 Type 1 diabetes mellitus with ketoacidosis without coma (principal); N17.9 Acute kidney failure, unspecified; D72.829 Elevated white blood cell count, unspecified; F17.200 Nicotine dependence, unspecified, uncomplicated; Z79.4 Long term (current) use of insulin; Z11.52 Encounter for screening for COVID-19; Z53.29 Procedure and treatment not carried out because of patient's decision for other reasons; Z91.148 Patient's other noncompliance with medication regimen for other reason
CPT/HCPCS: 36415; 36600; 80053; 81001; 81025; 82010; 82805; 82947; 83605; 85025; 85610; 85730; 87040; 87804; 87811; 93005; J0696; J7030

== ENCOUNTER 2024-10-29 12:34 | Inpatient (IN) | payer SELFPAY ==
[2024-10-29 13:34] LABS: Arterial Blood Carboxyhemoglob 1.2 % (0-1.5); Blood Gas Oxyhemoglobin 93.7 % (94-97); Blood Gas THB 13.7 g/dl (12-18); Blood O2 Saturation 97.1 % (92-98.5)
[2024-10-29] MEDS ORDERED: ONDANSETRON 4 MG/2 ML VIAL ONE (15:05)
[2024-10-29] MEDS ORDERED: INSULIN REGULAR (HUMAN) 100 UNIT/ML ONE (15:06)
[2024-10-29] MEDS ORDERED: NA CHLORIDE 0.9% 100 ML ONE ×2 (15:07→19:42)
[2024-10-29] MEDS ORDERED: NA CHLORIDE 0.9% 1,000 ML ONE (15:07)
[2024-10-29 15:10] LABS: ALT/SGPT 32 U/L (13-56); Albumin 4.4 g/dL (3.4-5.0); Alkaline Phosphatase 196 U/L (45-117); Anion Gap 30.3 mEq/L (5.0-15.0); BUN Blood Urea Nitrogen 35 mg/dL (7-18); Bilirubin Total 0.5 mg/dL (0.2-1.0); Globulin 4.4 g/dL (2.3-3.5); Glomerular Filtration Rate 40 ml/min (=/>90); Glucose Level 862 mg/dL (74-106); Protein, Total 8.8 g/dL (6.4-8.2); Sodium Level 127 mEq/L (136-145)
[2024-10-29 15:11] LABS: AST/SGOT 11 U/L (15-37); BETA HYDROXYBUTYRATE > 4.50 mmol/L (0.02-0.27); Potassium 5.3 mEq/L (3.5-5.1)
[2024-10-29 15:14] LABS: Bicarbonate < 8 mEq/L (21-32)
[2024-10-29 15:26] LABS: Absolute Basophils 0.1 K/uL (0-0.5); Absolute Lymphocytes (CBC) 1.7 K/uL (0.7-4.9); Absolute Monocytes 0.8 K/uL (0.1-1.3); Absolute Neutrophil 31.3 K/uL (1.8-8.0); Basophils % 0.2 % (0-1.3); Hematocrit 45.6 % (36.0-45.0); Hemoglobin 13.7 g/dL (12.0-15.0); Lymphocytes % 4.9 % (15.3-44.8); MCH 25.6 pg (27.0-35.0); MCHC 30.1 g/dL (32.0-36.0); MCV 85.1 fL (80-100); MPV 10.3 fL (7.6-11.3); Monocytes % 2.3 % (3.3-12.3); Neutrophils % 92.6 % (41.7-73.7); Platelets 278 thou/uL (152-406); RBC Red Blood Cell Count 5.36 M/uL (3.86-4.86)
[2024-10-29 15:46] LABS: Band Neutrophils 4 % (0-1); Differential Total Cells Count 100; Lymphocytes 6 % (15-42); Monocytes 2 % (0-10); Segmented Neutrophils 88 % (40-80)
[2024-10-29 15:47] LABS: Blood Morphology Comment NOT SEEN (NOT SEEN); Platelet Estimate ADEQ
--- NOTE | 2024-10-29 15:53 | ER ---
Nurse's Notes [facility] Name: Tessa Eagle Age: 18 yrs Sex: Female : 2005 Arrival Date: 10/29/2024 Time: 12:34 Bed 15 Private MD: Diagnosis: Diabetes mellitus due to underlying condition with ketoacidosis without coma Presentation: 10/29 12:57 Chief complaint: Patient states: nausea, vomiting, high blood sugar. Coronavirus ko1 screen: At this time, the client does not indicate any symptoms associated with coronavirus-19. Ebola Screen: No symptoms or risks identified at this time. Initial Sepsis Screen: Does the patient meet any 2 criteria? No. Patient's initial sepsis screen is negative. Does the patient have a suspected source of infection? No. Patient's initial sepsis screen is negative. Risk Assessment: Do you want to hurt yourself or someone else? Patient reports no desire to harm self or others. Onset of symptoms is unknown. 12:57 Method Of Arrival: Wheelchair ko1 12:57 Acuity: JUSTIN 3 ko1 Triage Assessment: 13:00 General: Appears distressed, ill, Behavior is anxious. Pain: Complains of pain in ko1 abdomen. Historical: - Allergies: 13:00 No Known Allergies; ko1 - PMHx: 13:00 ANOREXIA; diabetes mellitus; drug abuse; renal insufficiency; ko1 - PSHx: 13:00 None; ko1 - Immunization history:: Adult Immunizations unknown. - Infectious Disease History:: Denies. - Social history:: Smoking status: unknown. Screenin:26 [facility] ED Fall Risk Assessment (Adult) History of falling in the last 3 months, tm6 including since admission No falls in past 3 months (0 pts) Confusion or Disorientation No (0 pts) Intoxicated or Sedated No (0 pts) Impaired Gait No (0 pts) Mobility Assist Device Used No (0 pt) Altered Elimination No (0 pt) Score/Fall Risk Level 0 - 2 = Low Risk Oriented to surroundings, Maintained a safe environment, Educated pt \\T\\ family on fall prevention, incl call for assistance when getting out of bed. Abuse screen: Denies threats or abuse. Denies injuries from another. Nutritional screening: No deficits noted. Tuberculosis screening: No symptoms or risk factors identified. Assessment: 12:50 Reassessment: patient and family member waiting outside of triage room, I asked them to ko1 move back into the waiting area for other patients being triaged privacy. The family member refused, taking a step toward me and telling me they would not move, asked "what are you gonna do about it". Security informed and present. 15:36 Reassessment: Patient and/or family updated on plan of care and expected duration. Pain tm6 level reassessed. 18:27 Reassessment: Multiple attempts to collect lactate and PTT. Patient was stuck x4 by 4 tm6 different staff members, including phlebotomy. 19:22 Reassessment: Patient and/or family updated on plan of care and expected duration. Pain tm6 level reassessed. Patient is alert, oriented x 3, equal unlabored respirations, skin warm/dry/pink. Vital Signs: 12:57 BP 141 / 115; Pulse 131; Resp 28; Temp 97; Pulse Ox 95% on R/A; ko1 14:59 Weight 35 kg; tm6 15:35 BP 139 / 92; Pulse 123; Pulse Ox 100% on R/A; MAP 105 mmHg; tm6 18:25 BP 141 / 91; Pulse 119; Pulse Ox 100% on R/A; MAP 105 mmHg; Pain 0/10; tm6 19:22 BP 137 / 95; Pulse 128; Pulse Ox 97% ; tm6 18:25 Pain Scale: Adult tm6 ED Course: 12:34 Patient arrived in ED. mr 12:54 Ros[facility] Zavala, [facility] kb 12:54 Srinivasan Chris MD is Attending Physician. kb 13:00 Triage completed. ko1 13:00 Arm band placed on right wrist. Patient placed in an exam room, on a stretcher, Patient ko1 notified of wait time. 13:00 Patient has correct armband on for positive identification. Placed in gown. Bed in low tm6 position. Call light in reach. Side rails up X 1. Provided Education on: use of emesis bag. Client placed on continuous cardiac and pulse oximetry monitoring. NIBP monitoring applied. hall monitor on. Pulse ox on. NIBP on. Door closed. Noise minimized. Lights dimmed. Warm blanket given. Pillow given. 13:11 Maribel Robledo, RN is Primary Nurse. tm6 14:00 EKG done, by ED staff, reviewed by Rosy ELIAS. tm6 14:33 Initial lab(s) drawn, by me, sent to lab. aa5 14:33 First set of blood cultures drawn by me. aa5 14:36 Inserted saline lock: 22 gauge in right antecubital area, using aseptic technique. aa5 14:53 Second set of blood cultures drawn by me. aa5 14:55 Inserted saline lock: 22 gauge in right wrist, using aseptic technique. aa5 15:52 Roldan Mcknight is Hospitalizing Provider. kb 17:03 Urine collected:. tm6 20:16 No provider procedures requiring assistance completed. Patient admitted, IV remains in tm6 place. Administered Medications: 15:12 Drug: NS 0.9% IV (30 ml/kg) 30 ml/kg IV at bolus once; Sepsis Protocol; to be given as tm6 a bolus over 90 minutes Route: IV; Rate: bolus; Site: right wrist; 19:23 Follow up: Response: No adverse reaction; IV Status: Completed infusion; IV Intake: tm6 1050ml 15:12 Drug: Ondansetron IVP 4 mg IVP once; over 2 minutes Route: IVP; Site: right wrist; tm6 15:53 Follow up: Response: No adverse reaction tm6 15:45 Drug: Insulin Drip - (Insulin Regular Human IVP 100 units, NS 0.9% IV 100 ml) IV at tm6 calculated rate continuous; Standard concentration 1unit/ml; Dose for DKA is 0.1 units/kg/hr {Co-Signature: aa5 (Coni Morales RN).} Route: IV; Rate: calculated rate; Site: right wrist; Medication: 20:17 VIS not applicable for this client. tm6 Intake: 19:23 IV: 1050ml; Total: 1050ml. tm6 Outcome: 15:53 Decision to Hospitalize by Provider. kb 20:16 Admitted to ICU accompanied by nurse, accompanied by tech, via stretcher, room 7, on tm6 monitor, with chart, Report called to Carly 20:16 Condition: stable 20:16 Instructed on the need for admit, 20:17 Patient left the ED. tm6 Signatures: Rosy Zavala, CURT SALDAÑAP-Ckb Constance Muñoz, Reg Reg mr Coni Morales, RN RN aa5 Krystal Gonzalez, RN RN ko1 Maribel Robledo, RN RN tm6 Coni Morales RN aa5
--- NOTE | 2024-10-29 15:54 | EDPHYS ---
Physician Documentation [facility] Name: Tessa Eagle Age: 18 yrs Sex: Female : 2005 Arrival Date: 10/29/2024 Time: 12:34 Bed 15 Private MD: ED Physician Srinivasan Chris HPI: 10/29 13:01 This 18 yrs old Female presents to ER via Wheelchair with complaints of kb Diabetic. 13:01 Pt is a 18 year old female who presents for "DKA." Reports vomiting and abnormal kb breathing that started this morning. States she hasn't taken her insulin in a few days, does not check her sugar normally so isn't sure what it has been. . Historical: - Allergies: 13:00 No Known Allergies; ko1 - PMHx: 13:00 ANOREXIA; diabetes mellitus; drug abuse; renal insufficiency; ko1 - PSHx: 13:00 None; ko1 - Immunization history:: Adult Immunizations unknown. - Infectious Disease History:: Denies. - Social history:: Smoking status: unknown. ROS: 13:01 Constitutional: As per HPI kb Exam: 13:01 Constitutional: This is a well developed, well nourished patient who is awake, alert, kb and in no acute distress. Head/Face: Normocephalic, atraumatic. ENT: Moist Mucous membranes Skin: Warm, dry with normal turgor. Normal color. MS/ Extremity: Pulses equal, no cyanosis. Neurovascular intact. Full, normal range of motion. Neuro: Awake and alert, GCS 15, oriented to person, place, time, and situation. 13:01 Respiratory: mild respiratory distress is noted, Respirations: kussmaul's respirations, Breath sounds: are clear throughout, 13:04 Abdomen/GI: Inspection: abdomen appears normal, Palpation: soft, in all quadrants, mild kb abdominal tenderness, in all quadrants, 13:35 Cardiovascular: Rate: tachycardic, kb 13:56 ECG was reviewed by the Attending Physician. kb Vital Signs: 12:57 BP 141 / 115; Pulse 131; Resp 28; Temp 97; Pulse Ox 95% on R/A; ko1 14:59 Weight 35 kg; tm6 15:35 BP 139 / 92; Pulse 123; Pulse Ox 100% on R/A; MAP 105 mmHg; tm6 18:25 BP 141 / 91; Pulse 119; Pulse Ox 100% on R/A; MAP 105 mmHg; Pain 0/10; tm6 19:22 BP 137 / 95; Pulse 128; Pulse Ox 97% ; tm6 18:25 Pain Scale: Adult tm6 MDM: 12:54 Medical Screening Exam initiated kb 13:35 Differential diagnosis: DKA, dehydration, arrhythmia, abnormal electrolytes. Data kb reviewed: vital signs, nurses notes. Historians other than the Patient: Friend: friend. ED course: ABG with significant acidosis, pH 7.1. 15:51 Consideration of Admission/Observation Patient was admitted/placed on observation. kb Escalation of care including admission/observation considered. Management of patient was discussed with the following: Hospitalist: Hospitalist team, pt accepted for admission under Dr Mcknight. Care significantly affected by the following chronic conditions: Diabetes. Counseling: I had a detailed discussion with the patient and/or guardian regarding the historical points, exam findings, and any diagnostic results supporting the discharge/admit diagnosis, lab results, the need for further work-up and treatment in the hospital. 10/29 13:01 Order name: CBC with Diff; Complete Time: 15:48 kb 10/29 13:01 Order name: BETA HYDROXYBUTYRATE; Complete Time: 15:14 kb 10/29 13:01 Order name: CMP; Complete Time: 15:14 kb 10/29 13:01 Order name: Test, Urine; Complete Time: 17:16 kb 10/29 13:01 Order name: Urinalysis w/ reflexes; Complete Time: 17:16 kb 10/29 13:01 Order name: ABG; Complete Time: 13:50 kb 10/29 13:33 Order name: Blood Culture Adult (2) kb 10/29 13:33 Order name: Lactate w/ 2H reflex if indic. kb 10/29 13:33 Order name: Protime (+inr) kb 10/29 13:33 Order name: Ptt, Activated kb 10/29 15:47 Order name: Manual Differential; Complete Time: 15:48 EDMS 10/29 15:56 Order name: Glucose, Ancillary Testing; Complete Time: 15:59 EDMS 10/29 16:29 Order name: Basic Metabolic Panel EDMS 10/29 16:29 Order name: Basic Metabolic Panel EDMS 10/29 16:29 Order name: Basic Metabolic Panel EDMS 10/29 16:29 Order name: Basic Metabolic Panel EDMS 10/29 16:29 Order name: CBC with Automated Diff EDMS 10/29 16:29 Order name: CBC with Automated Diff EDMS 10/29 16:29 Order name: CBC with Automated Diff EDMS 10/29 16:29 Order name: CBC with Automated Diff EDMS 10/29 16:29 Order name: Lipid Profile EDMS 10/29 16:29 Order name: Lipid Profile EDMS 10/29 16:29 Order name: Magnesium EDMS 10/29 16:29 Order name: Magnesium EDMS 10/29 16:29 Order name: Magnesium EDMS 10/29 16:29 Order name: Magnesium EDMS 10/29 16:29 Order name: Phosphorus EDMS 10/29 16:29 Order name: Phosphorus EDMS 10/29 16:29 Order name: Phosphorus EDMS 10/29 16:29 Order name: Phosphorus EDMS 10/29 16:38 Order name: Test, Serum cm12 10/29 16:52 Order name: Glucose tm6 10/29 17:00 Order name: Glucose, Ancillary Testing; Complete Time: 17:04 EDMS 10/29 17:04 Order name: HCG, Quantitative; Complete Time: 17:05 EDMS 10/29 18:07 Order name: Glucose Level; Complete Time: 18:12 EDMS 10/29 19:29 Order name: Glucose, Ancillary Testing; Complete Time: 19:31 EDMS 10/29 13:01 Order name: EKG; Complete Time: 13:01 kb 10/29 13:01 Order name: IV Start; Complete Time: 14:57 kb 10/29 13:01 Order name: EKG - Nurse/Tech; Complete Time: 14:00 kb 10/29 13:27 Order name: Blood Glucose Level; Complete Time: 15:53 kb 10/29 13:33 Order name: Cardiac monitoring; Complete Time: 14:36 kb 10/29 13:33 Order name: IV Saline Lock - Large Bore; Complete Time: 14:36 kb 10/29 13:33 Order name: Labs collected and sent; Complete Time: 14:36 kb 10/29 13:33 Order name: O2 Per Protocol; Complete Time: 13:57 kb 10/29 13:33 Order name: O2 Sat Monitoring; Complete Time: 13:57 kb 10/29 13:33 Order name: Vital Signs; Complete Time: 14:36 kb 10/29 15:51 Order name: Misc. Order: please send urine if not already sent. Thank you; Complete kb Time: 17:03 EC:56 Rate is 128 beats/min. Rhythm is regular. QRS [place] is Normal. MD interval is normal at kb 130 msec. QRS interval is normal at 62 msec. QT interval is normal at 440 msec. Administered Medications: 15:12 Drug: NS 0.9% IV (30 ml/kg) 30 ml/kg IV at bolus once; Sepsis Protocol; to be given as tm6 a bolus over 90 minutes Route: IV; Rate: bolus; Site: right wrist; 19:23 Follow up: Response: No adverse reaction; IV Status: Completed infusion; IV Intake: tm6 1050ml 15:12 Drug: Ondansetron IVP 4 mg IVP once; over 2 minutes Route: IVP; Site: right wrist; tm6 15:53 Follow up: Response: No adverse reaction tm6 15:45 Drug: Insulin Drip - (Insulin Regular Human IVP 100 units, NS 0.9% IV 100 ml) IV at tm6 calculated rate continuous; Standard concentration 1unit/ml; Dose for DKA is 0.1 units/kg/hr {Co-Signature: jorge l (Coni Morales RN).} Route: IV; Rate: calculated rate; Site: right wrist; Disposition Summary: 10/29/24 15:53 Hospitalization Ordered Notes: Hospitalization Status: Inpatient Admission kb Provider: Roldan Mcknight Location: Intensive Care Unit kb Condition: Stable kb Problem: new kb Symptoms: are unchanged Bed/Room Type: Standard Room Assignment: 7-(10/29/24 17:54) Diagnosis - Diabetes mellitus due to underlying condition with ketoacidosis without coma kb Forms: - Medication Reconciliation Form kb - SBAR form kb - Leadership Thank You Letter Critical care time excluding procedures: 15:52 Critical care time: Bedside Care: 15 minutes, Consultation: 15 minutes. Total time: 30 kb minutes Addendum: 11/05/2024 09:04 Co-signature as Attending Physician, Srinivasan Chris MD I agree with the assessment and c cody plan of care. Signatures: Dispatcher [employer] Rosy Jim FNP-C SENIOR SOLUTIONS ENGINEER-CkSrinivasan Martinez MD MD cha Botello, Elizabeth eb Oliver, Kathy, JANESSA RN ko1 Maribel Robledo RN RN tm6 Coni Morales RN aa5 Corrections: (The following items were deleted from the chart) 10/29 13:35 13:01 Constitutional: This is a well developed, well nourished patient who is awake, kb alert, and in no acute distress. Head/Face: Normocephalic, atraumatic. ENT: Moist Mucous membranes Cardiovascular: Regular rate Skin: Warm, dry with normal turgor. Normal color. MS/ Extremity: Pulses equal, no cyanosis. Neurovascular intact. Full, normal range of motion. Neuro: Awake and alert, GCS 15, oriented to person, place, time, and situation. kb 17:54 15:53 kb eb
--- NOTE | 2024-10-29 16:21 | P.HP ---
Certification for Inpatient Patient admitted to: Inpatient With expected LOS: >2 Midnights Practitioner: I am a practitioner with admitting privileges, knowledge of patient current condition, hospital course, and medical plan of care. Services: Services provided to patient in accordance with Admission requirements found in Title 42 Section 412.3 of the Code of Federal Regulations Patient History Date of Service: 10/29/24 Reason for admission: DKA History of Present Illness: Ms. Eagle is a 18-year-old female with a past medical history of noncompliance, frequent hospitalizations, type 1 diabetes, and drug abuse. She presented to the emergency department with a 3-day history of not taking her medication. On arrival she was tachypneic, tachycardic, and presents in DKA with a pH of 7.1, bicarb of 2. WBC 33.8 with an H&H of 13.7 and 45.6. Beta hydroxybutyrate greater than 4.5, pseudohyponatremia of 127 with a glucose of 862, potassium 5.3, creatinine 1.83, with a BUN of 35, serum negative. She will be admitted to the ICU for DKA Allergies No Known Allergies Allergy (Verified 07/13/23 22:35) Home medications list reviewed: Yes Home Medications: Insulin Degludec [Tresiba Flextouch U-100] 30 units SQ DAILY 02/03/23 Insulin Lispro [Humalog] 6 units SQ TID 02/03/23 - Past Medical/Surgical History Has patient received pneumonia vaccine in the past: No Diabetic: Yes -: Type 1 diabetes -: Depression -: Anorexia -: Noncompliance -: Drug abuse -: None Psychosocial/ Personal History: Patient lives at home with family. - Family History Father -: Diabetes - Social History Smoking Status: Unknown if ever smoked Alcohol use: No CD- Drugs: Yes Caffeine use: Yes Place of Residence: Home Review of Systems 10-point ROS is otherwise unremarkable General: Weakness, Malaise Eyes: Unremarkable ENT: Unremarkable Respiratory: Unremarkable Cardiovascular: Unremarkable Gastrointestinal: Unremarkable Genitourinary: Unremarkable Musculoskeletal: Unremarkable Integumentary: Unremarkable Neurological: Unremarkable Lymphatics: Unremarkable Physical Examination - Physical Exam General: Cachectic, Moderate distress HEENT: Atraumatic, Normocephalic Neck: Supple Respiratory: Clear to auscultation bilaterally, Other (Tachypneic) Cardiovascular: Other (Tachycardia) Capillary refill: <2 Seconds Gastrointestinal: Hypoactive Musculoskeletal: Other Integumentary: Other (Dry) Neurological: Abnormal speech, Abnormal tone, Abnormal affect Lymphatics: No axilla or inguinal lymphadenopathy External genitalia: Deferred Rectal: Deferred - Studies Laboratory Data (last 24 hrs) 10/29/24 10/29/24 14:33 14:33 WBC 33.80 H Hgb 13.7 Hct 45.6 H Plt Count 278 Sodium 127 L Potassium 5.3 H BUN 35 H Creatinine 1.83 H Glucose 862 H* Total Bilirubin 0.5 AST 11 L ALT 32 Alkaline Phosphatase 196 H Assessment and Plan - Plan Admit to ICU DKA Hyperkalemia Leukocytosis REBA N.p.o. IVF-will correct with glucose correction Insulin drip Chem-7 every 4 x 3 Glucose monitoring every hour Blood cultures and observe for source of any infection although more likely noncompliance triggered DKA Awaiting urine specimen, Rocephin 1 g IV daily coverage until infection ruled out (blood cultures obtained) Monitor and replete electrolytes When blood sugar less than 200 change IVF to D5.45 until gap closes Once gap closes change to long-acting and sliding scale subcu insulin may advance diet Noncompliance Social determinants of health Drug abuse Reorient patient enlist friends/family to help patient stay compliant Discuss importance of health maintenance bibliographic services specialist consult VTE/GI prophylaxis Plan to discharge in: Greater than 2 days - Advance Directives Does patient have a Living Will: No Does patient have a Durable POA for Healthcare: No - Code Status/Comfort Care Code Status Assessed: Yes (Full) Critical Care: Yes
[2024-10-29] MEDS ORDERED: D50W 25 GM/50 ML SYRINGE IV PRN (16:28)
[2024-10-29] MEDS ORDERED: GLUCAGON 1 MG/VIAL IM PRN (16:28)
[2024-10-29 17:12] LABS: Specific Gravity 1.024 (1.005-1.030)
[2024-10-29 17:15] LABS: Specific Gravity 1.024 (1.005-1.030); Sqamous Epithelial <5 /HPF (None Seen); Urine Bacteria <20 /HPF (<20); Urine Bilirubin NEGATIVE (Negative); Urine Blood Trace (Negative); Urine Clarity Clear (Clear); Urine Color Colorless (Yellow); Urine Crystals Unidentified Few /HPF (None Seen); Urine Culture Reflex Order NOT NEEDED; Urine Glucose 4+ (Over) (Negative); Urine Ketones 4+ (Over) (Negative); Urine Microscopic Reflex YN ORDER UMIC; Urine Mucus Slight /HPF (None Seen); Urine Nitrite NEGATIVE (Negative); Urine Protein 1+ (Negative); Urine RBC <5 /HPF (None Seen); Urine Urobilinogen Normal (Normal); Urine WBC <5 /HPF (<5)
[2024-10-29] MEDS ORDERED: CEFTRIAXONE 1000 MG/VIAL ONE (19:42)
[2024-10-29] MEDS ORDERED: NACHLORIDE 0.45% 1,000 ML IV ONE (19:42)
[2024-10-29] MEDS: CEFTRIAXONE 1,000 MG in NA CHLORIDE 0.9% 50 ML IVPB SCH (19:52)
[2024-10-29] MEDS: NACHLORIDE 0.45% 1,000 ML IV SCH (19:53)
[2024-10-29] MEDS: INSULIN REGULAR, HUMAN 100 UNIT in NA CHLORIDE 0.9% 100 ML IV SCH (20:05)
[2024-10-29] MEDS: D5 0.45 NS 1,000 ML IV SCH (20:10)
[2024-10-29 20:29] VITALS: BMI 14.3
[2024-10-29 20:58] VITALS: O2SAT 98
[2024-10-29] MEDS: HEPARIN 5000 UNIT/ML 1 ML VIAL SQ SCH (21:06)
[2024-10-30 05:58] LABS: PT Prothrombin Time 10.8 SECONDS (9.4-12.5); PTT, Activated Partial Thromb 27.6 SECONDS (24.3-36.9); Protime INR 0.96
[2024-10-30 06:08] LABS: Anion Gap 9.2 mEq/L (5.0-15.0); Magnesium 1.7 mg/dL (1.6-2.4); Phosphorus 1.9 mg/dL (2.5-4.9); Potassium 3.2 mEq/L (3.5-5.1)
[2024-10-30] MEDS: MAGNESIUM SULFATE 1 gm IVPB 1 GM/100 ML BAG IV ONE (06:40)
[2024-10-30 06:46] LABS: Absolute Basophils 0.1 K/uL (0-0.5); Absolute Monocytes 0.7 K/uL (0.1-1.3); Absolute Neutrophil 11.8 K/uL (1.8-8.0); Basophils % 0.8 % (0-1.3); Eosinophils % 0.2 % (0-4.4); Hematocrit 34.2 % (36.0-45.0); Hemoglobin 11.3 g/dL (12.0-15.0); Lymphocytes % 7.6 % (15.3-44.8); MCH 25.9 pg (27.0-35.0); MCHC 33.1 g/dL (32.0-36.0); MCV 78.2 fL (80-100); MPV 8.5 fL (7.6-11.3); Monocytes % 5.3 % (3.3-12.3); Neutrophils % 86.1 % (41.7-73.7); Nucleated Red Blood Cells % 0.1 % (0-0); Platelets 197 thou/uL (152-406); RBC Red Blood Cell Count 4.38 M/uL (3.86-4.86); Red Cell Distribution Width 15.9 % (12.1-15.2)
[2024-10-30] MEDS: POTASSIUM PHOS IN 0.9 % NACL 15 MMOL/250 ML BAG IV ONE (06:46)
[2024-10-30 07:54] VITALS: TEMP 98.2
[2024-10-30] MEDS: INSULIN GLARGINE 100 UNIT/ML SQ ONE ×2 (08:14→10:44)
[2024-10-30] MEDS: Mupirocin NASAL 2 APPL/1 GM TUBE NAS SCH (08:15)
[2024-10-30 09:52] VITALS: BP 142/96
[2024-10-30] MEDS: KCL 20 MEQ/100 mL IVPB 20 MEQ/100 ML BAG IV SCH (09:59)
--- NOTE | 2024-10-30 18:25 | P.DS ---
Admission Date: 10/29/24 Discharge Date: 10/30/24 Disposition: AMA-LEFT AGAINST MEDICAL ADVIC Reason for Admission: DKA - Problems (1) Severe protein-calorie malnutrition Status: Acute (2) DKA (diabetic ketoacidoses) Status: Acute Qualifiers: Diabetes mellitus type: type 1 Diabetes mellitus complication detail: without coma Qualified Code(s): E10.10 - Type 1 diabetes mellitus with ketoacidosis without coma (3) Sepsis Status: Acute Brief History of Present Illness: 18-year-old female with a past medical history of noncompliance, frequent hospitalizations, type 1 diabetes, and drug abuse presented to the emergency department with a 3-day history of not taking her medication. On arrival she was tachypneic, tachycardic,. Blood work showed pH of 7.1, bicarb of 2. WBC 33.8 with an H&H of 13.7 and 45.6. Beta hydroxybutyrate greater than 4.5, pseudohyponatremia of 127 with a glucose of 862, potassium 5.3, creatinine 1.83, with a BUN of 35, serum negative. Patient diagnosed with DKA and admitted for further management. Hospital Course: Patient admitted to ICU on DKA protocol. She was adequately hydrated with IV fluid and treated with insulin drip. Her anion gap closed the following day, patient started on a diet and subcutaneous insulin. She is on Tresiba insulin 30 units daily. Given that she had poor oral intake, patient was given half her home dose Tresiba (15 units). Patient was still hyperglycemic so she was given another dose of 15 units Tresiba. Patient will not stay in the hospital further for monitoring and management of her blood sugar. She signed out AGAINST M EDICAL ADVICE which is a common pattern for her. She will not wait for me to discuss her risks of signing out AGAINST MEDICAL ADVICE. Vital Signs/Physical Exam: Temp Pulse Resp BP Pulse Ox 98.2 F 87 17 142/96 H 100 10/30/24 07:00 10/30/24 09:00 10/30/24 09:00 10/30/24 09:00 10/30/24 09:00 Laboratory Data at Discharge: WBC 13.70 thou/uL (4.3-10.9) H 10/30/24 06:30 Hgb 11.3 g/dL (12.0-15.0) L D 10/30/24 06:30 Hct 34.2 % (36.0-45.0) L 10/30/24 06:30 Plt Count 197 thou/uL (152-406) D 10/30/24 06:30 PT 10.8 SECONDS (9.4-12.5) 10/30/24 05:23 INR 0.96 10/30/24 05:23 APTT 27.6 SECONDS (24.3-36.9) 10/30/24 05:23 Sodium 137 mEq/L (136-145) D 10/30/24 05:23 Potassium 3.2 mEq/L (3.5-5.1) L D 10/30/24 05:23 BUN 21 mg/dL (7-18) H 10/30/24 05:23 Creatinine 1.14 mg/dL (0.55-1.02) H 10/30/24 05:23 Glucose 173 mg/dL (74-106) H 10/30/24 05:23 Phosphorus 1.9 mg/dL (2.5-4.9) L 10/30/24 05:23 Magnesium 1.7 mg/dL (1.6-2.4) 10/30/24 05:23 Total Bilirubin 0.5 mg/dL (0.2-1.0) 10/29/24 14:33 AST 11 U/L (15-37) L 10/29/24 14:33 ALT 32 U/L (13-56) 10/29/24 14:33 Alkaline Phosphatase 196 U/L (45-117) H 10/29/24 14:33 Triglycerides 113 mg/dL (<150) 10/30/24 05:23 Cholesterol 155 mg/dL (<200) 10/30/24 05:23 HDL Cholesterol 67 mg/dL (40-60) H 10/30/24 05:23 Cholesterol/HDL Ratio 2.31 10/30/24 05:23 Home Medications: Insulin Degludec [Tresiba Flextouch U-100] 30 units SQ DAILY 02/03/23 Insulin Lispro [Humalog] 6 units SQ TID 02/03/23 Followup: NONE,NONE [Primary Care Provider] -
--- NOTE | 2024-11-02 12:09 | EKG ---
Test Date: 2024-10-29 Test Time: 13:54:12 Medical Technician: REAGAN MEASUREMENT RESULTS: Intervals: Rate: 128 WV: 130 QRSD: 62 QT: 302 QTc: 440 [place]: P: 84 WV: 130 QRS: 82 T: 34 INTERPRETIVE STATEMENTS: Sinus tachycardia Right atrial enlargement Borderline ECG Compared to ECG 09/15/2024 05:01:56 No significant changes Electronically Signed On 11-02-24 12:05:34 DATABASE ANALYST by Etienne Jacobs
== END 2024-10-30 11:05 | disposition left against medical advice (07) | DRG 871 ==
LOC: ER 12:34 → ERHOLD 16:22 → 3RD-ICU 18:22
PROVIDERS: ADMIT Internal Medicine; ATTEND Internal Medicine
PROC: 4A033R1 Measurement of Arterial Saturation, Peripheral, Percutaneous Approach (ICD-10-PCS; principal; 2024-10-29)
PROC: 02HV33Z Insertion of Infusion Device into Superior Vena Cava, Percutaneous Approach (ICD-10-PCS; 2024-10-29)
DX: A41.9 Sepsis, unspecified organism (principal); E10.10 Type 1 diabetes mellitus with ketoacidosis without coma; E43 Unspecified severe protein-calorie malnutrition; N17.9 Acute kidney failure, unspecified; R64 Cachexia; Z68.1 Body mass index [BMI] 19.9 or less, adult; E87.5 Hyperkalemia; T38.3X6A Underdosing of insulin and oral hypoglycemic [antidiabetic] drugs, initial encounter; Z79.4 Long term (current) use of insulin; Z53.29 Procedure and treatment not carried out because of patient's decision for other reasons; Z91.128 Patient's intentional underdosing of medication regimen for other reason; Z91.148 Patient's other noncompliance with medication regimen for other reason
CPT/HCPCS: 36415; 36600; 80048; 80053; 80061; 81001; 81025; 82010; 82805; 82947; 83605; 83735; 84100; 84702; 85025; 85610; 85730; 87040; 93005; 96365; 96366; 96375; 99285; J0696; J1644; J2405; J3475; J3480; J7030; J7799

== ENCOUNTER 2024-12-08 02:14 | Emergency (ER) | payer SELFPAY ==
[2024-12-08] MEDS ORDERED: ONDANSETRON 4 MG/2 ML VIAL ONE (03:11)
[2024-12-08] MEDS ORDERED: NA CHLORIDE 0.9% 2,000 ML ONE (03:11)
[2024-12-08] MEDS ORDERED: INSULIN REGULAR (HUMAN) 100 UNIT/ML ONE ×2 (03:13→04:30)
[2024-12-08 03:15] LABS: Absolute Basophils 0.1 K/uL (0-0.5); Absolute Monocytes 0.3 K/uL (0.1-1.3); Absolute Neutrophil 18.7 K/uL (1.8-8.0); Basophils % 0.5 % (0-1.3); Hemoglobin 12.4 g/dL (12.0-15.0); Lymphocytes % 9.3 % (15.3-44.8); MCH 25.7 pg (27.0-35.0); MCHC 31.8 g/dL (32.0-36.0); MCV 80.9 fL (80-100); Monocytes % 1.2 % (3.3-12.3); Nucleated Red Blood Cells % 0.1 % (0-0); Platelets 79 thou/uL (152-406); RBC Red Blood Cell Count 4.83 M/uL (3.86-4.86)
[2024-12-08 03:20] LABS: Protime INR 1.05
[2024-12-08 03:40] LABS: ALT/SGPT 32 U/L (13-56); Albumin 4.6 g/dL (3.4-5.0); Albumin/Globulin Ratio 1.1 (1.1-1.8); Alkaline Phosphatase 148 U/L (45-117); Anion Gap 35.1 mEq/L (5.0-15.0); BUN Blood Urea Nitrogen 34 mg/dL (7-18); Bilirubin Total 0.7 mg/dL (0.2-1.0); Globulin 4.2 g/dL (2.3-3.5); Glomerular Filtration Rate 43 ml/min (=/>90); NT PRO-BNP 183 pg/mL (<125); Protein, Total 8.8 g/dL (6.4-8.2); Sodium Level 131 mEq/L (136-145)
[2024-12-08 03:41] LABS: AST/SGOT 12 U/L (15-37); BETA HYDROXYBUTYRATE > 4.50 mmol/L (0.02-0.27); Bicarbonate < 8 mEq/L (21-32); Bilirubin Direct < 0.2 mg/dL (0-0.2); Bilirubin Indirect, Calculated 0.5 mg/dL (0.2-0.8); C-Reactive Protein < 2.90 mg/L (<3.00); Magnesium 2.3 mg/dL (1.6-2.4); Potassium 5.1 mEq/L (3.5-5.1); Troponin High Sensitivity < 3.0 pg/mL (<58.9)
[2024-12-08 03:42] LABS: Glucose Level 667 mg/dL (74-106)
[2024-12-08 03:53] LABS: Band Neutrophils 13 % (0-1); Blood Morphology Comment NOT SEEN (NOT SEEN); Differential Total Cells Count 100; Lymphocytes 7 % (15-42); Monocytes 0 % (0-10); Platelet Estimate ADEQ; Segmented Neutrophils 80 % (40-80)
[2024-12-08] MEDS ORDERED: VANCOMYCIN 1 GM/VIAL ONE (04:29)
[2024-12-08] MEDS ORDERED: NA CHLORIDE 0.9% 500 ML ONE (04:30)
[2024-12-08] MEDS ORDERED: NA CHLORIDE 0.9% 200 ML ONE (04:30)
[2024-12-08] MEDS ORDERED: CEFEPIME 1 GM/VIAL ONE (04:31)
--- NOTE | 2024-12-08 05:38 | RAD REPORT ---
EXAM: CT Chest, Abdomen and Pelvis Without Intravenous Contrast CLINICAL HISTORY: The patient is 18 years old and is Female; Chest pain. TECHNIQUE: Axial computed tomography images of the chest, abdomen and pelvis without intravenous co ntrast. Sagittal and coronal reformatted images were created and reviewed. This CT exam was performed using one or more of the following dose reduction techniques: automated exposure control, adjustment of the mA and/or kV according to patient size, and/or use of iterative reconstruction technique. COMPARISON: XR Chest 12/08/2024, 03:04:[address] Abdomen Pelvis 01/13/2023. FINDINGS: CHEST: Lungs: Unremarkable. No mass. No consolidation or ground glass opacities. Pleural space: Unremarkable. No significant effusion. No pneumothorax. Heart: Unremarkable. No cardiomegaly. No significant pericardial effusion. No significant c oronary artery calcifications. ABDOMEN: Liver: Unremarkable. Gallbladder and bile ducts: Unremarkable. No calcified stones. No ductal dilation. Pancreas: Unremarkable. No ductal dilation. Spleen: Unremarkable. No splenomegaly. Adrenals: Unremarkable. No mass. Kidneys and ureters: Unremarkable. No obstructing stones. No hydronephrosis. Stomach and bowel: No bowel dilatation or obstruction. No bowel wall thickening. PELVIS: Appendix: No findings to suggest acute appendicitis. Bladder: Bladder is full. No bladder wall thickening. No stones. Reproductive: Unremarkable as visualized. CHEST, ABDOMEN and PELVIS: Intraperitoneal space: Unremarkable. No significant fluid collection. No free air. Bones/joints: No acute fracture visualized. No dislocation. Soft tissues: Unremarkable. Vasculature: Unremarkable. No aortic aneurysm. Lymph nodes: Unremarkable. No enlarged lymph nodes. Tubes, lines and devices: Right IJ line terminates at the SVC/RA junction. IMPRESSION: 1. Right IJ line terminates at the SVC/RA junction. 2. No acute intrathoracic or intra-abdominal process identified. Electronically signed by: Sayda Lo MD 12/08/2024 05:[address] [facility] [place] Due to temporary technical issues with the [employer] reporting system, reports are being tristen d by the in-house radiologist without review as a courtesy to ensure prompt reporting the interpreting radiologist is fully responsible for the content of the report. Transcribed Date/Time: 12/08/2024 5:37 AM
[2024-12-08] MEDS ORDERED: NA CHLORIDE 0.9% 1,000 ML ONE (05:39)
[2024-12-08 06:08] LABS: Anion Gap 24.1 mEq/L (5.0-15.0); BUN Blood Urea Nitrogen 31 mg/dL (7-18); Glomerular Filtration Rate 66 ml/min (=/>90); Glucose Level 338 mg/dL (74-106); Potassium 4.1 mEq/L (3.5-5.1); Sodium Level 140 mEq/L (136-145)
[2024-12-08 06:09] LABS: Bicarbonate < 8 mEq/L (21-32)
--- NOTE | 2024-12-08 06:11 | RAD REPORT ---
EXAM: XR Chest, 1 View CLINICAL HISTORY: The patient is 18 years old and is Female; Chest pain. TECHNIQUE: Single view of the chest. COMPARISON: No relevant prior studies available. FINDINGS: Lungs: No pulmonary vascular congestion or consolidation. Pleural space: Unremarkable. No pneumothorax. Heart: Unremarkable. No cardiomegaly. Mediastinum: Unremarkable. Bones/joints: No acute fracture. Tubes, lines and devices: Right IJ line terminates at the SVC/RA junction. Upper abdomen: No free air in the visualized upper abdomen. IMPRESSION: 1. Right IJ line terminates at the SVC/RA junction. 2. No acute cardiopulmonary process identified. Electronically signed by: Sayda Lo MD 12/08/2024 05:23 AM [facility] [place] Due to temporary technical issues with the [employer] reporting system, reports are being tristen d by the in-house radiologist without review as a courtesy to ensure prompt reporting the interpreting radiologist is fully responsible for the content of the report. Transcribed Date/Time: 12/08/2024 6:11 AM
[2024-12-08 06:20] LABS: Specific Gravity 1.021 (1.005-1.030); Sqamous Epithelial <5 /HPF (None Seen); Urine Bacteria None Seen /HPF (<20); Urine Bilirubin NEGATIVE (Negative); Urine Blood Negative (Negative); Urine Clarity Clear (Clear); Urine Color Colorless (Yellow); Urine Culture Reflex Order NOT NEEDED; Urine Glucose 4+ (Over) (Negative); Urine Ketones 4+ (Over) (Negative); Urine Micro Reflex YN NO BILL MICROSCOPIC; Urine Mucus Slight /HPF (None Seen); Urine Nitrite NEGATIVE (Negative); Urine Protein TRACE (Negative); Urine RBC <5 /HPF (None Seen); Urine Urobilinogen Normal (Normal); Urine WBC None Seen /HPF (<5)
[2024-12-08 06:25] LABS: Blood Gas Oxyhemoglobin 94.6 % (94-97); Blood O2 Saturation 97.6 % (92-98.5)
[2024-12-08 06:26] LABS: Blood Gas THB 11.7 g/dl (12-18)
[2024-12-08 06:27] LABS: Barbiturates NEGATIVE (NEGATIVE); Benzodiazepines NEGATIVE (NEGATIVE); Cocaine NEGATIVE (NEGATIVE); METHAMPHETAM NEGATIVE (NEGATIVE); Methadone NEGATIVE (NEGATIVE); Opiates NEGATIVE (NEGATIVE); Phencyclidine NEGATIVE (NEGATIVE); THC Cannibis POSITIVE (NEGATIVE)
--- NOTE | 2024-12-08 07:01 | EDPHYS ---
Physician Documentation [facility] Name: Tessa Eagle Age: 18 yrs Sex: Female : 2005 Arrival Date: 12/08/2024 Time: 02:14 Bed 6 Private MD: ED Physician Suraj Cordova HPI: 12/08 02:16 This 18 yrs old Female presents to ER via Unassigned with complaints of High sp4 Blood Sugar. 04:31 18-year-old female well-known to me from prior visits presents with acute generalized sp4 weakness associated with elevated blood sugar. Patient's roommate who called EMS reports that patient has not eaten anything for the past 2 days and has only been drinking Jose-Aid and water.. 05:37 Recent admission 10/29/2024 for 10/30/2024 at which time patient left AGAINST MEDICAL sp4 ADVICE. Patient was managed for severe protein calorie malnutrition, diabetic ketoacidosis, type 1 diabetes, sepsis. Patient has history of noncompliance with her insulin, frequent hospitalizations, type 1 diabetes, drug abuse, with previously multiple visits in the emergency room for DKA. Patient takes home Tresiba 15 units and states her last insulin was sometime yesterday. Patient's medications list include insulin degludec or Tresiba FlexTouch pen 30 units subcu daily, also insulin lispro or Humalog 6 units SQ 3 times daily.. [employer]: 02:25 unknown, PT DENIES HAVING A PERIOD, DENIES CONTROL dd2 Historical: - Allergies: 02:25 No Known Allergies; dd2 - PMHx: 02:25 ANOREXIA; diabetes mellitus; drug abuse; renal insufficiency; dd2 - PSHx: 02:25 None; dd2 - Immunization history:: Adult Immunizations unknown. - Infectious Disease History:: Denies. - Social history:: Smoking status: Reported history of juuling and/or vaping. - Family history:: not pertinent. ROS: 05:37 Constitutional: Positive for generalized weakness, positive for elevated blood sugar, sp4 positive for feeling unwell overall 05:37 All other systems are negative, Exam: 05:37 Constitutional: This is a well developed, but cachectic appearing female, emaciated sp4 appearance, disheveled, tachycardic signs of severe dehydration and dry mucous membranes. Head/Face: Normocephalic, atraumatic. Eyes: Pupils equal round and reactive to light, extra-ocular motions intact. Lids and lashes normal. Conjunctiva and sclera are not injected. Cornea within normal limits. Periorbital areas with no swelling, redness, or edema. ENT: Nares patent. No nasal discharge, no septal abnormalities noted. Tympanic membranes are normal and external auditory canals are clear. Oropharynx with no redness, swelling, or masses, exudates, or evidence of obstruction, uvula midline. Dry mucous membranes Neck: Trachea midline, no thyromegaly or masses palpated, and no cervical lymphadenopathy. Supple, full range of motion without nuchal rigidity, or vertebral point tenderness. Chest/axilla: Normal chest wall appearance and motion. Nontender with no deformity. No lesions are appreciated. Cardiovascular: Moderate tachycardia which is regular. No gallops, murmurs, or rubs. Normal PMI, no JVD. No pulse deficits. Respiratory: Lungs have equal breath sounds bilaterally, clear to auscultation and percussion. No rales, rhonchi or wheezes noted. Positive for dyspnea and tachypnea Abdomen/GI: Soft, with normal bowel sounds. No distension or tympany. No guarding or rebound. No evidence of tenderness throughout. Back: No spinal tenderness. No costovertebral tenderness. Skin: Poor turgor, normal color with no rashes, no lesions, and no evidence of cellulitis. MS/ Extremity: Pulses equal, no cyanosis. Neurovascular intact. Full, normal range of motion. Neuro: Awake and alert, GCS 15, oriented to person, place, time, and situation. Cranial nerves II-XII grossly intact. Motor strength 5/5 in all extremities. Sensory grossly intact. Psych: Awake, alert, affect is flat 05:42 ECG was reviewed by the Attending Physician. EKG at 0 312 sinus tachycardia rate sp4 104. Vital Signs: 02:21 BP 150 / 90; Pulse 112; Resp 24; Temp 98.3(O); Pulse Ox 100% ; Weight 34.02 kg (R); dd2 03:21 BP 112 / 97; Pulse 117; Resp 21; Pulse Ox 100% on R/A; dd2 03:45 BP 149 / 91; Pulse 113; Resp 23; Pulse Ox 100% on 2 lpm NC; dd2 04:11 BP 145 / 96; Pulse 107; Resp 25; Pulse Ox 100% on 2 lpm NC; dd2 04:15 BP 142 / 93; Pulse 106; Resp 23; Pulse Ox 100% on 2 lpm NC; dd2 04:45 BP 142 / 98; Pulse 104; Resp 22; Pulse Ox 100% on 2 lpm NC; dd2 05:00 BP 146 / 95; Pulse 105; Resp 23; Pulse Ox 100% on 2 lpm NC; dd2 05:45 BP 154 / 95; Pulse 98; Resp 24; Pulse Ox 100% on 2 lpm NC; dd2 06:06 BP 144 / 93; Pulse 98; Resp 22; Pulse Ox 100% on 2 lpm NC; dd2 07:00 BP 144 / 91; Pulse 94; Resp 22; Pulse Ox 100% ; ph 07:30 BP 145 / 87; Pulse 94; Resp 24; Pulse Ox 100% on R/A; ph 08:00 BP 145 / 91; Pulse 100; Resp 22; Pulse Ox 100% on R/A; ph 08:30 BP 138 / 89; Pulse 86; Resp 20; Pulse Ox 100% on R/A; ph 09:00 BP 148 / 96; Pulse 84; Resp 24; Pulse Ox 100% on R/A; ph 09:45 BP 145 / 93; Pulse 90; Resp 22; Temp 97.4; Pulse Ox 100% on R/A; ph Matt Coma Score: 02:33 Eye Response: spontaneous(4). Motor Response: obeys commands(6). Verbal Response: dd2 oriented(5). Total: 15. 05:37 Eye Response: spontaneous(4). Motor Response: obeys commands(6). Verbal Response: sp4 oriented(5). Total: 15. Procedures: 03:06 Central Line: the site was prepped with Betadine, in sterile fashion, Chlorhexidine, a sp4 triple lumen catheter was inserted, in the right internal jugular vein, in 1 attempts. placement was verified, by CXR, by blood return, Ultrasound-guided central venous catheter, the site was dressed with 4X4s, Tegaderm, using sterile technique, the patient tolerated the procedure, well, Central line placed secondary to exhausted peripheral access and for emergency resuscitation with IV fluids. MDM: 03:41 Medical Screening Exam initiated sp4 05:41 Differential diagnosis: diabetes insipidus, DKA, hyperglycemia, hyperthyroidism, sp4 hypoglycemic episode, hypothyroidism. Data reviewed: vital signs, nurses notes, EMS record, old medical records, lab test result(s), EKG, radiologic studies. 05:46 Consideration of Admission/Observation Escalation of care including sp4 admission/observation considered. ED course: EXAM: XR Chest, 1 View CLINICAL HISTORY: The patient is 18 years old and is Female; Chest pain. TECHNIQUE: Single view of the chest. COMPARISON: No relevant prior studies available. FINDINGS: Lungs: No pulmonary vascular congestion or consolidation. Pleural space: Unremarkable. No pneumothorax. Heart: Unremarkable. No cardiomegaly. Mediastinum: Unremarkable. Bones/joints: No acute fracture. Tubes, lines and devices: Right IJ line terminates at the SVC/RA junction. Upper abdomen: No free air in the visualized upper abdomen. IMPRESSION: 1. Right IJ line terminates at the SVC/RA junction. 2. No acute cardiopulmonary process identified. . ED course: EXAM: CT Chest, Abdomen and Pelvis Without Intravenous Contrast CLINICAL HISTORY: The patient is 18 years old and is Female; Chest pain. TECHNIQUE: Axial computed tomography images of the chest, abdomen and pelvis without intravenous contrast. Sagittal and coronal reformatted images were created and reviewed. This CT exam was performed using one or more of the following dose reduction techniques: automated exposure control, adjustment of the mA and/or kV according to patient size, and/or use of iterative reconstruction technique. COMPARISON: XR Chest 12/08/2024, 03:04:40 AM and CTAbdomen Pelvis 01/13/2023. FINDINGS: CHEST: Lungs: Unremarkable. No mass. No consolidation or ground glass opacities. Pleural space: Unremarkable. No significant effusion. No pneumothorax. Heart: Unremarkable. No cardiomegaly. No significant pericardial effusion. No significant coronary artery calcifications. ABDOMEN: Liver: Unremarkable. Gallbladder and bile ducts: Unremarkable. No calcified stones. No ductal dilation. Pancreas: Unremarkable. No ductal dilation. Spleen: Unremarkable. No splenomegaly. Adrenals: Unremarkable. No mass. Kidneys and ureters: Unremarkable. No obstructing stones. No hydronephrosis. Stomach and bowel: No bowel dilatation or obstruction. No bowel wall thickening. PELVIS: Appendix: No findings to suggest acute appendicitis. Bladder: Bladder is full. No bladder wall thickening. No stones. Reproductive: Unremarkable as visualized. CHEST, ABDOMEN and PELVIS: Intraperitoneal space: Unremarkable. No significant fluid collection. No free air. Bones/joints: No acute fracture visualized. No dislocation. Soft tissues: Unremarkable. Vasculature: Unremarkable. No aortic aneurysm. Lymph nodes: Unremarkable. No enlarged lymph nodes. Tubes, lines and devices: Right IJ line terminates at the SVC/RA junction. IMPRESSION: 1. Right IJ line terminates at the SVC/RA junction. 2. No acute intrathoracic or intra-abdominal process identified. Electronically signed by: Sayda Lo MD 12/08/2024 05:33 AM. 07:01 Transition of care: After a detail discussion of the patient's case, care is sp4 transferred to Suraj Cordova DO. 07:04 Transition of care: Care assumed from Shoaib Burnett MD. ms3 08:30 ED course: Discussed case with Dr Heredia at [facility] and he accepts patient to ICU. All ms3 questions answered. Patient updated on plan for transfer. Patient remains in stable but critical condtion. 09:36 Refusal of service: The patient/guardian displays adequate decision making capability ms3 and despite a detailed discussion of alternatives, benefits, risks, and consequences refuses: Admission to the hospital for further work-up and treatment, Transfer to [facility]. ED course: . ED course: PATIENT HAS DECIDED TO LEAVE AGAINST MEDICAL ADVISE. Patient has decided to leave the hospital AGAINST MEDICAL ADVICE. At this time reevaluated patient and discussed at bedside the followin. Capacity: Patient has capacity to communicate, ability to understand information, and the ability to manipulate the information presented to make a logical decision. 2. Communication of risk: Discussed with patient at bedside potential risks, potential outcomes, alternative approaches in a patient centered manner. Discussed staying in the emergency department to continue her treatment versus transferring to [facility] ICU and patient states she wants to leave. We discussed specific risks of disability, , worsening of her conditions. Patient understands we would welcome a return visit at any time to complete the workup. At this time, patient is discharged AGAINST MEDICAL ADVICE from my care. . 12/08 02:18 Order name: Basic Metabolic Panel; Complete Time: : sp4 12/08 02:18 Order name: CBC with Diff; Complete Time: 12/08 02:18 Order name: LFT's; Complete Time: 04:31 12/08 02:18 Order name: Magnesium; Complete Time: 04:31 12/08 02:18 Order name: NT PRO-BNP; Complete Time: 04:31 12/08 02:18 Order name: PT-INR; Complete Time: 03:41 12/08 02:18 Order name: Troponin HS; Complete Time: 04:31 12/08 02:19 Order name: Urinalysis W/Microscopic; Complete Time: 06:46 12/08 02:19 Order name: Test, Serum; Complete Time: 03:41 12/08 02:20 Order name: BETA HYDROXYBUTYRATE; Complete Time: 04:12/08 02:20 Order name: Lactate w/ 2H reflex if indic.; Complete Time: 03:41 12/08 02:20 Order name: CRP; Complete Time: 04:31 12/08 02:46 Order name: Glucose, Ancillary Testing; Complete Time: 03:04 EDMS 12/08 02:48 Order name: Glucose, Ancillary Testing EDMS 12/08 03:19 Order name: Manual Differential; Complete Time: 04:31 EDMS 12/08 03:35 Order name: Ghost Lactate-NO COLLECT Timer; Complete Time: 05:36 EDMS 12/08 03:41 Order name: Blood Culture Adult (2) 12/08 03:43 Order name: ABG; Complete Time: 06:46 4 12/08 03:43 Order name: Urine Drug Screen; Complete Time: 06:46 4 12/08 05:29 Order name: BMP; Complete Time: 06:46 12/08 06:04 Order name: Lactate Sepsis 2 HR Follow-up; Complete Time: 06:46 EDMS 12/08 06:24 Order name: Glucose, Ancillary Testing; Complete Time: 06:46 EDMS 12/08 07:06 Order name: Glucose, Ancillary Testing; Complete Time: 07:07 EDMS 12/08 08:10 Order name: Glucose, Ancillary Testing; Complete Time: 08:27 EDMS 12/08 09:08 Order name: Glucose, Ancillary Testing; Complete Time: 11:28 EDMS 12/08 02:18 Order name: XRAY Chest (1 view) 4 12/08 03:43 Order name: CT Chest Abdomen Pelvis W/O Contrast 4 12/08 02:18 Order name: Cardiac monitoring; Complete Time: 03:06 12/08 02:18 Order name: EKG - Nurse/Tech; Complete Time: 03:50 12/08 02:18 Order name: IV Saline Lock; Complete Time: 03:06 12/08 02:18 Order name: Labs collected and sent; Complete Time: 03:06 12/08 02:18 Order name: O2 Per Protocol; Complete Time: 03:06 12/08 02:18 Order name: O2 Sat Monitoring; Complete Time: 03:06 12/08 02:18 Order name: Accucheck Blood Glucose; Complete Time: 03:06 12/08 02:31 Order name: Central Line Dressing Kit; Complete Time: 03:06 12/08 02:31 Order name: Central Line Kit; Complete Time: 03:06 12/08 02:31 Order name: Chlorhexidine prep; Complete Time: 03:06 12/08 02:31 Order name: Consent for central line completed; Complete Time: 03:43 12/08 02:31 Order name: Line Caps x3; Complete Time: 03:06 12/08 02:31 Order name: NS Flushes x3; Complete Time: 03:06 12/08 02:31 Order name: Sterile Gloves; Complete Time: 03:06 12/08 02:31 Order name: Sterile Probe Cover; Complete Time: 03:06 EC:12 Rate is 104 beats/min. Rhythm is regular, Sinus tachycardia. QRS [place] is Normal. ND sp4 interval is normal. QRS interval is normal. QT interval is normal. No Q waves. T waves are Normal. No ST changes noted. Clinical impression: No evidence of ischemia. Interpreted by me. Reviewed by me. Administered Medications: 03:22 Drug: Insulin Regular Human IVP 10 units IVP once {Co-Signature: bm8 (Lupillo Waterman dd2 RN).} Route: IVP; Site: right jugular; 03:37 Follow up: Response: No adverse reaction dd2 03:23 Drug: NS 0.9% IV 1000 ml IV at 1000 ml once; to be given as a bolus over 60 minutes dd2 Route: IV; Rate: 1000 ml; Site: right jugular; 04:23 Follow up: IV Status: Completed infusion; IV Intake: 1000ml dd2 03:23 Drug: Ondansetron IVP 4 mg IVP once; over 2 minutes Route: IVP; Site: right jugular; dd2 03:38 Follow up: Response: No adverse reaction dd2 03:23 Not Given (Physician Discretion): [id number] mg IM once dd2 03:23 Drug: NS 0.9% IV 1000 ml IV at 125 ml/hr Per protocol; to be given as a bolus over 60 dd2 minutes Route: IV; Rate: 125 ml/hr; Site: right jugular; 03:38 Follow up: Response: No adverse reaction dd2 04:50 Drug: Insulin Drip - (Insulin Regular Human IVP 100 units, NS 0.9% IV 100 ml) IV at lg3 calculated rate continuous; Standard concentration 1unit/ml; Dose for DKA is 0.1 units/kg/hr {Co-Signature: dd2 (JULIUS MCFARLAND RN).} Route: IV; Rate: calculated rate; Site: right jugular; 05:05 Follow up: Response: No adverse reaction dd2 05:05 Follow up: Response: No adverse reaction dd2 06:13 Follow up: Rate change 1.7 units/hr dd2 10:10 Follow up: Response: No adverse reaction; IV Status: Order to discontinue infusion; pt ph signed out AMA 04:51 Drug: Cefepime IVPB 1 grams IVPB at 200 ml/hr once over 30 mins; (mix in NS 100 mL) dd2 Route: IVPB; Rate: 200 ml/hr; Infused Over: 30 mins; Site: right jugular; 05:06 Follow up: Response: No adverse reaction dd2 05:21 Follow up: IV Status: Completed infusion; IV Intake: 100ml dd2 05:25 Drug: vancoMYCIN IVPB 1 grams IVPB once over 2 hrs Route: IVPB; Infused Over: 2 hrs; dd2 Site: right jugular; 05:40 Follow up: Response: No adverse reaction dd2 07:30 Follow up: Response: No adverse reaction; IV Status: Completed infusion ph 05:49 Drug: NS 0.9% IV 1000 ml IV at 1 bolus Per protocol; to be given as a bolus over 60 bm8 minutes {Note: central line- blue.} Route: IV; Rate: 1 bolus; Site: Other; 06:04 Follow up: Response: No adverse reaction dd2 07:29 Follow up: Response: No adverse reaction; IV Status: Completed infusion; IV Intake: ph 1000ml 07:29 Drug: D5-NS IV 1000 ml IV at 200 ml/hr continuous Route: IV; Rate: 200 ml/hr; Site: ph right jugular; 10:10 Follow up: Response: No adverse reaction ph Disposition Summary: 12/08/24 09:35 Left Against Medical Advice Notes: Location: Home ms3 Problem: new(12/08/24 09:35) ms3 Symptoms: are unchanged(12/08/24 09:35) ms3 Condition: Critical(12/08/24 09:35) ms3 Diagnosis - DM I with DKA ms3 - Elevated blood-pressure reading, without diagnosis of hypertension ms3 - Renal insufficiency ms3 Followup: ms3 - With: Shreyas Darnell DO - When: 1 - 2 days - Reason: Re-evaluation by your physician Discharge Instructions: - Discharge Summary Sheet ms3 - Hypertension, Adult ms3 - Diabetic Ketoacidosis ms3 Critical care time excluding procedures: 05:41 Critical care time: Bedside Care: 36 minutes, Consultation: 12 minutes. Total time: 48 sp4 minutes Signatures: Dispatcher [employer] EDMalu Rene RN Xiomy Álvarez ph RN JANESSA [email or web address] Suraj Cordova DO DO ms3 Shoaib Burnett MD MD sp4 Lupillo Waterman RN RN [id number] DAVIS, DIANA, RN RN dd2 Lupillo Waterman RN, DIANA RN dd2 Corrections: (The following items were deleted from the chart) 02:19 02:19 BASIC METABOLIC PANEL+C.LAB.BRZ ordered. EDMS EDMS 02:19 02:19 CBC+H.LAB.BRZ ordered. EDMS EDMS 02:19 02:19 HEPATIC FUNCTION+C.LAB.BRZ ordered. EDMS EDMS 02:19 02:19 MAGNESIUM+C.LAB.BRZ ordered. EDMS EDMS 02:19 02:19 PROBNP+C.LAB.BRZ ordered. EDMS EDMS 02:19 02:19 PROTIME (+INR)+COAG.LAB.BRZ ordered. EDMS EDMS 02:19 02:19 Troponin High Sensitivity+C.LAB.BRZ ordered. EDMS EDMS 02:19 02:19 Chest Single View+RAD.RAD.BRZ ordered. EDMS EDMS : 07:00 [facility]'s attending sp4 ms3 : 07:00 [facility] sp4 ms3 : 07:00 Higher level of care sp4 ms3 : 07:00 Stable sp4 ms3 : 07:00 new sp4 ms3 : 07:00 have improved sp4 ms3 : 07:00 Diabetic ketoacidosis, type 1 diabetes mellitus, medical noncompliance, sp4 ms3 : 07:00 Type 1 diabetes mellitus with ketoacidosis without coma sp4 ms3 11:32 09:36 ED course: Patient wishes to leave AMA at this time. Risks of leaving including ms3 disability or were discussed with patient and patient is able to understand and repeat risks back. Discussed staying in the emergency department to continue her treatment versus transferring to [facility]'s ICU and patient states she wants to leave. . ms3
--- NOTE | 2024-12-08 07:01 | ER ---
Nurse's Notes [facility] Name: Tessa Eagle Age: 18 yrs Sex: Female : 2005 Arrival Date: 12/08/2024 Time: 02:14 Bed 6 Private MD: Diagnosis: DM I with DKA;Elevated blood-pressure reading, without diagnosis of hypertension;Renal insufficiency Presentation: 12/08 02:21 Chief complaint: EMS states: TONED OUT FOR HIGH BLOOD SUGAR. PT REPORTS NOT EATING FOR dd2 3 DAYS ONLY DRINKING KOOLAID AND WATER. LAST INSULIN LAST NIGHT. PT REPORTS ONLY TAKES INSULIN ONCE A DAY. Coronavirus screen: At this time, the client does not indicate any symptoms associated with coronavirus-19. Ebola Screen: No symptoms or risks identified at this time. Initial Sepsis Screen: Does the patient meet any 2 criteria? No. Patient's initial sepsis screen is negative. Does the patient have a suspected source of infection? No. Patient's initial sepsis screen is negative. Risk Assessment: Do you want to hurt yourself or someone else? Patient reports no desire to harm self or others. Onset of symptoms is unknown. 02:21 Method Of Arrival: EMS: [facility] dd2 02:21 Acuity: JUSTIN 3 dd2 02:36 Care prior to arrival: Glucose check: 348. dd2 Triage Assessment: 02:25 General: Appears ill, Behavior is cooperative, appropriate for age, agitated. Pain: dd2 Denies pain. EENT: No deficits noted. No signs and/or symptoms were reported regarding the EENT system. Neuro: Level of Consciousness is awake, alert, obeys commands, Oriented to person, place, time, situation, Appropriate for age. Cardiovascular: No deficits noted. Respiratory: Airway is patent Respiratory effort is even, labored, Respiratory pattern is Kussmaul Breath sounds are clear. GI: Abdomen is flat, non-distended, Bowel sounds present X 4 quads. Abd is soft and non tender X 4 quads. : No signs and/or symptoms were reported regarding the genitourinary system. Derm: Skin is intact, Skin is dry, Skin is pale. Musculoskeletal: Circulation, motion, and sensation intact. Range of motion: intact in all extremities. REFINING ENGINEER: 02:25 unknown, PT DENIES HAVING A PERIOD, DENIES CONTROL dd2 Historical: - Allergies: 02:25 No Known Allergies; dd2 - PMHx: 02:25 ANOREXIA; diabetes mellitus; drug abuse; renal insufficiency; dd2 - PSHx: 02:25 None; dd2 - Immunization history:: Adult Immunizations unknown. - Infectious Disease History:: Denies. - Social history:: Smoking status: Reported history of juuling and/or vaping. - Family history:: not pertinent. Screenin:33 [facility] ED Fall Risk Assessment (Adult) History of falling in the last 3 months, dd2 including since admission No falls in past 3 months (0 pts) Confusion or Disorientation No (0 pts) Intoxicated or Sedated No (0 pts) Impaired Gait Yes (1 pt) Mobility Assist Device Used Yes (1 pt) Altered Elimination No (0 pt) Score/Fall Risk Level. Abuse screen: Denies threats or abuse. Nutritional screening: On diabetic diet, weight loss diet. Tuberculosis screening: No symptoms or risk factors identified. Assessment: 02:32 Reassessment: SEE TRIAGE ASSESSMENT FOR NURSE ASSESSMENT. dd2 04:15 Reassessment: No changes from previously documented assessment. Patient states symptoms dd2 have not improved. 07:30 General: Appears in no apparent distress. emaciated, Behavior is cooperative, drowsy, ph quiet. 07:30 Pain: Denies pain. Neuro: Level of Consciousness is awake, obeys commands, lethargic, ph Oriented to person, place, time, situation. Cardiovascular: Capillary refill < 3 seconds in bilateral fingers. Respiratory: Airway is patent Respiratory pattern is tachypnea. GI: Patient currently denies abdominal pain, nausea. Derm: Skin is pale, Skin temperature is warm. 08:55 Reassessment: Report called to Mel[place] at [facility], awaiting EMS for transfer. ph 08:57 Reassessment: Pt refusing to sign transfer form, states that she is not going to be ph transferred, explained to pt that there are no ICU beds available at this facility, pt states, " I'll just go home." ERP notified of refusal. 09:05 Reassessment: Patient is alert, oriented x 3, equal unlabored respirations, skin ph warm/dry/pink. Dr Cordova at bedside to speak w/ pt, pt continues to refuse transfer, states, " I don't have anyone to pick me up from there." Dr Cordova explained to pt that the accepting would possibly be able to arrange transportation back home. Dr Cordova also thoroughly explained to pt that she is critically ill and that by leaving against medical advice she is risking becoming more critically ill and possibly . Pt states, " I'm not going to ." Continues to refuse transfer, states that she will sign AMA form. Vital Signs: 02:21 BP 150 / 90; Pulse 112; Resp 24; Temp 98.3(O); Pulse Ox 100% ; Weight 34.02 kg (R); dd2 03:21 BP 112 / 97; Pulse 117; Resp 21; Pulse Ox 100% on R/A; dd2 03:45 BP 149 / 91; Pulse 113; Resp 23; Pulse Ox 100% on 2 lpm NC; dd2 04:11 BP 145 / 96; Pulse 107; Resp 25; Pulse Ox 100% on 2 lpm NC; dd2 04:15 BP 142 / 93; Pulse 106; Resp 23; Pulse Ox 100% on 2 lpm NC; dd2 04:45 BP 142 / 98; Pulse 104; Resp 22; Pulse Ox 100% on 2 lpm NC; dd2 05:00 BP 146 / 95; Pulse 105; Resp 23; Pulse Ox 100% on 2 lpm NC; dd2 05:45 BP 154 / 95; Pulse 98; Resp 24; Pulse Ox 100% on 2 lpm NC; dd2 06:06 BP 144 / 93; Pulse 98; Resp 22; Pulse Ox 100% on 2 lpm NC; dd2 07:00 BP 144 / 91; Pulse 94; Resp 22; Pulse Ox 100% ; ph 07:30 BP 145 / 87; Pulse 94; Resp 24; Pulse Ox 100% on R/A; ph 08:00 BP 145 / 91; Pulse 100; Resp 22; Pulse Ox 100% on R/A; ph 08:30 BP 138 / 89; Pulse 86; Resp 20; Pulse Ox 100% on R/A; ph 09:00 BP 148 / 96; Pulse 84; Resp 24; Pulse Ox 100% on R/A; ph 09:45 BP 145 / 93; Pulse 90; Resp 22; Temp 97.4; Pulse Ox 100% on R/A; ph Dawson Coma Score: 02:33 Eye Response: spontaneous(4). Motor Response: obeys commands(6). Verbal Response: dd2 oriented(5). Total: 15. 05:37 Eye Response: spontaneous(4). Motor Response: obeys commands(6). Verbal Response: sp4 oriented(5). Total: 15. ED Course: 02:15 Patient arrived in ED. gm2 02:16 Shoaib Burnett MD is Attending Physician. sp4 02:25 Triage completed. dd2 02:25 Arm band placed on right wrist. Patient placed in an exam room, on a stretcher, on dd2 pulse oximetry. 02:33 Patient has correct armband on for positive identification. Bed in low position. Call dd2 light in reach. Side rails up X2. Client placed on continuous cardiac and pulse oximetry monitoring. NIBP monitoring applied. Door closed. Noise minimized. Warm blanket given. Pillow given. Verbal reassurance given. 02:33 Patient maintains SpO2 saturation greater than 95% on room air. dd2 03:05 JULIUS MCFARLAND RN is Primary Nurse. dd2 03:06 Missed attempt(s): 22 gauge in right antecubital area. Bleeding controlled, band aid dd2 applied, catheter tip intact. 03:06 Assisted provider with central line placement. Set up central line tray. Triple lumen dd2 line placed in right internal jugular. Line placed by Shoaib Burnett MD Placement verified by CXR, blood return, Dressed with Tegaderm, Blood was collected. Patient tolerated well. Before procedure, did Practitioner(s) obtain informed consent? Yes. Patient \\T\\ family education about procedure, CLABSI prevention and S/S of infection? Yes. Time-out/Briefing performed prior to start of procedure? Yes. Was handwashing/sanitizing done immediately prior to procedure? Yes. Was patient positioned to in a way to prevent air embolism? Yes. Was procedure site sterilized? Yes, with chlorhexidine. Was the site allowed to dry? Yes. Was local anesthetic and/or sedation utilized? Yes. During the procedure, did the Practitioner(s) maintain a sterile field? Yes. Were unused ports clamped during insertion? Yes. Was a 2nd qualified MD obtained after 3 unsuccessful insertion attempts? No. Was blood aspirated from each lumen? Yes. After the procedure, did the Practitioner(s) clean the site and apply a sterile dressing? Yes. 03:10 XRAY Chest (1 view) In Process Unspecified. EDMS 04:20 First set of blood cultures drawn by me. vk 04:52 Glucose, Ancillary Testing Sent. dd2 04:55 CT Chest Abdomen Pelvis W/O Contrast In Process Unspecified. EDMS 05:38 BMP Sent. dd2 07:04 Attending Physician role handed off by Shoaib Burnett MD ms3 07:04 Suraj Cordova DO is Attending Physician. ms3 07:05 Initial lab(s) drawn, by me, sent to lab. vk 07:55 initiated transfer to [facility]. bd 09:14 no icu beds at [facility],, pt accepted at [facility] by dr Rico, admin bd approval given by Jailene Young, pt going to [address] [place] [address] rm [id number]. 09:34 Shreyas Darnell DO is Referral Physician. ms3 10:07 transfer cancelled after pt left AMA. bd 10:12 IV discontinued, intact, bleeding controlled, No redness/swelling at site. Pressure ph dressing applied. Administered Medications: 03:22 Drug: Insulin Regular Human IVP 10 units IVP once {Co-Signature: bm8 (Lupillo Waterman dd2 RN).} Route: IVP; Site: right jugular; 03:37 Follow up: Response: No adverse reaction dd2 03:23 Drug: NS 0.9% IV 1000 ml IV at 1000 ml once; to be given as a bolus over 60 minutes dd2 Route: IV; Rate: 1000 ml; Site: right jugular; 04:23 Follow up: IV Status: Completed infusion; IV Intake: 1000ml dd2 03:23 Drug: Ondansetron IVP 4 mg IVP once; over 2 minutes Route: IVP; Site: right jugular; dd2 03:38 Follow up: Response: No adverse reaction dd2 03:23 Not Given (Physician Discretion): [id number] mg IM once dd2 03:23 Drug: NS 0.9% IV 1000 ml IV at 125 ml/hr Per protocol; to be given as a bolus over 60 dd2 minutes Route: IV; Rate: 125 ml/hr; Site: right jugular; 03:38 Follow up: Response: No adverse reaction dd2 04:50 Drug: Insulin Drip - (Insulin Regular Human IVP 100 units, NS 0.9% IV 100 ml) IV at lg3 calculated rate continuous; Standard concentration 1unit/ml; Dose for DKA is 0.1 units/kg/hr {Co-Signature: dd2 (JULIUS MCFARLAND RN).} Route: IV; Rate: calculated rate; Site: right jugular; 05:05 Follow up: Response: No adverse reaction dd2 05:05 Follow up: Response: No adverse reaction dd2 06:13 Follow up: Rate change 1.7 units/hr dd2 10:10 Follow up: Response: No adverse reaction; IV Status: Order to discontinue infusion; pt ph signed out AMA 04:51 Drug: Cefepime IVPB 1 grams IVPB at 200 ml/hr once over 30 mins; (mix in NS 100 mL) dd2 Route: IVPB; Rate: 200 ml/hr; Infused Over: 30 mins; Site: right jugular; 05:06 Follow up: Response: No adverse reaction dd2 05:21 Follow up: IV Status: Completed infusion; IV Intake: 100ml dd2 05:25 Drug: vancoMYCIN IVPB 1 grams IVPB once over 2 hrs Route: IVPB; Infused Over: 2 hrs; dd2 Site: right jugular; 05:40 Follow up: Response: No adverse reaction dd2 07:30 Follow up: Response: No adverse reaction; IV Status: Completed infusion ph 05:49 Drug: NS 0.9% IV 1000 ml IV at 1 bolus Per protocol; to be given as a bolus over 60 bm8 minutes {Note: central line- blue.} Route: IV; Rate: 1 bolus; Site: Other; 06:04 Follow up: Response: No adverse reaction dd2 07:29 Follow up: Response: No adverse reaction; IV Status: Completed infusion; IV Intake: ph 1000ml 07:29 Drug: D5-NS IV 1000 ml IV at 200 ml/hr continuous Route: IV; Rate: 200 ml/hr; Site: ph right jugular; 10:10 Follow up: Response: No adverse reaction ph Medication: 02:33 VIS not applicable for this client. dd2 Intake: 04:23 IV: 1000ml; Total: 1000ml. dd2 05:21 IV: 100ml; Total: 1100ml. dd2 07:29 IV: 1000ml; Total: 2100ml. ph Outcome: 07:00 ER care complete, transfer ordered by MD. joy 10:05 Patient left the ED. bd 10:05 AMA AMA form signed ph 10:05 critical 10:05 Instructed on risk of becoming more critically ill and risk of Signatures: Dispatcher [employer] EDMS Augusta Armenta Malu Elder RN RN ph Able, Xiomy, RN RN lg3 Suraj Cordova, DO DO ms3 Shoaib Burnett MD MD sp4 Sera Apple gm2 Anita Paniagua Brad, RN RN [id number] BRUNA, JANESSA MADRID RN dd2 Lupillo Waterman RN8 JULIUS MCFARLAND RN dd2 Corrections: (The following items were deleted from the chart) 02:31 02:25 Respiratory: Airway is patent Respiratory effort is even, unlabored, Respiratory dd2 pattern is regular, symmetrical, Breath sounds are clear dd2 03:21 02:21 BP 150 / 90; Pulse 100bpm; Resp 17bpm; Pulse Ox 100%; Temp 98.3F Oral; 34.02 kg dd2 Reported; dd2
[2024-12-08] MEDS ORDERED: D5 0.45 NS 1,000 ML IV ONE (07:24)
[2024-12-08 10:09] VITALS: TEMP 98.3; O2SAT 100
[2024-12-08 10:22] VITALS: BP 145/91
--- NOTE | 2024-12-09 12:58 | EKG ---
Test Date: 2024-12-08 Test Time: 03:12:55 Refueling Ramp Supervisor: ANURADHA MEASUREMENT RESULTS: Intervals: Rate: 104 WA: 128 QRSD: 68 QT: 320 QTc: 420 [place]: P: 79 WA: 128 QRS: 79 T: 44 INTERPRETIVE STATEMENTS: Sinus tachycardia Biatrial enlargement Abnormal ECG Compared to ECG 10/29/2024 13:54:12 No significant changes Electronically Signed On 12-09-24 12:57:12 ALLEY WORKER by Etienne Jacobs
== END 2024-12-08 10:05 | disposition left against medical advice (07) ==
LOC: ER 02:14
DX: E10.10 Type 1 diabetes mellitus with ketoacidosis without coma (principal); R03.0 Elevated blood-pressure reading, without diagnosis of hypertension; N28.9 Disorder of kidney and ureter, unspecified
CPT/HCPCS: 36415; 36556; 71045; 71250; 74176; 80048; 80076; 80307; 81001; 82010; 82805; 82947; 83605; 83735; 83880; 84484; 84703; 85025; 85610; 86140; 87040; 93005; 96361; 96365; 96366; 96367; 96375; 99285; J0692; J2405; J7030; J7040; J7799

== ENCOUNTER 2024-12-19 09:37 | Inpatient (IN) | payer OTHER, SELFPAY ==
[2024-12-19] MEDS ORDERED: ONDANSETRON 4 MG/2 ML VIAL ONE (10:17)
[2024-12-19] MEDS ORDERED: FAMOTIDINE 20 MG/2 ML VIAL IV ONE (10:17)
[2024-12-19] MEDS ORDERED: NA CHLORIDE 0.9% 1,000 ML ONE (10:17)
[2024-12-19 11:05] LABS: Absolute Basophils 0.1 K/uL (0-0.5); Absolute Lymphocytes (CBC) 1.4 K/uL (0.7-4.9); Absolute Monocytes 0.8 K/uL (0.1-1.3); Absolute Neutrophil 11.9 K/uL (1.8-8.0); Basophils % 0.4 % (0-1.3); Hematocrit 37.2 % (36.0-45.0); Hemoglobin 12.2 g/dL (12.0-15.0); Lymphocytes % 10.1 % (15.3-44.8); MCH 25.8 pg (27.0-35.0); MCHC 32.8 g/dL (32.0-36.0); MCV 78.6 fL (80-100); MPV 8.7 fL (7.6-11.3); Monocytes % 5.9 % (3.3-12.3); Neutrophils % 83.6 % (41.7-73.7); Platelets 331 thou/uL (152-406); RBC Red Blood Cell Count 4.73 M/uL (3.86-4.86); Red Cell Distribution Width 16.9 % (12.1-15.2)
[2024-12-19] MEDS ORDERED: INSULIN REGULAR (HUMAN) 100 UNIT/ML ONE ×2 (11:20→12:27)
[2024-12-19 11:24] LABS: Bicarbonate 28 mEq/L (21-32); Potassium 3.8 mEq/L (3.5-5.1); Sodium Level 136 mEq/L (136-145)
[2024-12-19 11:26] LABS: AST/SGOT 5 U/L (15-37); BUN Blood Urea Nitrogen 27 mg/dL (7-18); Glomerular Filtration Rate 36 ml/min (=/>90)
[2024-12-19 11:27] LABS: ALT/SGPT 18 U/L (13-56); Albumin 4.1 g/dL (3.4-5.0); Albumin/Globulin Ratio 1.1 (1.1-1.8); Alkaline Phosphatase 163 U/L (45-117); BETA HYDROXYBUTYRATE 2.89 mmol/L (0.02-0.27); Bilirubin Total 0.5 mg/dL (0.2-1.0); Globulin 3.9 g/dL (2.3-3.5)
[2024-12-19 11:38] LABS: Lipase 13 U/L (13-75)
[2024-12-19 12:02] LABS: Glucose Level 828 mg/dL (74-106)
[2024-12-19] MEDS ORDERED: POTASSIUM 25 MEQ EFFERV TAB ONE (12:26)
[2024-12-19] MEDS ORDERED: NA CHLORIDE 0.9% 500 ML ONE (12:27)
--- NOTE | 2024-12-19 13:34 | ER ---
Nurse's Notes [facility] Name: Tessa Eagle Age: 18 yrs Sex: Female : 2005 Arrival Date: 12/19/2024 Time: 09:37 Bed 8 Private MD: Diagnosis: Diabetes mellitus due to underlying condition with ketoacidosis Presentation: 12/19 09:42 Chief complaint: EMS states: toned out to home for "DKA" - pt reporting nausea. ld1 Coronavirus screen: At this time, the client does not indicate any symptoms associated with coronavirus-19. Ebola Screen: No symptoms or risks identified at this time. Initial Sepsis Screen: Does the patient meet any 2 criteria? No. Patient's initial sepsis screen is negative. Does the patient have a suspected source of infection? No. Patient's initial sepsis screen is negative. Risk Assessment: Do you want to hurt yourself or someone else? Patient reports no desire to harm self or others. Onset of symptoms was December 19, 2024. 09:42 Method Of Arrival: EMS: [facility] ld1 09:42 Acuity: JUSTIN 2 ld1 Triage Assessment: 09:44 General: Appears in no apparent distress. comfortable, Behavior is calm. Pain: Denies ld1 pain. EENT: No signs and/or symptoms were reported regarding the EENT system. Neuro: Level of Consciousness is awake, alert, obeys commands, Oriented to person, place, time, situation, Appropriate for age. Cardiovascular: Capillary refill < 3 seconds Patient's skin is warm and dry. Respiratory: Airway is patent Respiratory effort is even, unlabored. GI: Abdomen is flat, non-distended. : No signs and/or symptoms were reported regarding the genitourinary system. Derm: No signs and/or symptoms reported regarding the dermatologic system. Musculoskeletal: No signs and/or symptoms reported regarding the musculoskeletal system. [employer] [place] [place]: 17:14 LMP N/A - Irregular menses, Not ld1 Historical: - Allergies: :44 No Known Allergies; ld1 - PMHx: :44 ANOREXIA; diabetes mellitus; drug abuse; renal insufficiency; ld1 - Immunization history:: Adult Immunizations up to date. - Infectious Disease History:: Denies. - Social history:: Smoking status: Patient denies any tobacco usage or history of. Screenin:39 [facility] ED Fall Risk Assessment (Adult) History of falling in the last 3 months, ld1 including since admission No falls in past 3 months (0 pts) Confusion or Disorientation No (0 pts) Intoxicated or Sedated No (0 pts) Impaired Gait No (0 pts) Mobility Assist Device Used No (0 pt) Altered Elimination No (0 pt) Score/Fall Risk Level 0 - 2 = Low Risk Oriented to surroundings, Hourly rounding (assess needs \\T\\ fall precautionary measures) done. Abuse screen: Denies threats or abuse. Denies injuries from another. Nutritional screening: No deficits noted. Tuberculosis screening: No symptoms or risk factors identified. Assessment: 12:35 General: Appears in no apparent distress. uncomfortable, Behavior is calm, cooperative, ld1 appropriate for age. Pain: Denies pain. Neuro: Level of Consciousness is awake, alert, obeys commands, Oriented to person, place, time, situation. Cardiovascular: Capillary refill < 3 seconds Patient's skin is warm and dry. Respiratory: Airway is patent Respiratory effort is even, unlabored. GI: Abdomen is flat, non-distended. : No signs and/or symptoms were reported regarding the genitourinary system. EENT: No signs and/or symptoms were reported regarding the EENT system. Derm: No signs and/or symptoms reported regarding the dermatologic system. Musculoskeletal: No signs and/or symptoms reported regarding the musculoskeletal system. 12:47 Reassessment: Patient appears in no apparent distress at this time. No changes from ld1 previously documented assessment. Patient and/or family updated on plan of care and expected duration. Pain level reassessed. 20:57 General: PT LEFT AMA, [facility] bm8 Vital Signs: 09:42 BP 133 / 97; Pulse 119; Resp 19; Temp 97.6(TE); Pulse Ox 100% on R/A; Weight 33.57 kg; ld1 Height 5 ft. 0 in. ; 11:30 BP 121 / 83; Pulse 121; Resp 18; Pulse Ox 100% on R/A; ld1 12:35 BP 118 / 83; Pulse 120; Resp 18; Pulse Ox 100% ; ld1 12:47 BP 118 / 83; Pulse 128; Resp 18; Pulse Ox 100% on R/A; ld1 15:58 BP 118 / 76; Pulse 99; Resp 18; Pulse Ox 100% on R/A; ld1 09:42 Body Mass Index 14.45 (33.57 kg, 152.4 cm) ld1 ED Course: 09:41 Patient arrived in ED. eb 09:41 Srinivasan Harrington PA is PHCP. cp 09:41 Bryant Flores MD is Attending Physician. cp 09:44 Triage completed. ld1 09:44 Arm band placed on right wrist. ld1 10:09 Missed attempt(s): 24 gauge in right wrist. Bleeding controlled, band aid applied, em1 catheter tip intact. 10:52 Elias Becerra, RN is Primary Nurse. bp 10:53 Initial lab(s) drawn, by me, sent to lab. Inserted saline lock: 20 gauge in left EJ, bp using aseptic technique. Blood collected. Flushed with 10 mL NS. 12:39 Patient has correct armband on for positive identification. Bed in low position. Call ld1 light in reach. Side rails up X2. Pulse ox on. NIBP on. Door closed. Noise minimized. Warm blanket given. 12:39 No provider procedures requiring assistance completed. ld1 13:34 Dmitry Whitten is Hospitalizing Provider. cp 17:13 Patient admitted, IV remains in place. ld1 17:14 Provided Education on: Insulin administration. Blood glucose checks and levels. ld1 17:59 Primary Nurse role handed off by Elias Becerra, RN ld1 17:59 Ramona Cordova, RN is Primary Nurse. ld1 Administered Medications: 10:52 Drug: NS 0.9% IV 1000 ml IV at 1000 ml once; to be given as a bolus over 60 minutes bp Route: IV; Rate: 1000 ml; Site: left jugular; 16:02 Follow up: Response: No adverse reaction; IV Status: Completed infusion; IV Intake: ld1 1000ml 10:53 Drug: Famotidine IVP 20 mg IVP once; dilute with 10 mL 0.9% NaCl; give over 2 minutes bp Route: IVP; Site: left jugular; 15:00 Follow up: Response: No adverse reaction bp 10:53 Drug: Ondansetron IVP 4 mg IVP once; over 2 minutes Route: IVP; Site: left jugular; bp 15:00 Follow up: Response: No adverse reaction bp 11:23 Drug: Insulin Regular Human IVP 5 units IVP once {Co-Signature: ofelia (Ramona Cordova RN).} bp Route: IVP; Site: left jugular; 12:22 Follow up: Response: No adverse reaction ld1 12:43 Drug: NS 0.9% IV 500 ml IV at bolus once; to be given as a bolus over 60 minutes Route: ld1 IV; Rate: bolus; Site: left jugular; 16:00 Follow up: Response: No adverse reaction; IV Status: Completed infusion; IV Intake: ld1 500ml 12:43 Drug: Potassium PO Effervescent Tablet 50 mEq PO once; dissolve in 4 ounces of water or ld1 juice Route: PO; 14:59 Follow up: Response: No adverse reaction bp 12:46 Drug: Insulin Regular Human IVP 10 units IVP once {Co-Signature: ofelia (Ramona Cordova RN).} Route: IVP; Site: left jugular; 14:59 Follow up: Response: No adverse reaction bp 16:00 Drug: Insulin Drip - (Insulin Regular Human IVP 100 units, NS 0.9% IV 100 ml) IV at 3 bp units/hr continuous; Standard concentration 1unit/ml; Dose for DKA is 0.1 units/kg/hr {Co-Signature: ofelia (Ramona Cordova RN).} Route: IV; Rate: 3 units/hr; Site: left jugular; 16:01 Follow up: Rate change 2 units/hr; IV Status: Infusion continued; Began insulin drip at ld1 2 units/hr per YOCASTA Warren. Medication: 12:39 VIS not applicable for this client. ld1 Intake: 16:00 IV: 500ml; Total: 500ml. ld1 16:02 IV: 1000ml; Total: 1500ml. ld1 16:02 IV: 1500ml; Total: 3000ml. ld1 Outcome: 13:34 Decision to Hospitalize by Provider. cp 17:14 Admitted to ER Hold. Please see [facility] for further documentation. ld1 17:14 Condition: unchanged 17:14 Instructed on the need for admit, 20:58 Patient left the ED. bm8 Signatures: Skip Araujo em1 Srinivasan Harrington PA PA cp Peltier, Brian RN RN Jailene Youngblood Lauren, RN RN ld1 Lupillo Waterman RN RN bm8 Ramona Cordova RN ld1 Corrections: (The following items were deleted from the chart) 12:39 12:35 BP 121 / 83; Pulse 121bpm; Resp 18bpm; Pulse Ox 100% RA; ld1 ld1
--- NOTE | 2024-12-19 13:34 | EDPHYS ---
Physician Documentation [facility] Name: Tessa Eagle Age: 18 yrs Sex: Female : 2005 Arrival Date: 12/19/2024 Time: 09:37 Bed 8 Private MD: ED Physician Bryant Flores HPI: 12/19 09:45 This 18 yrs old Female presents to ER via EMS with unknown complaint. cp 09:45 The patient presents to the emergency department with nausea, that is moderate, cp vomiting, that is continuous, described as bilious. Onset: The symptoms/episode began/occurred yesterday. Associated signs and symptoms: Pertinent positives: anorexia, Pertinent negatives: abdominal pain, constipation, diarrhea, fever, GI bleeding. 09:45 Severity of symptoms: in the emergency department the symptoms are unchanged despite cp EMS interventions. 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 - Infectious Disease History:: Denies. - Social history:: Smoking status: Patient denies any tobacco usage or history of. ROS: 09:50 Abdomen/GI: Positive for nausea and vomiting, Negative for abdominal pain, diarrhea, cp constipation, 09:50 Cardiovascular: Negative for chest pain, cp 09:50 Eyes: Negative for injury, pain, redness, and discharge, cp 09:50 Constitutional: Positive for poor PO intake, Negative for fever, 09:50 ENT: Negative for drainage from ear(s), ear pain, sore throat, difficulty swallowing, difficulty handling secretions, 09:50 Respiratory: Negative for cough, shortness of breath, wheezing, 09:50 Neuro: Negative for altered mental status, dizziness, headache, numbness, syncope, weakness, 09:50 All other systems are negative, Exam: 09:55 Constitutional: The patient appears in no acute distress, alert, awake, cp non-diaphoretic, non-toxic, well developed, frail, 09:55 Head/Face: Normocephalic, atraumatic. cp 09:55 Eyes: Periorbital structures: appear normal, Pupils: equal, round, and reactive to light and accomodation, Extraocular movements: intact throughout, Conjunctiva: normal, no exudate, no injection, Sclera: no appreciated abnormality, Lids and lashes: appear normal, bilaterally, 09:55 ENT: External ear(s): are unremarkable, Nose: is normal, Mouth: Lips: moist, Oral mucosa: pink and intact, moist, Posterior pharynx: Airway: no evidence of obstruction, patent, 09:55 Neck: ROM/movement: is normal, is supple, without pain, no range of motions limitations, no meningismus, no nuchal rigidity, :55 Chest/axilla: Inspection: :55 Cardiovascular: Rate: tachycardic, Rhythm: regular, :55 Respiratory: the patient does not display signs of respiratory distress, Respirations: normal, no use of accessory muscles, no retractions, labored breathing, is not present, Breath sounds: are clear throughout, no decreased breath sounds, no stridor, no wheezing, :55 Abdomen/GI: Inspection: abdomen appears normal, Palpation: abdomen is soft and non-tender, in all quadrants, :55 Back: CVA tenderness, is absent, :55 Neuro: Orientation: to person, place, situation, Mentation: able to follow commands, slow to respond, Motor: moves all fours, no focal deficits, 10:04 ECG was reviewed by the Attending Physician. cp Vital Signs: 09:42 BP 133 / 97; Pulse 119; Resp 19; Temp 97.6(TE); Pulse Ox 100% on R/A; Weight 33.57 kg; ld1 Height 5 ft. 0 in. ; 11:30 BP 121 / 83; Pulse 121; Resp 18; Pulse Ox 100% on R/A; ld1 12:35 BP 118 / 83; Pulse 120; Resp 18; Pulse Ox 100% ; ld1 12:47 BP 118 / 83; Pulse 128; Resp 18; Pulse Ox 100% on R/A; ld1 15:58 BP 118 / 76; Pulse 99; Resp 18; Pulse Ox 100% on R/A; ld1 09:42 Body Mass Index 14.45 (33.57 kg, 152.4 cm) ld1 MDM: 10:00 Differential diagnosis: gastritis, viral gastroenteritis, gastroenteritis, dehydration, cp electrolyte abnormality, DKA. 13:33 Data reviewed: vital signs, nurses notes, lab test result(s), EKG, I have discussed the cp patient's presentation/case with the attending Emergency Department Physician; and as a result, I will admit patient. 13:33 Management of patient was discussed with the following: Hospitalist: DR Whitten will cp admit after discussion. I considered the following discharge prescriptions or medication management in the emergency department Medications were administered in the Emergency Department. See MAR. Independent interpretation of the following test(s) in the Emergency Department EKG: See my EKG interpretation above. Counseling: I had a detailed discussion with the patient and/or guardian regarding the historical points, exam findings, and any diagnostic results supporting the discharge/admit diagnosis, lab results, the need for further work-up and treatment in the hospital. Response to treatment: the patient's symptoms have mildly improved after treatment. 13:34 Medical Screening Exam initiated 12/19 09:43 Order name: CBC with Diff; Complete Time: 11:25 cp 12/19 11:25 Interpretation: Normal except: WBC 14.30; MCV 78.6; MCH 25.8; RDW 16.9; LIAM% 83.6; LYM% cp 10.1; NEUT A 11.9. 12/19 09:43 Order name: CMP; Complete Time: 12:18 cp 12/19 11:44 Interpretation: Normal except: CL 96; BUN 27; CRE 1.98; GFR 36; AST 5; ALK 163; GLOB cp 3.9; GLUC > 500. 12/19 09:43 Order name: Lipase; Complete Time: 12:18 cp 12/19 09:43 Order name: Test, Urine cp 12/19 09:43 Order name: Urinalysis w/ reflexes cp 12/19 09:43 Order name: BETA HYDROXYBUTYRATE; Complete Time: 12:18 cp 12/19 12:18 Interpretation: Abnormal: BHB 2.89. cp 12/19 09:43 Order name: Magnesium; Complete Time: 12:18 cp 12/19 09:43 Order name: Urine Culture 12/19 09:54 Order name: UDS 12/19 10:28 Order name: Glucose, Ancillary Testing; Complete Time: 10:37 EDMS 12/19 12:46 Order name: Glucose, Ancillary Testing; Complete Time: 13:11 EDMS 12/19 13:54 Order name: Osmolality, Serum EDMS 12/19 14:06 Order name: Test Serum, Qual[place] EDMS 12/19 14:06 Order name: Basic Metabolic Panel EDMS 12/19 14:06 Order name: Basic Metabolic Panel EDMS 12/19 14:06 Order name: Basic Metabolic Panel EDMS 12/19 14:06 Order name: Basic Metabolic Panel EDMS 12/19 14:06 Order name: Hemoglobin A1c EDMS 12/19 14:06 Order name: Hemoglobin A1c EDMS 12/19 14:06 Order name: Osmolality, Serum EDMS 12/19 14:06 Order name: Osmolality, Serum EDMS 12/19 14:06 Order name: Osmolality, Serum EDMS 12/19 14:06 Order name: Phosphorus EDMS 12/19 14:06 Order name: Phosphorus EDMS 12/19 14:06 Order name: Phosphorus EDMS 12/19 14:06 Order name: Phosphorus EDMS 12/19 14:44 Order name: Glucose, Ancillary Testing; Complete Time: 17:03 EDMS 12/19 14:50 Order name: BMP ld1 12/19 15:34 Order name: Basic Metabolic Panel; Complete Time: 17:03 EDMS 12/19 16:07 Order name: Glucose, Ancillary Testing; Complete Time: 17:03 EDMS 12/19 17:18 Order name: Glucose, Ancillary Testing EDMS 12/19 18:10 Order name: Glucose, Ancillary Testing EDMS 12/19 19:06 Order name: Glucose, Ancillary Testing EDMS 12/19 20:11 Order name: Glucose, Ancillary Testing EDMS 12/19 09:43 Order name: IV Saline Lock; Complete Time: 10:53 cp 12/19 09:43 Order name: Labs collected and sent; Complete Time: 10:53 cp 12/19 09:43 Order name: Accucheck Blood Glucose; Complete Time: 10:53 cp 12/19 09:43 Order name: EKG - Nurse/Tech; Complete Time: 10:00 cp EC:04 Rate is 111 beats/min. Rhythm is regular. [place] interval is normal. QRS interval is cp normal. QT interval is normal. T waves are Inverted in leads aVR, V3. Interpreted by me. Reviewed by me. Administered Medications: 10:52 Drug: NS 0.9% IV 1000 ml IV at 1000 ml once; to be given as a bolus over 60 minutes bp Route: IV; Rate: 1000 ml; Site: left jugular; 16:02 Follow up: Response: No adverse reaction; IV Status: Completed infusion; IV Intake: ld1 1000ml 10:53 Drug: Famotidine IVP 20 mg IVP once; dilute with 10 mL 0.9% NaCl; give over 2 minutes bp Route: IVP; Site: left jugular; 15:00 Follow up: Response: No adverse reaction bp 10:53 Drug: Ondansetron IVP 4 mg IVP once; over 2 minutes Route: IVP; Site: left jugular; bp 15:00 Follow up: Response: No adverse reaction bp 11:23 Drug: Insulin Regular Human IVP 5 units IVP once {Co-Signature: pee1 (Ramona Cordova RN).} bp Route: IVP; Site: left jugular; 12:22 Follow up: Response: No adverse reaction ld1 12:43 Drug: NS 0.9% IV 500 ml IV at bolus once; to be given as a bolus over 60 minutes Route: ld1 IV; Rate: bolus; Site: left jugular; 16:00 Follow up: Response: No adverse reaction; IV Status: Completed infusion; IV Intake: ld1 500ml 12:43 Drug: Potassium PO Effervescent Tablet 50 mEq PO once; dissolve in 4 ounces of water or ld1 juice Route: PO; 14:59 Follow up: Response: No adverse reaction bp 12:46 Drug: Insulin Regular Human IVP 10 units IVP once {Co-Signature: ld1 (Ramona Cordova RN).} Route: IVP; Site: left jugular; 14:59 Follow up: Response: No adverse reaction bp 16:00 Drug: Insulin Drip - (Insulin Regular Human IVP 100 units, NS 0.9% IV 100 ml) IV at 3 bp units/hr continuous; Standard concentration 1unit/ml; Dose for DKA is 0.1 units/kg/hr {Co-Signature: pee1 (Ramona Cordova RN).} Route: IV; Rate: 3 units/hr; Site: left jugular; 16:01 Follow up: Rate change 2 units/hr; IV Status: Infusion continued; Began insulin drip at ld1 2 units/hr per YOCASTA Warren. Disposition Summary: 12/19/24 13:34 Hospitalization Ordered Notes: Hospitalization Status: Inpatient Admission cp Provider: Dmitry Whitten cp Condition: Stable cp Problem: new cp Symptoms: have improved cp Bed/Room Type: Standard cp Location: [facility] ER HOLD(12/19/24 15:54) 1 Room Assignment: ERHOLD-(12/19/24 15:54) ja1 Diagnosis - Diabetes mellitus due to underlying condition with ketoacidosis cp Forms: - Medication Reconciliation Form cp - SBAR form cp - Leadership Thank You Letter cp Critical care time excluding procedures: 12/20 20:23 Critical care time: Bedside Care: 5 minutes, Consultation: 25 minutes. Total time: 30 cp minutes Signatures: Dispatcher [employer] EDMS Stephan Fletcher, LIBRARY CIRCULATION CLERK-C LIBRARY CIRCULATION CLERK-Cla1 Srinivasan Harrington PA PA cp Aguilar, Jose RN JANESSA [email or web address] Elias Becerra RN Ramona Boyle RN RN ld1 Star Pereyra LIBRARY CIRCULATION CLERK-C LIBRARY CIRCULATION CLERK-Cdr5 Ramona Cordova RN1 Corrections: (The following items were deleted from the chart) 12/19 09:43 09:43 CBC+H.LAB.BRZ ordered. EDMS EDMS 09:43 09:43 COMPREHENSIVE METABOLIC PANEL+C.LAB.BRZ ordered. EDMS EDMS 09:43 09:43 LIPASE+C.LAB.BRZ ordered. EDMS EDMS 09:43 09:43 Test, Urine+UC.LAB.BRZ ordered. EDMS EDMS 09:43 09:43 Urinalysis+U.LAB.BRZ ordered. EDMS EDMS 09:43 09:43 BETA HYDROXYBUTYRATE+C.LAB.BRZ ordered. EDMS EDMS 09:43 09:43 MAGNESIUM+C.LAB.BRZ ordered. EDMS EDMS 09:43 09:43 Urine Culture+BA.LAB.BRZ ordered. EDMS EDMS 09:55 09:55 URINE DRUG SCREEN+UC.LAB.BRZ ordered. EDMS EDMS 15:54 13:34 Intensive Care Unit cp ja1 15:54 13:34 cp ja1
[2024-12-19] MEDS ORDERED: GLUCAGON 1 MG/VIAL IM PRN (13:46)
[2024-12-19] MEDS ORDERED: D50W 25 GM/50 ML SYRINGE IV PRN (13:46)
[2024-12-19] MEDS ORDERED: D10W 125 ML IV PRN (13:49)
[2024-12-19] MEDS ORDERED: ONDANSETRON 4 MG/2 ML VIAL IV PRN (13:53)
[2024-12-19] MEDS ORDERED: ALBUTEROL 2.5 MG/3 ML NEB SOL NEB PRN (13:53)
[2024-12-19] MEDS ORDERED: ACETAMINOPHEN 650MG/RECT SUPP PR PRN (13:53)
[2024-12-19] MEDS ORDERED: INSULIN REGULAR, HUMAN 100 UNIT in NA CHLORIDE 0.9% 100 ML IV SCH (14:04)
[2024-12-19] MEDS: NACHLORIDE 0.45% 1,000 ML with POTASSIUM CL 20 MEQ IV SCH (15:00)
[2024-12-19] MEDS: D5.45NS W/KCL 20MEQ 1,000 ML IV SCH (15:00)
[2024-12-19 15:33] LABS: Sodium Level 144 mEq/L (136-145)
[2024-12-19 15:34] LABS: BUN Blood Urea Nitrogen 19 mg/dL (7-18); Bicarbonate 21 mEq/L (21-32); Glomerular Filtration Rate 76 ml/min (=/>90); Glucose Level 312 mg/dL (74-106); Potassium 2.7 mEq/L (3.5-5.1)
--- NOTE | 2024-12-19 15:56 | P.HP ---
Certification for Inpatient Patient admitted to: Inpatient With expected LOS: >2 Midnights Practitioner: I am a practitioner with admitting privileges, knowledge of patient current condition, hospital course, and medical plan of care. Services: Services provided to patient in accordance with Admission requirements found in Title 42 Section 412.3 of the Code of Federal Regulations Patient History Date of Service: 12/19/24 Reason for admission: Hyperosmolar hyperglycemic status History of Present Illness: This is 18 years old female patient with uncontrolled diabetes on insulin, drug abuse, multiple admission for DKA and severe hyperglycemia due to noncompliance with medication and follow-up, her last DKA was October 2024 who brought to emergency room by her grand mother from her boyfriend house for generalized weakness, nausea and vomiting. Upon arrival at emergency room she was tachycardic, normotensive, afebrile, her random blood sugar at emergency room 828, bicarb 28, serum potassium 3.8, positive serum beta hydroxybutyric acid, she received 5 unit, 10 unit IV insulin, 1 L of normal saline then started on insulin infusion. Allergies No Known Allergies Allergy (Verified 07/13/23 22:35) Home Medications: Insulin Degludec [Tresiba Flextouch U-100] 30 units SQ DAILY 02/03/23 Insulin Lispro [Humalog] 6 units SQ TID 02/03/23 - Past Medical/Surgical History Diabetic: Yes -: Type 1 diabetes -: Depression -: Anorexia -: Noncompliance -: Drug abuse -: None Psychosocial/ Personal History: Patient lives at home with family. - Family History Father -: Diabetes - Social History Alcohol use: No CD- Drugs: Yes Caffeine use: Yes Review of Systems Other: Consitutional; fever(-), chills (-), rigor(-), night sweat(-), unintentional weight loss(-), malaise (+) HEENT; diplopia (-), rhinorrhea (-), epistaxis (-), otorrhea (-), otalgia (-) Respiratory; shortness of breath (-), wheezing (-), cough (-), sputum (-), pleuritic chest pain (-) Cardiovascular; chest pain (-), peripheral edema (-), paroxysmal nocturnal dyspnea (-), orthopnea (-) Gastrointestinal; nausea (+), vomiting (+), abdominal pain (+), diarrhea (-), constipation (-), melena (-), hematochezia (-) Genitourinary; urinary frequency (-), dysuria (-), urgency (-), flank pain (-), gross hematuria (-), incontinence (-) Skin; rash (-), pruritus (-) SHAPER HAND; headache (-), paresthesia (-), numbness (-), paralysis (-) Physical Examination - Physical Exam Other Physical/Emotional Findings: - Physical Exam, limited due to poor cooperation. General: Not acutely ill looking, in no apparent distress,. Respiratory: Normal breathing effort, clear to auscultation bilaterally, no crackles no wheezing or rhonchi. Cardiovascular: Regular rate and rhythm, S1, S2 normal, no murmur no gallop. Gastrointestinal: Normal bowel sounds, nondistended, nontender, No ascites, , No masses, no hepatosplenomegaly. Extremities : No clubbing, No peripheral edema,. Integumentary: No rashes, petechia, suspected lesions. Lymphatics: No axilla or cervical lymphadenopathy. Neurology; alert awake - Studies Laboratory Data (last 24 hrs) 12/19/24 12/19/24 10:50 10:50 WBC 14.30 H Hgb 12.2 Hct 37.2 Plt Count 331 Sodium 136 Potassium 3.8 BUN 27 H Creatinine 1.98 H Glucose 828 H* Magnesium 3.0 Total Bilirubin 0.5 AST 5 L ALT 18 Alkaline Phosphatase 163 H Lipase 13 Assessment and Plan - Plan This is 18 years old female patient with a past medical history notable for type 2 diabetes on insulin, drug abuse, multiple hospitalization for DKA secondary to noncompliance with follow-up and medication brought back to again for nausea and vomiting and generalized weakness from her boyfriend place by her grandmother, found to have a severe hypoglycemia with a random blood sugar 828, started on insulin drip with IV insulin 1. Hyperosmolar hyper glycemic status secondary to #2 Patient needs insulin infusion in MICU, I will start her on insulin infusion protocol for target blood sugar 1 50-250, IV hydration with normal saline with potassium chloride at 75 mL/h, check blood sugar every 1 hour by fingerstick, BMP every 4 hour, no sign of systemic infection, precipitating factor is noncompliance with medication and follow-up 2. Uncontrolled diabetes, 6 months ago hemoglobin A1c 13, I will order a new hemoglobin A1c 3. Mild REBA Start hydration with IV fluid - Advance Directives Does patient have a Living Will: No Does patient have a Durable POA for Healthcare: No
[2024-12-19 16:58] VITALS: BP 131/90
[2024-12-19] MEDS: INSULIN REGULAR, HUMAN 100 UNIT in NA CHLORIDE 0.9% 100 ML IV SCH (17:00)
[2024-12-19] MEDS: KCL 20 MEQ/100 mL IVPB 20 MEQ/100 ML BAG IV SCH (17:00)
[2024-12-19 17:02] VITALS: BMI 14.6
[2024-12-19] MEDS ORDERED: ACETAMINOPHEN 500 MG TAB ONE (19:50)
[2024-12-19] MEDS ORDERED: MELATONIN 5 MG TABLET PO ONE (19:51)
[2024-12-19] MEDS: ACETAMINOPHEN 500 MG TAB PO PRN (19:54)
[2024-12-19] MEDS: MELATONIN 3 MG TABLET PO SCH (20:04)
[2024-12-19 21:07] VITALS: TEMP 97.6; O2SAT 100
--- NOTE | 2024-12-21 12:19 | EKG ---
Test Date: 2024-12-19 Test Time: 09:56:02 Job Honer: Gabrielle OLIVAS MEASUREMENT RESULTS: Intervals: Rate: 111 ME: 122 QRSD: 74 QT: 366 QTc: 497 [place]: P: 59 ME: 122 QRS: 69 T: 0 INTERPRETIVE STATEMENTS: Sinus tachycardia Right atrial enlargement Cannot rule out Inferior infarct, age undetermined T wave abnormality, consider anterior ischemia Abnormal ECG Compared to ECG 12/08/2024 03:12:55 Myocardial infarct finding now present T-wave abnormality now present Possible ischemia now present Electronically Signed On 12-21-24 12:16:15 TRANSFILL TECHNICIAN by Etienne Jacobs
== END 2024-12-19 20:15 | disposition left against medical advice (07) | DRG 638 ==
LOC: ER 09:37 → ERHOLD 13:53
PROVIDERS: ADMIT Internal Medicine; ATTEND Internal Medicine
DX: E11.10 Type 2 diabetes mellitus with ketoacidosis without coma (principal); N17.9 Acute kidney failure, unspecified; T38.3X6A Underdosing of insulin and oral hypoglycemic [antidiabetic] drugs, initial encounter; Z79.4 Long term (current) use of insulin; Z53.29 Procedure and treatment not carried out because of patient's decision for other reasons; Z91.138 Patient's unintentional underdosing of medication regimen for other reason; Z91.148 Patient's other noncompliance with medication regimen for other reason
CPT/HCPCS: 36415; 80048; 80053; 82010; 82947; 83690; 83735; 85025; 93005; 96361; 96374; 96375; 99285; J2405; J3480; J7030; J7040

== ENCOUNTER 2025-01-09 12:23 | Inpatient (IN) | payer OTHER ==
[2025-01-09] MEDS ORDERED: NA CHLORIDE 0.9% 1,000 ML ONE ×2 (13:17→15:48)
[2025-01-09] MEDS ORDERED: CEFTRIAXONE 1000 MG/VIAL ONE (13:17)
--- NOTE | 2025-01-09 13:25 | RAD REPORT ---
Procedure: Chest Single View HISTORY: Cough COMPARISON: November 2024 FINDINGS: The lungs appear clear of acute infiltrate. No significant pleural effusion noted. The heart is normal size. IMPRESSION: No acute abnormality is displayed.
[2025-01-09 14:00] LABS: PT Prothrombin Time 10.9 SECONDS (10.0-13.0); Protime INR 0.95
[2025-01-09 14:18] LABS: ALT/SGPT 18 U/L (13-56); Albumin 3.9 g/dL (3.4-5.0); Alkaline Phosphatase 200 U/L (45-117); Anion Gap 31.3 mEq/L (5.0-15.0); BUN Blood Urea Nitrogen 35 mg/dL (7-18); Bicarbonate 11 mEq/L (21-32); Bilirubin Direct 0.2 mg/dL (0-0.2); Bilirubin Indirect, Calculated 0.5 mg/dL (0.2-0.8); Bilirubin Total 0.7 mg/dL (0.2-1.0); Glomerular Filtration Rate 49 ml/min (=/>90); Lipase 18 U/L (13-75); Magnesium 2.9 mg/dL (1.6-2.4); NT PRO-BNP 365 pg/mL (<125); Potassium 5.3 mEq/L (3.5-5.1); Protein, Total 7.9 g/dL (6.4-8.2); Sodium Level 125 mEq/L (136-145)
[2025-01-09 14:24] LABS: AST/SGOT < 10 U/L (15-37); Troponin High Sensitivity < 3.0 pg/mL (<58.9)
[2025-01-09 14:25] LABS: BETA HYDROXYBUTYRATE > 4.50 mmol/L (0.02-0.27)
--- NOTE | 2025-01-09 14:26 | EDPHYS ---
Physician Documentation [facility] Name: Tessa Eagle Age: 19 yrs Sex: Female : 2005 Arrival Date: 01/09/2025 Time: 12:23 Bed 8 Private MD: ED Physician Srinivasan Chris HPI: 01/09 13:30 This 19 yrs old Female presents to ER via Ambulatory with complaints of tadeo Weakness, Diabetic. 13:30 The patient presents to the emergency department with weakness of the entire body, tadeo generalized weakness. 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 - Infectious Disease History:: Denies. - Social history:: Smoking status: Reported history of juuling and/or vaping. ROS: 13:31 Constitutional: Negative for fever, chills, and weight loss, Eyes: Negative for injury, tadeo pain, redness, and discharge, ENT: Negative for injury, pain, and discharge, Neck: Negative for injury, pain, and swelling, Cardiovascular: Negative for chest pain, palpitations, and edema, Respiratory: Negative for shortness of breath, cough, wheezing, and pleuritic chest pain, Back: Negative for injury and pain, : Negative for injury, bleeding, discharge, and swelling, MS/Extremity: Negative for injury and deformity, Skin: Negative for injury, rash, and discoloration, Psych: Negative for depression, anxiety, suicide ideation, homicidal ideation, and hallucinations, Allergy/Immunology: Negative for hives, rash, and allergies, Endocrine: Negative for neck swelling, polydipsia, polyuria, polyphagia, and marked weight changes, Hematologic/Lymphatic: Negative for swollen nodes, abnormal bleeding, and unusual bruising, 13:31 Abdomen/GI: Positive for nausea and vomiting, 13:31 Neuro: Positive for weakness, Exam: 13:31 Head/Face: Normocephalic, atraumatic. Eyes: Pupils equal round and reactive to light, tadeo extra-ocular motions intact. Lids and lashes normal. Conjunctiva and sclera are non-icteric and not injected. Cornea within normal limits. Periorbital areas with no swelling, redness, or edema. ENT: Nares patent. No nasal discharge, no septal abnormalities noted. Tympanic membranes are normal and external auditory canals are clear. Oropharynx with no redness, swelling, or masses, exudates, or evidence of obstruction, uvula midline. Mucous membranes moist. Neck: Trachea midline, no thyromegaly or masses palpated, and no cervical lymphadenopathy. Supple, full range of motion without nuchal rigidity, or vertebral point tenderness. No Meningismus. Chest/axilla: Normal chest wall appearance and motion. Nontender with no deformity. No lesions are appreciated. Respiratory: Lungs have equal breath sounds bilaterally, clear to auscultation and percussion. No rales, rhonchi or wheezes noted. No increased work of breathing, no retractions or nasal flaring. Abdomen/GI: Soft, non-tender, with normal bowel sounds. No distension or tympany. No guarding or rebound. No evidence of tenderness throughout. Back: No spinal tenderness. No costovertebral tenderness. Full range of motion. Skin: Warm, dry with normal turgor. Normal color with no rashes, no lesions, and no evidence of cellulitis. MS/ Extremity: Pulses equal, no cyanosis. Neurovascular intact. Full, normal range of motion., bilateral aka Neuro: Awake and alert, GCS 15, oriented to person, place, time, and situation. Cranial nerves II-XII grossly intact. Motor strength 5/5 in all extremities. Sensory grossly intact. Cerebellar exam normal. Normal gait. Psych: Awake, alert, with orientation to person, place and time. Behavior, mood, and affect are within normal limits. 13:31 Cardiovascular: Rate: tachycardic, actual rate is 116 bpm, Rhythm: regular, Pulses: Pulses are 4+ in bilateral radial, brachial, femoral, popliteal, posterior tibial and and dorsalis pedis arteries.. Heart sounds: normal, Edema: is not appreciated, JVD: is not appreciated, 13:44 ECG was reviewed by the Attending Physician. [facility] Vital Signs: 12:38 BP 132 / 87; Pulse 116; Resp 18; Temp 97.7; Pulse Ox 100% on R/A; Weight 31.75 kg; iw Height 4 ft. 11 in. ; Pain 10/10; 13:42 BP 127 / 84; Pulse 100; Resp 21; Pulse Ox 100% ; jl7 14:00 BP 115 / 70; Pulse 105; Resp 13; Pulse Ox 100% ; jl7 15:00 BP 122 / 73; Pulse 105; Resp 15; Pulse Ox 100% ; jl7 12:38 Body Mass Index 14.14 (31.75 kg, 149.86 cm) iw 12:38 Pain Scale: Adult iw Procedures: 13:34 Peripheral line: by aseptic technique a peripheral line was placed in the right [facility] external jugular vein. MDM: 12:27 Medical Screening Exam initiated tadeo 13:34 Differential diagnosis: Nonspecific abd pain, gastritis, cholecystitis, pancreatitis, tadeo appendicitis, diverticulitis, viral gastroenteritis, gastroenteritis, DKA, hyperglycemia, hyperthyroidism, hypoglycemic episode. Differential Diagnosis altered mental status, sepsis, flu. Data reviewed: vital signs, nurses notes, lab test result(s), EKG, radiologic studies, plain films. Consideration of Admission/Observation Escalation of care including admission/observation considered. I considered the following discharge prescriptions or medication management in the emergency department Medications were administered in the Emergency Department. See MAR. Independent interpretation of the following test(s) in the Emergency Department EKG: See my EKG interpretation above. Test considered but Not performed: Ultrasound no abd us. Care significantly affected by the following chronic conditions: Diabetes, dka, substance abuse. 01/09 12:29 Order name: Basic Metabolic Panel; Complete Time: 14:45 [facility] 01/09 12:29 Order name: CBC with Diff 01/09 12:29 Order name: LFT's; Complete Time: 14:45 tadeo 01/09 12:29 Order name: Magnesium; Complete Time: 14:45 [facility] 01/09 12:29 Order name: NT PRO-BNP; Complete Time: 14:45 [facility] 01/09 12:29 Order name: PT-INR; Complete Time: 14:19 01/09 12:29 Order name: Troponin HS; Complete Time: 14:45 [facility] 01/09 12:29 Order name: Lipase; Complete Time: 14:45 01/09 12:29 Order name: BETA HYDROXYBUTYRATE; Complete Time: 14:45 [facility] 01/09 12:29 Order name: Urinalysis w/ reflexes 01/09 12:29 Order name: Test, Serum 01/09 12:29 Order name: UDS 23 12:29 Order name: ABG [facility] 01/09 12:29 Order name: Blood Culture Adult (2) [facility] 01/09 12:59 Order name: Glucose, Ancillary Testing; Complete Time: 13:59 EDWA 01/09 14:32 Order name: Basic Metabolic Panel EDMS 01/09 14:32 Order name: Basic Metabolic Panel EDMS 01/09 14:32 Order name: Basic Metabolic Panel EDMS 01/09 14:32 Order name: Basic Metabolic Panel EDMS 01/09 14:32 Order name: Calcium Level EDMS 01/09 14:32 Order name: Calcium Level EDMS 01/09 14:32 Order name: Calcium Level EDMS 01/09 14:32 Order name: Calcium Level EDMS 01/09 14:32 Order name: CBC with Automated Diff EDMS 01/09 14:32 Order name: CBC with Automated Diff EDMS 01/09 14:32 Order name: CBC with Automated Diff EDMS 01/09 14:32 Order name: CBC with Automated Diff EDMS 01/09 14:32 Order name: Magnesium EDMS 01/09 14:32 Order name: Magnesium EDMS 01/09 14:32 Order name: Magnesium EDMS 01/09 14:32 Order name: Magnesium EDMS 01/09 16:46 Order name: CBC Smear Scan EDMS 01/09 17:25 Order name: Basic Metabolic Panel EDWA 01/09 12:29 Order name: XRAY Chest (1 view); Complete Time: 13:59 [facility] 01/09 12:29 Order name: EKG; Complete Time: 12:30 [facility] 01/09 12:29 Order name: Cardiac monitoring; Complete Time: 13:30 [facility] 01/09 12:29 Order name: EKG - Nurse/Tech; Complete Time: 13:44 [facility] 01/09 12:29 Order name: IV Saline Lock; Complete Time: 13:30 [facility] 01/09 12:29 Order name: Labs collected and sent; Complete Time: 13:30 [facility] 01/09 12:29 Order name: O2 Per Protocol; Complete Time: 13:17 [facility] 01/09 12:29 Order name: O2 Sat Monitoring; Complete Time: 13:17 [facility] EC:44 Rate is 102 beats/min. Rhythm is regular. QRS [place] is Normal. SC interval is normal. [facility] QRS interval is normal. QT interval is normal. No Q waves. T waves are Normal. No ST changes noted. Clinical impression: Abnormal EKG without significant change, Sinus tachycardia, and No evidence of ischemia. Interpreted by me. Reviewed by me. Administered Medications: 12:20 Drug: NS 0.9% IV (30 ml/kg) 30 ml/kg IV at bolus once; Sepsis Protocol; to be given as jl7 a bolus over 90 minutes Route: IV; Rate: bolus; Site: right jugular; 13:30 Follow up: Response: No adverse reaction; IV Status: Completed infusion; IV Intake: jl7 952.5ml 13:29 Drug: Rocephin IV 1 grams IV at per protocol once; Given slow IV push per pharmacy ld1 instructions Route: IV; Rate: per protocol; Site: right jugular; 13:40 Follow up: Response: No adverse reaction; IV Status: Completed infusion jl7 15:28 Drug: Insulin Drip - (Insulin Regular Human IVP 100 units, NS 0.9% IV 100 ml) IV at jl7 calculated rate continuous; Standard concentration 1unit/ml; Dose for DKA is 0.1 units/kg/hr {Co-Signature: ld1 (Ramona Cordova RN).} {Note: insulin drip started at 3 units/hour.} Route: IV; Rate: calculated rate; Site: right jugular; 15:58 Follow up: IV Status: Infusion continued upon admission jl7 Point of Care Testing: Blood Glucose: 12:43 Blood Glucose: High (>450 mg/dL); iw Ranges: Critical Glucose Levels:Adult <50 mg/dl or >400 mg/dl <40 mg/dl or >180 mg/dl Disposition Summary: 01/09/25 14:25 Hospitalization Ordered Notes: Hospitalization Status: Inpatient Admission tadeo Provider: Davy Cleaning cha Location: Intensive Care Unit tadeo Condition: Fair tadeo Problem: new tadeo Symptoms: have improved tadeo Bed/Room Type: Standard tadeo Room Assignment: 6-(01/09/25 16:41) eb Diagnosis - Diabetes mellitus due to underlying condition with ketoacidosis tadeo - Vomiting tadeo Forms: - Medication Reconciliation Form tadeo - SBAR form tadeo - Leadership Thank You Letter tadeo Critical care time excluding procedures: 14:19 Critical care time: Bedside Care: 30 minutes, Consultation: 10 minutes, Family tadeo Intervention: 10 minutes. Total time: 50 minutes Signatures: Dispatcher [employer] EDMS Srinivasan Chris MD MD cha Williams, Irene, RN RN iw Lilli Allison, RN RN jl7 Jialene Werner Lauren, JANESSA RN ld1 Ramona Cordova RN ld1 Corrections: (The following items were deleted from the chart) 12:30 12:30 BASIC METABOLIC PANEL+C.LAB.BRZ ordered. EDMS EDMS 12:30 12:30 CBC+H.LAB.BRZ ordered. EDMS EDMS 12:30 12:30 HEPATIC FUNCTION+C.LAB.BRZ ordered. EDMS EDMS 12:30 12:30 MAGNESIUM+C.LAB.BRZ ordered. EDMS EDMS 12:30 12:30 PROBNP+C.LAB.BRZ ordered. EDMS EDMS 12:30 12:30 PROTIME (+INR)+COAG.LAB.BRZ ordered. EDMS EDMS 12:30 12:30 Troponin High Sensitivity+C.LAB.BRZ ordered. EDMS EDMS 12:30 12:30 LIPASE+C.LAB.BRZ ordered. EDMS EDMS 12:30 12:30 BETA HYDROXYBUTYRATE+C.LAB.BRZ ordered. EDMS EDMS 12:30 12:30 Urinalysis+U.LAB.BRZ ordered. EDMS EDMS 12:30 12:30 TEST, SERUM+SC.LAB.BRZ ordered. EDMS EDMS 12:30 12:30 URINE DRUG SCREEN+UC.LAB.BRZ ordered. EDMS EDMS 12:30 12:30 BLOOD CULTURE*+BA.LAB.BRZ ordered. EDMS EDMS 12:30 12:30 Arterial Blood Gas+RC.LAB.BRZ ordered. EDMS EDMS 16:21 14:25 tadeo eb 16:41 16:21 4- eb eb
--- NOTE | 2025-01-09 14:26 | ER ---
Nurse's Notes [facility] Name: Tessa Eagle Age: 19 yrs Sex: Female : 2005 Arrival Date: 01/09/2025 Time: 12:23 Bed 8 Private MD: Diagnosis: Diabetes mellitus due to underlying condition with ketoacidosis;Vomiting Presentation: 01/09 12:38 Chief complaint: Patient states: nausea, vomiting X 2 days, BS has been running high, iw has not taken her meds in two days. Coronavirus screen: At this time, the client does not indicate any symptoms associated with coronavirus-19. Ebola Screen: No symptoms or risks identified at this time. Initial Sepsis Screen: Does the patient meet any 2 criteria? No. Patient's initial sepsis screen is negative. Does the patient have a suspected source of infection? No. Patient's initial sepsis screen is negative. Risk Assessment: Do you want to hurt yourself or someone else? Patient reports no desire to harm self or others. Onset of symptoms was January 07, 2025. 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 - Infectious Disease History:: Denies. - Social history:: Smoking status: Reported history of juuling and/or vaping. Screenin:00 [facility] ED Fall Risk Assessment (Adult) History of falling in the last 3 months, jl7 including since admission No falls in past 3 months (0 pts) Confusion or Disorientation No (0 pts) Intoxicated or Sedated No (0 pts) Impaired Gait No (0 pts) Mobility Assist Device Used No (0 pt) Altered Elimination No (0 pt) Score/Fall Risk Level 0 - 2 = Low Risk Oriented to surroundings, Maintained a safe environment. Abuse screen: Denies threats or abuse. Denies injuries from another. Nutritional screening: No deficits noted. Tuberculosis screening: No symptoms or risk factors identified. Assessment: 12:30 Reassessment: pt in bathroom. iw 13:00 General: Appears in no apparent distress. uncomfortable, unkempt, malnourished, jl7 cachectic, Behavior is quiet. Pain: Complains of pain in all over Pain currently is 10 out of 10 on a pain scale. Neuro: Level of Consciousness is awake, alert, obeys commands, Oriented to person, place, time, situation. Cardiovascular: Patient's skin is warm and dry. Respiratory: Airway is patent Respiratory effort is even, unlabored, Respiratory pattern is symmetrical, Kussmaul. GI: Reports nausea, vomiting. Derm: Skin is dry, Skin is pale, Skin temperature is cool. 14:00 Reassessment: Patient appears in no apparent distress at this time. No changes from jl7 previously documented assessment. Patient and/or family updated on plan of care and expected duration. Pain level reassessed. Patient is alert, oriented x 3, equal unlabored respirations, skin warm/dry/pink. 15:00 Reassessment: Patient appears in no apparent distress at this time. No changes from jl7 previously documented assessment. Patient and/or family updated on plan of care and expected duration. Pain level reassessed. Patient is alert, oriented x 3, equal unlabored respirations, skin warm/dry/pink. Vital Signs: 12:38 BP 132 / 87; Pulse 116; Resp 18; Temp 97.7; Pulse Ox 100% on R/A; Weight 31.75 kg; iw Height 4 ft. 11 in. ; Pain 10/10; 13:42 BP 127 / 84; Pulse 100; Resp 21; Pulse Ox 100% ; jl7 14:00 BP 115 / 70; Pulse 105; Resp 13; Pulse Ox 100% ; jl7 15:00 BP 122 / 73; Pulse 105; Resp 15; Pulse Ox 100% ; jl7 12:38 Body Mass Index 14.14 (31.75 kg, 149.86 cm) iw 12:38 Pain Scale: Adult ED Course: 12:27 Patient arrived in ED. mr 12:27 Srinivasan Chris MD is Attending Physician. [facility] 12:42 Triage completed. iw 12:43 Arm band placed on. iw 13:00 Patient has correct armband on for positive identification. Bed in low position. Call jl7 light in reach. Side rails up X 1. Provided Education on: use of call suarez. Client placed on continuous cardiac and pulse oximetry monitoring. NIBP monitoring applied. Warm blanket given. 13:00 Inserted saline lock: 20 gauge in right EJ, using aseptic technique. ,using aseptic jl7 technique. inserted by Dr. Chris Blood collected. Flushed with 10 mL NS. 13:18 XRAY Chest (1 view) In Process Unspecified. EDMS 13:30 Blood Culture Adult (2) Sent. ld1 13:30 Initial lab(s) drawn, by nj, sent to lab. First set of blood cultures drawn by jl physician. 13:38 Lilli Allison, JANESSA is Primary Nurse. jl7 14:23 Davy Cleaning MD is Hospitalizing Provider. [facility] 15:27 Urine collected: clean catch specimen, clear. jl7 15:30 No provider procedures requiring assistance completed. Inserted saline lock: 24 gauge jl7 in left forearm, using aseptic technique. 15:59 Patient admitted, IV remains in place. intact, No redness/swelling at site. jl7 Administered Medications: 12:20 Drug: NS 0.9% IV (30 ml/kg) 30 ml/kg IV at bolus once; Sepsis Protocol; to be given as jl7 a bolus over 90 minutes Route: IV; Rate: bolus; Site: right jugular; 13:30 Follow up: Response: No adverse reaction; IV Status: Completed infusion; IV Intake: [facility] 952.5ml 13:29 Drug: Rocephin IV 1 grams IV at per protocol once; Given slow IV push per pharmacy ld1 instructions Route: IV; Rate: per protocol; Site: right jugular; 13:40 Follow up: Response: No adverse reaction; IV Status: Completed infusion jl 15:28 Drug: Insulin Drip - (Insulin Regular Human IVP 100 units, NS 0.9% IV 100 ml) IV at jl7 calculated rate continuous; Standard concentration 1unit/ml; Dose for DKA is 0.1 units/kg/hr {Co-Signature: ld1 (Ramona Cordova RN).} {Note: insulin drip started at 3 units/hour.} Route: IV; Rate: calculated rate; Site: right jugular; 15:58 Follow up: IV Status: Infusion continued upon admission jl7 Medication: 13:00 VIS not applicable for this client. jl7 Point of Care Testing: Blood Glucose: 12:43 Blood Glucose: High (>450 mg/dL); Ranges: Intake: 13:30 IV: 953ml; Total: 953ml. jl7 Outcome: 14:25 Decision to Hospitalize by Provider. [facility] 15:59 Admitted to ER Hold. Please see [facility] for further documentation. jl7 15:59 Condition: stable 15:59 Discharge instructions given to patient, Instructed on the need for admit, 17:39 Patient left the ED. hb Signatures: Dispatcher [employer] EDMS Srinivasan Chris MD MD cha Rivera, Mary, Reg Reg mr Nuris Zuniga, RN RN Maile Goel RN RN Lilli Allison RN RN jl7 Ramona Cordova RN RN ld1 Ramona Cordova RN ld1 Corrections: (The following items were deleted from the chart) 15:33 13:30 NS 0.9% IV (30 ml/kg) 952.5 ml IV at bolus in right jugular ld1 jl7
[2025-01-09 14:27] LABS: Glucose Level 1170 mg/dL (74-106)
[2025-01-09] MEDS ORDERED: D50W 25 GM/50 ML SYRINGE IV PRN (14:30)
[2025-01-09] MEDS ORDERED: GLUCAGON 1 MG/VIAL IM PRN (14:30)
[2025-01-09] MEDS: D5 0.45 NS 1,000 ML IV SCH (15:00)
[2025-01-09 15:27] LABS: Absolute Lymphocytes (CBC) 0.9 K/uL (0.7-4.9); Absolute Monocytes 0.2 K/uL (0.1-1.3); Absolute Neutrophil 7.9 K/uL (1.8-8.0); Basophils % 0.3 % (0-1.3); Hematocrit 35.8 % (36.0-45.0); Hemoglobin 11.1 g/dL (12.0-15.0); Lymphocytes % 9.5 % (15.3-44.8); MCH 25.5 pg (27.0-35.0); MCV 82.2 fL (80-100); MPV 9.9 fL (7.6-11.3); Monocytes % 2.2 % (3.3-12.3); Nucleated Red Blood Cells % 0.1 % (0-0); Platelets 349 thou/uL (152-406); RBC Red Blood Cell Count 4.35 M/uL (3.86-4.86); Red Cell Distribution Width 16.6 % (12.1-15.2)
[2025-01-09] MEDS: INSULIN REGULAR, HUMAN 100 UNIT in NA CHLORIDE 0.9% 100 ML IV SCH (15:28)
[2025-01-09] MEDS: NA CHLORIDE 0.9% 1,000 ML IV SCH (15:50)
[2025-01-09 16:05] LABS: Specific Gravity 1.026 (1.005-1.030); Urine Bilirubin NEGATIVE (Negative); Urine Blood Negative (Negative); Urine Clarity Clear (Clear); Urine Color Colorless (Yellow); Urine Glucose 4+ (Over) (Negative); Urine Ketones 3+ (Negative); Urine Microscopic Reflex YN NO UMIC; Urine Nitrite NEGATIVE (Negative); Urine Protein NEGATIVE (Negative); Urine Urobilinogen Normal (Normal)
[2025-01-09 16:25] LABS: Barbiturates NEGATIVE (NEGATIVE); Benzodiazepines NEGATIVE (NEGATIVE); Cocaine NEGATIVE (NEGATIVE); METHAMPHETAM NEGATIVE (NEGATIVE); Methadone NEGATIVE (NEGATIVE); Opiates NEGATIVE (NEGATIVE); Phencyclidine NEGATIVE (NEGATIVE); THC Cannibis NEGATIVE (NEGATIVE)
[2025-01-09 16:45] LABS: White Blood Cell Scan OK (OK)
[2025-01-09 16:46] LABS: Blood Morphology Comment NOT SEEN (NOT SEEN); Platelet Estimate ADEQ
[2025-01-09 17:22] LABS: Anion Gap 25.7 mEq/L (5.0-15.0); Potassium 4.7 mEq/L (3.5-5.1)
[2025-01-09 17:57] VITALS: O2SAT 100
[2025-01-09 18:23] VITALS: BMI 14.1
--- NOTE | 2025-01-09 19:44 | P.HP ---
Certification for Inpatient Patient admitted to: Observation With expected LOS: <2 Midnights Patient will require the following post-hospital care: None Practitioner: I am a practitioner with admitting privileges, knowledge of patient current condition, hospital course, and medical plan of care. Services: Services provided to patient in accordance with Admission requirements found in Title 42 Section 412.3 of the Code of Federal Regulations Patient History Date of Service: 01/09/25 Reason for admission: DKA History of Present Illness: Patient is a 19-year-old female who comes to the hospital with diabetic ketoacidosis. Patient really does not really communicate much but she has been having nausea and vomiting and abdominal pain. She was found to be in diabetic ketoacidosis. Patient was given IV fluids and started on insulin drip. Patient will be admitted to ICU. Allergies No Known Allergies Allergy (Verified 07/13/23 22:35) Home Medications: Insulin Lispro [Humalog] 6 units SQ TID 02/03/23 Buprenorphine HCl/Naloxone HCl [Buprenorphine-Nalox 8-2 mg Tab] 2 mg SL DAILY 01/09/25 Insulin Glargine,Hum.rec.anlog [Semglee] 30 units SQ DAILY 01/09/25 - Past Medical/Surgical History Has patient received pneumonia vaccine in the past: No Diabetic: Yes -: Type 1 diabetes -: Depression -: Anorexia -: Noncompliance -: Drug abuse -: None Psychosocial/ Personal History: Patient lives at home with family. - Family History Father Medical History: Diabetes - Social History Smoking Status: Current every day smoker Alcohol use: No Caffeine use: Yes Place of Residence: Home Review of Systems 10-point ROS is otherwise unremarkable Physical Examination - Vital Signs Temperature: 97.7 F Blood Pressure: 124/83 Pulse: 96 Respirations: 13 Pulse Ox (%): 100 - Physical Exam General: Alert, In no apparent distress, Oriented x3, Cachectic HEENT: Atraumatic, PERRLA, Mucous membr. moist/pink, EOMI, Sclerae nonicteric Neck: Supple, 2+ carotid pulse no bruit, No LAD, Without JVD or thyroid abnormality Respiratory: Clear to auscultation bilaterally, Normal air movement Cardiovascular: Regular rate/rhythm, Normal S1 S2 Gastrointestinal: Normal bowel sounds, Soft and benign, Non-distended, No tenderness Musculoskeletal: No clubbing, No swelling, No tenderness Integumentary: No rashes Neurological: Normal gait, Normal speech, Normal strength at 5/5 x4 extr, Normal tone, Sensation intact, Cranial nerves 3-12 intact, Normal affect Lymphatics: No axilla or inguinal lymphadenopathy - Studies Laboratory Data (last 24 hrs) 01/09/25 01/09/25 01/09/25 13:25 13:25 13:25 WBC 9.00 Hgb 11.1 L Hct 35.8 L Plt Count 349 PT 10.9 INR 0.95 Sodium 125 L Potassium 5.3 H BUN 35 H Creatinine 1.55 H Glucose 1170 H* Magnesium 2.9 H Total Bilirubin 0.7 AST < 10 L ALT 18 Alkaline Phosphatase 200 H Lipase 18 Assessment & Plan - Problems (Diagnosis) (1) DKA (diabetic ketoacidoses) Current Visit: No Status: Acute Qualifiers: - Plan 1. Continue with insulin drip 2. Continue with aggressive IV hydration 3. Monitor hemoglobin A1c 4. Blood sugars every hour 5. Check BMP every 6 hours 6. Government Relations Manager regarding blood sugars 7. Repeat acetone level in a.m. 8. GI DVT prophylaxis Discharge Plan: Home Plan to discharge in: 24 Hours - Advance Directives Does patient have a Living Will: No Does patient have a Durable POA for Healthcare: No - Code Status/Comfort Care Code Status Assessed: Yes Code Status: Full Code Critical Care: No Time Spent Managing PTS Care (In Minutes): 45
[2025-01-09] MEDS: TRAZODONE 50 MG TABLET PO SCH (20:32)
[2025-01-09 23:19] LABS: Anion Gap 10.2 mEq/L (5.0-15.0); Potassium 4.2 mEq/L (3.5-5.1)
[2025-01-09] MEDS: INSULIN LISPRO 100 UNIT/1 ML SQ ONE (23:50)
[2025-01-10] MEDS: NA CHLORIDE 0.9% 1,000 ML IV SCH (01:16)
[2025-01-10 06:10] LABS: Absolute Eosinophils 0.1 K/uL (0-0.5); Absolute Lymphocytes (CBC) 2.1 K/uL (0.7-4.9); Absolute Monocytes 0.4 K/uL (0.1-1.3); Absolute Neutrophil 4.5 K/uL (1.8-8.0); Basophils % 0.6 % (0-1.3); Eosinophils % 1.7 % (0-4.4); Hematocrit 26.7 % (36.0-45.0); Lymphocytes % 29.8 % (15.3-44.8); MCH 26.3 pg (27.0-35.0); MCHC 33.9 g/dL (32.0-36.0); MCV 77.6 fL (80-100); MPV 8.7 fL (7.6-11.3); Neutrophils % 62.9 % (41.7-73.7); Nucleated Red Blood Cells % 0.1 % (0-0); Platelets 249 thou/uL (152-406); RBC Red Blood Cell Count 3.44 M/uL (3.86-4.86); Red Cell Distribution Width 16.7 % (12.1-15.2)
[2025-01-10 06:24] LABS: AST/SGOT 16 U/L (15-37); Albumin 2.6 g/dL (3.4-5.0); Albumin/Globulin Ratio 0.9 (1.1-1.8); Alkaline Phosphatase 104 U/L (45-117); Anion Gap 11.5 mEq/L (5.0-15.0); BUN Blood Urea Nitrogen 24 mg/dL (7-18); Bicarbonate 22 mEq/L (21-32); Bilirubin Total 0.3 mg/dL (0.2-1.0); Glomerular Filtration Rate 120 ml/min (=/>90); Glucose Level 133 mg/dL (74-106); Potassium 4.5 mEq/L (3.5-5.1); Protein, Total 5.6 g/dL (6.4-8.2); Sodium Level 139 mEq/L (136-145)
[2025-01-10 06:30] LABS: ALT/SGPT < 14 U/L (13-56)
--- NOTE | 2025-01-10 08:04 | P.DS ---
Discharge Date: 01/10/25 Disposition: ROUTINE DISCHARGE Discharge Condition: GOOD Reason for Admission: DKA - Problems (1) DKA (diabetic ketoacidoses) Current Visit: No Status: Acute Qualifiers: Brief History of Present Illness: Patient is a 19-year-old female who comes to the hospital with diabetic ketoacidosis. Patient really does not really communicate much but she has been having nausea and vomiting and abdominal pain. She was found to be in diabetic ketoacidosis. Patient was given IV fluids and started on insulin drip. Patient will be admitted to ICU. Hospital Course: Patient has done well during hospitalization. Her DKA resolved. She has a normal anion gap and her blood sugars have been stable. Continue with long- acting insulin. Anticipate discharge home as long as she tolerates her breakfast today. Patient needs to try to be more compliant with her day-to-day routine. At this time patient is stable for discharge home. Vital Signs/Physical Exam: Temp Pulse Resp BP Pulse Ox 97 F 86 16 132/89 100 01/10/25 00:00 01/10/25 06:00 01/10/25 06:00 01/10/25 06:00 01/10/25 06:00 General: Alert, In no apparent distress, Oriented x3 Laboratory Data at Discharge: WBC 7.20 thou/uL (4.3-10.9) 01/10/25 05:36 Hgb 9.0 g/dL (12.0-15.0) L D 01/10/25 05:36 Hct 26.7 % (36.0-45.0) L 01/10/25 05:36 Plt Count 249 thou/uL (152-406) D 01/10/25 05:36 PT 10.9 SECONDS (10.0-13.0) 01/09/25 13:25 INR 0.95 01/09/25 13:25 Sodium 139 mEq/L (136-145) 01/10/25 05:36 Potassium 4.5 mEq/L (3.5-5.1) 01/10/25 05:36 BUN 24 mg/dL (7-18) H 01/10/25 05:36 Creatinine 0.73 mg/dL (0.55-1.02) 01/10/25 05:36 Glucose 133 mg/dL (74-106) H 01/10/25 05:36 Magnesium 2.0 mg/dL (1.6-2.4) 01/10/25 05:36 Total Bilirubin 0.3 mg/dL (0.2-1.0) 01/10/25 05:36 AST 16 U/L (15-37) 01/10/25 05:36 ALT < 14 U/L (13-56) 01/10/25 05:36 Alkaline Phosphatase 104 U/L (45-117) D 01/10/25 05:36 Lipase 18 U/L (13-75) 01/09/25 13:25 Home Medications: Insulin Lispro [Humalog] 6 units SQ TID 02/03/23 Buprenorphine HCl/Naloxone HCl [Buprenorphine-Nalox 8-2 mg Tab] 2 mg SL DAILY 01/09/25 Insulin Glargine,Hum.rec.anlog [Semglee] 30 units SQ DAILY 01/09/25 Trazodone [Desyrel*] 50 mg PO BEDTIME PRN #10 01/10/25 New Medications: Trazodone [Desyrel*] 50 mg PO BEDTIME PRN #10 PRN Reason: Insomnia Physician Discharge Instructions: -DC IV and DC home -Follow-up with PCP in 1 to 2 weeks -Follow-up with Hydroponics Worker in 1 to 2 weeks -Please call Dr. Cleaning at [phone] if any questions regarding hospital stay -Please call nursing station at [phone] if any nursing or medication questions -Return to the emergency room if symptoms worsen Diet: ADA Activity: Fall precautions Followup: SAMIRA NUNES [Primary Care Provider] - Time spent managing pt's care (in minutes): 35
[2025-01-10] MEDS: INSULIN LISPRO 100 UNIT/1 ML SQ SCH (08:07)
[2025-01-10] MEDS: INSULIN GLARGINE 100 UNIT/ML SQ SCH (08:07)
[2025-01-10] MEDS: ONDANSETRON 4 MG/2 ML VIAL IV PRN (08:24)
[2025-01-10] MEDS: BUPRENORPHINE NALOXONE SL SCH (08:54)
[2025-01-10] MEDS ORDERED: BUPRENORPHINE NALOXONE SL SCH (09:00)
[2025-01-10 11:06] VITALS: BP 123/78; TEMP 98.5
--- NOTE | 2025-01-10 11:58 | EKG ---
Test Date: 2025-01-09 Test Time: 13:38:15 Behavioral Health Tech: FREDERICK MEASUREMENT RESULTS: Intervals: Rate: 102 NE: 118 QRSD: 78 QT: 350 QTc: 456 [place]: P: 75 NE: 118 QRS: 71 T: 12 INTERPRETIVE STATEMENTS: Sinus tachycardia Right atrial enlargement Borderline ECG Compared to ECG 12/19/2024 09:56:02 Myocardial infarct finding no longer present T-wave abnormality no longer present Possible ischemia no longer present Electronically Signed On 01-10-25 11:57:47 RETANNER by Etienne Jacobs
== END 2025-01-10 10:49 | disposition home or self-care (01) | DRG 638 ==
LOC: ER 12:23 → ERHOLD 14:27 → 3RD-ICU 17:13
PROVIDERS: ADMIT Hospitalist; ATTEND Hospitalist
DX: E11.10 Type 2 diabetes mellitus with ketoacidosis without coma (principal); E87.1 Hypo-osmolality and hyponatremia; N17.9 Acute kidney failure, unspecified; R64 Cachexia; Z68.1 Body mass index [BMI] 19.9 or less, adult; F17.200 Nicotine dependence, unspecified, uncomplicated; Z79.4 Long term (current) use of insulin; Z79.899 Other long term (current) drug therapy
CPT/HCPCS: 36415; 71045; 80048; 80053; 80076; 80307; 81003; 82010; 82947; 83690; 83735; 83880; 84484; 84703; 85025; 85610; 87040; 93005; 96365; 96367; 96375; 99285; G0378; J0696; J2405; J7030

== ENCOUNTER 2025-01-12 21:18 | Emergency (ER) | payer OTHER ==
[2025-01-12 22:39] LABS: Absolute Basophils 0.1 K/uL (0-0.5); Absolute Eosinophils 0.1 K/uL (0-0.5); Absolute Lymphocytes (CBC) 2.5 K/uL (0.7-4.9); Absolute Monocytes 0.2 K/uL (0.1-1.3); Absolute Neutrophil 2.9 K/uL (1.8-8.0); Basophils % 0.9 % (0-1.3); Eosinophils % 1.3 % (0-4.4); Hematocrit 31.7 % (36.0-45.0); Hemoglobin 10.4 g/dL (12.0-15.0); MCH 26.4 pg (27.0-35.0); MCHC 32.7 g/dL (32.0-36.0); MCV 80.8 fL (80-100); MPV 9.1 fL (7.6-11.3); Monocytes % 3.8 % (3.3-12.3); Nucleated Red Blood Cells % 0.1 % (0-0); Platelets 257 thou/uL (152-406); RBC Red Blood Cell Count 3.92 M/uL (3.86-4.86); Red Cell Distribution Width 17.2 % (12.1-15.2)
[2025-01-12] MEDS ORDERED: ONDANSETRON 4 MG/2 ML VIAL ONE (22:48)
[2025-01-12] MEDS ORDERED: NA CHLORIDE 0.9% 1,000 ML ONE (22:48)
[2025-01-12 23:05] LABS: Specific Gravity > 1.030 (1.005-1.030); Urine Bilirubin NEGATIVE (Negative); Urine Blood Negative (Negative); Urine Clarity Clear (Clear); Urine Color Colorless (Yellow); Urine Glucose 4+ (Over) (Negative); Urine Ketones NEGATIVE (Negative); Urine Microscopic Reflex YN NO UMIC; Urine Nitrite NEGATIVE (Negative); Urine Protein NEGATIVE (Negative); Urine Urobilinogen Normal (Normal); Urine pH 6.5 (5.0-7.0)
[2025-01-12 23:06] LABS: Albumin 3.5 g/dL (3.4-5.0); Albumin/Globulin Ratio 0.9 (1.1-1.8); Anion Gap 11.5 mEq/L (5.0-15.0); BETA HYDROXYBUTYRATE 0.11 mmol/L (0.02-0.27); Bilirubin Total 0.2 mg/dL (0.2-1.0); Globulin 3.7 g/dL (2.3-3.5); Potassium 4.5 mEq/L (3.5-5.1); Protein, Total 7.2 g/dL (6.4-8.2)
[2025-01-12] MEDS ORDERED: INSULIN REGULAR (HUMAN) 100 UNIT/ML ONE (23:19)
--- NOTE | 2025-01-13 00:34 | ER ---
Nurse's Notes [facility] Name: Tessa Eagle Age: 19 yrs Sex: Female : 2005 Arrival Date: 01/12/2025 Time: 21:18 Bed 16 Private MD: Diagnosis: Hyperglycemia, unspecified Presentation: 01/12 22:24 Chief complaint: Patient states: WAS D/C ON THE AND BEGAN HAVING N/V THAT EVENING dd2 AND TODAY BGS READ "HI". Coronavirus screen: At this time, the client does not indicate any symptoms associated with coronavirus-19. Ebola Screen: No symptoms or risks identified at this time. Initial Sepsis Screen: Does the patient meet any 2 criteria? No. Patient's initial sepsis screen is negative. Does the patient have a suspected source of infection? No. Patient's initial sepsis screen is negative. Risk Assessment: Do you want to hurt yourself or someone else? Patient reports no desire to harm self or others. Onset of symptoms was January 10, 2025. 22:24 Method Of Arrival: Ambulatory dd2 22:24 Acuity: JUSTIN 3 dd2 Triage Assessment: 22:27 General: Appears in no apparent distress. Behavior is calm, cooperative, appropriate dd2 for age. Pain: Denies pain. 22:29 EENT: No deficits noted. No signs and/or symptoms were reported regarding the EENT dd2 system. Neuro: No deficits noted. Neuro: Level of Consciousness is awake, alert, obeys commands, Oriented to person, place, time, situation, Appropriate for age. Cardiovascular: No deficits noted. Patient's skin is warm and dry. Respiratory: No deficits noted. Airway is patent Respiratory effort is even, unlabored, Respiratory pattern is regular, symmetrical, Breath sounds are clear bilaterally. GI: Abdomen is flat, non-distended, Abd is soft and non tender Reports nausea, vomiting. : No deficits noted. No signs and/or symptoms were reported regarding the genitourinary system. Derm: No deficits noted. No signs and/or symptoms reported regarding the dermatologic system. Musculoskeletal: No deficits noted. No signs and/or symptoms reported regarding the musculoskeletal system. Circulation, motion, and sensation intact. Range of motion: intact in all extremities. FIT MODEL: 22:29 LMP N/A - Irregular menses, Not dd2 Historical: - Allergies: 22:27 No Known Allergies; dd2 - PMHx: 22:27 ANOREXIA; diabetes mellitus; drug abuse; renal insufficiency; dd2 - PSHx: 22:27 None; dd2 - Immunization history:: Adult Immunizations up to date, Client reports receiving the 2nd dose of the Covid vaccine, Flu vaccine is not up to date. - Infectious Disease History:: Denies. - Social history:: Smoking status: Reported history of juuling and/or vaping. Screenin:36 [facility] ED Fall Risk Assessment (Adult) History of falling in the last 3 months, dd2 including since admission No falls in past 3 months (0 pts) Confusion or Disorientation No (0 pts) Intoxicated or Sedated No (0 pts) Impaired Gait No (0 pts) Mobility Assist Device Used No (0 pt) Altered Elimination No (0 pt) Score/Fall Risk Level 0 - 2 = Low Risk Oriented to surroundings, Maintained a safe environment, Educated pt \\T\\ family on fall prevention, incl call for assistance when getting out of bed, Assessed \\T\\ reinforced patient's understanding of fall precautions, Hourly rounding (assess needs \\T\\ fall precautionary measures) done. Abuse screen: Denies threats or abuse. Nutritional screening: On diabetic diet, Has had N/V for 3 or more days. Tuberculosis screening: No symptoms or risk factors identified. Assessment: 22:24 Reassessment: ASSUMING CARE OF PT. dd2 22:35 Reassessment: see triage assessment for full assessment. dd2 Vital Signs: 22:24 BP 105 / 75; Pulse 90; Resp 16; Temp 98.3; Pulse Ox 97% on R/A; Weight 31.75 kg; dd2 23:00 BP 105 / 68; Pulse 82; Resp 15; Pulse Ox 96% on R/A; dd2 ED Course: 21:19 Patient arrived in ED. [id number] 21:29 Rosy Zavala FNP-C is PSYCHIATRICP. kb 21:29 Amaury Cosby MD is Attending Physician. kb 21:30 Shoaib Burnett MD is Attending Physician. kb 21:59 Missed attempt(s): 22 gauge Bleeding controlled, band aid applied, catheter tip intact. kmf 21:59 CMP Sent. kmf 22:00 CBC with Diff Sent. kmf 22:00 Initial lab(s) drawn, by vt, sent to lab. EKG done, by ED staff. kmf 22:08 Inserted saline lock: 22 gauge in right wrist, using aseptic technique. Flushed with 10 vk mL NS. 22:24 JULIUS MCFARLAND, RN is Primary Nurse. dd2 22:27 Triage completed. dd2 22:29 Arm band placed on. dd2 23:36 No provider procedures requiring assistance completed. Patient maintains SpO2 dd2 saturation greater than 95% on room air. 23:36 Patient has correct armband on for positive identification. Bed in low position. Call dd2 light in reach. Side rails up X 1. Provided Education on: lab results, medication. Client placed on continuous cardiac and pulse oximetry monitoring. NIBP monitoring applied. monitor tech on. Door closed. Noise minimized. Warm blanket given. Pillow given. PO fluids given. Verbal reassurance given. 01/13 01:12 IV discontinued, bleeding controlled, No redness/swelling at site. Pressure dressing rg5 applied. Administered Medications: 01/12 23:02 Drug: Ondansetron IVP 4 mg IVP once; over 2 minutes Route: IVP; Site: right wrist; dd2 23:17 Follow up: Response: No adverse reaction dd2 23:03 Drug: NS 0.9% IV 1000 ml IV at 1000 ml once; to be given as a bolus over 60 minutes dd2 Route: IV; Rate: 1000 ml; Site: right wrist; 23:18 Follow up: Response: No adverse reaction dd2 01/13 00:15 Follow up: IV Status: Completed infusion; IV Intake: 1000ml rg5 01/12 23:22 Drug: Insulin Regular Human IVP 10 units IVP once {Co-Signature: rg5 (Garrett Hung dd2 RN).} Route: IVP; Site: right wrist; 01/13 00:15 Follow up: Response: No adverse reaction rg5 Medication: 01/12 23:36 VIS not applicable for this client. dd2 Point of Care Testing: Blood Glucose: 01/13 00:20 Blood Glucose: 173 mg/dL; rg5 Ranges: Intake: 00:15 IV: 1000ml; Total: 1000ml. rg5 Outcome: 00:33 Discharge ordered by MD. arredondo 01:00 Discharged to home ambulatory, rg5 01:00 Condition: stable 01:00 Instructed on discharge instructions, follow up and referral plans. 01:17 Patient left the ED. rg5 Signatures: Rosy Zavala FNP-C FNP-Naya Gates Kelsey Maroul [facility] Anita Paniagua Rommel, JANESSA RN rg5 JULIUS MCFARLAND RN RN dd2 Garrett Hung RN rg5 Corrections: (The following items were deleted from the chart) 01/12 22:30 22:27 General: Appears in no apparent distress. Behavior is calm, cooperative, dd2 appropriate for age, dd2
--- NOTE | 2025-01-13 00:34 | EDPHYS ---
Physician Documentation [facility] Name: Tessa Eagle Age: 19 yrs Sex: Female : 2005 Arrival Date: 01/12/2025 Time: 21:18 Bed 16 Private MD: ED Physician Shoaib Burnett HPI: 01/12 22:58 This 19 yrs old Female presents to ER via Ambulatory with complaints of High kb Blood Sugar, H/O TYPE I DM. 22:58 Pt is a 19 year old female who presents for high blood sugar and vomiting that started kb 2 days ago. States she has been out of her lantus so she hasn't had it in 2 days. States she saw her PCP and was able to cotton picker the lantus prior to arrival, but has not taken it yet. . COPPER TAPPER: 22:29 LMP N/A - Irregular menses, Not dd2 Historical: - Allergies: 22:27 No Known Allergies; dd2 - PMHx: 22:27 ANOREXIA; diabetes mellitus; drug abuse; renal insufficiency; dd2 - PSHx: 22:27 None; dd2 - Immunization history:: Adult Immunizations up to date, Client reports receiving the 2nd dose of the Covid vaccine, Flu vaccine is not up to date. - Infectious Disease History:: Denies. - Social history:: Smoking status: Reported history of juuling and/or vaping. ROS: 22:58 Constitutional: As per HPI kb Exam: 22:09 Constitutional: This is a well developed, well nourished patient who is awake, alert, kb and in no acute distress. Head/Face: Normocephalic, atraumatic. ENT: Moist Mucous membranes Cardiovascular: Regular rate Respiratory: Respirations even and unlabored. No increased work of breathing. Talking in full sentences Abdomen/GI: Soft, non-tender. No distention Skin: Warm, dry with normal turgor. Normal color. MS/ Extremity: Pulses equal, no cyanosis. Neurovascular intact. Full, normal range of motion. Neuro: Awake and alert, GCS 15, oriented to person, place, time, and situation. 22:09 ECG was reviewed by the Attending Physician. Vital Signs: 22:24 BP 105 / 75; Pulse 90; Resp 16; Temp 98.3; Pulse Ox 97% on R/A; Weight 31.75 kg; dd2 23:00 BP 105 / 68; Pulse 82; Resp 15; Pulse Ox 96% on R/A; dd2 MDM: 21:30 Medical Screening Exam initiated kb 22:59 Differential diagnosis: DKA, hyperglycemia, dehydration, abnormal electrolytes. Data kb reviewed: vital signs, nurses notes. 01/13 00:33 Counseling: I had a detailed discussion with the patient and/or guardian regarding the kb historical points, exam findings, and any diagnostic results supporting the discharge/admit diagnosis, lab results, the need for outpatient follow up, a family practitioner, to return to the emergency department if symptoms worsen or persist or if there are any questions or concerns that arise at home. 01/12 21:31 Order name: CBC with Diff; Complete Time: 22:47 kb 01/12 21:31 Order name: CMP; Complete Time: 23:07 kb 01/12 21:31 Order name: Test, Urine; Complete Time: 23:08 kb 01/12 21:31 Order name: Urinalysis w/ reflexes; Complete Time: 23:07 kb 01/12 21:31 Order name: BETA HYDROXYBUTYRATE; Complete Time: 23:07 kb 01/12 22:10 Order name: Glucose, Ancillary Testing; Complete Time: 22:17 EDMS 01/13 00:31 Order name: Glucose, Ancillary Testing; Complete Time: 00:33 EDMS 01/12 21:31 Order name: IV Start; Complete Time: 22:32 kb 01/12 21:31 Order name: EKG - Nurse/Tech; Complete Time: 22:41 kb 01/12 23:57 Order name: Blood Glucose Level; Complete Time: 00:20 kb EC/26 22:09 Rate is 97 beats/min. Rhythm is regular. QRS [place] is Normal. [place] interval is normal at kb 118 msec. QRS interval is normal at 64 msec. QT interval is normal at 436 msec. Administered Medications: 23:02 Drug: Ondansetron IVP 4 mg IVP once; over 2 minutes Route: IVP; Site: right wrist; dd2 23:17 Follow up: Response: No adverse reaction dd2 23:03 Drug: NS 0.9% IV 1000 ml IV at 1000 ml once; to be given as a bolus over 60 minutes dd2 Route: IV; Rate: 1000 ml; Site: right wrist; 23:18 Follow up: Response: No adverse reaction dd2 01/13 00:15 Follow up: IV Status: Completed infusion; IV Intake: 1000ml rg5 01/12 23:22 Drug: Insulin Regular Human IVP 10 units IVP once {Co-Signature: rg5 (Garrett Hung dd2 RN).} Route: IVP; Site: right wrist; 01/13 00:15 Follow up: Response: No adverse reaction rg5 Point of Care Testing: Blood Glucose: 00:20 Blood Glucose: 173 mg/dL; rg5 Ranges: Critical Glucose Levels:Adult <50 mg/dl or >400 mg/dl <40 mg/dl or >180 mg/dl Disposition: 03:14 Co-signature as Attending Physician, Shoaib Burnett MD I agree with the assessment sp4 and plan of care. I reviewed the patient's care provided by the Advanced Practice Provider and agree with the diagnosis and treatment plan. Disposition Summary: 01/13/25 00:33 Discharge Ordered Notes: Location: Home kb Condition: Stable kb Diagnosis - Hyperglycemia, unspecified kb Followup: kb - With: Emergency Department - When: As needed - Reason: Worsening of condition Followup: kb - With: Private Physician - When: 2 - 3 days - Reason: Recheck today's complaints, Continuance of care, Re-evaluation by your physician Discharge Instructions: - Discharge Summary Sheet kb - Hyperglycemia, Nusy-sp-Gbhy kb Forms: - Medication Reconciliation Form kb - Antibiotic Education kb - Prescription Opioid Use kb - Patient Portal Instructions kb - Leadership Thank You Letter kb Critical care time excluding procedures: 01/12 23:11 Critical care time: Bedside Care: 20 minutes, Consultation: 10 minutes. Total time: 30 kb minutes Signatures: Dispatcher [employer] EDMS Rosy Zavala, INSURANCE AGENCY SALES MANAGER-C RAJ-Shoaib Mahoney MD MD sp4 JULIUS MCFARLAND RN RN dd2 Garrett Hung RN rg5 Garrett Hung RN rg5 Corrections: (The following items were deleted from the chart) 21:31 21:31 CBC+H.LAB.BRZ ordered. EDMS EDMS 21:31 21:31 COMPREHENSIVE METABOLIC PANEL+C.LAB.BRZ ordered. EDMS EDMS 21:31 21:31 Test, Urine+UC.LAB.BRZ ordered. EDMS EDMS 21: Urinalysis+U.LAB.BRZ ordered. EDMS EDMS 21: BETA HYDROXYBUTYRATE+C.LAB.BRZ ordered. EDMS EDMS : 21:31 Arterial Blood Gas+RC.LAB.BRZ ordered. EDMS EDMS 23: 23:00 Arterial Blood Gas+RC.LAB.BRZ ordered. EDMS EDMS
[2025-01-13 01:47] VITALS: BP 105/75; TEMP 98.3; O2SAT 97
--- NOTE | 2025-01-13 16:44 | EKG ---
Test Date: 2025-01-12 Test Time: 21:52:48 School Counselor: ANURADHA MEASUREMENT RESULTS: Intervals: Rate: 97 [place]: 118 QRSD: 64 QT: 344 QTc: 436 [place]: P: 68 NH: 118 QRS: 50 T: 25 INTERPRETIVE STATEMENTS: Normal sinus rhythm Nonspecific T wave abnormality Abnormal ECG Compared to ECG 01/09/2025 13:38:15 T-wave abnormality now present Sinus tachycardia no longer present Atrial abnormality no longer present Electronically Signed On 01-13-25 16:43:09 IT TECHNICAL ARCHITECT by Etienne Jacobs
== END 2025-01-13 01:17 | disposition home or self-care (01) ==
LOC: ER 21:18
DX: E10.65 Type 1 diabetes mellitus with hyperglycemia (principal); F17.290 Nicotine dependence, other tobacco product, uncomplicated
CPT/HCPCS: 96361; 93005; 85025; 36415; 81025; 82947 ×2; 81003; 80053; 82010; 96375; 96374; 99285; J2405; J7030

== ENCOUNTER 2025-01-22 13:11 | Inpatient (IN) | payer OTHER ==
[2025-01-22] MEDS ORDERED: CEFTRIAXONE 1000 MG/VIAL ONE (13:35)
[2025-01-22] MEDS ORDERED: NA CHLORIDE 0.9% 1,000 ML ONE ×2 (13:35→16:13)
[2025-01-22] MEDS ORDERED: FAMOTIDINE 20 MG/2 ML VIAL IV ONE (13:35)
[2025-01-22] MEDS ORDERED: ONDANSETRON 4 MG/2 ML VIAL ONE (13:35)
[2025-01-22] MEDS ORDERED: NA CHLORIDE 0.9% 50 ML ONE (13:35)
[2025-01-22 15:12] LABS: PT Prothrombin Time 10.2 SECONDS (10-13.0); Protime INR 0.89
[2025-01-22 15:46] LABS: ALT/SGPT 28 U/L (13-56); Albumin 4.4 g/dL (3.4-5.0); Alkaline Phosphatase 189 U/L (45-117); Anion Gap 35.5 mEq/L (5.0-15.0); BUN Blood Urea Nitrogen 31 mg/dL (7-18); Bilirubin Total 0.5 mg/dL (0.2-1.0); Globulin 4.2 g/dL (2.3-3.5); Glomerular Filtration Rate 52 ml/min (=/>90); NT PRO-BNP 136 pg/mL (<125); Protein, Total 8.6 g/dL (6.4-8.2); Sodium Level 132 mEq/L (136-145)
[2025-01-22 15:54] LABS: AST/SGOT 15 U/L (15-37); Bilirubin Direct < 0.2 mg/dL (0-0.2); Bilirubin Indirect, Calculated 0.3 mg/dL (0.2-0.8); Potassium 5.5 mEq/L (3.5-5.1); Troponin High Sensitivity < 3.0 pg/mL (<58.9)
[2025-01-22 15:55] LABS: Magnesium 2.6 mg/dL (1.6-2.4)
[2025-01-22 15:57] LABS: Bicarbonate < 8 mEq/L (21-32)
[2025-01-22 16:13] LABS: Glucose Level 804 mg/dL (74-106)
[2025-01-22] MEDS ORDERED: INSULIN REGULAR (HUMAN) 100 UNIT/ML ONE ×2 (16:25→16:29)
[2025-01-22] MEDS ORDERED: NA CHLORIDE 0.9% 0 ML ONE (16:25)
[2025-01-22] MEDS ORDERED: NA CHLORIDE 0.9% 100 ML ONE (16:31)
--- NOTE | 2025-01-22 16:42 | ER ---
Nurse's Notes [facility] Name: Tessa Eagle Age: 19 yrs Sex: Female : 2005 Arrival Date: 01/22/2025 Time: 13:11 Bed 6 Private MD: Diagnosis: Diabetes mellitus due to underlying condition with ketoacidosis without coma;Acute kidney failure, unspecified;Hyperkalemia;Severe sepsis without septic shock;Acidosis;Elevated white blood cell count Presentation: 01/22 13:24 Chief complaint: Patient states: this morning has not been feeling good, is nauseous iw and having diarrhea , has pain all over, missed two days of insulin. Coronavirus screen: At this time, the client does not indicate any symptoms associated with coronavirus-19. Ebola Screen: No symptoms or risks identified at this time. Initial Sepsis Screen: Does the patient meet any 2 criteria? No. Patient's initial sepsis screen is negative. Does the patient have a suspected source of infection? No. Patient's initial sepsis screen is negative. Risk Assessment: Do you want to hurt yourself or someone else? Patient reports no desire to harm self or others. Onset of symptoms was January 22, 2025. 13:24 Method Of Arrival: Wheelchair iw 13:24 Acuity: JUSTIN 2 iw RECORDS AND TAPE RECORDINGS ENGINEER: 19:25 LMP N/A - Irregular menses, Not jl7 Historical: - Allergies: 13:26 No Known Allergies; iw - PMHx: 13:26 ANOREXIA; diabetes mellitus; drug abuse; renal insufficiency; iw - PSHx: 13:26 None; iw - Immunization history:: Adult Immunizations not up to date. - Infectious Disease History:: Denies. - Social history:: Smoking status: Reported history of juuling and/or vaping. - Family history:: not pertinent. Screenin:13 [facility] ED Fall Risk Assessment (Adult) History of falling in the last 3 months, jl7 including since admission No falls in past 3 months (0 pts) Confusion or Disorientation No (0 pts) Intoxicated or Sedated No (0 pts) Impaired Gait No (0 pts) Mobility Assist Device Used No (0 pt) Altered Elimination No (0 pt) Score/Fall Risk Level 0 - 2 = Low Risk Oriented to surroundings, Maintained a safe environment. Abuse screen: Denies threats or abuse. Denies injuries from another. Nutritional screening: No deficits noted. Tuberculosis screening: No symptoms or risk factors identified. Assessment: 13:30 General: Appears distressed, uncomfortable, ill, unkempt, malnourished, cachectic, jl7 Behavior is cooperative, restless, Smells of ketones. Pain: Complains of pain in abdomen diffusely. Neuro: Level of Consciousness is awake, alert, obeys commands, Oriented to person, place, time, situation. Cardiovascular: Patient's skin is warm and dry. Respiratory: Airway is patent Respiratory effort is even, unlabored, Respiratory pattern is symmetrical, Kussmaul. GI: Reports lower abdominal pain, upper abdominal pain, nausea. : No signs and/or symptoms were reported regarding the genitourinary system. Derm: Skin is intact, Skin is dry, Skin is dusky, Skin temperature is cool. 13:42 Reassessment: RESPIRATORY ATTEMPTED TO OBTAIN SPECIMEN FOR ABG. PATIENT REFUSED ABG. db 14:07 Reassessment: Pt refused xray, ERD notified. jl7 14:48 Reassessment: Pt refused EKG, ERD notified. jl7 15:00 Reassessment: No changes from previously documented assessment. Pt requesting ice jl7 chips, ice chips provided per ERD. 16:00 Reassessment: No changes from previously documented assessment. Patient and/or family jl7 updated on plan of care and expected duration. Pain level reassessed. 17:00 Reassessment: No changes from previously documented assessment. Patient and/or family jl7 updated on plan of care and expected duration. Pain level reassessed. 18:00 Reassessment: No changes from previously documented assessment. Patient and/or family jl7 updated on plan of care and expected duration. Pain level reassessed. Vital Signs: 13:24 BP 134 / 83; Pulse 127; Resp 20; Temp 98.1; Pulse Ox 100% on R/A; Weight 31.75 kg; iw Height 4 ft. 11 in. ; Pain 10/10; 14:13 BP 149 / 97; Pulse 122; Resp 23; Pulse Ox 100% ; jl7 14:34 BP 143 / 77; Pulse 118; Resp 24; Pulse Ox 100% ; jl7 16:52 BP 161 / 86; Pulse 121; Resp 22; Pulse Ox 100% ; kn 17:46 BP 145 / 90; Pulse 123; Resp 24; Pulse Ox 98% ; jl7 18:30 BP 133 / 76; Pulse 126; Resp 19; Pulse Ox 100% ; jl7 20:43 BP 139 / 87; Pulse 115; Resp 18; Pulse Ox 100% ; cp4 13:24 Body Mass Index 14.14 (31.75 kg, 149.86 cm) iw 13:24 Pain Scale: Adult iw ED Course: 13:14 Patient arrived in ED. im 13:20 Srinivasan Chris MD is Attending Physician. tadeo 13:25 Triage completed. iw 13:26 Arm band placed on. iw 13:31 Senait Blackmon, RN is Primary Nurse. db 14:07 Lilli Allison, RN is Primary Nurse. jl7 14:13 Patient has correct armband on for positive identification. Bed in low position. Call jl7 light in reach. Side rails up X2. Provided Education on: use of call suarez. 14:13 Inserted saline lock: 24 gauge in right hand, using aseptic technique. Blood collected. jl7 Flushed with 10 mL NS. 14:14 Initial lab(s) drawn, by me, sent to lab. First set of blood cultures drawn by me. jl7 14:48 Lab(s) recollected, by me, sent to lab. jl7 15:58 Notified ED physician of a critical lab result(s). CO2 less than 8, Glucose reading kc6 high, Lactate 2.5. 16:30 Assisted provider with central line placement. Set up central line tray. Triple lumen jl7 line placed in right femoral. Line placed by Srinivasan Chris MD Placement verified by blood return, Dressed with Tape, Tegaderm, Blood was collected. Patient tolerated poorly. Before procedure, did Practitioner(s) obtain informed consent? No. Patient \T\ family education about procedure, CLABSI prevention and S/S of infection? Yes. Time-out/Briefing performed prior to start of procedure? Yes. Was handwashing/sanitizing done immediately prior to procedure? Yes. Was patient positioned to in a way to prevent air embolism? Yes. Was procedure site sterilized? Yes, with chlorhexidine. Was the site allowed to dry? Yes. Was local anesthetic and/or sedation utilized? Yes. During the procedure, did the Practitioner(s) maintain a sterile field? Yes. Were unused ports clamped during insertion? Yes. Was a 2nd qualified MD obtained after 3 unsuccessful insertion attempts? No. Was blood aspirated from each lumen? Yes. After the procedure, did the Practitioner(s) clean the site and apply a sterile dressing? Yes. 16:41 Davy Cleaning MD is Hospitalizing Provider. [facility] 18:30 Client placed on continuous cardiac and pulse oximetry monitoring. NIBP monitoring jl7 applied. 18:30 Patient admitted, IV remains in place. intact, No redness/swelling at site. jl7 Administered Medications: 14:12 Drug: NS 0.9% IV (30 ml/kg) 30 ml/kg IV at bolus once; Sepsis Protocol; to be given as jl7 a bolus over 90 minutes Route: IV; Rate: bolus; Site: right hand; 16:15 Follow up: Response: No adverse reaction; IV Status: Completed infusion; IV Intake: jl7 953ml 14:12 Drug: Ondansetron IVP 4 mg IVP once; over 2 minutes Route: IVP; Site: right hand; jl7 16:50 Follow up: Response: No adverse reaction jl7 14:12 Drug: Famotidine IVP 20 mg IVP once; dilute with 10 mL 0.9% NaCl; give over 2 minutes jl7 Route: IVP; Site: right hand; 16:50 Follow up: Response: No adverse reaction jl7 14:12 Drug: Rocephin IV 1 grams IV at per protocol once; Given slow IV push per pharmacy jl7 instructions Route: IV; Rate: per protocol; Site: right hand; 14:25 Follow up: Response: No adverse reaction; IV Status: Completed infusion jl7 16:33 Not Given (Duplicate Order): Insulin Drip - (insulin regular human ivp 100 units, ns tadeo 0.9% 100 ml) IV at calculated rate continuous; Standard concentration 1unit/ml; Dose for DKA is 0.1 units/kg/hr 16:49 Drug: Insulin Drip - (Insulin Regular Human IVP 100 units, NS 0.9% IV 100 ml) IV at 3 jl7 units/hr continuous; Standard concentration 1unit/ml; Dose for DKA is 0.1 units/kg/hr {Co-Signature: SHALOM Logan RN).} Route: IV; Rate: 3 units/hr; Site: right femoral; 19:25 Follow up: Response: No adverse reaction; IV Status: Infusion continued upon admission jl7 Medication: 14:48 VIS not applicable for this client. jl7 Point of Care Testing: Blood Glucose: 13:43 Blood Glucose: High (>450 mg/dL); db Ranges: Intake: 16:15 IV: 953ml; Total: 953ml. jl7 Outcome: 16:42 Decision to Hospitalize by Provider. tadeo 20:44 Admitted to ICU accompanied by nurse, via stretcher, on monitor, with chart, Report cp4 called to receiving nurse 20:44 Condition: stable 20:44 Instructed on the need for admit, 20:44 Patient left the ED. cp4 Signatures: Srinivasan Chris MD MD cha Williams, Irene, RN Lilli Simon RN Pau Pandey RN RN Senait Wooten RN RN Bethany Hay Christina cp4 SHALOM NEAL RN RN kn NICOLOSI, KARLENE RN kn Corrections: (The following items were deleted from the chart) 13:26 13:24 Chief complaint: Patient states: this morning has not been feeling good, is iw nauseous and having diarrhea , has pain all over iw 14:34 14:13 BP 149 / 97; Pulse 122bpm; Resp 15bpm; Pulse Ox 100%; jl7 jl7
--- NOTE | 2025-01-22 16:42 | EDPHYS ---
Physician Documentation [facility] Name: Tessa Eagle Age: 19 yrs Sex: Female : 2005 Arrival Date: 01/22/2025 Time: 13:11 Bed 6 Private MD: WEN Physician Srinivasan Chris HPI: 01/22 16:34 This 19 yrs old Female presents to ER via Wheelchair with complaints of DKA. tadeo 16:34 The patient presents to the emergency department with nausea, vomiting, abdominal pain, tadeo of the right upper quadrant, left upper quadrant, right lower quadrant and left lower quadrant. Onset: The symptoms/episode began/occurred 2 day(s) ago. Possible causes: unknown. The symptoms are aggravated by nothing. The symptoms are alleviated by nothing. dka, Kussmaul breathing. The patient presents with trouble concentrating. Possible causes: CVA or TIA, drug use, alcohol, head injury, sepsis. Associated signs and symptoms: Pertinent positives: abdominal pain, dizziness, lightheadedness, nausea, vomiting. Associated signs and symptoms: Pertinent positives: anorexia, nausea, vomiting. Current symptoms: In the emergency department the patient's symptoms have worsened, markedly. Patient's baseline: Neuro: alert and fully oriented. Severity of symptoms: At their worst the symptoms were severe in the emergency department the symptoms are unchanged. The patient has experienced similar episodes in the past, multiple times. 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 - Infectious Disease History:: Denies. - Social history:: Smoking status: Reported history of juuling and/or vaping. - Family history:: not pertinent. ROS: 16:34 Eyes: Negative for injury, pain, redness, and discharge, ENT: Negative for injury, tadeo pain, and discharge, : Negative for injury, bleeding, discharge, and swelling, Allergy/Immunology: Negative for hives, rash, and allergies, Hematologic/Lymphatic: Negative for swollen nodes, abnormal bleeding, and unusual bruising, 16:34 ENT: Positive for dry mm, 16:34 Cardiovascular: Positive for palpitations, 16:34 Respiratory: Positive for shortness of breath, at rest. 16:34 Neuro: Positive for altered mental status, weakness, Exam: 16:34 Cardiovascular: Rate: tachycardic, actual rate is 118 bpm, Rhythm: regular, Pulses: [facility] Pulses are 4+ in bilateral radial, brachial, femoral, popliteal, posterior tibial and and dorsalis pedis arteries.. Heart sounds: normal, Edema: is not appreciated, JVD: 16:34 Respiratory: moderate respiratory distress is noted, Respirations: labored breathing, 16:34 Abdomen/GI: Inspection: abdomen appears normal, Bowel sounds: hyperactive, Palpation: abdomen is soft and non-tender, Liver: no appreciated palpable abnormalities, Hernia: not appreciated, 16:34 Musculoskeletal/extremity: Extremities: all appear grossly normal, with no appreciated pain with palpation, 16:34 Neuro: Mentation: slow to respond, Memory: no acute changes, Cranial nerves: is grossly normal based on the patient's age, no acute changes, Cerebellar function: no acute changes, Sensation: no acute changes, Gait: not tested. seizure activity, is not displayed by the patient, 16:40 Constitutional: This is a well developed, well nourished patient who is awake, alert, tadeo and in no acute distress. Head/Face: Normocephalic, atraumatic. Eyes: Pupils equal round and reactive to light, extra-ocular motions intact. Lids and lashes normal. Conjunctiva and sclera are non-icteric and not injected. Cornea within normal limits. Periorbital areas with no swelling, redness, or edema. Chest/axilla: Normal chest wall appearance and motion. Nontender with no deformity. No lesions are appreciated. 16:40 Constitutional: The patient appears in obvious distress, moderately distressed, severely distressed, 16:40 ENT: Mouth: Lips: dry, Oral mucosa: dry, Posterior pharynx: no acute changes, Airway: normal, no evidence of obstruction, 16:40 Respiratory: 16:44 Respiratory: moderate respiratory distress is noted, Breath sounds: are clear tadeo throughout, no bronchial sounds, no decreased breath sounds, no rales, rhonchi, no stridor, no wheezing, Vital Signs: 13:24 BP 134 / 83; Pulse 127; Resp 20; Temp 98.1; Pulse Ox 100% on R/A; Weight 31.75 kg; iw Height 4 ft. 11 in. ; Pain 10/10; 14:13 BP 149 / 97; Pulse 122; Resp 23; Pulse Ox 100% ; jl7 14:34 BP 143 / 77; Pulse 118; Resp 24; Pulse Ox 100% ; jl7 16:52 BP 161 / 86; Pulse 121; Resp 22; Pulse Ox 100% ; kn 17:46 BP 145 / 90; Pulse 123; Resp 24; Pulse Ox 98% ; jl7 18:30 BP 133 / 76; Pulse 126; Resp 19; Pulse Ox 100% ; jl7 20:43 BP 139 / 87; Pulse 115; Resp 18; Pulse Ox 100% ; cp4 13:24 Body Mass Index 14.14 (31.75 kg, 149.86 cm) iw 13:24 Pain Scale: Adult iw Procedures: 16:44 Central Line: the site was prepped with Betadine, in sterile fashion, a triple lumen tadeo catheter was inserted, in the right femoral vein, in 4 attempts. placement was verified, by blood return, the site was dressed with using sterile technique, the patient tolerated the procedure, well. Peripheral line: by aseptic technique a peripheral line was placed in the right external jugular vein. MDM: 13:20 Medical Screening Exam initiated tadeo 16:38 Differential diagnosis: Nonspecific abd pain, gastritis, pancreatitis, appendicitis, tadeo diverticulitis, viral gastroenteritis, gastroenteritis. Differential Diagnosis: electrolyte abnormality, alcohol intoxication, hypoglycemia, meningitis, overdose, pneumonia, sepsis, TIA, volume depletion. Data reviewed: vital signs, nurses notes, lab test result(s), EKG, radiologic studies, plain films. Consideration of Admission/Observation Patient was admitted/placed on observation. Escalation of care including admission/observation considered. I considered the following discharge prescriptions or medication management in the emergency department Medications were administered in the Emergency Department. See MAR. Test considered but Not performed: EKG: no ekg , pt refused. Historians other than the Patient: pt well informed. Care significantly affected by the following chronic conditions: Diabetes, Hypertension, Chronic Kidney Disease, drugs, dka. Counseling: I had a detailed discussion with the patient and/or guardian regarding the historical points, exam findings, and any diagnostic results supporting the discharge/admit diagnosis, lab results, radiology results, the need for further work-up and treatment in the hospital. 01/22 13:24 Order name: Basic Metabolic Panel; Complete Time: 16:32 tadeo 01/22 13:24 Order name: CBC with Diff; Complete Time: 18:58 [facility] 01/22 13:24 Order name: LFT's; Complete Time: 16:32 [facility] 01/22 13:24 Order name: Magnesium; Complete Time: 16:32 [facility] 01/22 13:24 Order name: NT PRO-BNP; Complete Time: 16:32 [facility] 01/22 13:24 Order name: PT-INR; Complete Time: 15:38 [facility] 01/22 13:24 Order name: Troponin HS; Complete Time: 16:32 [facility] 01/22 13:24 Order name: Urinalysis w/ reflexes [facility] 01/22 13:24 Order name: PREGU [facility] 01/22 13:24 Order name: BETA HYDROXYBUTYRATE [facility] 01/22 13:24 Order name: ABG [facility] 01/22 13:24 Order name: Blood Culture Adult (2) [facility] 01/22 13:24 Order name: Lactate w/ 2H reflex if indic.; Complete Time: 16:32 [facility] 01/22 13:24 Order name: UDS [facility] 01/22 13:53 Order name: Glucose, Ancillary Testing; Complete Time: 15:38 EDMS 01/22 16:01 Order name: Ghost Lactate-NO COLLECT Timer; Complete Time: 18:58 EDMS 01/22 17:07 Order name: Manual Differential; Complete Time: 18:58 EDMS 01/22 17:46 Order name: Chem 7 jl7 01/22 17:58 Order name: Glucose, Ancillary Testing; Complete Time: 18:58 EDMS 01/22 18:07 Order name: Magnesium EDMS 01/22 18:07 Order name: Basic Metabolic Panel EDMS 01/22 18:08 Order name: Basic Metabolic Panel EDMS 01/22 18:08 Order name: Basic Metabolic Panel EDMS 01/22 18:08 Order name: Basic Metabolic Panel EDMS 01/22 18:08 Order name: Basic Metabolic Panel EDMS 01/22 18:08 Order name: Basic Metabolic Panel EDMS 01/22 18:08 Order name: Basic Metabolic Panel EDMS 01/22 18:08 Order name: Basic Metabolic Panel EDMS 01/22 18:08 Order name: Basic Metabolic Panel EDMS 01/22 18:08 Order name: Basic Metabolic Panel EDMS 01/22 18:08 Order name: Basic Metabolic Panel EDMS 01/22 18:08 Order name: CBC with Automated Diff EDMS 01/22 18:08 Order name: CBC with Automated Diff EDMS 01/22 18:08 Order name: CBC with Automated Diff EDMS 01/22 18:08 Order name: CBC with Automated Diff EDMS 01/22 18:08 Order name: Magnesium EDMS 01/22 18:08 Order name: Magnesium EDMS 01/22 18:08 Order name: Magnesium EDMS 01/22 18:08 Order name: Magnesium EDMS 01/22 18:08 Order name: Phosphorus EDMS 01/22 18:08 Order name: Phosphorus EDMS 01/22 18:08 Order name: Phosphorus EDMS 01/22 18:08 Order name: Phosphorus EDMS 01/22 18:50 Order name: ABG Arterial Blood Gas; Complete Time: 18:58 EDMS 01/22 19:01 Order name: Magnesium EDMS 01/22 19:13 Order name: Glucose, Ancillary Testing EDMS 01/22 20:03 Order name: Lactate Sepsis 2 HR Follow-up EDMS 01/22 13:24 Order name: Cardiac monitoring; Complete Time: 14:12 tadeo 01/22 13:24 Order name: EKG - Nurse/Tech; Complete Time: 14:12 tadeo 01/22 13:24 Order name: IV Saline Lock; Complete Time: 14:12 tadeo 01/22 13:24 Order name: Labs collected and sent; Complete Time: 14:12 tadeo 01/22 13:24 Order name: O2 Per Protocol; Complete Time: 14:12 tadeo 01/22 13:24 Order name: O2 Sat Monitoring; Complete Time: 14:12 tadeo 01/22 15:18 Order name: Misc. Order: recollect; Complete Time: 16:17 ty Administered Medications: 14:12 Drug: NS 0.9% IV (30 ml/kg) 30 ml/kg IV at bolus once; Sepsis Protocol; to be given as jl7 a bolus over 90 minutes Route: IV; Rate: bolus; Site: right hand; 16:15 Follow up: Response: No adverse reaction; IV Status: Completed infusion; IV Intake: jl7 953ml 14:12 Drug: Ondansetron IVP 4 mg IVP once; over 2 minutes Route: IVP; Site: right hand; jl7 16:50 Follow up: Response: No adverse reaction jl 14:12 Drug: Famotidine IVP 20 mg IVP once; dilute with 10 mL 0.9% NaCl; give over 2 minutes jl7 Route: IVP; Site: right hand; 16:50 Follow up: Response: No adverse reaction jl 14:12 Drug: Rocephin IV 1 grams IV at per protocol once; Given slow IV push per pharmacy jl7 instructions Route: IV; Rate: per protocol; Site: right hand; 14:25 Follow up: Response: No adverse reaction; IV Status: Completed infusion jl 16:33 Not Given (Duplicate Order): Insulin Drip - (insulin regular human ivp 100 units, ns tadeo 0.9% 100 ml) IV at calculated rate continuous; Standard concentration 1unit/ml; Dose for DKA is 0.1 units/kg/hr 16:49 Drug: Insulin Drip - (Insulin Regular Human IVP 100 units, NS 0.9% IV 100 ml) IV at 3 jl7 units/hr continuous; Standard concentration 1unit/ml; Dose for DKA is 0.1 units/kg/hr {Co-Signature: ranjana (SHALOM NEAL RN).} Route: IV; Rate: 3 units/hr; Site: right [facility]; 19:25 Follow up: Response: No adverse reaction; IV Status: Infusion continued upon admission jl7 Point of Care Testing: Blood Glucose: 13:43 Blood Glucose: High (>450 mg/dL); db Ranges: Critical Glucose Levels:Adult <50 mg/dl or >400 mg/dl <40 mg/dl or >180 mg/dl Disposition: 16:41 Critical Care:. tadeo Disposition Summary: 01/22/25 16:42 Hospitalization Ordered Notes: Hospitalization Status: Inpatient Admission tadeo Provider: Davy Cleaning cha Location: Intensive Care Unit tadeo Condition: Stable tadeo Problem: new tadeo Symptoms: have improved tadeo Bed/Room Type: Standard [facility] Room Assignment: 1-(01/22/25 19:33) dw Diagnosis - Diabetes mellitus due to underlying condition with ketoacidosis without coma tadeo - Acute kidney failure, unspecified tadeo - Hyperkalemia tadeo - Severe sepsis without septic shock tadeo - Acidosis tadeo - Elevated white blood cell count tadeo Forms: - Medication Reconciliation Form tadeo - SBAR form tadeo - Leadership Thank You Letter [facility] Critical care time excluding procedures: 16:41 Critical care time: Bedside Care: 30 minutes. Total time: 30 minutes tadeo Signatures: Dispatcher [employer] Amelie Perez, Srinivasan Swann RN, MD MD cha Williams, Irene, RN Lilli Simon RN RN jl7 Álvaro Durbin KARLENE RN kn Corrections: (The following items were deleted from the chart) 13:24 13:24 BASIC METABOLIC PANEL+C.LAB.BRZ ordered. EDMS EDMS 13:24 13:24 CBC+H.LAB.BRZ ordered. EDMS EDMS 13:24 13:24 HEPATIC FUNCTION+C.LAB.BRZ ordered. EDMS EDMS 13:24 13:24 MAGNESIUM+C.LAB.BRZ ordered. EDMS EDMS 13:24 13:24 PROBNP+C.LAB.BRZ ordered. EDMS EDMS 13:24 13:24 PROTIME (+INR)+COAG.LAB.BRZ ordered. EDMS EDMS 13:24 13:24 Troponin High Sensitivity+C.LAB.BRZ ordered. EDMS EDMS 13:24 13:24 Urinalysis+U.LAB.BRZ ordered. EDMS EDMS 13:24 13:24 Test, Urine+UC.LAB.BRZ ordered. EDMS EDMS 13:24 13:24 BETA HYDROXYBUTYRATE+C.LAB.BRZ ordered. EDMS EDMS 13:24 13:24 BLOOD CULTURE*+BA.LAB.BRZ ordered. EDMS EDMS 13:25 13:24 LACTATE+C.LAB.BRZ ordered. EDMS EDMS 13:25 13:24 URINE DRUG SCREEN+UC.LAB.BRZ ordered. EDMS EDMS 13:25 13:25 Chest Single View+RAD.RAD.BRZ ordered. EDMS EDMS 13:25 13:25 Arterial Blood Gas+RC.LAB.BRZ ordered. EDMS EDMS 18:05 17:31 CBC Smear Scan ordered. EDMS EDMS 19:33 16:42 tadeo degroot
[2025-01-22 16:59] LABS: Basophils % 0.5 % (0-1.3); Eosinophils % 0.1 % (0-4.4)
[2025-01-22 17:24] LABS: Absolute Basophils 0.1 K/uL (0-0.5); Absolute Lymphocytes (CBC) 1.1 K/uL (0.7-4.9); Absolute Monocytes 0.5 K/uL (0.1-1.3); Absolute Neutrophil 24.1 K/uL (1.8-8.0); Hematocrit 40.1 % (36.0-45.0); Hemoglobin 12.4 g/dL (12.0-15.0); Lymphocytes % 4.3 % (15.3-44.8); MCHC 30.9 g/dL (32.0-36.0); MCV 82.4 fL (80-100); Monocytes % 1.9 % (3.3-12.3); Neutrophils % 93.2 % (41.7-73.7); RBC Red Blood Cell Count 4.87 M/uL (3.86-4.86)
[2025-01-22 17:48] LABS: Differential Total Cells Count 100; Lymphocytes 11 % (15-42); Monocytes 3 % (0-10); Segmented Neutrophils 86 % (40-80)
[2025-01-22 17:58] LABS: MCH 26.6 pg (27.0-35.0)
[2025-01-22 17:59] LABS: Platelets 378 thou/uL (152-406)
[2025-01-22 18:00] LABS: Blood Morphology Comment NOT SEEN (NOT SEEN); Platelet Estimate ADEQ
[2025-01-22] MEDS: D5 0.45 NS 1,000 ML IV SCH (18:00)
[2025-01-22] MEDS: NA CHLORIDE 0.9% 1,000 ML IV SCH (18:00)
[2025-01-22] MEDS ORDERED: GLUCAGON 1 MG/VIAL IM PRN (18:05)
[2025-01-22] MEDS ORDERED: D50W 25 GM/50 ML SYRINGE IV PRN (18:05)
[2025-01-22] MEDS ORDERED: D10W 125 ML IV PRN (18:10)
--- NOTE | 2025-01-22 18:26 | P.HP ---
Certification for Inpatient Patient admitted to: Inpatient With expected LOS: >2 Midnights Practitioner: I am a practitioner with admitting privileges, knowledge of patient current condition, hospital course, and medical plan of care. Services: Services provided to patient in accordance with Admission requirements found in Title 42 Section 412.3 of the Code of Federal Regulations Patient History Date of Service: 01/22/25 Reason for admission: DKA History of Present Illness: Tessa Eagle is a 19-year-old female with a past medical history of noncompliance, frequent hospitalizations, type 1 diabetes, and drug abuse who presented to the ED with N/V/ and severe abdominal pain. On evaluation, she is lethargic responding to touch, she agrees to stay for admission for treatment today. Laboratory evaluation significant for WBC 25.9, NA 132, bicarb < 8, anion gap 35.5, BUN/creatinine 31/1.47,GFR 52, Serum glucose 804, POC glucose> 500. Need the UA and urine test. Tessa will be admitted to hospitalist service in the ICU for further treatment of severe DKA. Allergies No Known Allergies Allergy (Verified 07/13/23 22:35) Home Medications: Insulin Lispro [Humalog] 6 units SQ TID 02/03/23 Buprenorphine HCl/Naloxone HCl [Buprenorphine-Nalox 8-2 mg Tab] 2 mg SL DAILY 01/09/25 Insulin Glargine,Hum.rec.anlog [Semglee] 30 units SQ DAILY 01/09/25 Trazodone [Desyrel*] 50 mg PO BEDTIME PRN #10 01/10/25 - Past Medical/Surgical History Diabetic: Yes -: Type 1 diabetes -: Depression -: Anorexia -: Noncompliance -: Drug abuse -: None Psychosocial/ Personal History: Patient lives at home with family. - Family History Father -: Diabetes - Social History Alcohol use: No CD- Drugs: Yes Caffeine use: Yes Review of Systems is unable to be obtained Physical Examination - Physical Exam General: Other (lethargic) HEENT: Atraumatic, Normocephalic Neck: 2+ carotid pulse no bruit Respiratory: Clear to auscultation bilaterally, Normal air movement Cardiovascular: Normal pulses, Normal S1 S2 Capillary refill: <2 Seconds Gastrointestinal: Normal bowel sounds, Soft and benign Musculoskeletal: No clubbing Integumentary: No rashes Neurological: Normal speech, Normal tone - Studies Laboratory Data (last 24 hrs) 01/22/25 01/22/25 01/22/25 15:48 14:44 14:44 WBC 25.90 H Hgb 12.4 Hct 40.1 Plt Count 378 PT 10.2 INR 0.89 Sodium 132 L Potassium 5.5 H BUN 31 H Creatinine 1.47 H Glucose 804 H* Magnesium 2.6 H Total Bilirubin 0.5 AST 15 ALT 28 Alkaline Phosphatase 189 H Assessment and Plan - Plan Assessment and Plan SIRS 2/2 unknown etiology DKA Hyperkalemia Leukocytosis REBA Admit to ICU SIRS criteria Pulse 122; Resp 23, WBC 25 N.p.o. Aggressive IVF, bicarb added Insulin drip, titrated per BMP BMP Q4H x 10 Accucheck Q1H until GAP is closed Follow Blood culture Rocephin 1 g IV daily Monitor and replete electrolytes When blood sugar less than 200 change IVF to D5.45 until gap closes Once gap closes stop Insulin gtt and start to long-acting and sliding scale subcu insulin may advance diet Noncompliance Social determinants of health Drug abuse cessation education provided Discuss importance of health maintenance director of medical staff services consult DVT ppx Discharge Plan: Home Plan to discharge in: 48 Hours - Advance Directives Does patient have a Living Will: No Does patient have a Durable POA for Healthcare: No
[2025-01-22 18:48] LABS: Arterial Blood Carboxyhemoglob 0.9 % (0-1.5); Blood Gas Oxyhemoglobin 76.1 % (94-97); Blood Gas THB 11.2 g/dl (12-18); Blood O2 Saturation 78.6 % (92-98.5)
[2025-01-22 18:50] LABS: Potassium 5.2 mEq/L (3.5-5.1); Sodium Level 140 mEq/L (136-145)
[2025-01-22 18:51] LABS: Anion Gap 34.2 mEq/L (5.0-15.0); BUN Blood Urea Nitrogen 33 mg/dL (7-18); Glomerular Filtration Rate 59 ml/min (=/>90); Glucose Level 725 mg/dL (74-106)
[2025-01-22 18:54] LABS: Bicarbonate < 8 mEq/L (21-32)
[2025-01-22 19:01] LABS: Magnesium 2.4
[2025-01-22] MEDS: INSULIN REGULAR, HUMAN 100 UNIT in NA CHLORIDE 0.9% 100 ML IV SCH (20:30)
[2025-01-22 21:11] VITALS: O2SAT 100
[2025-01-22] MEDS: NACHLORIDE 0.45% 1,000 ML IV ONE (21:31)
[2025-01-22] MEDS: SODIUM BICARB 50 MEQ/50ML VIAL ONE (21:39)
[2025-01-22] MEDS: NACHLORIDE 0.45% 1,000 ML with NA BICARB 8.4% 100 MEQ IV SCH (21:50)
[2025-01-22] MEDS: ONDANSETRON 4 MG/2 ML VIAL IV PRN (22:56)
[2025-01-22 23:22] VITALS: BMI 14.1
[2025-01-22 23:26] LABS: Anion Gap 27.1 mEq/L (5.0-15.0); BUN Blood Urea Nitrogen 29 mg/dL (7-18); Glomerular Filtration Rate 68 ml/min (=/>90); Glucose Level 228 mg/dL (74-106); Potassium 4.1 mEq/L (3.5-5.1); Sodium Level 146 mEq/L (136-145)
[2025-01-22 23:29] LABS: Bicarbonate < 8 mEq/L (21-32)
[2025-01-23 03:54] LABS: Specific Gravity 1.018 (1.005-1.030)
[2025-01-23 03:55] LABS: Specific Gravity 1.018 (1.005-1.030); Sqamous Epithelial <5 /HPF (None Seen); Urine Bacteria <20 /HPF (<20); Urine Bilirubin NEGATIVE (Negative); Urine Blood Trace (Negative); Urine Clarity Clear (Clear); Urine Color Colorless (Yellow); Urine Culture Reflex Order NOT NEEDED; Urine Glucose 4+ (Over) (Negative); Urine Ketones 4+ (Over) (Negative); Urine Microscopic Reflex YN ORDER UMIC; Urine Mucus Slight /HPF (None Seen); Urine Nitrite NEGATIVE (Negative); Urine Protein 1+ (Negative); Urine RBC <5 /HPF (None Seen); Urine Urobilinogen Normal (Normal); Urine WBC <5 /HPF (<5); Urine Yeast (Budding) Trace /HPF (None Seen); Urine pH 5.5 (5.0-7.0)
[2025-01-23 04:08] LABS: Barbiturates NEGATIVE (NEGATIVE); Benzodiazepines NEGATIVE (NEGATIVE); Cocaine NEGATIVE (NEGATIVE); METHAMPHETAM NEGATIVE (NEGATIVE); Methadone NEGATIVE (NEGATIVE); Opiates NEGATIVE (NEGATIVE); Phencyclidine NEGATIVE (NEGATIVE); THC Cannibis POSITIVE (NEGATIVE)
[2025-01-23 04:09] LABS: Anion Gap 21.7 mEq/L (5.0-15.0); Potassium 3.7 mEq/L (3.5-5.1)
[2025-01-23 05:38] LABS: Absolute Basophils 0.1 K/uL (0-0.5); Absolute Lymphocytes (CBC) 1.8 K/uL (0.7-4.9); Absolute Monocytes 0.6 K/uL (0.1-1.3); Basophils % 0.4 % (0-1.3); Hematocrit 30.1 % (36.0-45.0); Hemoglobin 9.8 g/dL (12.0-15.0); Lymphocytes % 9.2 % (15.3-44.8); MCH 25.5 pg (27.0-35.0); MCHC 32.5 g/dL (32.0-36.0); MCV 78.6 fL (80-100); MPV 8.1 fL (7.6-11.3); Monocytes % 3.2 % (3.3-12.3); Nucleated Red Blood Cells % 0.1 % (0-0); Platelets 286 thou/uL (152-406); RBC Red Blood Cell Count 3.83 M/uL (3.86-4.86)
[2025-01-23 05:42] LABS: Neutrophils % 87.2 % (41.7-73.7)
[2025-01-23 05:53] LABS: Magnesium 1.8 mg/dL (1.6-2.4); Phosphorus 1.9 mg/dL (2.5-4.9)
[2025-01-23] MEDS ORDERED: KCL 20 MEQ/100 mL IVPB 20 MEQ/100 ML BAG IV SCH (07:00)
[2025-01-23] MEDS: CEFTRIAXONE 1,000 MG in NA CHLORIDE 0.9% 50 ML IVPB SCH (08:00)
[2025-01-23] MEDS: POTASSIUM PHOS IN 0.9 % NACL 15 MMOL/250 ML BAG IV ONE (08:00)
[2025-01-23 08:06] VITALS: TEMP 97.6
[2025-01-23 08:43] LABS: Anion Gap 14.1 mEq/L (5.0-15.0); Potassium 3.1 mEq/L (3.5-5.1)
[2025-01-23] MEDS ORDERED: INSULIN GLARGINE 100 UNIT/ML SQ ONE (09:32)
[2025-01-23] MEDS ORDERED: INSULIN REGULAR (HUMAN) 100 UNIT/ML SQ SCH (09:35)
[2025-01-23 10:02] VITALS: BP 128/79
[2025-01-23] MEDS ORDERED: NACHLORIDE 0.45% 1,000 ML with NA BICARB 8.4% 100 MEQ IV SCH (10:30)
--- NOTE | 2025-01-23 10:46 | P.DS ---
Admission Date: 01/22/25 Discharge Date: 01/23/25 Disposition: AMA-LEFT AGAINST MEDICAL ADVIC Reason for Admission: DKA Brief History of Present Illness: Diagnosis SIRS 2/2 unknown etiology DKA Hyperkalemia Leukocytosis REBA Noncompliance Social determinants of health Drug abuse HPI 01/22/25 Tesas Eagle is a 19-year-old female with a past medical history of noncompliance, frequent hospitalizations, type 1 diabetes, and drug abuse who presented to the ED with N/V/ and severe abdominal pain. On evaluation, she is lethargic responding to touch, she agrees to stay for admission for treatment today. Laboratory evaluation significant for WBC 25.9, NA 132, bicarb < 8, anion gap 35.5, BUN/creatinine 31/1.47,GFR 52, Serum glucose 804, POC glucose> 500. Need the UA and urine test. Tessa will be admitted to hospitalist service in the ICU for further treatment of severe DKA. Hospital Course: Patient was admitted and treated for the following diagnosis SIRS 2/2 unknown etiology DKA Hyperkalemia Leukocytosis REBA Admitted to ICU SIRS criteria Pulse 122; Resp 23, WBC 25 N.p.o. Tolerated and improved with Aggressive IVF, bicarb added, Insulin drip, titrated per BMP BMP Q4H x 10 Metabolic acidosis improved but not resolved Accucheck Q1H until GAP is closed Followed Blood culture NGTD Rocephin 1 g IV tolerated Monitored electrolytes Noncompliance Social determinants of health Drug abuse cessation education provided Discuss importance of health maintenance ON 01/23/25, Tessa was seen on morning rounds and she was refusing care, insulin gtt and IVF stopped for her safety as she would refuse accuchecks. Dr. Mcknight and ASHLEY Villarreal thoroughly discussed the need for treatment. Discussion concerning the danger and limitations that will likely occur from leaving the hospital without treatment, specifically , stroke, and becoming unstable hemodynamically. Tessa has decided to leave against medical advice and treatment. Physical Exam General: Other (lethargic), not conversational Neck: 2+ carotid pulse no bruit Respiratory: Clear BBS, Normal air movement, on RA Cardiovascular: Normal pulses, RRR, Normal S1 S2 Capillary refill: <2 Seconds Gastrointestinal: Normal bowel sounds, Soft on palpation Musculoskeletal: No clubbing Integumentary: No rashes Neurological: Normal speech, Normal tone Vital Signs/Physical Exam: Temp Pulse Resp BP Pulse Ox 97.6 F 85 31 H 128/79 100 01/23/25 08:00 01/23/25 10:00 01/23/25 10:00 01/23/25 10:00 01/23/25 10:00 Laboratory Data at Discharge: WBC 19.40 thou/uL (4.3-10.9) H 01/23/25 05:20 Hgb 9.8 g/dL (12.0-15.0) L D 01/23/25 05:20 Hct 30.1 % (36.0-45.0) L 01/23/25 05:20 Plt Count 286 thou/uL (152-406) 01/23/25 05:20 PT 10.2 SECONDS (10-13.0) 01/22/25 14:44 INR 0.89 01/22/25 14:44 Sodium 142 mEq/L (136-145) 01/23/25 08:05 Potassium 3.1 mEq/L (3.5-5.1) L D 01/23/25 08:05 BUN 22 mg/dL (7-18) H 01/23/25 08:05 Creatinine 1.01 mg/dL (0.55-1.02) 01/23/25 08:05 Glucose 155 mg/dL (74-106) H 01/23/25 08:05 Phosphorus 1.9 mg/dL (2.5-4.9) L 01/23/25 05:20 Magnesium 1.8 mg/dL (1.6-2.4) 01/23/25 05:20 Total Bilirubin 0.5 mg/dL (0.2-1.0) 01/22/25 14:44 AST 15 U/L (15-37) 01/22/25 14:44 ALT 28 U/L (13-56) 01/22/25 14:44 Alkaline Phosphatase 189 U/L (45-117) H 01/22/25 14:44 Home Medications: Insulin Lispro [Humalog] 6 units SQ TID 02/03/23 Buprenorphine HCl/Naloxone HCl [Buprenorphine-Nalox 8-2 mg Tab] 2 mg SL DAILY 01/09/25 Insulin Glargine,Hum.rec.anlog [Semglee] 30 units SQ DAILY 01/09/25 Trazodone [Desyrel*] 50 mg PO BEDTIME PRN #10 01/10/25 Followup: SAMIRA NUNES [Primary Care Provider] -
== END 2025-01-23 10:35 | disposition left against medical advice (07) | DRG 871 ==
LOC: ER 13:11 → ERHOLD 18:00 → 3RD-ICU 20:08
PROVIDERS: ADMIT Internal Medicine; ATTEND Internal Medicine
PROC: 4A033R1 Measurement of Arterial Saturation, Peripheral, Percutaneous Approach (ICD-10-PCS; principal; 2025-01-22)
DX: A41.9 Sepsis, unspecified organism (principal); E10.10 Type 1 diabetes mellitus with ketoacidosis without coma; Z68.1 Body mass index [BMI] 19.9 or less, adult; N17.9 Acute kidney failure, unspecified; R65.20 Severe sepsis without septic shock; R63.0 Anorexia; I12.9 Hypertensive chronic kidney disease with stage 1 through stage 4 chronic kidney disease, or unspecified chronic kidney disease; N18.9 Chronic kidney disease, unspecified; E10.22 Type 1 diabetes mellitus with diabetic chronic kidney disease; Z79.4 Long term (current) use of insulin; Z53.29 Procedure and treatment not carried out because of patient's decision for other reasons; Z79.899 Other long term (current) drug therapy; Z91.199 Patient's noncompliance with other medical treatment and regimen due to unspecified reason
CPT/HCPCS: 36415; 36556; 36600; 80048; 80076; 80307; 81001; 81025; 82010; 82805; 82947; 83605; 83735; 83880; 84100; 84484; 85025; 85610; 87040; 99285; J0696; J1815; J2405; J7030; J7799

== ENCOUNTER 2025-03-09 14:13 | Inpatient (IN) | payer OTHER ==
[2025-03-09] MEDS ORDERED: NA CHLORIDE 0.9% 1,000 ML ONE (15:08)
[2025-03-09 15:44] LABS: ALT/SGPT 20 U/L (13-56); Albumin 3.7 g/dL (3.4-5.0); Albumin/Globulin Ratio 0.8 (1.1-1.8); Alkaline Phosphatase 201 U/L (45-117); Anion Gap 38.2 mEq/L (5.0-15.0); BUN Blood Urea Nitrogen 40 mg/dL (7-18); Bilirubin Total 0.6 mg/dL (0.2-1.0); Globulin 4.6 g/dL (2.3-3.5); Glomerular Filtration Rate 43 ml/min (=/>90); Glucose Level 1201 mg/dL (74-106); Protein, Total 8.3 g/dL (6.4-8.2); Sodium Level 129 mEq/L (136-145)
[2025-03-09 15:48] LABS: AST/SGOT < 10 U/L (15-37); Bicarbonate < 8 mEq/L (21-32)
[2025-03-09 15:51] LABS: Potassium 6.2 mEq/L (3.5-5.1)
[2025-03-09] MEDS: INSULIN REGULAR, HUMAN 100 UNIT in NA CHLORIDE 0.9% 100 ML IV SCH (16:09)
[2025-03-09 16:10] LABS: Absolute Basophils 0.1 K/uL (0-0.5); Absolute Lymphocytes (CBC) 1.4 K/uL (0.7-4.9); Absolute Monocytes 0.6 K/uL (0.1-1.3); Absolute Neutrophil 15.4 K/uL (1.8-8.0); Basophils % 0.7 % (0-1.3); Eosinophils % 0.1 % (0-4.4); Hematocrit 37.2 % (36.0-45.0); Hemoglobin 10.6 g/dL (12.0-15.0); Lymphocytes % 8.1 % (15.3-44.8); MCHC 28.5 g/dL (32.0-36.0); MCV 87.8 fL (80-100); MPV 10.5 fL (7.6-11.3); Monocytes % 3.2 % (3.3-12.3); Neutrophils % 87.9 % (41.7-73.7); Platelets 419 thou/uL (152-406); RBC Red Blood Cell Count 4.23 M/uL (3.86-4.86); Red Cell Distribution Width 17.3 % (12.1-15.2)
--- NOTE | 2025-03-09 16:22 | EDPHYS ---
Physician Documentation [facility] Name: Tessa Eagle Age: 19 yrs Sex: Female : 2005 Arrival Date: 03/09/2025 Time: 14:13 Bed 20 Private MD: ED Physician Pam Darnell HPI: 03/09 14:36 This 19 yrs old Female presents to ER via Unassigned with complaints of high sp3 blood sugar. 14:36 18-year-old female with history of diabetes, drug abuse, renal insufficiency now sp3 presents to the ED for recurrent DKA type symptoms of hyperglycemia, generalized weakness and thirst. She denies any other symptoms including headache, fever, URI symptoms, chest pain, shortness of breath, vomiting, diarrhea or any other signs or symptoms on ROS at this time.. Historical: - Allergies: 14:38 No Known Allergies; kc6 - Home Meds: 14:38 Unable to obtain [Active]; kc6 - PMHx: 14:38 ANOREXIA; diabetes mellitus; drug abuse; renal insufficiency; kc6 - PSHx: 14:38 Unable to Obtain; kc6 - Immunization history:: Adult Immunizations unknown. - Infectious Disease History:: Denies. - Social history:: Smoking status: Reported history of juuling and/or vaping. ROS: 14:36 Eyes: Negative for injury, pain, redness, and discharge, Neck: Negative for injury, sp3 pain, and swelling, Cardiovascular: Negative for chest pain, palpitations, and edema, Abdomen/GI: Negative for abdominal pain, nausea, vomiting, diarrhea, and constipation, Back: Negative for injury and pain, MS/Extremity: Negative for injury and deformity, Skin: Negative for injury, rash, and discoloration, 14:36 All other systems are negative, Exam: 14:36 Constitutional: This is a well developed, well nourished patient who is awake, alert, sp3 and in no acute distress. Head/Face: Normocephalic, atraumatic. Neck: Trachea midline, no thyromegaly or masses palpated, and no cervical lymphadenopathy. Supple, full range of motion without nuchal rigidity, or vertebral point tenderness. No Meningismus. Chest/axilla: Normal chest wall appearance and motion. Nontender with no deformity. No lesions are appreciated. Abdomen/GI: Soft, non-tender, with normal bowel sounds. No distension or tympany. No guarding or rebound. No evidence of tenderness throughout. Back: No spinal tenderness. No costovertebral tenderness. Full range of motion. Skin: Warm, dry with normal turgor. Normal color with no rashes, no lesions, and no evidence of cellulitis. MS/ Extremity: Pulses equal, no cyanosis. Neurovascular intact. Full, normal range of motion. Neuro: Awake and alert, GCS 15, oriented to person, place, time, and situation. Cranial nerves II-XII grossly intact. Motor strength 5/5 in all extremities. Sensory grossly intact. Cerebellar exam normal. Normal gait. 14:36 Constitutional: The patient appears Patient mildly tachycardic in the 110 range. Kussmaul respirations noted. Oral mucous membranes are dry. Vital Signs: 14:37 BP 149 / 88; Pulse 111; Resp 25 S; Temp 97.6(O); Pulse Ox 100% on R/A; Weight 32.21 kg kc6 (M); Height 4 ft. 11 in. (R); 16:53 BP 113 / 82; Pulse 102; Resp 25 S; Pulse Ox 100% on R/A; kc6 14:37 Body Mass Index 14.34 (32.21 kg, 149.86 cm) kc6 MDM: 14:29 Medical Screening Exam initiated sp3 14:37 Data reviewed: vital signs, nurses notes, old medical records, lab test result(s), sp3 radiologic studies. ED course: 19-year-old female with DKA versus hyperglycemia and early dehydration versus other infection. Clinically patient appears to be in DKA. Will go ahead and start IV fluids and insulin drip. Full workup pending with probable admission.. 03/09 14:28 Order name: Blood Culture Adult (2) sp3 03/09 14:28 Order name: CBC with Diff sp3 03/09 14:28 Order name: CMP; Complete Time: 15:53 sp3 03/09 14:28 Order name: Lactate w/ 2H reflex if indic.; Complete Time: 15:51 sp3 03/09 14:28 Order name: Urinalysis w/ reflexes sp3 03/09 14:54 Order name: Glucose, Ancillary Testing; Complete Time: 14:57 EDMS 03/09 15:44 Order name: Ghost Lactate-NO COLLECT Timer EDMS 03/09 16:04 Order name: ABG sp3 03/09 16:34 Order name: Basic Metabolic Panel EDMS 03/09 16:34 Order name: Basic Metabolic Panel EDMS 03/09 16:34 Order name: Basic Metabolic Panel EDMS 03/09 16:34 Order name: Basic Metabolic Panel EDMS 03/09 16:34 Order name: Basic Metabolic Panel EDMS 03/09 16:34 Order name: Basic Metabolic Panel EDMS 03/09 16:34 Order name: Basic Metabolic Panel EDMS 03/09 16:34 Order name: Basic Metabolic Panel EDMS 03/09 16:34 Order name: Basic Metabolic Panel EDMS 03/09 16:34 Order name: Basic Metabolic Panel EDMS 03/09 16:34 Order name: Basic Metabolic Panel EDMS 03/09 16:35 Order name: CBC with Automated Diff EDMS 03/09 16:35 Order name: CBC with Automated Diff EDMS 03/09 16:35 Order name: CBC with Automated Diff EDMS 03/09 16:35 Order name: CBC with Automated Diff EDMS 03/09 16:35 Order name: CBC with Automated Diff EDMS 03/09 16:35 Order name: Hemoglobin A1c EDMS 03/09 16:35 Order name: Hemoglobin A1c EDMS 03/09 16:35 Order name: Lipid Profile EDMS 03/09 16:35 Order name: Lipid Profile EDMS 03/09 16:35 Order name: Magnesium EDMS 03/09 16:35 Order name: Magnesium EDMS 03/09 16:35 Order name: Magnesium EDMS 03/09 16:35 Order name: Magnesium EDMS 03/09 16:35 Order name: Phosphorus EDMS 03/09 16:35 Order name: Phosphorus EDMS 03/09 16:35 Order name: Phosphorus EDMS 03/09 16:35 Order name: Phosphorus EDMS 03/09 17:11 Order name: Glucose, Ancillary Testing EDMS 03/09 17:13 Order name: Glucose kc6 03/09 17:24 Order name: CBC Smear Scan EDMS 03/09 14:28 Order name: EKG; Complete Time: 14:28 sp3 03/09 14:28 Order name: Accucheck; Complete Time: 14:50 sp3 03/09 14:28 Order name: Cardiac monitoring; Complete Time: 14:40 sp3 03/09 14:28 Order name: EKG - Nurse/Tech; Complete Time: 14:50 sp3 03/09 14:28 Order name: IV Saline Lock - Large Bore; Complete Time: 14:40 sp3 03/09 14:28 Order name: Labs collected and sent; Complete Time: 15:09 sp3 03/09 14:28 Order name: O2 Per Protocol; Complete Time: 14:40 sp3 03/09 14:28 Order name: O2 Sat Monitoring; Complete Time: 14:40 sp3 03/09 14:28 Order name: Vital Signs; Complete Time: 14:40 sp3 Administered Medications: 15:16 Drug: NS 0.9% IV 2000 ml IV at 1 bolus Per protocol; to be given as a bolus over 60 kc6 minutes Route: IV; Rate: 1 bolus; Site: right wrist; 17:38 Follow up: Response: No adverse reaction; IV Status: Completed infusion; IV Intake: kc6 2000ml 16:09 Drug: Insulin Drip - (Insulin Regular Human IVP 100 units, NS 0.9% IV 100 ml) IV at kc6 calculated rate continuous; Standard concentration 1unit/ml; Dose for DKA is 0.1 units/kg/hr {Co-Signature: ll1 (Cj Altman RN).} {Note: 3.2 units/hr.} Route: IV; Rate: calculated rate; Site: right wrist; 17:38 Follow up: Response: No adverse reaction; IV Status: Infusion continued upon admission; kc6 IV Intake: 100ml Disposition Summary: 03/09/25 16:21 Hospitalization Ordered Notes: Hospitalization Status: Inpatient Admission sp3 Provider: Parmjit Flores sp3 Condition: Stable sp3 Problem: an acute exacerbation sp3 Symptoms: have worsened sp3 Bed/Room Type: Standard sp3 Location: Intensive Care Unit(03/09/25 16:22) sp3 Room Assignment: -(03/09/25 17:07) Diagnosis - Diabetic ketoacidosis, severe dehydration sp3 Forms: - Medication Reconciliation Form sp3 - SBAR form sp3 - Leadership Thank You Letter sp3 Critical care time excluding procedures: 16:21 Critical care time: Bedside Care: 20 minutes, Consultation: 10 minutes. Total time: 30 sp3 minutes Signatures: Dispatcher [employer] Olga Pandyaby, RN RN ss Stephan Fletcher, WELFARE INTERVIEWER-C WELFARE INTERVIEWER-Cla1 Pam Darnell MD MD sp3 Pau Kam RN RN kc6 Cj Altman RN ll1 Corrections: (The following items were deleted from the chart) 14: 14:28 BLOOD CULTURE*+BA.LAB.BRZ ordered. EDMS EDMS 14: 14:28 CBC+H.LAB.BRZ ordered. EDMS EDMS 14: 14:28 COMPREHENSIVE METABOLIC PANEL+C.LAB.BRZ ordered. EDMS EDMS 14: 14:28 LACTATE+C.LAB.BRZ ordered. EDMS EDMS 14: 14:28 Urinalysis+U.LAB.BRZ ordered. EDMS EDMS 15:05 14:28 Chest Single View+RAD.RAD.BRZ ordered. EDMS EDMS 16:22 16:21 Telemetry/MedSurg (Inpatient) sp3 sp3 16:22 16:21 sp3 sp3 17:07 16:22 sp3 ss
--- NOTE | 2025-03-09 16:22 | ER ---
Nurse's Notes [facility] Name: Tessa Eagle Age: 19 yrs Sex: Female : 2005 Arrival Date: 03/09/2025 Time: 14:13 Bed 20 Private MD: Diagnosis: Diabetic ketoacidosis, severe dehydration Presentation: 03/09 14:37 Chief complaint: EMS states: they were toned out by grandma for AMS. upon EMS arrival kc6 pt is A\T\O x2 with BG monitor reading high. Coronavirus screen: At this time, the client does not indicate any symptoms associated with coronavirus-19. Ebola Screen: No symptoms or risks identified at this time. Initial Sepsis Screen: Does the patient meet any 2 criteria? RR > 20 per min. Altered Mental Status. HR > 90 bpm. Does the patient have a suspected source of infection? No. Patient's initial sepsis screen is negative. Risk Assessment: Do you want to hurt yourself or someone else? Patient reports no desire to harm self or others. Onset of symptoms was March 09, 2025. Care prior to arrival: Medication(s) given: Normal saline infusion, 200 mL IV initiated. 22 GA, in the right wrist. 14:37 Method Of Arrival: EMS: [place] [id number] 14:37 Acuity: JUSTIN 2 kc6 Historical: - Allergies: 14:38 No Known Allergies; kc6 - Home Meds: 14:38 Unable to obtain [Active]; kc6 - PMHx: 14:38 ANOREXIA; diabetes mellitus; drug abuse; renal insufficiency; kc6 - PSHx: 14:38 Unable to Obtain; kc6 - Immunization history:: Adult Immunizations unknown. - Infectious Disease History:: Denies. - Social history:: Smoking status: Reported history of juuling and/or vaping. Screenin:39 [facility] ED Fall Risk Assessment (Adult) History of falling in the last 3 months, kc6 including since admission No falls in past 3 months (0 pts) Confusion or Disorientation Yes (5 pts) Intoxicated or Sedated No (0 pts) Impaired Gait No (0 pts) Mobility Assist Device Used No (0 pt) Altered Elimination No (0 pt) Score/Fall Risk Level 0 - 2 = Low Risk Oriented to surroundings, Maintained a safe environment. Abuse screen: Denies threats or abuse. Denies injuries from another. Nutritional screening: No deficits noted. Tuberculosis screening: No symptoms or risk factors identified. Assessment: 14:15 General: Appears distressed, uncomfortable, ill, slender, well groomed, Behavior is kc6 cooperative, drowsy, Smells of ketones. Pain: Unable to use pain scale. Patient is disoriented. Neuro: Level of Consciousness is confused, lethargic, Oriented to person, time. Cardiovascular: Denies chest pain, shortness of breath, Heart tones S1 S2 present Capillary refill < 3 seconds Rhythm is sinus tachycardia. Respiratory: Airway is patent Trachea midline Respiratory effort is even, with nasal flaring, Respiratory pattern is symmetrical, Kussmaul tachypnea. GI: No signs and/or symptoms were reported involving the gastrointestinal system. : No signs and/or symptoms were reported regarding the genitourinary system. EENT: No signs and/or symptoms were reported regarding the EENT system. Derm: No signs and/or symptoms reported regarding the dermatologic system. Skin is intact, is healthy with good turgor, Skin is pink, warm \T\ dry. Musculoskeletal: No signs and/or symptoms reported regarding the musculoskeletal system. Circulation, motion, and sensation intact. Range of motion: intact in all extremities. 15:15 Reassessment: Patient appears in no apparent distress at this time. No changes from kc6 previously documented assessment. Patient and/or family updated on plan of care and expected duration. Pain level reassessed. 16:15 Reassessment: Patient appears in no apparent distress at this time. No changes from kc6 previously documented assessment. Patient and/or family updated on plan of care and expected duration. Pain level reassessed. Vital Signs: 14:37 BP 149 / 88; Pulse 111; Resp 25 S; Temp 97.6(O); Pulse Ox 100% on R/A; Weight 32.21 kg kc6 (M); Height 4 ft. 11 in. (R); 16:53 BP 113 / 82; Pulse 102; Resp 25 S; Pulse Ox 100% on R/A; kc6 14:37 Body Mass Index 14.34 (32.21 kg, 149.86 cm) [facility] ED Course: 14:27 Patient arrived in ED. sp3 14:27 Pam Darnell MD is Attending Physician. sp3 14:36 Pau Kam, RN is Primary Nurse. kc6 14:38 Triage completed. kc6 14:38 Arm band placed on. kc6 14:39 Patient has correct armband on for positive identification. Bed in low position. Call kc6 light in reach. Side rails up X 1. shelter monitor on. Pulse ox on. NIBP on. Door closed. Noise minimized. Lights dimmed. Warm blanket given. Pillow given. Verbal reassurance given. 14:39 Maintain EMS IV. Dressing intact. Good blood return noted. Site clean \T\ dry. Gauge \T\ ayad 6 site: 22G RWRIST. Flushed with 10 mL NS. Patient maintains SpO2 saturation greater than 95% on room air. 16:21 Parmjit Flores MD is Hospitalizing Provider. sp3 16:33 Inserted saline lock: 22 gauge in left antecubital area, using aseptic technique. Blood ll1 collected. Flushed with 10 mL NS. 17:37 No provider procedures requiring assistance completed. Patient admitted, IV remains in kc6 place. Administered Medications: 15:16 Drug: NS 0.9% IV 2000 ml IV at 1 bolus Per protocol; to be given as a bolus over 60 kc6 minutes Route: IV; Rate: 1 bolus; Site: right wrist; 17:38 Follow up: Response: No adverse reaction; IV Status: Completed infusion; IV Intake: kc6 2000ml 16:09 Drug: Insulin Drip - (Insulin Regular Human IVP 100 units, NS 0.9% IV 100 ml) IV at kc6 calculated rate continuous; Standard concentration 1unit/ml; Dose for DKA is 0.1 units/kg/hr {Co-Signature: ll1 (Cj Altman RN).} {Note: 3.2 units/hr.} Route: IV; Rate: calculated rate; Site: right wrist; 17:38 Follow up: Response: No adverse reaction; IV Status: Infusion continued upon admission; kc6 IV Intake: 100ml Medication: 17:38 VIS not applicable for this client. kc6 Intake: 17:38 IV: 2000ml; Total: 2000ml. kc6 17:38 IV: 100ml; Total: 2100ml. kc6 Outcome: 16:21 Decision to Hospitalize by Provider. sp3 17:37 Admitted to ER Hold. Please see [facility] for further documentation. kc6 17:37 critical 17:37 Instructed on the need for admit, 18:51 Patient left the ED. ll1 Signatures: Cj Altman RN RN ll1 Pam Darnell MD MD sp3 Pau Kam RN RN kc6 Cj Altman RN ll1
[2025-03-09 16:48] LABS: Blood O2 Saturation 85.7 % (92-98.5)
[2025-03-09 16:49] LABS: Arterial Blood Carboxyhemoglob 1.2 % (0-1.5); Blood Gas Oxyhemoglobin 82.7 % (94-97); Blood Gas THB 10.4 g/dl (12-18)
[2025-03-09] MEDS: NACHLORIDE 0.45% 1,000 ML with NA BICARB 8.4% 75 MEQ IV SCH (17:00)
--- NOTE | 2025-03-09 17:16 | P.HP ---
Certification for Inpatient Patient admitted to: Inpatient Patient will require the following post-hospital care: None Practitioner: I am a practitioner with admitting privileges, knowledge of patient current condition, hospital course, and medical plan of care. Services: Services provided to patient in accordance with Admission requirements found in Title 42 Section 412.3 of the Code of Federal Regulations Patient History Date of Service: 03/09/25 Reason for admission: DKA History of Present Illness: 19-year-old female with history of insulin-dependent diabetes, noncompliance, drug abuse presented to the emergency department with altered mentation and high blood sugar. ED staff report that her grandma called 911 for altered mental status and blood sugar reading high. Patient was oriented x 1-2, is moaning and groaning. Patient was elevated in the ER her labs are significant for a severe metabolic acidosis and DKA. She will need to be admitted to the ICU for management of her severe metabolic acidosis. Allergies No Known Allergies Allergy (Verified 07/13/23 22:35) Home Medications: Insulin Lispro [Humalog] 6 units SQ TID 02/03/23 Buprenorphine HCl/Naloxone HCl [Buprenorphine-Nalox 8-2 mg Tab] 2 mg SL DAILY 01/09/25 Insulin Glargine,Hum.rec.anlog [Semglee] 30 units SQ DAILY 01/09/25 Trazodone [Desyrel*] 50 mg PO BEDTIME PRN #10 01/10/25 - Past Medical/Surgical History Diabetic: Yes -: Type 1 diabetes -: Depression -: Anorexia -: Noncompliance -: Drug abuse -: None Psychosocial/ Personal History: Patient lives at home with family. - Family History Father -: Diabetes - Social History Alcohol use: No CD- Drugs: Yes Caffeine use: Yes Place of Residence: Home Review of Systems is unable to be obtained Neurological: Other (Drowsy, confused) Physical Examination - Physical Exam General: Oriented x1, Cachectic, Other (ill) HEENT: Atraumatic Neck: Supple Respiratory: Clear to auscultation bilaterally Cardiovascular: No edema Gastrointestinal: Normal bowel sounds Musculoskeletal: No contractures Integumentary: No rashes Neurological: Other (Lethargy, confusion) - Studies Laboratory Data (last 24 hrs) 03/09/25 03/09/25 15:05 15:05 WBC 17.50 H Hgb 10.6 L Hct 37.2 Plt Count 419 H Sodium 129 L Potassium 6.2 H* BUN 40 H Creatinine 1.72 H Glucose 1201 H* Total Bilirubin 0.6 AST < 10 L ALT 20 Alkaline Phosphatase 201 H Assessment and Plan - Plan Assessment: Severe metabolic acidosis secondary to DKA Diabetes mellitus type 1 with noncompliance/DKA Metabolic encephalopathy secondary to above Hyperkalemia Plan: Severe metabolic acidosis secondary to DKA Diabetes mellitus type 1 with noncompliance/DKA Metabolic encephalopathy secondary to above Hyperkalemia Admit to ICU Continue insulin drip Case discussed with nephrology given severe metabolic acidosis Started on bicarb drip Will need to monitor chemistry every 2 hours given possible precipitous drop in potassium with both bicarb and insulin infusions DVT PPX:Lovenox Code status:Full Discharge Plan: Home Plan to discharge in: Greater than 2 days - Advance Directives Does patient have a Living Will: No Does patient have a Durable POA for Healthcare: No - Code Status/Comfort Care Code Status Assessed: Yes (Full code) Critical Care: No Time Spent Managing Pts Care (In Minutes): 70
[2025-03-09 17:24] LABS: Anisocytosis SLIGHT; Blood Morphology Comment NOTED (NOT SEEN); Microcytosis 1+; Platelet Estimate INCR; Polychromasia SLIGHT; White Blood Cell Scan OK (OK)
[2025-03-09 17:29] VITALS: BMI 14.3
[2025-03-09 17:46] LABS: Anion Gap 33.4 mEq/L (5.0-15.0); BUN Blood Urea Nitrogen 40 mg/dL (7-18); Glomerular Filtration Rate 54 ml/min (=/>90); Potassium 5.4 mEq/L (3.5-5.1); Sodium Level 135 mEq/L (136-145)
[2025-03-09 17:47] LABS: Bicarbonate < 8 mEq/L (21-32); Glucose Level 973 mg/dL (74-106)
[2025-03-09] MEDS: CEFTRIAXONE 1,000 MG in NA CHLORIDE 0.9% 50 ML IVPB ONE (18:00)
[2025-03-09] MEDS ORDERED: CEFTRIAXONE 1000 MG/VIAL ONE (18:32)
[2025-03-09] MEDS ORDERED: ONDANSETRON 4 MG/2 ML VIAL ONE (18:32)
[2025-03-09] MEDS: ONDANSETRON 4 MG/2 ML VIAL IV PRN (18:45)
[2025-03-09 19:20] VITALS: TEMP 97.6; O2SAT 100
[2025-03-09 20:15] LABS: Anion Gap 29.5 mEq/L (5.0-15.0); Potassium 5.5 mEq/L (3.5-5.1)
[2025-03-09 21:43] VITALS: BP 136/91
[2025-03-10] MEDS ORDERED: ENOXAPARIN 30 MG/0.3 ML SQ SCH (09:00)
[2025-03-10] MEDS ORDERED: CEFTRIAXONE 1,000 MG in NA CHLORIDE 0.9% 50 ML IVPB SCH (09:00)
--- NOTE | 2025-03-10 12:11 | EKG ---
Test Date: 2025-03-09 Test Time: 14:48:05 Houseperson: WILLIAM MEASUREMENT RESULTS: Intervals: Rate: 111 UT: 124 QRSD: 76 QT: 326 QTc: 443 [place]: P: 81 UT: 124 QRS: 78 T: 3 INTERPRETIVE STATEMENTS: Sinus tachycardia Right atrial enlargement Borderline ECG Compared to ECG 01/12/2025 21:52:48 Atrial abnormality now present Sinus rhythm no longer present T-wave abnormality no longer present Electronically Signed On 03-10-25 12:09:02 CDT by Etienne Jacobs
== END 2025-03-09 21:20 | disposition left against medical advice (07) | DRG 637 ==
LOC: ER 14:13 → ERHOLD 16:29 → 3RD-ICU 18:31
PROVIDERS: ADMIT Hospitalist; ATTEND Hospitalist
PROC: 4A033R1 Measurement of Arterial Saturation, Peripheral, Percutaneous Approach (ICD-10-PCS; principal; 2025-03-09)
DX: E10.10 Type 1 diabetes mellitus with ketoacidosis without coma (principal); G93.41 Metabolic encephalopathy; R64 Cachexia; Z68.1 Body mass index [BMI] 19.9 or less, adult; E87.5 Hyperkalemia; E86.0 Dehydration; T38.3X6A Underdosing of insulin and oral hypoglycemic [antidiabetic] drugs, initial encounter; Z79.4 Long term (current) use of insulin; Z53.29 Procedure and treatment not carried out because of patient's decision for other reasons; Z79.899 Other long term (current) drug therapy; Z91.148 Patient's other noncompliance with medication regimen for other reason
CPT/HCPCS: 36415; 36600; 80048; 80053; 82805; 82947; 83605; 85025; 87040; 93005; 96361; 96365; 99285; J0696; J1815; J2405; J7030

== ENCOUNTER 2025-03-10 00:47 | Inpatient (IN) | payer OTHER ==
[2025-03-10 02:01] LABS: Anion Gap 32.3 mEq/L (5.0-15.0); BUN Blood Urea Nitrogen 39 mg/dL (7-18); Glomerular Filtration Rate 61 ml/min (=/>90); Potassium 4.3 mEq/L (3.5-5.1); Sodium Level 141 mEq/L (136-145)
[2025-03-10 02:02] LABS: BETA HYDROXYBUTYRATE > 4.50 mmol/L (0.02-0.27)
[2025-03-10 02:03] LABS: Bicarbonate < 8 mEq/L (21-32); Glucose Level 645 mg/dL (74-106)
--- NOTE | 2025-03-10 02:16 | EDPHYS ---
Physician Documentation [facility] Name: Tessa Eagle Age: 19 yrs Sex: Female : 2005 Arrival Date: 03/10/2025 Time: 00:47 Bed 17 Private MD: ED Physician Bryant Flores HPI: 03/10 02:12 This 19 yrs old Female presents to ER via EMS with complaints of High Blood rn Sugar. 02:12 Patient just left AMA from our ICU, was admitted for DKA, got home and mother did not rn like the way she looked or which she did so called 911. Patient reports will stay now.. 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 - Infectious Disease History:: Denies. - Social history:: Smoking status: Reported history of juuling and/or vaping. - Family history:: not pertinent. - Hospitalizations: : The patient was recently seen at [facility]. 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 No pulse deficits. Respiratory: Moderate tachypnea Abdomen/GI: Soft, nontender Neuro: Awake and alert, GCS 15 03:39 ECG was reviewed by the Attending Physician. rn Vital Signs: 01:06 BP 147 / 91; Pulse 113; Resp 22; Temp 97.8; Pulse Ox 99% on R/A; Weight 32.21 kg; al5 Height 4 ft. 11 in. ; 02:00 BP 127 / 90; Pulse 117; Resp 25; Pulse Ox 97% on R/A; al5 03:00 BP 138 / 87; Pulse 120; Resp 22; Pulse Ox 99% on R/A; al5 04:00 BP 119 / 78; Pulse 105; Resp 23; Pulse Ox 100% on R/A; al5 05:00 BP 131 / 96; Pulse 107; Resp 25; Pulse Ox 100% on R/A; al5 01:06 Body Mass Index 14.34 (32.21 kg, 149.86 cm) al5 MDM: 00:52 Medical Screening Exam initiated rn 02:14 Differential diagnosis: DKA, hyperglycemia. Data reviewed: vital signs, nurses notes, furniture polisher test result(s), and as a result, I will admit patient. Consideration of Admission/Observation Patient was admitted/placed on observation. Escalation of care including admission/observation considered. Care significantly affected by the following chronic conditions: Diabetes. Counseling: I had a detailed discussion with the patient and/or guardian regarding the historical points, exam findings, and any diagnostic results supporting the discharge/admit diagnosis, lab results, the need for further work-up and treatment in the hospital. ED course: I personally spent 35 minutes engaged in work directly related to the individual patient's care. This does not include any time spent performing procedures. The patient has been deemed critically ill because of moderate to severe DKA.. ED course: No RT staffed in hospital, therefore not available to perform ABG. 05:03 ED course: Pt pulled out both of her IVs, is following commands, and cannot give me a rn good reason why she pulled out her IVs. Explained to her the importance of the insulin drip and chance of worsening clinically, even , she agrees to get another IV. I am hesitant to sedate given DKA and concern for subsequent hypoventilation and worsening of acidosis secondary to limiting her compensatory tachypnea. . 03/10 00:53 Order name: CBC with Diff rn 03/10 00:53 Order name: Basic Metabolic Panel; Complete Time: 02:09 rn 03/10 00:53 Order name: BETA HYDROXYBUTYRATE; Complete Time: 02:09 rn 03/10 02:07 Order name: Glucose, Ancillary Testing; Complete Time: 02: EDMS 03/10 02:24 Order name: Manual Differential EDMS 03/10 03:00 Order name: Magnesium EDMS 03/10 03:00 Order name: Osmolality, Serum EDMS 03/10 03:00 Order name: Test Serum, Qualitat EDMS 03/10 03:00 Order name: Basic Metabolic Panel EDMS 03/10 03:00 Order name: Basic Metabolic Panel EDMS 03/10 03:00 Order name: Basic Metabolic Panel EDMS 03/10 03:00 Order name: Basic Metabolic Panel EDNE 03/10 03:00 Order name: CBC with Automated Diff EDMS 03/10 03:00 Order name: CBC with Automated Diff EDMS 03/10 03:00 Order name: CBC with Automated Diff EDMS 03/10 03:00 Order name: CBC with Automated Diff EDMS 03/10 03:00 Order name: Lipid Profile EDMS 03/10 03:00 Order name: Lipid Profile EDMS 03/10 04:43 Order name: Glucose, Ancillary Testing EDMS 03/10 05:29 Order name: Glucose, Ancillary Testing EDMS 03/10 05:51 Order name: Glucose, Ancillary Testing EDMS 03/10 00:53 Order name: EKG; Complete Time: 00:53 rn 03/10 03:00 Order name: CONS Diabetic Education Consul EDNE 03/10 03:00 Order name: CONS Physician Consult EDNE 03/10 00:53 Order name: IV Start; Complete Time: 02:07 rn 03/10 00:53 Order name: Cardiac monitoring; Complete Time: 01:31 rn 03/10 00:53 Order name: EKG - Nurse/Tech; Complete Time: 02:07 rn 03/10 00:53 Order name: Glucose Level; Complete Time: 02:07 rn EC:39 Rate is 115 beats/min. Rhythm is regular. QRS [place] is Normal. [place] interval is normal. rn QRS interval is normal. QT interval is normal. No Q waves. T waves are Normal. No ST changes noted. Clinical impression: Sinus tachycardia. Interpreted by me. Reviewed by me. Administered Medications: 03:11 Drug: Insulin Drip - (Insulin Regular Human IVP 100 units, NS 0.9% IV 100 ml) IV at al5 calculated rate continuous; Standard concentration 1unit/ml; Dose for DKA is 0.1 units/kg/hr {Co-Signature: cr4 (Jimena Saavedra RN).} Route: IV; Rate: calculated rate; Site: right hand; 04:20 Follow up: Response: No adverse reaction; IV Status: Infusion continued upon admission al5 04:49 Drug: NS 0.9% IV 1000 ml IV at 1000 ml once; to be given as a bolus over 60 minutes al5 Route: IV; Rate: 1000 ml; Site: right antecubital; 04:49 Follow up: Response: No adverse reaction; IV Status: Infusion continued upon admission al5 05:10 Drug: Insulin Regular Human Sub-Q 10 units Sub-Q once {Co-Signature: cr4 (Jimena Saavedra RN).} Route: Sub-Q; Site: right upper abdomen; 05:15 Follow up: Response: No adverse reaction al5 Disposition Summary: 03/10/25 02:16 Hospitalization Ordered Notes: Hospitalization Status: Inpatient Admission rn Provider: Purvi Zapata rn Condition: Stable rn Problem: new rn Symptoms: are unchanged rn Bed/Room Type: Standard rn Location: Intensive Care Unit(03/10/25 04:55) 1 Room Assignment: -(03/10/25 04:55) rv1 Diagnosis - Diabetes mellitus due to underlying condition with ketoacidosis without coma rn Forms: - Medication Reconciliation Form rn - SBAR form rn - Leadership Thank You Letter boot turner time excluding procedures: 02:14 Critical care time: Bedside Care: 30 minutes, Consultation: 5 minutes. Total time: 35 rn minutes Signatures: Dispatcher [employer] Bryant Trinidad MD MD rn Villegas, Rebecca rv1 Celena Chaves RN RN al5 Ruiz, Claudia RN cr4 Corrections: (The following items were deleted from the chart) 01:20 01:16 Social history: Smoking status: unknown al5 al5 02:16 02:16 Intensive Care Unit rn rv1 02:16 02:16 rn rv1 04:55 02:16 [facility] ER HOLD rv1 rv1 04:55 02:16 ERHOLD- rv1 rv1
--- NOTE | 2025-03-10 02:16 | ER ---
Nurse's Notes [facility] Name: Tessa Eagle Age: 19 yrs Sex: Female : 2005 Arrival Date: 03/10/2025 Time: 00:47 Bed 17 Private MD: Diagnosis: Diabetes mellitus due to underlying condition with ketoacidosis without coma Presentation: 03/10 01:06 Chief complaint: EMS states: was recently admitted to ICU today for DKA, patient left al5 ama. c/o high blood sugar. Coronavirus screen: At this time, the client does not indicate any symptoms associated with coronavirus-19. Ebola Screen: No symptoms or risks identified at this time. Initial Sepsis Screen: Does the patient meet any 2 criteria? No. Patient's initial sepsis screen is negative. Does the patient have a suspected source of infection? No. Patient's initial sepsis screen is negative. Risk Assessment: Do you want to hurt yourself or someone else? Patient reports no desire to harm self or others. Onset of symptoms was March 10, 2025. Care prior to arrival: IV initiated. 24G R hand. 01:06 Method Of Arrival: EMS: [facility] al5 01:06 Acuity: JUSTIN 3 al5 Triage Assessment: 01:17 General: Appears in no apparent distress. uncomfortable, ill, slender, well groomed, al5 Behavior is restless. Pain: Complains of pain in abdomen. EENT: No signs and/or symptoms were reported regarding the EENT system. Neuro: Level of Consciousness is awake, alert, Oriented to person, place, time, situation. Cardiovascular: Capillary refill < 3 seconds Patient's skin is warm and dry. Rhythm is sinus tachycardia. Respiratory: Airway is patent Respiratory effort is even, unlabored, Respiratory pattern is regular, symmetrical. GI: Abdomen is flat, non-distended, Reports high blood sugar. : No signs and/or symptoms were reported regarding the genitourinary system. Derm: Skin is intact, is healthy with good turgor, Skin is normal. Musculoskeletal: No signs and/or symptoms reported regarding the musculoskeletal system. 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 - Infectious Disease History:: Denies. - Social history:: Smoking status: Reported history of juuling and/or vaping. - Family history:: not pertinent. - Hospitalizations: : The patient was recently seen at [facility]. Screenin:18 [facility] ED Fall Risk Assessment (Adult) History of falling in the last 3 months, al5 including since admission No falls in past 3 months (0 pts) Confusion or Disorientation No (0 pts) Intoxicated or Sedated No (0 pts) Impaired Gait No (0 pts) Mobility Assist Device Used No (0 pt) Altered Elimination No (0 pt) Score/Fall Risk Level 0 - 2 = Low Risk Oriented to surroundings, Maintained a safe environment, Hourly rounding (assess needs \T\ fall precautionary measures) done. Abuse screen: Denies threats or abuse. Denies injuries from another. Nutritional screening: No deficits noted. Tuberculosis screening: No symptoms or risk factors identified. Assessment: 01:18 Reassessment: see triage assessment. al5 02:26 Reassessment: Patient appears in no apparent distress at this time. No changes from al5 previously documented assessment. Patient and/or family updated on plan of care and expected duration. Pain level reassessed. 03:31 Reassessment: Patient appears in no apparent distress at this time. No changes from al5 previously documented assessment. Patient and/or family updated on plan of care and expected duration. Pain level reassessed. 04:48 Reassessment: Patient appears in no apparent distress at this time. No changes from al5 previously documented assessment. Patient and/or family updated on plan of care and expected duration. Pain level reassessed. report given to JANESSA haji in ICU. 05:04 Reassessment: patient self removed both IV access because patient wants ice and water. al5 this nurse has educated patient multiple times every 5 minutes as to why she cannot have anything to eat or drink. patient refuses to listen by interrupting the nurse and asking for ice. notified MD and charge nurse. 05:10 Reassessment: Patient appears in no apparent distress at this time. No changes from al5 previously documented assessment. Patient and/or family updated on plan of care and expected duration. Pain level reassessed. patient taken to icu at this time. Vital Signs: 01:06 BP 147 / 91; Pulse 113; Resp 22; Temp 97.8; Pulse Ox 99% on R/A; Weight 32.21 kg; al5 Height 4 ft. 11 in. ; 02:00 BP 127 / 90; Pulse 117; Resp 25; Pulse Ox 97% on R/A; al5 03:00 BP 138 / 87; Pulse 120; Resp 22; Pulse Ox 99% on R/A; al5 04:00 BP 119 / 78; Pulse 105; Resp 23; Pulse Ox 100% on R/A; al5 05:00 BP 131 / 96; Pulse 107; Resp 25; Pulse Ox 100% on R/A; al5 01:06 Body Mass Index 14.34 (32.21 kg, 149.86 cm) al5 ED Course: 00:52 Patient arrived in ED. rn 00:52 Bryant Flores MD is Attending Physician. rn 01:16 Triage completed. al5 01:18 Arm band placed on right wrist. Patient placed in the treatment room, in view of staff al5 members, on pulse oximetry. 01:18 Patient has correct armband on for positive identification. Bed in low position. Call al5 light in reach. Side rails up X2. Provided Education on: plan of care, NPO. 01:18 No provider procedures requiring assistance completed. Maintain EMS IV. Dressing al5 intact. Site clean \T\ dry. Gauge \T\ site: 24 G R hand. Flushed with 10 mL NS. 02:15 Purvi Zapata MD is Hospitalizing Provider. rn 03:09 Celena Chaves RN is Primary Nurse. al5 04:38 Inserted saline lock: 22 gauge in left antecubital area, using aseptic technique. al5 ,using aseptic technique. done by JANESSA lindsay via ultrasound IV Flushed with 10 mL NS. 05:04 IV discontinued, intact, bleeding controlled, No redness/swelling at site. self removed al5 IV by patient. 05:08 Inserted saline lock: 24 gauge in left antecubital area, using aseptic technique. al5 Flushed with 10 mL NS. Administered Medications: 03:11 Drug: Insulin Drip - (Insulin Regular Human IVP 100 units, NS 0.9% IV 100 ml) IV at al5 calculated rate continuous; Standard concentration 1unit/ml; Dose for DKA is 0.1 units/kg/hr {Co-Signature: guillermina (Jimena Saavedra RN).} Route: IV; Rate: calculated rate; Site: right hand; 04:20 Follow up: Response: No adverse reaction; IV Status: Infusion continued upon admission al5 04:49 Drug: NS 0.9% IV 1000 ml IV at 1000 ml once; to be given as a bolus over 60 minutes al5 Route: IV; Rate: 1000 ml; Site: right antecubital; 04:49 Follow up: Response: No adverse reaction; IV Status: Infusion continued upon admission al5 05:10 Drug: Insulin Regular Human Sub-Q 10 units Sub-Q once {Co-Signature: guillermina (Jimena Saavedra RN).} Route: Sub-Q; Site: right upper abdomen; 05:15 Follow up: Response: No adverse reaction al5 Medication: 01:18 VIS not applicable for this client. al5 Outcome: 02:16 Decision to Hospitalize by Provider. rn 05:11 Admitted to ICU accompanied by nurse, accompanied by tech, via stretcher, room ICU 8, al5 on monitor, with chart, 05:11 Condition: stable 05:11 Instructed on the need for admit, 05:57 Patient left the ED. vc1 Signatures: Bryant Flores MD MD rn Calcote, Vanessa, RN RN vc1 Celena Chaves RN RN al5 Jimena Saavedra RN4 Corrections: (The following items were deleted from the chart) 01:20 01:16 Social history: Smoking status: unknown al5 al5
[2025-03-10 02:20] LABS: Absolute Basophils 0.1 K/uL (0-0.5); Absolute Lymphocytes (CBC) 1.5 K/uL (0.7-4.9); Absolute Monocytes 0.5 K/uL (0.1-1.3); Absolute Neutrophil 17.6 K/uL (1.8-8.0); Basophils % 0.4 % (0-1.3); Hematocrit 23.7 % (36.0-45.0); Hemoglobin 7.1 g/dL (12.0-15.0); Lymphocytes % 7.6 % (15.3-44.8); MCH 24.9 pg (27.0-35.0); MCV 82.9 fL (80-100); MPV 9.8 fL (7.6-11.3); Monocytes % 2.5 % (3.3-12.3); Neutrophils % 89.5 % (41.7-73.7); Nucleated Red Blood Cells % 0.1 % (0-0); Platelets 229 thou/uL (152-406); RBC Red Blood Cell Count 2.85 M/uL (3.86-4.86); Red Cell Distribution Width 17.1 % (12.1-15.2)
[2025-03-10] MEDS ORDERED: INSULIN REGULAR (HUMAN) 100 UNIT/ML ONE ×2 (02:40→05:03)
[2025-03-10] MEDS ORDERED: NA CHLORIDE 0.9% 100 ML ONE (02:41)
[2025-03-10] MEDS ORDERED: GLUCAGON 1 MG/VIAL IM PRN (02:59)
[2025-03-10] MEDS ORDERED: D50W 25 GM/50 ML SYRINGE IV PRN (02:59)
--- NOTE | 2025-03-10 02:59 | P.HP ---
Patient History Date of Service: 03/10/25 History of Present Illness: 19-year-old female with a past medical history of noncompliant type 1 diabetes presenting to the emergency room after she left AMA while being treated for DKA in the ICU. She now presents with DKA. She is unable to give a history due to acute metabolic encephalopathy. She repeatedly asked for water or ice every 5 minutes. Bicarb remains less than 8, blood sugar greater than 500, with a WBC count of 19. Allergies No Known Allergies Allergy (Verified 07/13/23 22:35) Home Medications: Insulin Lispro [Humalog] 6 units SQ TID 02/03/23 Buprenorphine HCl/Naloxone HCl [Buprenorphine-Nalox 8-2 mg Tab] 2 mg SL DAILY 01/09/25 Insulin Glargine,Hum.rec.anlog [Semglee] 30 units SQ DAILY 01/09/25 Trazodone [Desyrel*] 50 mg PO BEDTIME PRN #10 01/10/25 - Past Medical/Surgical History Diabetic: Yes -: Type 1 diabetes -: Depression -: Anorexia -: Noncompliance -: Drug abuse -: None Psychosocial/ Personal History: Patient lives at home with family. - Family History Father -: Diabetes - Social History Alcohol use: No CD- Drugs: Yes Caffeine use: Yes Review of Systems is unable to be obtained Physical Examination - Physical Exam General: Alert, Confused HEENT: Normocephalic Neck: Supple Respiratory: Clear to auscultation bilaterally Cardiovascular: No edema Capillary refill: <2 Seconds Gastrointestinal: Normal bowel sounds, Soft and benign Musculoskeletal: No clubbing Integumentary: No rashes Neurological: Normal gait, Normal speech Lymphatics: No axilla or inguinal lymphadenopathy - Studies Laboratory Data (last 24 hrs) 03/10/25 03/10/25 01:39 01:30 WBC 19.70 H Hgb 7.1 L D Hct 23.7 L Plt Count 229 D Sodium 141 D Potassium 4.3 D BUN 39 H Creatinine 1.28 H Glucose 645 H* Assessment and Plan - Plan DKA Acute metabolic encephalopathy Leukocytosis Anemia Admit to ICU High risk to leave AMA Continue insulin gtt continue IV fluids monitor anion gap and HCO3 replace potassium with fluids transition to subq insulin once gap is corrected and bicarb above 18 Appreciate nephrology input DVT prophylaxis with SCD - Advance Directives Does patient have a Living Will: No Does patient have a Durable POA for Healthcare: No
[2025-03-10] MEDS: D5.45NS W/KCL 20MEQ 1,000 ML IV SCH (03:00)
[2025-03-10] MEDS: NACHLORIDE 0.45% 1,000 ML with POTASSIUM CL 20 MEQ IV SCH (03:00)
[2025-03-10] MEDS ORDERED: D10W 125 ML IV PRN (03:05)
[2025-03-10] MEDS: INSULIN REGULAR (HUMAN) 100 UNIT/ML IV ONE (03:11)
[2025-03-10 03:19] LABS: Band Neutrophils 25 % (0-1); Differential Total Cells Count 100; Lymphocytes 8 % (15-42); Monocytes 2 % (0-10); Reactive Lymphocytes 1 %; Segmented Neutrophils 64 % (40-80)
[2025-03-10 03:20] LABS: Blood Morphology Comment NOTED (NOT SEEN); Burr Cells 3+; Microcytosis 1+; Platelet Estimate ADEQ
[2025-03-10 04:34] VITALS: O2SAT 100
[2025-03-10] MEDS ORDERED: NA CHLORIDE 0.9% 1,000 ML ONE (04:45)
[2025-03-10 05:24] LABS: Anion Gap 35.5 mEq/L (5.0-15.0); BUN Blood Urea Nitrogen 40 mg/dL (7-18); Glomerular Filtration Rate 56 ml/min (=/>90); Magnesium 2.5 mg/dL (1.6-2.4); Potassium 4.5 mEq/L (3.5-5.1); Sodium Level 140 mEq/L (136-145)
[2025-03-10 05:25] LABS: Bicarbonate < 8 mEq/L (21-32)
[2025-03-10 05:26] LABS: Glucose Level 680 mg/dL (74-106)
[2025-03-10] MEDS: NACHLORIDE 0.45% 1,000 ML with NA BICARB 8.4% 75 MEQ IV SCH (07:00)
[2025-03-10] MEDS: FLU (Fluarix Triv) TS24-25(6MOS UP)/PF 45 MCG/0.5 ML Syringe IM ONE (07:15)
[2025-03-10] MEDS: CEFEPIME 1 GM in NA CHLORIDE 0.9% 100 ML IV SCH (07:26)
--- NOTE | 2025-03-10 07:54 | RAD REPORT ---
Procedure: Chest Single View HISTORY: Shortness of breath COMPARISON: November 2024 FINDINGS: The lungs appear clear of acute infiltrate. Lungs are hyperaerated. No significant pleural effusion noted. The heart is normal size. IMPRESSION: No acute abnormality is displayed.
[2025-03-10 08:20] LABS: Anion Gap 30.7 mEq/L (5.0-15.0); BUN Blood Urea Nitrogen 39 mg/dL (7-18); Bicarbonate < 8 mEq/L (21-32); Glomerular Filtration Rate 58 ml/min (=/>90); Glucose Level 560 mg/dL (74-106); Potassium 3.7 mEq/L (3.5-5.1); Sodium Level 144 mEq/L (136-145)
[2025-03-10] MEDS: SODIUM BICARB 50 MEQ/50ML VIAL IV ONE ×2 (08:24→18:31)
[2025-03-10] MEDS: INSULIN REGULAR, HUMAN 100 UNIT in NA CHLORIDE 0.9% 100 ML IV SCH (08:25)
[2025-03-10 08:46] LABS: Hematocrit 28.9 % (36.0-45.0); Hemoglobin 9.1 g/dL (12.0-15.0); MCH 25.1 pg (27.0-35.0); MCHC 31.6 g/dL (32.0-36.0); MCV 79.6 fL (80-100); MPV 8.7 fL (7.6-11.3); Platelets 352 thou/uL (152-406); RBC Red Blood Cell Count 3.63 M/uL (3.86-4.86); Red Cell Distribution Width 16.4 % (12.1-15.2)
[2025-03-10 08:59] LABS: Arterial Blood Carboxyhemoglob 1.4 % (0-1.5); Blood Gas Oxyhemoglobin 96.1 % (94-97); Blood Gas THB 9.5 g/dl (12-18); Blood O2 Saturation 98.6 % (92-98.5)
[2025-03-10] MEDS: Mupirocin NASAL 2 APPL/1 GM TUBE NAS SCH (09:00)
[2025-03-10 10:10] LABS: Anion Gap 26.4 mEq/L (5.0-15.0); BUN Blood Urea Nitrogen 40 mg/dL (7-18); Bicarbonate 11 mEq/L (21-32); Glomerular Filtration Rate 71 ml/min (=/>90); Glucose Level 326 mg/dL (74-106); Potassium 3.4 mEq/L (3.5-5.1); Sodium Level 149 mEq/L (136-145)
[2025-03-10 11:51] LABS: Anion Gap 21.1 mEq/L (5.0-15.0); Potassium 3.1 mEq/L (3.5-5.1)
--- NOTE | 2025-03-10 12:09 | EKG ---
Test Date: 2025-03-10 Test Time: 01:52:27 Chief Contract Officer: AF MEASUREMENT RESULTS: Intervals: Rate: 115 MS: 112 QRSD: 66 QT: 364 QTc: 503 [place]: P: 79 MS: 112 QRS: 74 T: 22 INTERPRETIVE STATEMENTS: Sinus tachycardia Right atrial enlargement T wave abnormality, consider inferior ischemia Abnormal ECG Compared to ECG 03/09/2025 14:48:05 T-wave abnormality now present Possible ischemia now present Electronically Signed On 03-10-25 12:08:07 CDT by Etienne Jacobs
--- NOTE | 2025-03-10 12:09 | EKG ---
Test Date: 2025-03-10 Test Time: 01:53:16 Piece Presser: AF MEASUREMENT RESULTS: Intervals: Rate: 114 TX: 116 QRSD: 74 QT: 312 QTc: 430 [place]: P: 82 TX: 116 QRS: 77 T: 33 INTERPRETIVE STATEMENTS: Sinus tachycardia Right atrial enlargement Borderline ECG Compared to ECG 03/10/2025 01:52:27 T-wave abnormality no longer present Possible ischemia no longer present Electronically Signed On 03-10-25 12:08:05 CDT by Etienne Jacobs
[2025-03-10] MEDS: D5W 1,000 ML with POTASSIUM CL 20 MEQ IV SCH (13:27)
[2025-03-10 14:16] LABS: Anion Gap 24.9 mEq/L (5.0-15.0); Potassium 2.9 mEq/L (3.5-5.1)
--- NOTE | 2025-03-10 14:17 | RAD REPORT ---
EXAM: Chest Single View HISTORY: 19 years Female PICC line placement verification COMPARISON: None. FINDINGS: LUNGS/PLEURA: The lungs are clear. No pleural effusions or pneumothorax. No pulmonary edema. CARDIAC/MEDIASTINUM: The cardiac silhouette is within normal limits. UPPER ABDOMEN: No significant abnormality. BONES: No acute abnormality. LINES/TUBES/OTHER: Right subclavian approach PICC with tip overlying the superior cavoatrial junction . IMPRESSION: No evidence of acute cardiopulmonary disease. PICC in satisfactory position.
[2025-03-10] MEDS: KCL 20 MEQ/100 mL IVPB 20 MEQ/100 ML BAG IV SCH ×2 (14:35→22:17)
--- NOTE | 2025-03-10 15:44 | P.PN ---
Date of Service: 03/10/25 Subjective Reports not feeling well, confused about her situation, incomplete answers to questioned PICC line placed ROS 10 point ROS as noted above, otherwise negative Physical Exam General: Alert, Confused HEENT: Normocephalic Neck: Supple Respiratory: Clear BBS, tachypneic Cardiovascular: No edema, mild tachycardia Capillary refill: <2 Seconds Gastrointestinal: Soft and benign on palpation Musculoskeletal: No clubbing Integumentary: No rashes Neurological: Normal speech, confused Vitals Reviewed Problem list DKA Acute metabolic encephalopathy Leukocytosis Hypernatremia/hypokalemia Anemia Assessment and Plan DKA Acute metabolic encephalopathy Leukocytosis Hypernatremia/hypokalemia Anemia High risk to leave AMA Continue insulin gtt D5W with 20 mEq potassium bicarb gtt monitor anion gap and HCO3 replace potassium with fluids transition to subq insulin once gap is corrected and bicarb above 18 nephrology following DVT prophylaxis with SCD Full code LOS 2-3 days
[2025-03-10] MEDS: ONDANSETRON 4 MG/2 ML VIAL IV PRN (15:53)
[2025-03-10 16:18] LABS: BUN Blood Urea Nitrogen 33 mg/dL (7-18); Glomerular Filtration Rate 78 ml/min (=/>90); Sodium Level 131 mEq/L (136-145)
[2025-03-10 16:21] LABS: Potassium > 10.0 mEq/L (3.5-5.1)
[2025-03-10 16:22] LABS: Bicarbonate < 8 mEq/L (21-32); Glucose Level 615 mg/dL (74-106)
[2025-03-10 17:46] LABS: Anion Gap 28.9 mEq/L (5.0-15.0); BUN Blood Urea Nitrogen 36 mg/dL (7-18); Glomerular Filtration Rate 78 ml/min (=/>90); Glucose Level 350 mg/dL (74-106); Potassium 3.9 mEq/L (3.5-5.1); Sodium Level 147 mEq/L (136-145)
[2025-03-10 17:47] LABS: Bicarbonate < 8 mEq/L (21-32)
[2025-03-10 18:26] LABS: Specific Gravity 1.019 (1.005-1.030); Sqamous Epithelial None Seen /HPF (None Seen); Urine Bacteria <20 /HPF (<20); Urine Bilirubin NEGATIVE (Negative); Urine Blood Trace (Negative); Urine Clarity Clear (Clear); Urine Color Light-Yellow (Yellow); Urine Crystals Unidentified Few /HPF (None Seen); Urine Glucose 4+ (Over) (Negative); Urine Ketones 4+ (Over) (Negative); Urine Micro Reflex YN NO BILL MICROSCOPIC; Urine Mucus Slight /HPF (None Seen); Urine Nitrite NEGATIVE (Negative); Urine Protein 1+ (Negative); Urine RBC <5 /HPF (None Seen); Urine Urobilinogen Normal (Normal); Urine WBC <5 /HPF (<5); Urine Yeast (Budding) Trace /HPF (None Seen); Urine pH 5.5 (5.0-7.0)
[2025-03-10 18:34] LABS: Barbiturates NEGATIVE (NEGATIVE); Benzodiazepines NEGATIVE (NEGATIVE); Cocaine NEGATIVE (NEGATIVE); METHAMPHETAM NEGATIVE (NEGATIVE); Methadone NEGATIVE (NEGATIVE); Opiates NEGATIVE (NEGATIVE); Phencyclidine NEGATIVE (NEGATIVE); THC Cannibis POSITIVE (NEGATIVE)
[2025-03-10] MEDS: NACHLORIDE 0.45% 1,000 ML with NA BICARB 8.4% 50 MEQ IV SCH (19:15)
[2025-03-10 19:41] LABS: Anion Gap 22.8 mEq/L (5.0-15.0); Potassium 3.8 mEq/L (3.5-5.1)
[2025-03-10 22:03] LABS: Anion Gap 19.2 mEq/L (5.0-15.0); Potassium 3.2 mEq/L (3.5-5.1)
[2025-03-10] MEDS: MELATONIN 3 MG TABLET PO PRN (23:41)
[2025-03-11] MEDS: KCL 20 MEQ/100 mL IVPB 20 MEQ/100 ML BAG IV SCH (00:08)
--- NOTE | 2025-03-11 01:14 | CON ---
Date of Consultation: 03/10/2025 Chief Complaint: Acute kidney injury, prerenal azotemia in the setting of DKA. History Of Present Illness: The patient is a 19-year-old female with past medical history of noncomp liance. The patient has history of diabetes mellitus type 1. She presented to the emergency room af ter she left against medical advice while being treated for DKA in ICU. She was found to have DKA. She was started on sodium bicarbonate drip. She has acute metabolic encephalopathy with hyperglycemi a. She is started on insulin drip and is on IV fluids with potassium supplementation. Bicarbonate w as fluctuating and the patient resumed sodium bicarbonate drip. Review of Systems: The patient cannot provide review of systems. She has generalized weakness. She remains in ICU. Past Medical History: Diabetes mellitus type 1, depression, anorexia, noncompliance, drug abuse. Family History: Father, diabetes. Social History: Denies alcohol, although she has history of drug abuse. She denies tobacco. Physical Examination: General: The patient is confused. HEENT: Normocephalic. Neck: Supple. Respiratory: Clear to auscultation bilaterally. Heart: S1, S2. Abdomen: Soft. Extremities: No edema. Laboratory Data: Hemoglobin 7.1, WBC 19.7, platelet count 229,000. Sodium 141, potassium 4.3, BUN 3 9, creatinine 1.29, glucose 645. Impression And Plan: 1. Diabetic ketoacidosis, acute encephalopathy, leukocytosis, anemia. The patient was admitted to [facility] and is started on insulin drip and IV fluids. Plan is to monitor bicarbonate level and adjust bica rbonate drip accordingly. Continue to re-assess phosphorus, magnesium, and potassium and continue josé pplementation. 2. Acute kidney injury secondary to prerenal azotemia. Urinalysis was ordered to check for any evide nce of abnormal urinary sediment. 3. Leukocytosis, per Primary team. 4. Acute encephalopathy, likely secondary to hyperglycemia and diabetic ketoacidosis. Management by Primary team. KINJAL/MODL Voice ID: [id number] Report ID: [id number]
[2025-03-11 02:37] LABS: Anion Gap 14.6 mEq/L (5.0-15.0); BUN Blood Urea Nitrogen 29 mg/dL (7-18); Bicarbonate 18 mEq/L (21-32); Glomerular Filtration Rate 82 ml/min (=/>90); Glucose Level 149 mg/dL (74-106); Potassium 3.6 mEq/L (3.5-5.1); Sodium Level 146 mEq/L (136-145)
[2025-03-11 02:42] LABS: Phosphorus < 0.5 mg/dL (2.5-4.9)
[2025-03-11] MEDS: POTASSIUM PHOS IN 0.9 % NACL 15 MMOL/250 ML BAG IV ONE ×2 (02:52→05:00)
[2025-03-11 05:24] VITALS: BMI 14.9
[2025-03-11 06:14] LABS: Absolute Basophils 0.1 K/uL (0-0.5); Absolute Lymphocytes (CBC) 0.8 K/uL (0.7-4.9); Absolute Monocytes 0.4 K/uL (0.1-1.3); Absolute Neutrophil 10.4 K/uL (1.8-8.0); Basophils % 0.9 % (0-1.3); Hematocrit 21.9 % (36.0-45.0); Hemoglobin 7.2 g/dL (12.0-15.0); Lymphocytes % 7.2 % (15.3-44.8); MCHC 33.1 g/dL (32.0-36.0); MCV 75.4 fL (80-100); Monocytes % 3.3 % (3.3-12.3); Neutrophils % 88.6 % (41.7-73.7); Nucleated Red Blood Cells % 0.1 % (0-0); Platelets 231 thou/uL (152-406); Red Cell Distribution Width 16.1 % (12.1-15.2)
[2025-03-11 06:49] LABS: Anion Gap 11.6 mEq/L (5.0-15.0); Magnesium 1.5 mg/dL (1.6-2.4); Phosphorus 2.8 mg/dL (2.5-4.9); Potassium 3.6 mEq/L (3.5-5.1)
[2025-03-11 09:23] VITALS: TEMP 99.1
[2025-03-11] MEDS ORDERED: NACHLORIDE 0.45% 1,000 ML with POTASSIUM CL 20 MEQ IV SCH (10:00)
[2025-03-11] MEDS ORDERED: D5 0.45 NS 1,000 ML IV SCH (10:00)
[2025-03-11 11:10] VITALS: BP 125/84
--- NOTE | 2025-03-11 12:30 | P.DS ---
Admission Date: 03/10/25 Discharge Date: 03/11/25 Disposition: AMA-LEFT AGAINST MEDICAL ADVIC Brief History of Present Illness: Diagnosis DKA Acute metabolic encephalopathy Leukocytosis Hypernatremia/hypokalemia Anemia HPI 03/10/2025 19-year-old female with a past medical history of noncompliant type 1 diabetes presenting to the emergency room after she left AMA while being treated for DKA in the ICU. She now presents with DKA. She is unable to give a history due to acute metabolic encephalopathy. She repeatedly asked for water or ice every 5 minutes. Bicarb remains less than 8, blood sugar greater than 500, with a WBC count of 19. Hospital Course: On 03/11, Tessa was seen on morning rounds. Improvement is seen to her labs and mental status. She is able to clearly communicate her insulin regimen and her current PCP she sees. Education provided for close glucose monitoring and continued follow up outpatient. Education provided of the continued medical plan once downgraded to the floor. Plan to continue monitoring blood sugar levels while eating and watching for a rebound effect of her glucose. Will need to be sure serum glucose has stabilized prior to safe and appropriate discharge. With all the conversation and education provided, Tessa Eagle has decided to leave against medical advice and treatment. We have discussed the danger and limitations that will likely occur from leaving the hospital without treatment, specifically , stroke, and becoming unstable hemodynamically. Physical Exam General: Alert and oriented x3, NAD, cachectic HEENT: Normocephalic Neck: Supple Respiratory: Clear BBS, nonlabored breathing Cardiovascular: No edema, mild tachycardia Capillary refill: <2 Seconds Gastrointestinal: Soft and benign on palpation Musculoskeletal: No clubbing Integumentary: No rashes Neurological: Normal speech, confused Vital Signs/Physical Exam: Temp Pulse Resp BP Pulse Ox 99.1 F 84 22 H 125/84 100 03/11/25 09:00 03/11/25 10:00 03/11/25 10:00 03/11/25 10:00 03/11/25 10:00 Laboratory Data at Discharge: WBC 11.70 thou/uL (4.3-10.9) H 03/11/25 06:00 Hgb 7.2 g/dL (12.0-15.0) L D 03/11/25 06:00 Hct 21.9 % (36.0-45.0) L 03/11/25 06:00 Plt Count 231 thou/uL (152-406) D 03/11/25 06:00 Sodium Cancelled 03/11/25 22:00 Potassium Cancelled 03/11/25 22:00 BUN Cancelled 03/11/25 22:00 Creatinine Cancelled 03/11/25 22:00 Glucose Cancelled 03/11/25 22:00 Phosphorus Cancelled 03/11/25 22:00 Magnesium Cancelled 03/11/25 18:00 Triglycerides 161 mg/dL (<150) H 03/11/25 06:00 Triglycerides Cancelled 03/11/25 06:00 Cholesterol 133 mg/dL (<200) 03/11/25 06:00 Cholesterol Cancelled 03/11/25 06:00 HDL Cholesterol 42 mg/dL (40-60) 03/11/25 06:00 HDL Cholesterol Cancelled 03/11/25 06:00 Cholesterol/HDL Ratio 3.17 03/11/25 06:00 Cholesterol/HDL Ratio Cancelled 03/11/25 06:00 Home Medications: Insulin Lispro [Humalog] 6 units SQ TID 02/03/23 Insulin Glargine,Hum.rec.anlog [Semglee] 30 units SQ DAILY 01/09/25 Followup: SAMIRA NUNES [Primary Care Provider] -
--- NOTE | 2025-03-12 00:50 | PN ---
Date of Progress Note: 03/11/2025 Chief Complaint: Acute kidney injury, prerenal azotemia in the setting of DKA, electrolytes abnormal ities, metabolic acidosis due to DKA. Subjective: The patient is a 19-year-old female with past medical history of noncompliance, diabetes mellitus type 1. She presented to emergency room after she left against medical advice while being treated for DKA in the ICU. She was found to have DKA. She had profound metabolic acidosis and was started on bicarbonate drip. She required potassium replacement and phosphorus replacement. She had altered mental status due to encephalopathy secondary to DKA. Today, she is at baseline mental stat us, confusion, resolved. Review of Systems: Denies complaints. Physical Examination: Lungs: Clear to auscultation bilaterally. Heart: S1, S2. Abdomen: Soft, benign. Extremities: No edema. Impression And Plan: 1. Diabetic ketoacidosis. The patient was on insulin drip. She required IV fluids management for hy pokalemia, metabolic acidosis, and hypophosphatemia. The patient has multiple medical problems inclu ding history of noncompliance and history of drug abuse. Further recommendation from primary team. 2. Acute kidney injury was secondary to prerenal azotemia. Urinalysis was ordered to rule out abnorm al urinary sediment and screen for proteinuria was ordered. 3. Acute encephalopathy due to hyperglycemia and diabetic ketoacidosis, management per primary team. 4. Hypophosphatemia, hypokalemia. Supplementation was managed according to lab results. KINJAL/ROLO Voice ID: [id number] Report ID: [id number]
== END 2025-03-11 10:57 | disposition left against medical advice (07) | DRG 637 ==
LOC: ER 00:47 → ERHOLD 02:54 → 3RD-ICU 04:55
PROVIDERS: ADMIT Family Medicine; ATTEND Family Medicine
PROC: 4A033R1 Measurement of Arterial Saturation, Peripheral, Percutaneous Approach (ICD-10-PCS; principal; 2025-03-10)
PROC: 02HV33Z Insertion of Infusion Device into Superior Vena Cava, Percutaneous Approach (ICD-10-PCS; 2025-03-10)
DX: E10.10 Type 1 diabetes mellitus with ketoacidosis without coma (principal); G93.41 Metabolic encephalopathy; E87.0 Hyperosmolality and hypernatremia; N17.9 Acute kidney failure, unspecified; R64 Cachexia; Z68.1 Body mass index [BMI] 19.9 or less, adult; E87.6 Hypokalemia; D64.9 Anemia, unspecified; D72.829 Elevated white blood cell count, unspecified; Z78.1 Physical restraint status; Z79.4 Long term (current) use of insulin; Z53.29 Procedure and treatment not carried out because of patient's decision for other reasons; Z79.899 Other long term (current) drug therapy
CPT/HCPCS: 36415; 36569; 36600; 71045; 80048; 80061; 80143; 80179; 80307; 81001; 82010; 82077; 82805; 82947; 83605; 83735; 83930; 84100; 84703; 85025; 85027; 93005; 96365; 96372; 99285; J0692; J1815; J2405; J3480; J7030

== ENCOUNTER 2025-03-22 05:30 | Inpatient (IN) | payer OTHER ==
[2025-03-22] MEDS ORDERED: NA CHLORIDE 0.9% 1,000 ML ONE (06:18)
[2025-03-22 06:35] LABS: Absolute Lymphocytes (CBC) 1.1 K/uL (0.7-4.9); Absolute Monocytes 0.3 K/uL (0.1-1.3); Absolute Neutrophil 7.5 K/uL (1.8-8.0); Basophils % 0.5 % (0-1.3); Hematocrit 23.7 % (36.0-45.0); Hemoglobin 7.2 g/dL (12.0-15.0); Lymphocytes % 12.7 % (15.3-44.8); MCH 24.3 pg (27.0-35.0); MCHC 30.2 g/dL (32.0-36.0); MCV 80.3 fL (80-100); MPV 8.1 fL (7.6-11.3); Monocytes % 3.1 % (3.3-12.3); Neutrophils % 83.7 % (41.7-73.7); Platelets 399 thou/uL (152-406); RBC Red Blood Cell Count 2.96 M/uL (3.86-4.86); Red Cell Distribution Width 17.1 % (12.1-15.2)
[2025-03-22] MEDS ORDERED: INSULIN REGULAR (HUMAN) 100 UNIT/ML ONE ×2 (06:35→06:39)
[2025-03-22] MEDS ORDERED: NA CHLORIDE 0.9% 100 ML ONE (06:35)
[2025-03-22 07:34] LABS: Anion Gap 32.1 mEq/L (5.0-15.0); Potassium 5.1 mEq/L (3.5-5.1); Troponin High Sensitivity 4.1 pg/mL (<58.9)
--- NOTE | 2025-03-22 07:48 | ER ---
Nurse's Notes [facility] Name: Tessa Eagle Age: 19 yrs Sex: Female : 2005 Arrival Date: 03/22/2025 Time: 05:30 Bed [id number] Private MD: Diagnosis: Diabetes mellitus due to underlying condition with ketoacidosis without coma;Weakness Presentation: 03/22 05:46 Chief complaint: Patient states: PT STATES SHE ISN'T FEELING GOOD. PT WILL NOT DESCRIBE br2 HOW SHE IS FEELING. PT STATES SHE HASN'T BEEN EATING AND HASN'T TAKEN HER MEDS IN 2 DAYS. Coronavirus screen: Client denies travel out of the [place] in the last 14 days. Ebola Screen: Patient denies exposure to infectious person. Initial Sepsis Screen: Does the patient meet any 2 criteria? No. Patient's initial sepsis screen is negative. Does the patient have a suspected source of infection? No. Patient's initial sepsis screen is negative. Risk Assessment: Do you want to hurt yourself or someone else? Patient reports no desire to harm self or others. Onset of symptoms is unknown. 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 - Infectious Disease History:: Denies. - Social history:: Smoking status: unknown Patient/guardian denies using alcohol, street drugs. - Family history:: not pertinent. Screenin:[facility] ED Fall Risk Assessment (Adult) History of falling in the last 3 months, br2 including since admission No falls in past 3 months (0 pts) Confusion or Disorientation No (0 pts) Intoxicated or Sedated No (0 pts) Impaired Gait No (0 pts) Mobility Assist Device Used No (0 pt) Altered Elimination No (0 pt) Score/Fall Risk Level 0 - 2 = Low Risk Oriented to surroundings. Abuse screen: Denies threats or abuse. Denies injuries from another. Nutritional screening: No deficits noted. Tuberculosis screening: No symptoms or risk factors identified. Assessment: 05:40 General: Appears uncomfortable, Behavior is calm, cooperative, appropriate for age. rg5 Pain: Denies pain. Neuro: Level of Consciousness is awake, alert, obeys commands, Oriented to person, place, time. Vital Signs: 05:46 BP 128 / 80; Pulse 84; Resp 18 S; Temp 97.5(TE); Pulse Ox 100% on R/A; Weight 36.74 kg; br2 Height 4 ft. 11 in. ; 07:00 BP 116 / 72; Pulse 104; Resp 18; Pulse Ox 100% on R/A; ph 07:37 BP 114 / 77; Pulse 120; Resp 22; Pulse Ox 100% on R/A; ph 08:05 Pulse 105; Resp 22; Pulse Ox 100% ; ll1 09:25 BP 111 / 71; Pulse 100; Resp 20; Pulse Ox 100% ; ll1 05:46 Body Mass Index 16.36 (36.74 kg, 149.86 cm) br2 [place] Coma Score: 07:43 Eye Response: spontaneous(4). Motor Response: obeys commands(6). Verbal Response: sp4 oriented(5). Total: 15. ED Course: 05:32 Patient arrived in ED. gm2 05:33 Garrett Hung, RN is Primary Nurse. rg5 05:40 Inserted. rg5 05:49 Triage completed. br2 05:50 Patient has correct armband on for positive identification. Bed in low position. Call br2 light in reach. Side rails up X 1. Provided Education on: PLAN OF CARE. 06:08 EKG done, by ED staff. vk 06:14 Shoaib Burnett MD is Attending Physician. sp4 06:19 Garrett Hung, RN is Primary Nurse. rg5 06:23 Inserted saline lock: 20 gauge in left antecubital area, using aseptic technique. Blood ha1 collected. Flushed with 10 mL NS Accessed peripheral vein via ultrasound, utilizing dynamic ultrasound technique. 07:42 Attending Physician role handed off by Shoaib Burnett MD tadeo 07:42 Srinivasan Chris MD is Attending Physician. tadeo 07:47 Purvi Zapata MD is Hospitalizing Provider. tadeo 08:05 Urine Drug Screen Sent. ll1 08:05 Test, Serum Sent. ll1 08:06 Arm band placed on right wrist. Patient placed in an exam room, on a stretcher. ll1 08:06 No provider procedures requiring assistance completed. Patient admitted, IV remains in ll1 place. 08:07 pure wick to wall suction. ll1 09:25 IV discontinued, intact, bleeding controlled, No redness/swelling at site. Pressure 1 dressing applied. 15:02 Primary Nurse role handed off by Garrett Hung, RN kb3 Administered Medications: 06:41 Drug: NS 0.9% IV 1000 ml IV at 1000 ml once; to be given as a bolus over 60 minutes rg5 Route: IV; Rate: 1000 ml; Site: left antecubital; 07:58 Follow up: Response: No adverse reaction; IV Status: Completed infusion; IV Intake: ll1 1000ml 06:45 Drug: Insulin Regular Human IVP 10 units IVP once {Co-Signature: br2 (Heidi Mireles rg5 RN).} Route: IVP; Site: left antecubital; 07:59 Follow up: Response: No adverse reaction 1 06:58 Drug: Insulin Drip - (Insulin Regular Human IVP 100 units, NS 0.9% IV 100 ml) IV at rg5 calculated rate continuous; Standard concentration 1unit/ml; Dose for DKA is 0.1 units/kg/hr {Co-Signature: br2 (Heidi Mireels RN).} Route: IV; Rate: calculated rate; Site: left forearm; 08:04 Follow up: Rate change 7.4 units/hr 1 09:26 Follow up: Response: No adverse reaction; IV Status: Completed infusion; IV Intake: [id number] 07:51 Drug: NS 0.9% IV 500 ml 500 ml IV at 1 bolus once; to be given as a bolus over 30 hb minutes Volume: 500 ml; Route: IV; Rate: 1 bolus; Site: left antecubital; 09:26 Follow up: Response: No adverse reaction; IV Status: Completed infusion; IV Intake: ll1 500ml Medication: 08:07 VIS not applicable for this client. 1 Point of Care Testing: Blood Glucose: 06:11 Blood Glucose: High (>450 mg/dL); br2 Ranges: Intake: 07:58 IV: 1000ml; Total: 1000ml. ll1 09:26 IV: 500ml; Total: 1500ml. ll1 09:26 IV: 12ml; Total: 1512ml. ll1 Outcome: 07:48 Decision to Hospitalize by Provider. [facility] 08:06 Admitted to ER Hold. Please see [facility] for further documentation. ll1 08:06 Condition: stable 08:06 Instructed on the need for admit, 09:25 AMA AMA form signed ll1 09:25 Condition: unchanged 09:25 Instructed on AMA instructions 09:27 Patient left the ED. ll1 15:04 Patient left the ED. kb3 Signatures: Srinivasan Chris MD MD cha Hall, Patricia, RN RN Maile Goel, RN RN Cj Altman RN RN ll1 Mary Euceda RN RN ha1 Gaby Layne RN RN kb3 Shoaib Burnett MD MD sp4 Sera Apple gm2 Anita Paniagua Rommel, RN RN rg5 Heidi Mireles RN RN br2 Heidi Mireles RN br2
--- NOTE | 2025-03-22 07:48 | EDPHYS ---
Physician Documentation [facility] Name: Tessa Eagle Age: 19 yrs Sex: Female : 2005 Arrival Date: 03/22/2025 Time: 05:30 Bed IW10 Private MD: ED Physician Srinivasan Chris HPI: 03/22 06:14 This 19 yrs old Female presents to ER via Wheelchair with complaints of High sp4 Blood Sugar. 07:41 19-year-old female presents with elevated blood sugar and generalized weakness.. 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 - Infectious Disease History:: Denies. - Social history:: Smoking status: unknown Patient/guardian denies using alcohol, street drugs. - Family history:: not pertinent. ROS: 07:43 Constitutional: Negative for fever, chills, and weight loss, positive for generalized sp4 weakness positive for elevated blood sugar 07:43 All other systems are negative, Exam: 07:43 Constitutional: Cachectic appearing female, ill-appearing, no hypertension, sp4 tachycardia, moderate to severe dehydration by exam Head/Face: Normocephalic, atraumatic. Eyes: Pupils equal round and reactive to light, extra-ocular motions intact. Lids and lashes normal. Conjunctiva and sclera are not injected. Cornea within normal limits. Periorbital areas with no swelling, redness, or edema. ENT: Nares patent. No nasal discharge, no septal abnormalities noted. Tympanic membranes are normal and external auditory canals are clear. Oropharynx with no redness, swelling, or masses, exudates, or evidence of obstruction, uvula midline. Mucous membranes moist. Neck: Trachea midline, no thyromegaly or masses palpated, and no cervical lymphadenopathy. Supple, full range of motion without nuchal rigidity, or vertebral point tenderness. Chest/axilla: Normal chest wall appearance and motion. Nontender with no deformity. No lesions are appreciated. Cardiovascular: Regular rate and rhythm with a normal S1 and S2. No gallops, murmurs, or rubs. Normal PMI, no JVD. No pulse deficits. Respiratory: Lungs have equal breath sounds bilaterally, clear to auscultation and percussion. No rales, rhonchi or wheezes noted. No increased work of breathing, no retractions or nasal flaring. Abdomen/GI: Soft, with normal bowel sounds. No distension or tympany. No guarding or rebound. No evidence of tenderness throughout. Back: No spinal tenderness. No costovertebral tenderness. Skin: Warm, dry with normal turgor. Normal color with no rashes, no lesions, and no evidence of cellulitis. MS/ Extremity: Pulses equal, no cyanosis. Neurovascular intact. Full, normal range of motion. Neuro: Awake and alert, GCS 15, oriented to person, place, time, and situation. Cranial nerves II-XII grossly intact. Motor strength 5/5 in all extremities. Sensory grossly intact. Psych: Awake, alert, with orientation to person, place and time. Behavior, mood, and affect are within normal limits 07:43 ECG was reviewed by the Attending Physician. Vital Signs: 05:46 BP 128 / 80; Pulse 84; Resp 18 S; Temp 97.5(TE); Pulse Ox 100% on R/A; Weight 36.74 kg; br2 Height 4 ft. 11 in. ; 07:00 BP 116 / 72; Pulse 104; Resp 18; Pulse Ox 100% on R/A; ph 07:37 BP 114 / 77; Pulse 120; Resp 22; Pulse Ox 100% on R/A; ph 08:05 Pulse 105; Resp 22; Pulse Ox 100% ; ll1 09:25 BP 111 / 71; Pulse 100; Resp 20; Pulse Ox 100% ; ll1 05:46 Body Mass Index 16.36 (36.74 kg, 149.86 cm) br2 [place] Coma Score: 07:43 Eye Response: spontaneous(4). Motor Response: obeys commands(6). Verbal Response: sp4 oriented(5). Total: 15. MDM: 06:19 Medical Screening Exam initiated sp4 07:45 Differential diagnosis: diabetes insipidus, DKA, gestational diabetes, hyperglycemia, sp4 hyperthyroidism. Data reviewed: vital signs, nurses notes, old medical records, lab test result(s), EKG. Consideration of Admission/Observation Escalation of care including admission/observation considered. Transition of care: After a detail discussion of the patient's case, care is transferred to Srinivasan Chris MD. 03/22 05:54 Order name: Basic Metabolic Panel; Complete Time: 07:43 br2 / 05:54 Order name: CBC with Diff; Complete Time: 07:04 br2 / 05:54 Order name: Troponin HS; Complete Time: 07:43 br2 / 06:06 Order name: Glucose, Ancillary Testing; Complete Time: 07:04 EDMS / 07:05 Order name: Type And Screen; Complete Time: 20:58 sp4 / 07:41 Order name: Test, Serum sp4 / 07:41 Order name: LFT's sp4 / 07:42 Order name: Urine Drug Screen; Complete Time: 20:58 sp4 / 07:42 Order name: BETA HYDROXYBUTYRATE sp4 / 08:12 Order name: Packed RBC Leukored EDMS / 08:57 Order name: Osmolality, Serum EDMS / 08:57 Order name: Basic Metabolic Panel EDMS 05/ 08:57 Order name: Basic Metabolic Panel EDMS / 08:57 Order name: Basic Metabolic Panel EDMS / 08:57 Order name: Basic Metabolic Panel EDMS 05/ 08:57 Order name: Calcium Level EDMS 05/ 08:57 Order name: Calcium Level EDMS 05/06 08:57 Order name: Calcium Level EDMS 05/ 08:57 Order name: Calcium Level EDMS 05/ 08:57 Order name: CBC with Automated Diff EDMS 05/ 08:57 Order name: CBC with Automated Diff EDMS 05/ 08:57 Order name: CBC with Automated Diff EDMS / 08:57 Order name: CBC with Automated Diff EDMS 05/ 08:57 Order name: Lipid Profile EDMS / 08:57 Order name: Lipid Profile EDMS 05/ 09:18 Order name: ABO/RH no charge; Complete Time: 20:58 EDMS / 05:54 Order name: EKG; Complete Time: 05:55 br2 03/22 05:54 Order name: Cardiac monitoring; Complete Time: 06:08 br2 03/22 05:54 Order name: EKG - Nurse/Tech; Complete Time: 06:08 br2 05/06 05:54 Order name: IV Saline Lock; Complete Time: 06:52 br2 03/22 05:54 Order name: Labs collected and sent; Complete Time: 06:52 br2 03/22 05:54 Order name: O2 Per Protocol; Complete Time: 06:08 br2 03/22 05:54 Order name: O2 Sat Monitoring; Complete Time: 06:08 br2 03/22 07:41 Order name: Tristan; Complete Time: 07:58 sp4 03/22 08:16 Order name: Labs - recollect needed: collect red top for serum preg bd EC:04 Rate is 88 beats/min. Rhythm is regular, Normal Sinus Rhythm. QRS Kermit is Normal. AR sp4 interval is normal. QRS interval is normal. QT interval is normal. No Q waves. T waves are Normal. No ST changes noted. Clinical impression: No evidence of ischemia. Reviewed by me. Administered Medications: 06:41 Drug: NS 0.9% IV 1000 ml IV at 1000 ml once; to be given as a bolus over 60 minutes rg5 Route: IV; Rate: 1000 ml; Site: left antecubital; 07:58 Follow up: Response: No adverse reaction; IV Status: Completed infusion; IV Intake: ll1 1000ml 06:45 Drug: Insulin Regular Human IVP 10 units IVP once {Co-Signature: pamela2 (Heidi Mireles5 RN).} Route: IVP; Site: left antecubital; 07:59 Follow up: Response: No adverse reaction ll1 06:58 Drug: Insulin Drip - (Insulin Regular Human IVP 100 units, NS 0.9% IV 100 ml) IV at rg5 calculated rate continuous; Standard concentration 1unit/ml; Dose for DKA is 0.1 units/kg/hr {Co-Signature: br2 (Heidi Mireles RN).} Route: IV; Rate: calculated rate; Site: left forearm; 08:04 Follow up: Rate change 7.4 units/hr ll1 09:26 Follow up: Response: No adverse reaction; IV Status: Completed infusion; IV Intake: [id number] 07:51 Drug: NS 0.9% IV 500 ml 500 ml IV at 1 bolus once; to be given as a bolus over 30 hb minutes Volume: 500 ml; Route: IV; Rate: 1 bolus; Site: left antecubital; 09:26 Follow up: Response: No adverse reaction; IV Status: Completed infusion; IV Intake: ll1 500ml Point of Care Testing: Blood Glucose: 06:11 Blood Glucose: High (>450 mg/dL); br2 Ranges: Critical Glucose Levels:Adult <50 mg/dl or >400 mg/dl <40 mg/dl or >180 mg/dl Disposition Summary: 03/22/25 07:48 Hospitalization Ordered Notes: Hospitalization Status: Inpatient Admission tadeo Provider: Purvi Zapata cha Location: Intensive Care Unit tadeo Condition: Fair tadeo Problem: new tadeo Symptoms: have improved tadeo Bed/Room Type: Standard tadeo Room Assignment: 4-(03/22/25 09:01) bd Diagnosis - Diabetes mellitus due to underlying condition with ketoacidosis without coma tadeo - Weakness tadeo Forms: - Medication Reconciliation Form tadeo - SBAR form tadeo - Leadership Thank You Letter tadeo Critical care time excluding procedures: 07:46 Critical care time: Bedside Care: 36 minutes, Consultation: 12 minutes, Family sp4 Intervention: 12 minutes. Total time: 60 minutes Signatures: Dispatcher [employer] EDAugusta Lara Corey, MD MD cha Baxter, Heather, JANESSA RN Shoaib Burnett MD MD sp4 Garrett Hung RN RN rg5 Heidi Mireles RN RN br2 Cj Altman RN ll1 Heidi Mireles RN br2 Corrections: (The following items were deleted from the chart) 07:05 07:05 TYPE AND SCREEN+BB.LAB.BRZ ordered. EDMS EDMS 07:41 07:41 TEST, SERUM+SC.LAB.BRZ ordered. EDMS EDMS 07:42 07:42 URINE DRUG SCREEN+UC.LAB.BRZ ordered. EDMS EDMS 07:42 07:42 BETA HYDROXYBUTYRATE+C.LAB.BRZ ordered. EDMS EDMS 07:58 07:42 TEST, SERUM+SC.LAB.BRZ ordered. EDMS EDMS 08:04 07:07 ABO/RH typing ordered. EDMS EDMS 08:04 07:07 Antibody Screen ordered. EDMS EDMS 08:05 07:05 PACKED RBC LEUKORED+BB.LAB.BRZ ordered. EDMS EDMS 09:01 07:48 tadeo bd
[2025-03-22] MEDS ORDERED: ONDANSETRON 4 MG/2 ML VIAL IV PRN (08:49)
[2025-03-22] MEDS ORDERED: D50W 25 GM/50 ML SYRINGE IV PRN (08:56)
[2025-03-22] MEDS ORDERED: GLUCAGON 1 MG/VIAL IM PRN (08:56)
--- NOTE | 2025-03-22 08:56 | P.HP ---
Patient History Date of Service: 03/22/25 History of Present Illness: error. patient left ama Allergies No Known Allergies Allergy (Verified 07/13/23 22:35) Home Medications: Insulin Lispro [Humalog] 6 units SQ TID 02/03/23 Insulin Glargine,Hum.rec.anlog [Semglee] 30 units SQ DAILY 01/09/25 - Past Medical/Surgical History Diabetic: Yes -: Type 1 diabetes -: Depression -: Anorexia -: Noncompliance -: Drug abuse -: None Psychosocial/ Personal History: Patient lives at home with family. - Family History Father -: Diabetes - Social History Alcohol use: No CD- Drugs: Yes Caffeine use: Yes Physical Examination - Studies Laboratory Data (last 24 hrs) 03/22/25 03/22/25 06:30 06:30 WBC 9.00 Hgb 7.2 L Hct 23.7 L Plt Count 399 Sodium 128 L Potassium 5.1 BUN 34 H Creatinine 1.61 H Glucose 1049 H* Assessment and Plan - Advance Directives Does patient have a Living Will: No Does patient have a Durable POA for Healthcare: No
[2025-03-22] MEDS ORDERED: NACHLORIDE 0.45% 1,000 ML with POTASSIUM CL 20 MEQ IV SCH (09:00)
[2025-03-22] MEDS ORDERED: D5 0.45 NS 1,000 ML IV SCH (09:00)
[2025-03-22] MEDS ORDERED: INSULIN REGULAR, HUMAN 100 UNIT in NA CHLORIDE 0.9% 100 ML IV SCH (09:00)
[2025-03-22] MEDS ORDERED: D10W 125 ML IV PRN (09:19)
[2025-03-22 09:50] LABS: Barbiturates NEGATIVE (NEGATIVE); Benzodiazepines POSITIVE (NEGATIVE); Cocaine NEGATIVE (NEGATIVE); METHAMPHETAM NEGATIVE (NEGATIVE); Methadone NEGATIVE (NEGATIVE); Opiates NEGATIVE (NEGATIVE); Phencyclidine NEGATIVE (NEGATIVE); THC Cannibis NEGATIVE (NEGATIVE)
[2025-03-22 12:02] VITALS: TEMP 97.5; O2SAT 100
[2025-03-22 18:19] VITALS: BP 111/71
--- NOTE | 2025-03-24 11:51 | EKG ---
Test Date: 2025-03-22 Test Time: 06:04:32 Patient Support Associate: ANURADHA MEASUREMENT RESULTS: Intervals: Rate: 88 GA: 116 QRSD: 68 QT: 372 QTc: 450 [place]: P: 78 GA: 116 QRS: 74 T: 56 INTERPRETIVE STATEMENTS: Normal sinus rhythm Possible Left atrial enlargement T wave abnormality, consider anterior ischemia Abnormal ECG Compared to ECG 03/22/2025 06:02:41 No significant changes Electronically Signed On 03-24-25 11:44:34 CDT by Etienne Jacobs
--- NOTE | 2025-03-24 11:51 | EKG ---
Test Date: 2025-03-22 Test Time: 06:02:41 [employer]: ANURADHA MEASUREMENT RESULTS: Intervals: Rate: 88 WI: 168 QRSD: 70 QT: 364 QTc: 440 [place]: P: 71 WI: 168 QRS: 73 T: 62 INTERPRETIVE STATEMENTS: Normal sinus rhythm Possible Left atrial enlargement T wave abnormality, consider anterior ischemia Abnormal ECG Compared to ECG 03/10/2025 01:53:16 T-wave abnormality now present Possible ischemia now present Sinus tachycardia no longer present Electronically Signed On 03-24-25 11:44:36 CDT by Etienne Jacobs
== END 2025-03-22 09:30 | disposition left against medical advice (07) | DRG 639 ==
LOC: ER 05:30 → ERHOLD 08:46
PROVIDERS: ADMIT Family Medicine; ATTEND Family Medicine
DX: E10.10 Type 1 diabetes mellitus with ketoacidosis without coma (principal); Z53.29 Procedure and treatment not carried out because of patient's decision for other reasons
CPT/HCPCS: 36415; 80048; 80307; 82947; 84484; 85025; 86850; 86900; 86901; 93005; 96365; 96366; 99285; J1815; J3480; J7030

== ENCOUNTER 2025-08-23 21:02 | Inpatient (IN) | payer OTHER ==
[2025-08-23] MEDS ORDERED: INSULIN REGULAR (HUMAN) 100 UNIT/ML ONE (23:46)
[2025-08-23 23:47] LABS: Absolute Lymphocytes (CBC) 1.0 K/uL (0.7-4.9); Hematocrit 34.1 % (36.0-45.0); Hemoglobin 10.0 g/dL (12.0-15.0); MCH 20.9 pg (27.0-35.0); MCHC 29.3 g/dL (32.0-36.0); MCV 71.4 fL (80-100); MPV 9.7 fL (7.6-11.3); Nucleated RBC Absolute Count 0.0 (0-0); Nucleated Red Blood Cells % 0.1 % (0-0); RBC Red Blood Cell Count 4.78 M/uL (3.86-4.86); White Blood Count 6.90 thou/uL (4.3-10.9)
[2025-08-23] MEDS ORDERED: ONDANSETRON 4 MG/2 ML VIAL ONE (23:47)
[2025-08-23] MEDS ORDERED: NA CHLORIDE 0.9% 1,000 ML ONE (23:47)
[2025-08-24 00:05] LABS: ALT/SGPT 31 U/L (13-56); AST/SGOT 12 U/L (15-37); Albumin 4.0 g/dL (3.4-5.0); Albumin/Globulin Ratio 0.9 (1.1-1.8); Alkaline Phosphatase 266 U/L (45-117); Anion Gap 29.7 mEq/L (5.0-15.0); BUN Blood Urea Nitrogen 26 mg/dL (7-18); Globulin 4.5 g/dL (2.3-3.5); Lipase 21 U/L (13-75); Potassium 4.7 mEq/L (3.5-5.1)
[2025-08-24 00:09] LABS: Glucose Level 831 mg/dL (74-106)
[2025-08-24 00:26] LABS: Anisocytosis 2+; Blood Morphology Comment NOTED (NOT SEEN); Differential Total Cells Count 100; Hypochromasia 1+; Segmented Neutrophils 58 % (40-80)
--- NOTE | 2025-08-24 00:28 | ER ---
Nurse's Notes [facility] Name: Tessa Eagle Age: 19 yrs Sex: Female : 2005 Arrival Date: 08/23/2025 Time: 21:02 Bed 13 Private MD: Diagnosis: Acute diabetic ketoacidosis Presentation: 08/23 21:13 Chief complaint: Patient states: states blood sugar read "HI" and thinks she is in DKA. cp4 Reports she is diabetic but does not check her BGL. Coronavirus screen: Client denies travel out of the [place] in the last 14 days. Ebola Screen: Patient negative for fever greater than or equal to 101.5 degrees Fahrenheit, and additional compatible Ebola Virus Disease symptoms. Initial Sepsis Screen: Does the patient meet any 2 criteria? HR > 90 bpm. No. Patient's initial sepsis screen is negative. Does the patient have a suspected source of infection? No. Patient's initial sepsis screen is negative. Risk Assessment: Do you want to hurt yourself or someone else? Patient reports no desire to harm self or others. Onset of symptoms was August 23, 2025. 21:13 Method Of Arrival: Ambulatory cp4 21:13 Acuity: JUSTIN 3 cp4 Triage Assessment: 21:15 General: Appears in no apparent distress. uncomfortable, Behavior is calm, cooperative, cp4 appropriate for age. Pain: Denies pain. 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 - Infectious Disease History:: Denies. - Social history:: Smoking status: Patient reports the use of cigarette tobacco products, smokes one-half pack cigarettes per day, Reported history of juuling and/or vaping. - Family history:: not pertinent. Screenin:[address] [facility] ED Fall Risk Assessment (Adult) History of falling in the last 3 months, rg5 including since admission No falls in past 3 months (0 pts) Confusion or Disorientation No (0 pts) Intoxicated or Sedated No (0 pts) Impaired Gait No (0 pts) Mobility Assist Device Used No (0 pt) Altered Elimination No (0 pt) Score/Fall Risk Level 0 - 2 = Low Risk Oriented to surroundings. Abuse screen: Denies threats or abuse. Nutritional screening: No deficits noted. Tuberculosis screening: No symptoms or risk factors identified. Assessment: 23:45 General: Appears in no apparent distress. Behavior is calm, cooperative, appropriate rg5 for age. 23:45 Pain: Denies pain. Neuro: Level of Consciousness is awake, alert, obeys commands, rg5 Oriented to person, place, time, situation. Cardiovascular: Denies chest pain. Respiratory: Airway is patent Respiratory effort is even, unlabored. GI: Abdomen is flat, non-distended. : No signs and/or symptoms were reported regarding the genitourinary system. EENT: No signs and/or symptoms were reported regarding the EENT system. Derm: Skin is intact, Skin is normal. Musculoskeletal: Circulation, motion, and sensation intact. Range of motion: intact in all extremities. 08/24 00:00 Reassessment: Patient appears in no apparent distress at this time. No changes from cp4 previously documented assessment. Patient and/or family updated on plan of care and expected duration. Pain level reassessed. Patient is alert, oriented x 3, equal unlabored respirations, skin warm/dry/pink. Received report from JANESSA Tucker. 01:00 Reassessment: Patient appears in no apparent distress at this time. Patient and/or cp4 family updated on plan of care and expected duration. Pain level reassessed. Patient is alert, oriented x 3, equal unlabored respirations, skin warm/dry/pink. 02:00 Reassessment: Patient appears in no apparent distress at this time. Patient and/or cp4 family updated on plan of care and expected duration. Pain level reassessed. Patient is alert, oriented x 3, equal unlabored respirations, skin warm/dry/pink. 03:00 Reassessment: Patient appears in no apparent distress at this time. Patient and/or cp4 family updated on plan of care and expected duration. Pain level reassessed. Patient is alert, oriented x 3, equal unlabored respirations, skin warm/dry/pink. 04:00 Reassessment: Patient appears in no apparent distress at this time. Patient and/or cp4 family updated on plan of care and expected duration. Pain level reassessed. Patient is alert, oriented x 3, equal unlabored respirations, skin warm/dry/pink. Vital Signs: 08/23 21:13 BP 138 / 78; Pulse 128; Resp 20; Temp 97.5; Pulse Ox 100% ; Weight 54.43 kg; Height 4 cp4 ft. 11 in. ; Pain 0/10; 08/24 00:00 BP 138 / 86; Pulse 109; Resp 18; Pulse Ox 100% ; rg5 01:00 BP 105 / 63; Pulse 119; Resp 18; Pulse Ox 100% ; cp4 02:00 BP 110 / 70; Pulse 112; Resp 18; Pulse Ox 100% ; cp4 03:00 BP 102 / 53; Pulse 103; Resp 18; Pulse Ox 100% ; cp4 04:00 BP 110 / 61; Pulse 98; Resp 18; Pulse Ox 100% ; cp4 05:00 BP 123 / 76; Pulse 100; Resp 16; Pulse Ox 99% ; cp4 08/23 21:13 Body Mass Index 24.24 (54.43 kg, 149.86 cm) cp4 08/23 21:13 Pain Scale: Adult cp4 Matt Coma Score: 06:58 Eye Response: spontaneous(4). Motor Response: obeys commands(6). Verbal Response: sp4 oriented(5). Total: 15. ED Course: 08/23 21:08 Patient arrived in ED. gm2 21:10 Shoaib Burnett MD is Attending Physician. sp4 21:15 Triage completed. cp4 21:15 Arm band placed on right wrist. Patient placed in waiting room. cp4 22:45 Garrett Hung, JANESSA is Primary Nurse. rg5 23:45 Patient has correct armband on for positive identification. Call light in reach. Side rg5 rails up X 1. Door closed. Noise minimized. Warm blanket given. 23:45 Missed attempt(s): 22 gauge in left forearm. rg5 08/24 00:00 No provider procedures requiring assistance completed. Inserted saline lock: 22 gauge rg5 in right antecubital area, using aseptic technique. Blood collected. Flushed with 10 mL NS. 00:00 Patient maintains SpO2 saturation greater than 95% on room air. rg5 00:27 Jens Louis MD is Hospitalizing Provider. sp4 01:04 Chest Single View XRAY In Process Unspecified. EDMS 01:44 Glucose, Ancillary Testing Sent. vk 04:06 Provided Education on: admission. cp4 04:06 Patient admitted, IV remains in place. cp4 Administered Medications: 08/23 23:55 Drug: Insulin Regular Human IVP 10 units IVP once {Co-Signature: cp4 (Kristian, rgKristel Reese).} Route: IVP; Site: right antecubital; 08/24 00:23 Follow up: Response: No adverse reaction cp4 08/23 23:58 Drug: NS 0.9% IV 1000 ml IV at 1 bolus Per protocol; to be given as a bolus over 60 rg5 minutes Route: IV; Rate: 1 bolus; Site: right antecubital; 08/24 04:07 Follow up: IV Status: Completed infusion cp4 08/23 23:58 Drug: Ondansetron IVP 4 mg IVP once; over 2 minutes Route: IVP; Site: right antecubital;rg5 08/24 00:23 Follow up: Response: No adverse reaction; Nausea is decreased cp4 00:22 Drug: NS 0.9% IV 1000 ml IV at 125 ml/hr once; to be given at 125 ml/hour Route: IV; cp4 Rate: 125 ml/hr; Site: right antecubital; 04:02 Follow up: IV Status: Order to discontinue infusion cp4 00:45 Drug: Insulin Drip - (Insulin Regular Human IVP 100 units, NS 0.9% IV 100 ml) IV at cp4 calculated rate continuous; Standard concentration 1unit/ml; Dose for DKA is 0.1 units/kg/hr {Co-Signature: vc1 (Magnolia Cintron RN).} Route: IV; Rate: calculated rate; Site: right antecubital; 01:46 Follow up: Rate change 2.7 units/hr cp4 03:45 Follow up: Rate change 3.7 units/hr cp4 04:02 Follow up: Response: No adverse reaction; IV Status: Infusion continued upon admission cp4 Medication: 08/23 23:45 VIS not applicable for this client. rg5 Point of Care Testing: Blood Glucose: 21:18 Blood Glucose: High (>450 mg/dL); cp4 Ranges: Outcome: 08/24 00:28 Decision to Hospitalize by Provider. sp4 04:05 Admitted to ER Hold. Please see [employer] for further documentation. cp4 04:05 Condition: stable 04:05 Instructed on the need for admit, 14:09 Patient left the ED. bp Signatures: Dispatcher [employer] Elias Moore, RN RN Shoaib Campos MD MD sp4 Mary Ann Townsend cp4 Sera Apple 2 Anita Paniagua Rommel, RN RN rg5 Mary Ann Townsend cp4 Magnolia Cintron RN vc1
--- NOTE | 2025-08-24 00:28 | EDPHYS ---
Physician Documentation [facility] Name: Tessa Eagle Age: 19 yrs Sex: Female : 2005 Arrival Date: 08/23/2025 Time: 21:02 Bed 13 Private MD: ED Physician Shoaib Burnett HPI: 08/23 21:10 This 19 yrs old Female presents to ER via Unassigned with complaints of High sp4 Blood Sugar, Pt stated she feels she is going into dka. 08/24 06:58 Patient with history of uncontrolled diabetes mellitus type 1 well-known to me from sp4 prior visits presents with elevated blood sugar and reports of feeling unwell. 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 - Infectious Disease History:: Denies. - Social history:: Smoking status: Patient reports the use of cigarette tobacco products, smokes one-half pack cigarettes per day, Reported history of juuling and/or vaping. - Family history:: not pertinent. ROS: 08/24 06:58 Constitutional: Negative for fever, chills, and weight loss, positive for generalized sp4 weakness, positive for elevated blood sugar All other systems are negative, Exam: 06:58 Constitutional: Thin appearing female appears mildly cachectic, ill-appearing but sp4 nontoxic tachycardic Head/Face: Normocephalic, atraumatic. Eyes: Pupils equal round and reactive to light, extra-ocular motions intact. Lids and lashes normal. Conjunctiva and sclera are not injected. Cornea within normal limits. Periorbital areas with no swelling, redness, or edema. ENT: Nares patent. No nasal discharge, no septal abnormalities noted. Tympanic membranes are normal and external auditory canals are clear. Oropharynx with no redness, swelling, or masses, exudates, or evidence of obstruction, uvula midline. Mucous membranes moist. Neck: Trachea midline, no thyromegaly or masses palpated, and no cervical lymphadenopathy. Supple, full range of motion without nuchal rigidity, or vertebral point tenderness. Chest/axilla: Normal chest wall appearance and motion. Nontender with no deformity. No lesions are appreciated. Cardiovascular: Regular rate and rhythm with a normal S1 and S2. No gallops, murmurs, or rubs. No pulse deficits. Respiratory: Lungs have equal breath sounds bilaterally, clear to auscultation and percussion. No rales, rhonchi or wheezes noted. No increased work of breathing, no retractions or nasal flaring. Abdomen/GI: Soft, with normal bowel sounds. No distension or tympany. No guarding or rebound. No evidence of tenderness throughout. Back: No spinal tenderness. No costovertebral tenderness. Skin: Warm, dry with normal turgor. Normal color with no rashes, no lesions, and no evidence of cellulitis. MS/ Extremity: Pulses equal, no cyanosis. Neurovascular intact. Full, normal range of motion. Neuro: Awake and alert, GCS 15, oriented to person, place, time, and situation. Cranial nerves II-XII grossly intact. Motor strength 5/5 in all extremities. Sensory grossly intact. Psych: Awake, alert, with orientation to person, place and time. Behavior, mood, and affect are within normal limits Vital Signs: 08/23 21:13 BP 138 / 78; Pulse 128; Resp 20; Temp 97.5; Pulse Ox 100% ; Weight 54.43 kg; Height 4 cp4 ft. 11 in. ; Pain 0/10; 08/24 00:00 BP 138 / 86; Pulse 109; Resp 18; Pulse Ox 100% ; rg5 01:00 BP 105 / 63; Pulse 119; Resp 18; Pulse Ox 100% ; cp4 02:00 BP 110 / 70; Pulse 112; Resp 18; Pulse Ox 100% ; cp4 03:00 BP 102 / 53; Pulse 103; Resp 18; Pulse Ox 100% ; cp4 04:00 BP 110 / 61; Pulse 98; Resp 18; Pulse Ox 100% ; cp4 05:00 BP 123 / 76; Pulse 100; Resp 16; Pulse Ox 99% ; cp4 08/23 21:13 Body Mass Index 24.24 (54.43 kg, 149.86 cm) cp4 08/23 21:13 Pain Scale: Adult cp4 Matt Coma Score: 06:58 Eye Response: spontaneous(4). Motor Response: obeys commands(6). Verbal Response: sp4 oriented(5). Total: 15. MDM: 08/23 21:13 Medical Screening Exam initiated sp4 08/24 06:58 ED course: CLINICAL HISTORY: Chest pain. COMPARISON: None. TECHNIQUE: XR CHEST 1 VIEW sp4 08/24/2025 12:12 AM CDT FINDINGS: Cardiac silhouette is normal in size. Lungs are clear without consolidation, atelectasis, mass or edema. There is no pleural effusion. There is no pneumothorax. There are no acute osseous findings. IMPRESSION: Clear lungs. 07:00 Differential diagnosis: diabetes insipidus, DKA, hyperglycemia, hyperthyroidism, sp4 hypothyroidism, new onset diabetes. Data reviewed: vital signs, nurses notes, old medical records, lab test result(s), radiologic studies, plain films. Consideration of Admission/Observation Patient was admitted/placed on observation. Escalation of care including admission/observation considered. Management of patient was discussed with the following: Hospitalist: Heriberto SALSA . ED course: Managed for DKA and admitted to ICU. He will be held in ER for ICU. 08/23 21:14 Order name: CBC with Diff; Complete Time: 00:59 sp4 08/23 21:14 Order name: CMP; Complete Time: 00:10 4 08/23 21:14 Order name: Lipase; Complete Time: 00:10 4 08/23 21:30 Order name: Test, Serum; Complete Time: 00:10 4 08/23 21:30 Order name: BETA HYDROXYBUTYRATE; Complete Time: 00:10 4 08/23 21:31 Order name: Lactate w/ 2H reflex if indic.; Complete Time: 00:10 4 08/23 21:31 Order name: Glucose, Ancillary Testing; Complete Time: 21:32 EDMS 08/23 21:33 Order name: UA W/ Microscopic; Complete Time: 00:59 sp4 08/23 23:53 Order name: Manual Differential; Complete Time: 00:59 EDMS 08/24 00:01 Order name: Glucose, Ancillary Testing EDMS 08/24 00:12 Order name: Urine Drug Screen; Complete Time: 00:59 sp4 08/24 00:12 Order name: COVID-19 Ag + Flu A+B Ag; Complete Time: 01:35 sp4 08/24 01:31 Order name: Basic Metabolic Panel EDMS 08/24 01:31 Order name: Basic Metabolic Panel; Complete Time: 05:17 EDMS 08/24 01:31 Order name: Basic Metabolic Panel EDMS 08/24 01:31 Order name: Basic Metabolic Panel; Complete Time: 20:10 EDMS 08/24 01:31 Order name: Calcium Level EDMS 08/24 01:31 Order name: Calcium Level EDMS 08/24 01:31 Order name: Calcium Level EDMS 08/24 01:31 Order name: Calcium Level EDMS 08/24 01:31 Order name: CBC with Automated Diff EDMS 08/24 01:31 Order name: CBC with Automated Diff EDMS 08/24 01:31 Order name: CBC with Automated Diff EDMS 08/24 01:31 Order name: CBC with Automated Diff EDMS 08/24 01:31 Order name: Magnesium EDMS 08/24 01:31 Order name: Magnesium EDMS 08/24 01:31 Order name: Magnesium EDMS 08/24 01:31 Order name: Magnesium EDMS 08/24 01:54 Order name: Glucose, Ancillary Testing; Complete Time: 02:24 EDMS 08/24 02:56 Order name: Glucose, Ancillary Testing; Complete Time: 04:40 EDMS 08/24 02:56 Order name: Glucose, Ancillary Testing; Complete Time: 04:40 EDMS 08/24 04:05 Order name: Glucose, Ancillary Testing; Complete Time: 04:40 EDMS 08/24 05:59 Order name: Glucose, Ancillary Testing; Complete Time: 06:57 EDMS 08/24 06:34 Order name: Glucose, Ancillary Testing; Complete Time: 06:57 EDMS 08/24 08:06 Order name: Glucose, Ancillary Testing; Complete Time: 20:10 EDMS 08/24 09:15 Order name: Glucose, Ancillary Testing; Complete Time: 20:10 EDMS 08/24 10:23 Order name: Glucose, Ancillary Testing; Complete Time: 20:10 EDMS 08/24 11:43 Order name: Glucose, Ancillary Testing; Complete Time: 20:10 EDMS 08/24 12:33 Order name: Glucose, Ancillary Testing; Complete Time: 20:10 EDMS 08/24 13:28 Order name: Glucose, Ancillary Testing; Complete Time: 20:10 EDMS 08/24 00:12 Order name: Chest Single View XRAY; Complete Time: 06:57 sp4 10/07 21:14 Order name: IV Saline Lock; Complete Time: 23:58 sp4 08/23 21:14 Order name: Labs collected and sent; Complete Time: 23:40 sp4 Administered Medications: 08/23 23:55 Drug: Insulin Regular Human IVP 10 units IVP once {Co-Signature: cp4 (Kristian, raeann Reese).} Route: IVP; Site: right antecubital; 08/24 00:23 Follow up: Response: No adverse reaction cp4 08/23 23:58 Drug: NS 0.9% IV 1000 ml IV at 1 bolus Per protocol; to be given as a bolus over 60 rg5 minutes Route: IV; Rate: 1 bolus; Site: right antecubital; 08/24 04:07 Follow up: IV Status: Completed infusion cp4 08/23 23:58 Drug: Ondansetron IVP 4 mg IVP once; over 2 minutes Route: IVP; Site: right antecubital;rg5 08/24 00:23 Follow up: Response: No adverse reaction; Nausea is decreased cp4 00:22 Drug: NS 0.9% IV 1000 ml IV at 125 ml/hr once; to be given at 125 ml/hour Route: IV; cp4 Rate: 125 ml/hr; Site: right antecubital; 04:02 Follow up: IV Status: Order to discontinue infusion cp4 00:45 Drug: Insulin Drip - (Insulin Regular Human IVP 100 units, NS 0.9% IV 100 ml) IV at cp4 calculated rate continuous; Standard concentration 1unit/ml; Dose for DKA is 0.1 units/kg/hr {Co-Signature: vc1 (Magnolia Cintron RN).} Route: IV; Rate: calculated rate; Site: right antecubital; 01:46 Follow up: Rate change 2.7 units/hr cp4 03:45 Follow up: Rate change 3.7 units/hr cp4 04:02 Follow up: Response: No adverse reaction; IV Status: Infusion continued upon admission cp4 Point of Care Testing: Blood Glucose: 08/23 21:18 Blood Glucose: High (>450 mg/dL); cp4 Ranges: Critical Glucose Levels:Adult <50 mg/dl or >400 mg/dl <40 mg/dl or >180 mg/dl Disposition Summary: 08/24/25 00:28 Hospitalization Ordered Notes: Hospitalization Status: Inpatient Admission sp4 Provider: Jens Louis Condition: Fair sp4 Problem: new sp4 Symptoms: have improved sp4 Bed/Room Type: Standard sp4 Location: [facility] ER HOLD(08/24/25 01:06) cg Room Assignment: ERHOLD-(08/24/25 01:06) cg Diagnosis - Acute diabetic ketoacidosis sp4 Forms: - Medication Reconciliation Form sp4 - SBAR form sp4 - Leadership Thank You Letter sp4 Critical care time excluding procedures: 08/24 00:27 Critical care time: Bedside Care: 36 minutes, Consultation: 12 minutes, Family sp4 Intervention: 12 minutes. Total time: 60 minutes Signatures: Dispatcher [employer] Sindi Tariq, RN RN Shoaib Jiang MD MD sp4 Mary Ann Townsend cp4 Garrett Hung RN RN rg5 Mary Ann Townsend cp4 Magnolia Cintron RN vc1 Corrections: (The following items were deleted from the chart) 08/23 21:31 21:31 BETA HYDROXYBUTYRATE+C.LAB.BRZ ordered. EDMS EDMS 08/24 00:12 00:12 URINE DRUG SCREEN+UC.LAB.BRZ ordered. EDMS EDMS 00:12 00:12 COVID-19 Ag + Flu A+B Ag+I.LAB.BRZ ordered. EDMS EDMS 00:13 00:13 Chest Single View+RAD.RAD.BRZ ordered. EDWI EDMS 01: 00:28 Intensive Care Unit sp4 cg : 00:28 sp4 cg
[2025-08-24] MEDS ORDERED: INSULIN REGULAR (HUMAN) 100 UNIT/ML ONE (00:36)
[2025-08-24] MEDS ORDERED: NA CHLORIDE 0.9% 100 ML ONE (00:37)
[2025-08-24] MEDS: INSULIN REGULAR, HUMAN 100 UNIT in NA CHLORIDE 0.9% 100 ML IV SCH (00:45)
[2025-08-24 00:54] LABS: METHAMPHETAM NEGATIVE (NEGATIVE); THC Cannibis NEGATIVE (NEGATIVE)
[2025-08-24 00:55] LABS: Urine Micro Reflex YN NO BILL MICROSCOPIC
[2025-08-24 01:05] LABS: Influenza A Ag Negative; Influenza B Ag Negative; SARS-CoV-2 Antigen Rapid Res Negative (Negative)
[2025-08-24] MEDS ORDERED: GLUCAGON 1 MG/VIAL IM PRN (01:26)
[2025-08-24] MEDS ORDERED: D50W 25 GM/50 ML SYRINGE IV PRN (01:26)
[2025-08-24] MEDS ORDERED: ONDANSETRON 4 MG/2 ML VIAL IV PRN (01:26)
--- NOTE | 2025-08-24 01:27 | P.HP ---
Certification for Inpatient Patient admitted to: Inpatient With expected LOS: >2 Midnights Practitioner: I am a practitioner with admitting privileges, knowledge of patient current condition, hospital course, and medical plan of care. Services: Services provided to patient in accordance with Admission requirements found in Title 42 Section 412.3 of the Code of Federal Regulations Patient History Date of Service: 08/24/25 Reason for admission: DKA History of Present Illness: 19 yrs old Female with past medical history of diabetes, history of CKD stage II, history of substance abuse, anorexia was brought to ER with elevated blood sugar. Patient had a history of DKA in the past and she feels that she is going to be in DKA. She feels nauseous. Denies any diarrhea. No fever or chills. No chest pain or shortness of breath. Patient was assessed in the ER and was found to be in DKA and is admitted to the ICU for further management Allergies No Known Allergies Allergy (Verified 07/13/23 22:35) Home medications list reviewed: Yes Home Medications: Insulin Lispro [Humalog] 6 units SQ DAILY 02/03/23 Insulin Glargine,Hum.rec.anlog [Semglee] 30 units SQ DAILY 01/09/25 - Past Medical/Surgical History Diabetic: Yes Past Medical History: Reviewed- Non-Contributory -: Type 1 diabetes -: Depression -: Anorexia -: Noncompliance -: Drug abuse Past Surgical History: Reviewed- Non-Contributory -: None Psychosocial/ Personal History: Patient lives at home with family. - Family History Father -: Diabetes - Social History Smoking Status: Current some day smoker Alcohol use: No CD- Drugs: Yes Caffeine use: Yes Review of Systems 10-point ROS is otherwise unremarkable Physical Examination - Vital Signs Temperature: 98.4 F Blood Pressure: 110/61 Pulse: 96 Respirations: 18 Pulse Ox (%): 94 - Physical Exam General: Alert, Oriented x3, Mild distress HEENT: Atraumatic, Normocephalic Neck: Supple Respiratory: Clear to auscultation bilaterally, Normal air movement Cardiovascular: Regular rate/rhythm, Normal S1 S2 Capillary refill: <2 Seconds Gastrointestinal: Soft and benign, W/out hepatosplenomegaly Musculoskeletal: No clubbing, No swelling Integumentary: No rashes Neurological: Other (Alert awake nonfocal) Lymphatics: No axilla or inguinal lymphadenopathy - Studies Laboratory Data (last 24 hrs) 08/23/25 08/23/25 23:24 23:24 WBC 6.90 Hgb 10.0 L Hct 34.1 L Plt Count 282 Sodium 125 L Potassium 4.7 BUN 26 H Creatinine 1.59 H Glucose 831 H* Total Bilirubin 0.5 AST 12 L ALT 31 Alkaline Phosphatase 266 H Lipase 21 Assessment and Plan - Plan Diabetic ketoacidosis Admit to ICU Started on insulin drip Anion gap monitored IV hydration aggressively Oxygen supplementation PRN Will monitor BMP every 4 hours Accu-Chek q. hourly Anion gap at the time of admission is 29.7 Will monitor anion gap Electrolytes monitor and replace accordingly Hyponatremia Will monitor electrolytes and replace accordingly noncompliant with medications Advised regarding compliance GI/DVT prophylaxis Advanced directive full code Discharge Plan: Home Plan to discharge in: 48 Hours - Advance Directives Does patient have a Living Will: No Does patient have a Durable POA for Healthcare: No - Code Status/Comfort Care Code Status: Full Code Time Spent Managing Pts Care (In Minutes): 48
[2025-08-24] MEDS: NACHLORIDE 0.45% 1,000 ML IV SCH (02:00)
[2025-08-24 03:25] VITALS: BMI 24.2
[2025-08-24 04:21] VITALS: TEMP 98.4
[2025-08-24 04:59] LABS: Anion Gap 16.0 mEq/L (5.0-15.0); BUN Blood Urea Nitrogen 23.0 mg/dL (7-18); Glucose Level 276.0 mg/dL (74-106); Potassium 4.0 mEq/L (3.5-5.1)
--- NOTE | 2025-08-24 05:57 | RAD REPORT ---
CLINICAL HISTORY: Chest pain. COMPARISON: None. TECHNIQUE: XR CHEST 1 VIEW 08/24/2025 12:12 AM CDT FINDINGS: Cardiac silhouette is normal in size. Lungs are clear without consolidation, atelectasis, mass or carmen ma. There is no pleural effusion. There is no pneumothorax. There are no acute osseous findings. IMPRESSION: Clear lungs. Electronically signed by: Ronnie Patricia MD 08/24/2025 02:53 AM CDT RP Du e to temporary technical issues with the PACS/[employer] reporting system, reports are being signed by the in-house radiologist without review as a courtesy to ensure prompt reporting the [place] radiologist is fully responsible for the content of the report. Transcribed Date/Time: 08/24/2025 5:57 AM
[2025-08-24] MEDS: D5 0.9 NS 1,000 ML IV SCH (06:30)
[2025-08-24] MEDS ORDERED: D5 0.9 NS 1,000 ML IV ONE (06:31)
[2025-08-24] MEDS ORDERED: FLU (Fluarix) 25-26 (6MOS UP)/PF 45 MCG/0.5 ML Syringe IM ONE (08:15)
[2025-08-24 08:53] LABS: Anion Gap 11.6 mEq/L (5.0-15.0); BUN Blood Urea Nitrogen 19.0 mg/dL (7-18); Glucose Level 91.0 mg/dL (74-106); Potassium 3.6 mEq/L (3.5-5.1)
[2025-08-24] MEDS: INSULIN GLARGINE 100 UNIT/ML SQ ONE (12:03)
[2025-08-24] MEDS ORDERED: INSULIN GLARGINE 100 UNIT/ML SQ ONE (12:19)
[2025-08-24 12:23] VITALS: BP 125/84
[2025-08-24 14:45] VITALS: O2SAT 99
== END 2025-08-24 13:59 | disposition home or self-care (01) | DRG 638 ==
LOC: ER 21:02 → ERHOLD 08-24 01:26
PROVIDERS: ADMIT Family Medicine; ATTEND Hospitalist
DX: E10.10 Type 1 diabetes mellitus with ketoacidosis without coma (principal); E87.1 Hypo-osmolality and hyponatremia; N18.2 Chronic kidney disease, stage 2 (mild); E10.22 Type 1 diabetes mellitus with diabetic chronic kidney disease; F17.210 Nicotine dependence, cigarettes, uncomplicated; Z79.4 Long term (current) use of insulin; Z11.52 Encounter for screening for COVID-19; Z91.148 Patient's other noncompliance with medication regimen for other reason
CPT/HCPCS: 36415; 71045; 80048; 80053; 80307; 81001; 82010; 82947; 83605; 83690; 84703; 85025; 87428; 96361; 96365; 96366; 96375; 99285; J1815; J2405; J7030; J7042

== ENCOUNTER 2025-08-30 04:29 | Emergency (ER) | payer OTHER ==
--- NOTE | 2025-08-30 05:34 | ER ---
Nurse's Notes [facility] Name: Tessa Eagle Age: 19 yrs Sex: Female : 2005 Arrival Date: 08/30/2025 Time: 04:29 Bed 18 Private MD: Diagnosis: Poisoning by unspecified drugs, medicaments and biological substances, accidental (unintentional), initial encounter Presentation: 08/30 04:37 Chief complaint: EMS states: toned out for being unresponsive after taking an unkown nh2 amount of substances at friends house. Coronavirus screen: Client denies travel out of the [place] in the last 14 days. At this time, the client does not indicate any symptoms associated with coronavirus-19. Ebola Screen: Patient denies travel to an Ebola-affected area in the 21 days before illness onset. No symptoms or risks identified at this time. Initial Sepsis Screen: Does the patient meet any 2 criteria? No. Patient's initial sepsis screen is negative. Does the patient have a suspected source of infection? No. Patient's initial sepsis screen is negative. Risk Assessment: Do you want to hurt yourself or someone else? Patient reports no desire to harm self or others. Onset of symptoms was August 30, 2025. 04:37 Method Of Arrival: EMS nh2 04:37 Acuity: JUSTIN 3 nh2 04:37 Care prior to arrival: Medication(s) given: Narcan 2mg Intranasal. nh2 Triage Assessment: 04:40 General: Appears in no apparent distress. Behavior is flat, quiet, uncooperative. nh2 General: refusing vital signs, EKG, blood work, and does not want to answer any questions. Wants to leave AMA despite education on the need to monitor for respiratory depression and adverse outcomes. Pain: Denies pain. EENT: No signs and/or symptoms were reported regarding the EENT system. Neuro: Level of Consciousness is awake, alert, obeys commands, Oriented to person, place, time, situation, Appropriate for age Speech is normal, Facial symmetry appears normal, Denies weakness headache. Cardiovascular: Heart tones S1 S2 present Patient's skin is warm and dry. Pulses are all present. Respiratory: Airway is patent Trachea midline Respiratory effort is even, unlabored, Respiratory pattern is regular, symmetrical, no accessory muscle use Breath sounds are clear bilaterally. Denies cough, shortness of breath. GI: Abdomen is flat, non-distended. : No signs and/or symptoms were reported regarding the genitourinary system. Derm: Skin is intact, Skin is dry, Skin is pink, warm \\T\\ dry. Musculoskeletal: Circulation, motion, and sensation intact. Range of motion: intact in all extremities. 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 - Infectious Disease History:: Denies. - Social history:: Smoking status: unknown. Screenin:44 [facility] ED Fall Risk Assessment (Adult) History of falling in the last 3 months, nh2 including since admission No falls in past 3 months (0 pts) Confusion or Disorientation No (0 pts) Intoxicated or Sedated No (0 pts) Impaired Gait No (0 pts) Mobility Assist Device Used No (0 pt) Altered Elimination No (0 pt) Score/Fall Risk Level 0 - 2 = Low Risk Oriented to surroundings, Maintained a safe environment, Educated pt \\T\\ family on fall prevention, incl call for assistance when getting out of bed, Assessed \\T\\ reinforced patient's understanding of fall precautions. Abuse screen: Denies threats or abuse. Denies injuries from another. Nutritional screening: No deficits noted. Tuberculosis screening: No symptoms or risk factors identified. Assessment: 04:44 Reassessment: see triage. nh2 05:23 Reassessment:. Pain: Denies pain. Neuro: Level of Consciousness is awake, alert, obeys [facility] commands, Oriented to person, place, time, situation, Appropriate for age. Cardiovascular: Denies chest pain, Patient's skin is warm and dry. Respiratory: Airway is patent Trachea midline Respiratory effort is even, unlabored, Respiratory pattern is regular, symmetrical, Breath sounds are clear bilaterally. Denies shortness of breath. Psych: 04:59 [place] Suicide Severity Screening: In the past month, have you wished you were nh2 or wished you could go to sleep and not wake up? Patient responds "No." "In the past month, have you actually had any thoughts of killing yourself?" Patient responds "no." "In your lifetime, have you ever done anything, started to do anything, or prepared to do anything to end your life?" Patient responds "no." Harris SI. 05:00 Safety Checks: Door is open. No visitors are present at this time. Commitment: NO bm8 COMMITMENT NEEDED. 05:01 Subjective: Patient's mood is withdrawn Delusions are denied, Hallucinations are denied nh2 Having thoughts of denies. Objective: Patient is uncooperative, guarded, Speech is normal, Affect is flat. Interventions:. Pt denies substance abuse. Vital Signs: 04:37 Resp 16; nh2 05:27 BP 125 / 75; Pulse 110; Resp 17; Temp 97.8; Pulse Ox 96% on R/A; nh2 04:37 refusing vital signs and all nursing interventions; provider notified nh2 Lawn Coma Score: 05:36 Eye Response: spontaneous(4). Motor Response: obeys commands(6). Verbal Response: bm8 oriented(5). Total: 15. ED Course: 04:34 Patient arrived in ED. [facility] 04:34 [facility]ivas[facility] Harrington [facility]C [facility] cp 04:35 Srinivasan Chirs MD is Attending Physician. cp 04:37 Oniel Ma Jr, RN is Primary Nurse. nh2 04:40 Triage completed. nh2 04:40 Arm band placed on right wrist. nh2 04:44 Patient has correct armband on for positive identification. Bed in low position. Call nh2 light in reach. Side rails up X 1. Provided Education on: using call light for assistance. 04:44 No provider procedures requiring assistance completed. Patient did not have IV access nh2 during this emergency room visit. refused IV. 05:35 Primary Nurse role handed off by Oniel Ma Jr, RN cp 06:05 Lupillo Waterman, RN is Primary Nurse. bm8 Administered Medications: No medications were administered Medication: 04:44 VIS not applicable for this client. nh2 Outcome: 05:33 Patient left the ED. nh2 05:36 Discharged to home ambulatory, with friend, bm8 05:36 Condition: stable 05:36 Discharge instructions given to patient, friend, Instructed on discharge instructions, follow up and referral plans. no drinking with medication, no driving heavy equipment, medication usage, safety practices, 05:38 Discharge ordered by . cp 06:05 Patient left the ED. bm8 Signatures: Srinivasan Harrington PA-C PA-C cp Forrester, Kelsey Maroul [facility] Lupillo Waterman, RN RN bm8 Oniel Ma Jr RN RN nh2 Corrections: (The following items were deleted from the chart) 04:47 04:40 General: refusing vital signs, EKG, blood work, and does not want to answer any nh2 questions. nh2 04:52 04:40 General: refusing vital signs, EKG, blood work, and does not want to answer any nh2 questions. Wants to leave AMA. nh2 05:01 04:59 [place] Suicide Severity Screening: In the past month, have you wished you were nh2 or wished you could go to sleep and not wake up? Patient responds "No." "In the past month, have you actually had any thoughts of killing yourself?" Patient responds "no." "In your lifetime, have you ever done anything, started to do anything, or prepared to do anything to end your life?" Patient responds "no." Harris SI nh2 05:29 04:37 refusing vital signs and all nursing interventions; provider notified; nh2 nh2
--- NOTE | 2025-08-30 05:40 | EDPHYS ---
Physician Documentation [facility] Name: Tessa Eagle Age: 19 yrs Sex: Female : 2005 Arrival Date: 08/30/2025 Time: 04:29 Bed 18 Private MD: ED Physician Srinivasan Chris HPI: 08/30 04:50 This 19 yrs old Female presents to ER via EMS with complaints of Possible cp Overdose. 04:50 The patient presents to the emergency department with a possible overdose, EMS reports cp patient with history of illegal narcotic use. Roommate reportedly witnessed patient taking illegal Percocet prior to becoming unconscious. Law enforcement administered 2 mg Narcan with response of patient becoming conscious. Patient uncooperative, alert to person, place and time. Patient able to make informed decisions at this time. 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 - Infectious Disease History:: Denies. - Social history:: Smoking status: unknown. ROS: 04:55 Constitutional: Negative for body aches, chills, fever, poor PO intake, cp 04:55 Eyes: Negative for injury, pain, redness, and discharge, cp 04:55 ENT: Negative for drainage from ear(s), ear pain, sore throat, difficulty swallowing, difficulty handling secretions, 04:55 Cardiovascular: Negative for chest pain, palpitations, 04:55 Respiratory: Negative for cough, shortness of breath, wheezing, 04:55 Abdomen/GI: Negative for abdominal pain, vomiting, diarrhea, constipation, 04:55 Neuro: Negative for altered mental status, headache, numbness, seizure activity, 04:55 All other systems are negative, Exam: 05:00 Constitutional: The patient appears in no acute distress, alert, awake, cp non-diaphoretic, non-toxic, well developed, well nourished, 05:00 Head/Face: Normocephalic, atraumatic. cp 05:00 Eyes: Pupils: equal, round, and reactive to light and accomodation, Conjunctiva: normal, no exudate, no injection, Sclera: no appreciated abnormality, Lids and lashes: appear normal, bilaterally, 05:00 ENT: External ear(s): are unremarkable, Nose: is normal, Mouth: Lips: dry, Oral mucosa: moist, Posterior pharynx: Airway: no evidence of obstruction, patent, 05:00 Chest/axilla: Inspection: normal, 05:00 Cardiovascular: Rate: tachycardic, 05:00 Respiratory: the patient does not display signs of respiratory distress, Respirations: normal, no use of accessory muscles, no retractions, labored breathing, is not present, Breath sounds: are clear throughout, no decreased breath sounds, no stridor, no wheezing, 05:00 Abdomen/GI: Exam negative for discomfort, distension, guarding, Inspection: abdomen appears normal, 05:00 Neuro: Orientation: to person, place \T\ time. Mentation: able to follow commands, Motor: moves all fours, no focal deficits, 05:00 Psych: Behavior/mood is uncooperative, Delusions/hallucinations are not present. Vital Signs: 04:37 Resp 16; nh2 05:27 BP 125 / 75; Pulse 110; Resp 17; Temp 97.8; Pulse Ox 96% on R/A; nh2 04:37 refusing vital signs and all nursing interventions; provider notified nh2 Matt Coma Score: 05:36 Eye Response: spontaneous(4). Motor Response: obeys commands(6). Verbal Response: bm8 oriented(5). Total: 15. MDM: 04:37 Medical Screening Exam initiated cp 05:30 Data reviewed: vital signs, nurses notes. cp 05:30 Refusal of service: The patient/guardian displays adequate decision making capability cp and despite a detailed discussion of alternatives, benefits, risks, and consequences refuses: all lab tests, continued monitoring and treatment in ED. 08/30 04:50 Order name: Suicide Screening (Tell); Complete Time: 04:58 cp Administered Medications: No medications were administered Disposition Summary: 08/30/25 05:38 Discharge Ordered Notes: Location: Home(08/30/25 05:38) cp Problem: new cp Symptoms: have improved cp Condition: Stable(08/30/25 05:38) cp Diagnosis - Poisoning by unspecified drugs, medicaments and biological substances, accidental cp (unintentional), initial encounter Followup: cp - With: Private Physician - When: 1 - 2 days - Reason: Recheck today's complaints Discharge Instructions: - Discharge Summary Sheet cp - Accidental Drug Poisoning, Adult cp - Intentional Drug Overdose cp - Illegal Drug Use Information, Adult cp Forms: - Medication Reconciliation Form cp - Antibiotic Education cp - Prescription Opioid Use cp - Patient Portal Instructions cp - Leadership Thank You Letter cp Addendum: 08/31/2025 07:50 Co-signature as Attending Physician, Srinivasan Chris MD I agree with the assessment and c cody plan of care. Signatures: Dispatcher [employer] EDSrinivasan Stern MD MD cha Page, Corey, PA-C PA-C Oniel Mackenzie Jr RN RN nh2 Corrections: (The following items were deleted from the chart) 08/30 04:50 04:50 ACETAMINOPHEN+C.LAB.BRZ ordered. EDMS EDMS 04:50 04:50 BASIC METABOLIC PANEL+C.LAB.BRZ ordered. EDMS EDMS 04:50 04:50 CBC+H.LAB.BRZ ordered. EDMS EDMS 04:50 04:50 ETHANOL+C.LAB.BRZ ordered. EDMS EDMS 04:50 04:50 HEPATIC FUNCTION+C.LAB.BRZ ordered. EDMS EDMS 04:50 04:50 PROTIME (+INR)+COAG.LAB.BRZ ordered. EDMS EDMS 04:50 04:50 Test, Urine+UC.LAB.BRZ ordered. EDMS EDMS 04:50 04:50 PTT, ACTIVATED+COAG.LAB.BRZ ordered. EDMS EDMS 04:50 04:50 SALICYLATE+C.LAB.BRZ ordered. EDMS EDMS 04:50 04:50 URINE DRUG SCREEN+UC.LAB.BRZ ordered. EDMS EDMS 04:54 04:50 EKG - Nurse/Tech ordered. cp nh2 04:54 04:50 IV Saline Lock ordered. cp nh2 04:55 04:50 Labs collected and sent ordered. cp nh2 05:35 05:33 Home nh2 cp 05:35 05:33 Stable nh2 cp
[2025-08-30 14:53] VITALS: BP 125/75; TEMP 97.8; O2SAT 96
== END 2025-08-30 06:05 | disposition home or self-care (01) ==
LOC: ER 04:29
DX: T40.2X1A Poisoning by other opioids, accidental (unintentional), initial encounter (principal)
CPT/HCPCS: 99283